=== PATIENT | female | born 1955 | race Caucasian/White ===

== ENCOUNTER 2017-12-20 08:57 | Day surgery (SDC) | payer MEDICAID, SELFPAY ==
[2017-12-20] VITALS (10 sets, daily range): BP systolic 99–154; BP diastolic 69–85; PULSE 65–106; RESP 16–18; TEMP 36.3–37; O2SAT 93–100; BMI 25.0
--- NOTE | 2017-12-20 09:53 | EKG12_ITS ---
Test Reason : PRE OP Blood Pressure : / mmHG Vent. Rate : 059 BPM Atrial Rate : 059 BPM P-R Int : 150 ms QRS Dur : 080 ms QT Int : 438 ms P-R-T Axes : 033 014 000 degrees QTc Int : 433 ms Sinus bradycardia Nonspecific T wave abnormality Abnormal ECG When compared with ECG of 18-AUG-2017 19:53, No significant change was found Confirmed by ELADIA GLOVER ([id number]), editor magazine NICHOLAS SPEARS ([id number]) on 12/22/2017 1:33:22 PM Referred By: Jimbo Moar Confirmed By:ELADIA GLOVER
[2017-12-20 10:12] LABS: Hematocrit 34.1 % (37-47); Mean Corp Hgb Conc 32.3 g/gl (32-36); Mean Corpuscular Hgb 29.8 pg (27.0-32.0); Mean Corpuscular Volume 92.4 fL (81-99); Platelet Count 408 K/mm3 (150-450); RBC Distribution Width CV 15.6 % (11.6-14.6); RBC Distribution Width SD 50.7 fl (35.1-43.9); Red Blood Count 3.69 M/mm3 (4.2-5.4); White Blood Count 11.2 K/mm3 (4.4-11.0)
[2017-12-20 10:13] LABS: Scan Indicated on CBC? Y/N NO
[2017-12-20 10:34] LABS: Anion Gap 8 (5-15); BUN 16 mg/dL (7-18); Calcium,Total 8.7 mg/dL (8.5-10.1); Chloride 107 mmol/L (98-107); Creatinine, Serum 0.73 mg/dL (0.55-1.02); EST Glomerular Filtration Rate 86 mL/min (>60); Est Glom Filt Rate - Afr Amer 104 mL/min (>60); Estimated Creatinine Clearance 67.74 ml/min; Glucose 81 mg/dL (70-110); Potassium 3.8 mmol/L (3.5-5.1); Sodium Level 140 mmol/L (136-145); Thyroid Stim Hormone (TSH) 0.72 uIU/mL (0.358-3.74)
[2017-12-20] MEDS: Cefazolin 2 GM in 0.9% Normal Saline 100 ML IV (13:54)
--- NOTE | 2017-12-20 14:29 | PCM.IMDPSTOP ---
Immediate Post-Op Note Date of Procedure: 12/20/17 Primary Surgeon/Physician: Jimbo Mora, biomedical equipment tech: none Pre-Operative Diagnosis: Right shoulder partial rotator cuff tear, right shoulder type II SLAP lesion and subacromial impingement Post-Operative Diagnosis: Same as above Surgery/Procedure Performed:: Right shoulder partial articular sided cuff debridement, type II SLAP debridement, arthroscopic subacromial decompression Description of Surgical Findings:: See dictation Estimated Blood Loss: 20 Specimen's removed: None Type of Anesthesia:: General ASA Class: ASA1 Normal Healthy Patient - Admit VTE Documentation VTE Present on Admission: No VTE Mechan Device Prophylaxis: SCD's, Knee High ROVERTO Hose VTE Pharm Prophylaxis ordered?: No Reason prophylaxis not ordered:: Treatment Not Indicated
[2017-12-20] MEDS: Bupivacaine 0.25% 30 ML Vial (14:30)
--- NOTE | 2017-12-20 14:30 | PCM.OPRPT ---
Report of Operation Date of Procedure: 12/20/17 Pre-Operative Diagnosis: Right shoulder partial rotator cuff tear, right shoulder type II SLAP lesion and subacromial impingement Post-Operative Diagnosis: Same as above Surgery/Procedure Performed:: Right shoulder partial articular sided cuff debridement, type II SLAP debridement, arthroscopic subacromial decompression Description of Surgical Findings:: 62-year-old female with recalcitrant right shoulder pain that failed nonoperative management to include NSAIDs and modifications physical therapy injections. Patient had an MRI that showed rotator cuff tendinopathy in my opinion a partial articular sided cuff tear and signal change concerning for type II SLAP changes. She had fluid in the subacromial space indicative of subacromial bursitis and impingement. Having failed conservative measures patient elected for operative intervention. Patient was met in the holding area where her right upper extremity was marked and identified by the with surgeon. Patient was taken to the operating room in satisfactory condition with somewhat to place to identify patient up procedure limb. Patient received 2 g Ancef. Patient underwent a successful intubation she was then placed in the beachchair position with all bony and soft tissue prominences protected. Her head was in a fine neutral position. She was then prepped and draped in usual fashion. Arm was placed into a positional arm butterfield. Posterior portal was established and we entered the intra-articular space. Upon identification of the anatomic triangle and anterior inferior working portal was established. Diagnostic scope to the patient have signal change consistent with type II SLAP however the undersurface did not appear to be pathologic but was debrided to a stable rim. The biceps root was otherwise stable. There was no injection upon outlet. There was no medialization with tensioning of the biceps itself. The patient showed partial articular sided rotator cuff tear from the supraspinatus really to the bare area. It measured roughly 4 mm in overall diameter. It was mechanically debrided to a shaver to a stable rim with some mild bleeding which will aid with healing. The posterior central counts were normal she had no loose bodies x-ray pouch posterior inferior posterior superior labrum are normal as was the anterior inferior labrum. Patient showed mild glenoid changes consistent with type II chondromalacia. The humeral head was otherwise normal. The patient did show a Abigail complex change from the 3 o'clock position to the 12 o'clock position which is a normal anatomic variant. Upon completion of the intra-articular work the scope was retracted and removed in the subacromial space. We established a mid lateral portal using standard technique. Patient had moderate subacromial bursitis which was mechanically debrided using a shaver and a bite vapor wand. Patient's CA ligament was was preserved as we performed an arthroscopic subacromial acromioplasty of roughly 4 mm. Evaluation of the rotator cuff point in internal and external rotations of the bursal tablets of completely normal. Her crescent tissue was within normal limits. At that point time the scope was retracted and the portal sites closed with 3-0 nylon. Patient was dressed in usual fashion with Xeroform 4 x 4's ABDs and Medipore tape. She will be placed into a simple sling and follow the arthroscopic subacromial decompression protocol. Patient will follow with me in 2 weeks. There is no drains or complications and no implants. Any major issues please contact. power and recovery superintendent: none Type of Anesthesia:: General Specimen's removed: None Estimated Blood Loss (mL): 20 Grafts/Implants Used: None - Complications None - Admit VTE Documentation VTE Present on Admission: No VTE Mechan Device Prophylaxis: SCD's, Knee High ROVERTO Hose VTE Pharm Prophylaxis ordered?: No Reason prophylaxis not ordered:: Treatment Not Indicated
--- NOTE | 2017-12-20 14:34 | PCM.DC.ORTHO ---
Discharge Activity: Return to Normal Activity, May not drive while taking narcotic pain medications., May Shower, - - Sling for comfort. Active range of motion the shoulder allowed ad nahomy. Recommend limited overhead activity if possible. The patient is brought recommended that she move the shoulder at waist height to prevent stiffness. Call your doctor if your incision/area has: Continuous Slow Oozing, Sudden Increased Bleeding, Increased Pain/ Swelling, Increased Redness, Foul Smelling Discharge, Swelling at the incision site Call your doctor if you observe: Fever of 101 or Higher, Coldness, Increased Pain, Numbness or Tingling, Change in Color, Inability to urinate, Inability to have a bowel movement, Using more than one pad per hour, Shortness of breath, Dizziness, Fainting spells, Swelling in the ankles, Chest pain, Prolonged hiccoughing, Increased palpitations (irregular heartbeat), Calf discomfort, Uncontrolled pain Suture Line Care: Avoid Pulling/Pushing, Avoid Pinching/Bending Change Dressing in (Days):: 2 Remove Dressing in (days):: 2 Additional Dressing/Incision Instructions:: Patient may shower on . Remove dressing. Do not submerge wound. Apply simple Band-Aids as long as there is some drainage. Allergies/Adverse Reactions: Allergies fentanyl Allergy (Verified 12/01/17 11:23) Anaphylaxis codeine Adverse Reaction (Verified 12/01/17 11:23) Unknown Sulfa (Sulfonamide Antibiotics) Adverse Reaction (Verified 12/01/17 11:23) Unknown Medications to take at Discharge Fluoxetine HCl [Prozac] 60 mg PO DAILY 07/10/17 Gabapentin [Neurontin] 900 mg PO TID 07/10/17 Levothyroxine [Synthroid] 50 mcg PO DAILY 07/10/17 Omeprazole 20 mg PO BID 07/10/17 Loratadine 10 mg PO DAILY PRN 07/23/17 ALPRAZolam [Xanax] 0.5 mg PO BID PRN PRN 08/18/17 Aspirin 81 mg PO DAILY 08/18/17 Multivitamin [Multiple Vitamins] 1 tab PO DAILY 08/18/17 Atorvastatin Calcium 80 mg PO DAILY 12/20/17 Docusate Sodium [Colace] 100 mg PO BID PRN PRN #10 cap 12/20/17 Inhaler? 1 puff INHALATION DAILY 12/20/17 Oxycodone HCl/Acetaminophen [Percocet 5/325] 1 - 2 tablet PO Q4H PRN PRN #60 tablet 12/20/17 ProMETHAzine [Phenergan] 25 mg PO Q4H PRN PRN #10 tab 12/20/17 The following prescriptions were given: Oxycodone HCl/Acetaminophen [Percocet 5/325] 1 - 2 tablet PO Q4H PRN PRN #60 tablet PRN Reason: Pain ProMETHAzine [Phenergan] 25 mg PO Q4H PRN PRN #10 tab PRN Reason: Nausea Docusate Sodium [Colace] 100 mg PO BID PRN PRN #10 cap PRN Reason: Constipation Primary Care Physician: Samuel Hernandez MD [Primary Care Provider] - Please Follow Up With: Jimbo Mora DO When: [facility] for an appointment for 2 weeks Proposed Discharge Date: 12/20/17
[2017-12-20] MEDS: oxyCODONE 5 MG Tablet 10 MG PO (16:31)
== END 2017-12-20 16:50 | disposition home or self-care (01) ==
LOC: SDC 08:58 → AC 09:01
PROVIDERS: Anesthesiology; Family Provider Family Medicine; PCP Family Medicine; Visit Provider Orthopaedic Surgery
PROC: (CPT 29826; principal; 2017-12-20 11:10)
DX: M75.101 Unspecified rotator cuff tear or rupture of right shoulder, not specified as traumatic (principal); S43.431A Superior glenoid labrum lesion of right shoulder, initial encounter; X58.XXXA Exposure to other specified factors, initial encounter; Y93.89 Activity, other specified; Y92.9 Unspecified place or not applicable; Y99.9 Unspecified external cause status; M75.41 Impingement syndrome of right shoulder; M75.51 Bursitis of right shoulder; J44.9 Chronic obstructive pulmonary disease, unspecified; Z87.891 Personal history of nicotine dependence; M79.7 Fibromyalgia; K21.9 Gastro-esophageal reflux disease without esophagitis; E78.00 Pure hypercholesterolemia, unspecified; Z85.51 Personal history of malignant neoplasm of bladder
CPT/HCPCS: 01630; 29807; 29822; 36415; 80048; 84443; 85027; 93005; 94640; J7120; J2405

== ENCOUNTER 2018-01-21 18:44 | Inpatient (IN) | payer MEDICAID, SELFPAY ==
[2018-01-21 18:49] VITALS: BP 153/96; PULSE 68; RESP 18; TEMP 36.5; O2SAT 97; BMI 25.0
[2018-01-21] MEDS: 0.9% Normal Saline 1,000 ML 150 ML IV (19:14)
[2018-01-21] MEDS: Ondansetron 4 MG/2 ML Vial IV (19:14)
[2018-01-21 19:29] LABS: Absolute Lymphocyte Count 1.37 X10^3/ul (0.83-4.51); Absolute Neutrophil Count 11.7 X10^3/uL (2.0-7.7); Basophil# 0.01 X10^3/uL; Basophil% 0.1 % (0-1); Eosinophil# 0.08 X10^3/uL; Eosinophils% 0.6 % (0-5); Hematocrit 37.3 % (37-47); Hemoglobin 11.6 g/dl (12.0-15.0); Lymphocyte # 1.37 X10^3/ul (4.0); Lymphocyte % 9.9 % (19-41); Mean Corp Hgb Conc 31.1 g/gl (32-36); Mean Corpuscular Hgb 28.8 pg (27.0-32.0); Mean Corpuscular Volume 92.6 fL (81-99); Mean Platelet Vol. 9.5 fl (6.2-12.0); Monocyte# 0.57 X10^3/uL; Monocyte% 4.1 % (0-10); Neutrophil # 11.71 X10^3/uL (2.7-7.7); Neutrophil % 85.1 % (47-70); POSITIVE COUNT NO; POSITIVE DIFFERENTIAL NO; POSITIVE MORPHOLOGY NO; Platelet Count 337 K/mm3 (150-450); RBC Distribution Width CV 15.1 % (11.6-14.6); RBC Distribution Width SD 51.3 fl (35.1-43.9); Red Blood Count 4.03 M/mm3 (4.2-5.4); White Blood Count 13.8 K/mm3 (4.4-11.0)
--- NOTE | 2018-01-21 19:30 | RAD_ITS ---
STUDY: X-RAY - ACUTE ABDOMINAL SERIES REASON FOR EXAM: Female, 63 years old. SEVERE LOWER ABDOMINAL PAIN, HX OF BLADDER REMOVAL WITH STOMA AND DRAIN TUBE, HAD TUBE GO MISSING LAST JUNE- NEVER FOUND TECHNIQUE: Single view of the chest. Supine, view(s) of the abdomen were obtained. COMPARISON: CT abdomen and pelvis August 28, 2017 FINDINGS: Cardiac monitoring leads are present. The lungs are clear and expanded. Normal size heart. Normal mediastinum and terri. Normal visualized pulmonary arteries. There is atherosclerotic tortuosity of the aortic arch and descending thoracic aorta. There are multiple air-fluid levels on upright imaging within bowel. This appears in both small and large bowel. No defined focal area of obstruction is identified. There is a moderate amount of stool in the distal colon. This could represent gastroenteritis or early bowel obstruction. The soft tissue structures of the abdomen and pelvis are unremarkable. No radiopaque foreign body identified. Degenerative spondylosis with dextroscoliosis noted. RAD/Acute Abdomen Inc Chest IMPRESSION: There are multiple air-fluid levels on upright imaging within bowel. This appears in both small and large bowel. No defined focal area of obstruction is identified. There is a moderate amount of stool in the distal colon. This could represent gastroenteritis or early bowel obstruction. No free air. No acute intrathoracic process. Electronically Signed: Dolores Pino MD at 20:46 EST Tel , Service support ,
[2018-01-21] MEDS: HYDROmorphone 1 MG/ML Syringe 0.5 MG IV (19:59)
[2018-01-21 20:01] VITALS: BP 142/76; PULSE 71; RESP 20; O2SAT 96
[2018-01-21 20:05] LABS: AST(SGOT) 24 U/L (15-37); Alanine Aminotransfer ALT/SGPT 35 U/L (13-56); Albumin, Serum 3.2 g/dL (3.2-5.0); Alkaline Phosphatase 111 U/L (45-117); Anion Gap 7 (5-15); BUN 19 mg/dL (7-18); BUN/Creat Ratio 25.4 RATIO (10-20); Bilirubin, Direct 0.09 mg/dL (0.00-0.30); Calcium,Total 8.6 mg/dL (8.5-10.1); Chloride 111 mmol/L (98-107); Creatinine, Serum 0.75 mg/dL (0.55-1.02); EST Glomerular Filtration Rate 83 mL/min (>60); Est Glom Filt Rate - Afr Amer 100 mL/min (>60); Estimated Creatinine Clearance 65.12 ml/min; Globulin 3.9 g/dL (2.2-4.2); Glucose 92 mg/dL (74-106); Lipase 25793 U/L (73-393); Potassium 3.7 mmol/L (3.5-5.1); Protein, Total 7.1 g/dL (6.4-8.2); Sodium Level 144 mmol/L (136-145)
--- NOTE | 2018-01-21 20:08 | ED.VISSUMM ---
- ER Visit Summary Date of Service: 01/21/18 Chief Complaint: Acute generalized abdominal pain with nausea and vomiting History of Present Illness: The patient is a 63 F presents with acute abdominal pain that started at 1530 associated with nausea and vomiting. She denies diarrhea or constipation. She denies hematemesis, melena hematochezia. Last bowel movement was yesterday. She states she is still passing gas. She is status post cystectomy secondary to bladder cancer. She denies fever, chills or night sweats. She denies weight gain or weight loss. She denies any ocular, visual or auditory symptoms. She denies chest pain or palpitations. She denies cough, shortness of breath, dyspnea on exertion or orthopnea. She denies dysuria, frequency, or hematuria. She has a urostomy. She denies any myalgias, arthralgias or back pain. She denies any rash or skin lesions. She does complain of generalized weakness. She denies headache or paresthesia. She denies bruising easily or problems with bleeding. She denies urticaria or swelling. At 2009 I informed patient and spouse that a CAT scan was ordered because the abdominal x-ray reveals air-fluid levels; however, there is no evidence of dilation or edema to the small bowel wall. I was informed by her that this is been intermittent for more than a couple of weeks and has gotten worse over the last couple days. I also was informed that she was recently seen at [facility]. Physical Examination: Does not appear well. She appears in obvious discomfort. She is in a position on her right side. Blood pressure elevated 153/96. HEENT exam is remarkable dry mucosa. Heart is regular without murmur, gallop or rub. S1 and S2 are normal. Lungs are clear to auscultation with good movement of air bilaterally. Abdomen is soft to firm with guarding and diminished bowel sounds. She is tympanitic to percussion. There is no evidence of umbilical hernia. Urostomy is noted with urine in the urostomy bag. There is no CVA tenderness noted. There is no asymmetry, swelling, discoloration, leg vein distention, palpable cords or tenderness along the distribution of the deep venous system. She is alert oriented with nonfocal neurologic exam Test Results: White count is elevated 13.8 thousand with 85 segs no bands. BMP is remarkable for chloride of 111. Hepatic panel is normal. Lipase is 25,746. Emergency Department Course and Treatment: Was established and patient was medicated with 4 mg of morphine and 4 mg of Zofran. She continued to have pain and was treated with Dilaudid 0.5 mg. On reexam she still had significant abdominal discomfort with elevated white count and the fact that her abdominal series reveals air-fluid levels concerned this may represent an early partial small bowel obstruction. Therefore, a CT of the abdomen with p.o. contrast was ordered. Once I was made aware of the elevated lipase the CT was canceled and hospitalist was paged for admission Treatment Plan: IV fluids, IV opiate analgesia and further inpatient evaluation. Since patient had a CT of the abdomen earlier this week will need to obtain those records from outside facility. Disposition: [facility] floor Impression: 1. Abdominal pain with nausea vomiting secondary to acute pancreatitis 2. Anemia of chronic illness 3. History of bladder cancer status post cystectomy 4. History of COPD 5. History of hypothyroidism This note was generated with [employer] dictation software. It may contain incorrect words, spelling, and punctuation that were not noted in review of the chart prior to signing ED Disposition - Plan for ED Patient: Chief Complaint: Abd Pain Referrals: Osman Alexander DO [Primary Care Provider] -
--- NOTE | 2018-01-21 20:10 | NURSING ---
[place] [id number] RICHARDS. VERBALIZED UNDERSTANDING
[2018-01-21 21:02] VITALS: BP 131/82; PULSE 77; RESP 14; O2SAT 95
[2018-01-21 22:01] VITALS: BP 126/80; PULSE 73; RESP 20; TEMP 36.8; O2SAT 100
--- NOTE | 2018-01-21 22:03 | HP.PCM_ITS ---
Problem List (1) Pancreatitis Status: Acute (2) Abdominal pain Status: Acute (3) History of bladder cancer Status: Acute Comment: 2017 (4) Rotator cuff syndrome of right shoulder Status: Acute (5) Shoulder pain Status: Acute (6) Anxiety Status: Chronic (7) Bladder cancer Status: Chronic (8) Chronic obstructive lung disease Status: Chronic (9) Dementia Status: Chronic (10) Primary fibromyalgia syndrome Status: Chronic History of Present Illness Date of Admission: 01/21/18 Chief Complaint: Pancreatitis The patient is a 63 year old female w/ h/o lipidemia, hypothyroidism, anxiety, COPD, bladder cancer s/p surgery, dementia, and fibromyalgia admitted for pancreatitis. She has been having intermittent abdominal pain for the past few weeks. The frequency and intensity of the pain have increased. Pain is associated wit nausea. Pain is severe and lasted for hours. In the last 1-2 days , she noted that her pain is more constant. It is in the mid abdominal area and radiated to the back. It is dull aching but occasionally sharp. Nothing made it better or worse. Past Medical History Past Medical History (Chronic Problems): Chronic Problems (Last Reviewed 01/04/18 @ 14:03 by Rene Desir) Vaginal discharge (Chronic) Hyperlipemia (Chronic) Hypothyroidism (Chronic) Anxiety (Chronic) Chronic obstructive lung disease (Chronic) Primary fibromyalgia syndrome (Chronic) Dementia (Chronic) Bladder cancer (Chronic) Allergies fentanyl Allergy (Verified 01/21/18 18:46) Anaphylaxis codeine Adverse Reaction (Verified 01/21/18 18:46) Unknown Sulfa (Sulfonamide Antibiotics) Adverse Reaction (Verified 01/21/18 18:46) Unknown Home Medications: Ambulatory Orders Medication Instructions Recorded Fluoxetine HCl [Prozac] 60 mg PO DAILY 07/10/17 Gabapentin [Neurontin] 900 mg PO TID 07/10/17 Levothyroxine [Synthroid] 50 mcg PO DAILY 07/10/17 Omeprazole 20 mg PO BID 07/10/17 Loratadine 10 mg PO DAILY PRN 07/23/17 ALPRAZolam [Xanax] 0.5 mg PO BID PRN PRN 08/18/17 Aspirin 81 mg PO DAILY 08/18/17 Multivitamin [Multiple Vitamins] 1 tab PO DAILY 08/18/17 Atorvastatin Calcium 80 mg PO DAILY 12/20/17 Docusate Sodium [Colace] 100 mg PO BID PRN PRN #10 cap 12/20/17 Oxycodone HCl/Acetaminophen 1 - 2 tab PO Q4H PRN PRN #60 tab 12/20/17 [Percocet 5/325] umeclidinium 62.5 mcg/actuation 1 inh INHALATION Q24H 12/28/17 blister powder for inhalation prednisone 20 mg tablet 30 mg PO QDAY #10 tab 01/13/18 Surgical History: - - urostomy and recent cystectemy and hysterectemy, appendix out, broke left femur, 2 c/s Smoking Status: Never smoker - *Family History Maternal History Items: No pertinent history Paternal History Items: No pertinent history Review of Systems Constitutional: Denies: Chills, Fever, Weight Change HEENT: Denies: Head Aches, Sinus Congestion, Sinus Drainage Cardiovascular: Denies: Chest Pain, Palpitations Respiratory: Denies: Cough, Shortness of breath at rest, Sputum production Gastrointestinal: Reports: Abdominal Pain, Nausea. Denies: Vomiting Genitourinary: Denies: Dysuria Musculoskeletal: Denies: Joint Pain, Joint Tenderness Skin: Denies: Rash, Wounds Neurological: Denies: Numbness, Tingling, Focal weakness Psychiatric: Denies: Anxiety, Depression, Homicidal Ideations, Suicidal Ideations Hematologic/ Lymphatic: Denies: Easy Bruising, Easy Bleeding VTE Information - Inpt Only VTE Present on Admission: No VTE Mechan Device Prophylaxis: SCD's VTE Pharm Prophylaxis ordered?: Yes Patient Problems: Active and Suspected Problems (Last Reviewed 01/04/18 @ 14:03 by Rene Desir) Pancreatitis (Acute) - Physical Exam General: Alert, Oriented x3, Cooperative HEENT: Atraumatic, PERRLA, EOMI, Normocephalic Neck: Supple, No JVD, Negative Carotid Bruits Lungs: Clear to auscultation, Normal air movement Cardiovascular: Regular rate, No murmurs Abdomen: Bowel Sounds Present, Soft, Non Tender Extremities: No edema, Capillary Refill Less than 3 Seconds Skin: No rashes, No breakdown Musculoskeletal: No Tenderness to Palpation of Joints or Extremities Neurological: Cranial nerves II-XII grossly intact Psych/Mental Status: Normal Affect, Appropriate Vital Signs Temp Pulse Resp BP Pulse Ox 97.7 F L 77 14 131/82 H 95 01/21/18 18:49 02/24/18 21:02 01/21/18 21:02 01/21/18 21:02 01/21/18 21:02 Oxygen Delivery Method Room Air Weight: 54.431 kg Body Mass Index (BMI) 25.0 Finger Stick Blood Glucose 132 Laboratory Tests Past 24 Hrs 01/21/18 01/21/18 19:18 19:18 WBC 13.8 H RBC 4.03 L Hgb 11.6 L Hct 37.3 MCV 92.6 MCH 28.8 MCHC 31.1 L RDW 15.1 H RDW Differential 51.3 H Plt Count 337 MPV 9.5 Immature Gran % (Auto) 0.200 Neut % (Auto) 85.1 H Lymph % (Auto) 9.9 L [place] % (Auto) 4.1 Eos % (Auto) 0.6 Baso % (Auto) 0.1 Absolute Neuts (auto) 11.7 H Absolute Lymphs (auto) 1.37 Total Counted Not Reportable Sodium 144 Potassium 3.7 Chloride 111 H Carbon Dioxide 26.0 Anion Gap 7 BUN 19 H Creatinine 0.75 Estim Creat Clear Calc 65.12 Est GFR (MDRD) Af Amer 100 Est GFR (MDRD) Non-Af 83 BUN/Creatinine Ratio 25.4 H Glucose 92 Calcium 8.6 Total Bilirubin 0.30 Direct Bilirubin 0.09 AST 24 ALT 35 Alkaline Phosphatase 111 Total Protein 7.1 Albumin 3.2 Globulin 3.9 Lipase 55612 H Assessment/Plan Active and Suspected Problems (Last Reviewed 01/04/18 @ 14:03 by Rene Desir) Pancreatitis (Acute) 63 year old female w/ h/o lipidemia, hypothyroidism, anxiety, COPD, bladder cancer s/p surgery, dementia, and fibromyalgia admitted for pancreatitis. 1) Pancreatitis: C/w IVF and morphine / dilaudid. Currently no e/o sepsis, ie no tachy, no hypotension. No e/o end-organ damage. Will try to obtain outside records. Will consider contrast-enhanced computed tomography scan to assess the presence of pancreatic or extrapancreatic necrosis and local complications if no improvement or e/o worsening pancreatitis, signs of sepsis, or clinical deterioration 72 hours after initial presentation. 2) Leukocytosis: Most likely secondary to stressors. Cultures pending. Currently no reason to suspect bloodstream infections, pneumonia, or urinary tract infections. Monitor. 3) H/o lipidemia, hypothyroidism, anxiety, COPD, bladder cancer s/p surgery, dementia, and fibromyalgia: Resume outpt meds. 4) Prophylaxis: Heparin / SCD.
[2018-01-21 22:04] VITALS: BMI 25.2
[2018-01-21] MEDS: HYDROmorphone 1 MG/ML Syringe IV (22:37)
[2018-01-21 22:42] VITALS: BMI 25.2
[2018-01-21 23:02] LABS: Cholesterol 200 mg/dL (200); High Density Lipoprotein 40 mg/dL; Triglycerides 278 mg/dL; Very Low Density Lipoprotein 56 mg/dL (5-40)
[2018-01-21 23:11] VITALS: PULSE 77
[2018-01-22] VITALS (8 sets, daily range): BP systolic 106–124; BP diastolic 61–89; PULSE 72–82; RESP 16–18; TEMP 36.8–37.5; O2SAT 92–97
[2018-01-22] MEDS: 0.9% Normal Saline 1,000 ML 150 ML IV ×2 (01:30→08:39)
[2018-01-22] MEDS: Heparin Injection 5,000 UNITS/ML Syringe 5000 UNITS SC ×3 (06:23→21:28)
[2018-01-22 06:53] LABS: Absolute Lymphocyte Count 0.91 X10^3/ul (0.83-4.51); Absolute Neutrophil Count 9.8 X10^3/uL (2.0-7.7); Basophil# 0.01 X10^3/uL; Basophil% 0.1 % (0-1); Eosinophils% 0.9 % (0-5); Hematocrit 34.6 % (37-47); Hemoglobin 10.5 g/dl (12.0-15.0); Lymphocyte # 0.91 X10^3/ul (4.0); Lymphocyte % 7.9 % (19-41); Mean Corp Hgb Conc 30.3 g/gl (32-36); Mean Corpuscular Hgb 28.8 pg (27.0-32.0); Mean Corpuscular Volume 95.1 fL (81-99); Monocyte# 0.64 X10^3/uL; Monocyte% 5.6 % (0-10); Neutrophil # 9.81 X10^3/uL (2.7-7.7); Neutrophil % 85.3 % (47-70); Platelet Count 325 K/mm3 (150-450); RBC Distribution Width CV 15.2 % (11.6-14.6); RBC Distribution Width SD 52.7 fl (35.1-43.9); Red Blood Count 3.64 M/mm3 (4.2-5.4); White Blood Count 11.5 K/mm3 (4.4-11.0)
[2018-01-22 06:54] LABS: POSITIVE COUNT NO; POSITIVE DIFFERENTIAL NO; POSITIVE MORPHOLOGY NO
[2018-01-22 07:08] LABS: Anion Gap 7 (5-15); BUN 16 mg/dL (7-18); BUN/Creat Ratio 28.6 RATIO (10-20); Calcium,Total 7.9 mg/dL (8.5-10.1); Chloride 110 mmol/L (98-107); Creatinine, Serum 0.56 mg/dL (0.55-1.02); EST Glomerular Filtration Rate 116 mL/min (>60); Est Glom Filt Rate - Afr Amer 140 mL/min (>60); Estimated Creatinine Clearance 87.64 ml/min; Glucose 73 mg/dL (74-106); Lipase 3228 U/L (73-393); Potassium 3.8 mmol/L (3.5-5.1); Sodium Level 143 mmol/L (136-145)
--- NOTE | 2018-01-22 08:13 | US_ITS ---
STUDY: ABDOMINAL ULTRASOUND - RIGHT UPPER QUADRANT REASON FOR VISIT: Female, 63 years old. History of pancreatitis. TECHNIQUE: Ultrasound evaluation of the right upper quadrant was performed with real-time and static haley-scale imaging. TECHNICAL QUALITY: Adequate. COMPARISON: None. FINDINGS: Liver: The liver measures 16.0 cm. There is normal echogenicity of the liver. The bile ducts are within normal limits. There is hepatic color flow. The direction of portal flow is hepatopetal. There is no demonstrated mass lesion. Gallbladder: Normal distended gallbladder. The gallbladder wall measures 4.0 mm. There is a negative sonographic Westbrook's sign. There is no pericholecystic fluid. There are no gallstones. Common Bile Duct (C.B.D.): The common bile duct measures 4.0 mm. Pancreas: Normal size of the head, body and tail of the pancreas. There is normal echogenicity of the pancreas. There is no demonstrated pancreatic mass or cyst. Right Kidney: Normal size of the right kidney. The right kidney measures 9.0 cm x 5.0 cm x 4.1 cm. Normal renal cortex. The right cortex measures 1.4 cm. There is no demonstrated renal mass or cyst. There is no right hydronephrosis. US/Abdomen Limited IMPRESSION: Minimally thickened gallbladder wall. Electronically Signed: Antonio Griffin MD at 9:10 EST Tel [phone], Service support ,
--- NOTE | 2018-01-22 08:14 | PCM.CONS.GEN ---
Problem List (1) Pancreatitis Status: Acute Qualifiers: Chronicity: acute Pancreatitis type: unspecified pancreatitis type Acute pancreatitis complication: unspecified Qualified Code(s): K85.90 - Acute pancreatitis without necrosis or infection, unspecified Reason for Consult Date of Consultation: 01/22/18 Reason for Consultation: Pancreatitis History of Present Illness: The patient is a 63 year old F who was admitted yesterday for pancreatitis. She says that she began to have epigastric and right upper quadrant pain yesterday morning. It became severe and radiated to the back. She was having nausea vomiting yesterday. She reported to the emergency room and a lipase was elevated. LFTs are normal. She reports this morning she is having no nausea or vomiting and her abdominal pain is greatly improved. Past Medical History Past Medical History (Chronic Problems): Chronic Problems (Last Reviewed 01/04/18 @ 14:03 by Rene Desir) Vaginal discharge (Chronic) Hyperlipemia (Chronic) Hypothyroidism (Chronic) Anxiety (Chronic) Chronic obstructive lung disease (Chronic) Primary fibromyalgia syndrome (Chronic) Dementia (Chronic) Bladder cancer (Chronic) Allergies fentanyl Allergy (Verified 01/21/18 18:46) Anaphylaxis codeine Adverse Reaction (Verified 01/21/18 18:46) Unknown Sulfa (Sulfonamide Antibiotics) Adverse Reaction (Verified 01/21/18 18:46) Unknown Home Medications: Ambulatory Orders Medication Instructions Recorded Fluoxetine HCl [Prozac] 60 mg PO DAILY 07/10/17 Gabapentin [Neurontin] 900 mg PO TID 07/10/17 Levothyroxine [Synthroid] 50 mcg PO DAILY 07/10/17 Omeprazole 20 mg PO BID 07/10/17 Loratadine 10 mg PO DAILY PRN PRN 07/23/17 ALPRAZolam [Xanax] 0.5 mg PO BID PRN PRN 08/18/17 Multivitamin [Multiple Vitamins] 1 tab PO DAILY 08/18/17 Atorvastatin Calcium 80 mg PO DAILY 12/20/17 Docusate Sodium [Colace] 100 mg PO BID PRN PRN #10 cap 12/20/17 Oxycodone HCl/Acetaminophen 1 - 2 tab PO Q4H PRN PRN #60 tab 12/20/17 [Percocet 5/325] umeclidinium 62.5 mcg/actuation 1 inh INHALATION DAILY PRN PRN 12/28/17 blister powder for inhalation Surgical History: - - urostomy and recent cystectemy and hysterectemy, appendix out, broke left femur, 2 c/s Smoking Status: Former smoker Alcohol: None - *Family History Maternal History Items: No pertinent history Paternal History Items: No pertinent history Review of Systems Constitutional: Denies: Anorexia, Chills, Fever HEENT: Denies: Difficulty Swallowing Cardiovascular: Denies: Chest Pain Respiratory: Denies: Cough, Shortness of Breath Gastrointestinal: Reports: Abdominal Pain - Patient had epigastric pain which is greatly improved. Denies: Diarrhea, Hematochezia, Nausea, Vomiting Genitourinary: Reports: - - Patient has a urostomy bag Patient Problems: Active and Suspected Problems (Last Reviewed 01/04/18 @ 14:03 by Rene Desir) Pancreatitis (Acute) - Physical Exam General: Alert, Oriented x3, Cooperative, No apparent distress HEENT: Atraumatic, PERRLA, EOMI Oral: Moist Mucosa Lungs: Normal air movement Cardiovascular: Regular rate, Regular Rhythm Abdomen: Soft, Non Tender, Non-Distended, - - Patient has urostomy bag with clear urine Extremities: No cyanosis Skin: No rashes Musculoskeletal: No Muscle Wasting Lymphatic: No Cervical, Supraclavicular, or Inguinal Adenopathy Neurological: Cranial nerves II-XII grossly intact Psych/Mental Status: Normal Affect, Appropriate Vital Signs Temp Pulse Resp BP Pulse Ox 98.2 F 79 18 106/61 94 01/22/18 04:00 01/22/18 04:00 01/22/18 04:00 01/22/18 04:00 01/22/18 04:00 Oxygen Delivery Method Room Air Weight: 120 lb 9.486 oz Body Mass Index (BMI) 25.2 Intake and Output for Last 24 Hours 01/20/18 01/21/18 01/22/18 23:59 23:59 23:59 Intake Total 1220 / 1220 Output Total 750 / 750 Balance 470 / 470 Laboratory Tests Past 24 Hrs 01/22/18 01/22/18 05:50 05:50 WBC 11.5 H RBC 3.64 L Hgb 10.5 L Hct 34.6 L MCV 95.1 MCH 28.8 MCHC 30.3 L RDW 15.2 H RDW Differential 52.7 H Plt Count 325 MPV 10.0 Immature Gran % (Auto) 0.200 Neut % (Auto) 85.3 H Lymph % (Auto) 7.9 L [place] % (Auto) 5.6 Eos % (Auto) 0.9 Baso % (Auto) 0.1 Absolute Neuts (auto) 9.8 H Absolute Lymphs (auto) 0.91 Total Counted Not Reportable Sodium 143 Potassium 3.8 Chloride 110 H Carbon Dioxide 26.0 Anion Gap 7 BUN 16 Creatinine 0.56 Estim Creat Clear Calc 87.64 Est GFR (MDRD) Af Amer 140 Est GFR (MDRD) Non-Af 116 BUN/Creatinine Ratio 28.6 H Glucose 73 L Calcium 7.9 L Lipase 3228 H Assessment/Plan Active and Suspected Problems (Last Reviewed 01/04/18 @ 14:03 by Rene Desir) Pancreatitis (Acute) 63-year-old female with pancreatitis 1. The patient's lipase is decreased and her pain is resolving with no nausea or vomiting. I will start her on a clear liquid diet. I will make her n.p.o. after midnight in case surgery is warranted tomorrow. 2. I will order an ultrasound to check for gallstones. If the patient does have gallstones it is likely that this is gallstone pancreatitis and the patient will require a laparoscopic cholecystectomy before discharge to prevent this from occurring again. I explained this to the patient and the patient is in agreement. I discussed laparoscopic cholecystectomy with the patient including the risks benefits and alternatives. I expand the risks including but not limited to bleeding, infection, injury to other organs, injury to bile duct, bowels, liver. I also explained the possibility of injuring bowels because of adhesions from her multiple prior surgeries. 3. Hold heparin tomorrow in case she needs surgery tomorrow afternoon. Okay for home meds. Raymond Moore MD Pager: [facility] [address], [facility] [address] [place] [address] Office:
[2018-01-22] MEDS: Acetaminophen 325 MG Tablet 650 MG PO ×2 (08:47→15:13)
[2018-01-22] MEDS: FLUoxetine 20 MG Capsule 60 MG PO (12:25)
[2018-01-22] MEDS: Gabapentin 600 MG Tablet PO ×3 (12:26→21:28)
[2018-01-22] MEDS: Levothyroxine 50 MCG Tablet PO (12:26)
[2018-01-22] MEDS: Ipratropium 0.5 MG/2.5 ML SOLUTION INHALATION ×2 (13:30→19:00)
[2018-01-22] MEDS: 0.9% Normal Saline 1,000 ML 175 ML IV ×2 (14:20→19:59)
[2018-01-22] MEDS: Ondansetron 4 MG/2 ML Vial IV (15:14)
--- NOTE | 2018-01-22 18:47 | PCM.PROGNOTE ---
Patient Problems: Active and Suspected Problems (Last Updated 01/22/18 @ 08:37 by Samuel Chery DO) Pancreatitis (Acute) Subjective: Seen and examined today, she still having abdominal pain with nausea. Patient was admitted last night for acute pancreatitis, patient states she has never had an episode of it before, she denies any alcohol intake. Patient's had no history of gallstones. Patient's past medical history includes fibromyalgia, history of bladder cancer, and COPD. I asked general surgery to see the patient today for evaluation of the pancreatitis, ultrasound will be performed in the morning and surgery will participate in her care. Patient's lipase was down to 3228 today, white blood cell count is now 11.5. - Physical Exam General: Alert, Oriented x3, Cooperative, Well developed, Well nourished, - - Moderate distress is noted due to abdominal pain HEENT: Atraumatic, PERRLA, EOMI, Normocephalic Oral: Moist Mucosa Neck: Supple, No JVD, No Nuchal Rigidity, Trachea Midline, Thyroid Normal Size and Texture Lungs: Clear to auscultation, Normal air movement, No rhonchi, No wheeze, No rales Cardiovascular: Regular rate, Regular Rhythm, Normal S1, Normal S2, No murmurs, No Ectopic Activity, PMI Normal, No rub noted, No Gallop Abdomen: Bowel Sounds Present, Soft, Tender - There is abdominal tenderness noted to palpation across the mid abdominal area-this is moderate to severe at this time Extremities: No clubbing, No cyanosis, No edema, Capillary Refill Less than 3 Seconds Skin: No rashes, No breakdown Musculoskeletal: No Tenderness to Palpation of Joints or Extremities Neurological: Cranial nerves II-XII grossly intact, Neuro grossly intact, Muscle tone normal, Sensory exam intact to light touch and pain, Coordination normal Psych/Mental Status: Normal Affect, Appropriate, Alert and oriented to time, place, person, mood and affect Vital Signs Temp Pulse Resp BP Pulse Ox 98.4 F 75 16 124/76 H 97 01/22/18 13:37 01/22/18 13:37 01/22/18 13:37 01/22/18 13:37 01/22/18 13:37 Oxygen Delivery Method Room Air Weight: 54.7 kg Body Mass Index (BMI) 25.2 Intake and Output for Last 24 Hours 01/20/18 01/21/1801/22/18 23:59 23:59 23:59 Intake Total 3258 / 3258 Output Total 2200 / 2200 Balance 1058 / 1058 Laboratory Tests Past 24 Hrs 01/22/18 01/22/18 05:50 05:50 WBC 11.5 H RBC 3.64 L Hgb 10.5 L Hct 34.6 L MCV 95.1 MCH 28.8 MCHC 30.3 L RDW 15.2 H RDW Differential 52.7 H Plt Count 325 MPV 10.0 Immature Gran % (Auto) 0.200 Neut % (Auto) 85.3 H Lymph % (Auto) 7.9 L [place] % (Auto) 5.6 Eos % (Auto) 0.9 Baso % (Auto) 0.1 Absolute Neuts (auto) 9.8 H Absolute Lymphs (auto) 0.91 Total Counted Not Reportable Sodium 143 Potassium 3.8 Chloride 110 H Carbon Dioxide 26.0 Anion Gap 7 BUN 16 Creatinine 0.56 Estim Creat Clear Calc 87.64 Est GFR (MDRD) Af Amer 140 Est GFR (MDRD) Non-Af 116 BUN/Creatinine Ratio 28.6 H Glucose 73 L Calcium 7.9 L Lipase 3228 H Assessment/Plan Active and Suspected Problems (Last Updated 01/22/18 @ 08:37 by Samuel Chery DO) Pancreatitis (Acute) 1 acute pancreatitis-etiology unclear at this point, gallbladder disease with stones has to be ruled out, I will continue IV fluids at 175 an hour, patient is getting IV morphine for pain, she will be n.p.o. due to nausea and increased abdominal pain today after she took and clear liquids. Labs will be rechecked tomorrow #2 fibromyalgia-patient takes Neurontin for her fibromyalgia, stated that recently when she underwent bladder surgery in [place] for bladder cancer, her short-term memory loss was blamed on excessive amounts of her taking Neurontin. Her Neurontin dosage was decreased to 2700 mg daily, I have decided to give the patient 600 mg of Neurontin 4 times a day and observe her #3 COPD-under no treatment at this time #4 patient had a past diagnosis of dementia which had been made since she has some short-term memory loss- states that this was not felt to be true because her mental status improved after her Neurontin dosage was recently reduced-this short-term memory loss was blamed on her excessive amount of gabapentin that she was on (3600 mg daily), patient is alert and oriented today and appropriate #5 hyperlipidemia Code Visit Inpatient E&M: 64622 Subs Hosp L2
[2018-01-22] MEDS: Atorvastatin Calcium 80 MG Tablet PO (21:28)
[2018-01-23] VITALS (11 sets, daily range): BP systolic 106–138; BP diastolic 52–85; PULSE 62–111; RESP 14–18; TEMP 36.4–37.3; O2SAT 92–99; BMI 25.2
[2018-01-23] MEDS: 0.9% Normal Saline 1,000 ML 175 ML IV (02:15)
[2018-01-23] MEDS: Acetaminophen 325 MG Tablet 650 MG PO ×2 (02:22→08:20)
[2018-01-23] MEDS: Levothyroxine 50 MCG Tablet PO (05:58)
[2018-01-23 06:20] LABS: Absolute Lymphocyte Count 0.93 X10^3/ul (0.83-4.51); Absolute Neutrophil Count 10.3 X10^3/uL (2.0-7.7); Basophil# 0.01 X10^3/uL; Basophil% 0.1 % (0-1); Eosinophil# 0.07 X10^3/uL; Eosinophils% 0.6 % (0-5); Hematocrit 31.1 % (37-47); Hemoglobin 9.4 g/dl (12.0-15.0); Lymphocyte # 0.93 X10^3/ul (4.0); Lymphocyte % 7.7 % (19-41); Mean Corp Hgb Conc 30.2 g/gl (32-36); Mean Corpuscular Hgb 28.6 pg (27.0-32.0); Mean Corpuscular Volume 94.5 fL (81-99); Mean Platelet Vol. 9.9 fl (6.2-12.0); Monocyte% 5.8 % (0-10); Neutrophil # 10.33 X10^3/uL (2.7-7.7); Neutrophil % 85.6 % (47-70); Platelet Count 283 K/mm3 (150-450); RBC Distribution Width CV 15.2 % (11.6-14.6); RBC Distribution Width SD 51.8 fl (35.1-43.9); Red Blood Count 3.29 M/mm3 (4.2-5.4); White Blood Count 12.1 K/mm3 (4.4-11.0)
[2018-01-23 06:29] LABS: ALB/GLOB Ratio 0.7 RATIO (0.9-2.4); AST(SGOT) 51 U/L (15-37); Alanine Aminotransfer ALT/SGPT 47 U/L (13-56); Albumin, Serum 2.2 g/dL (3.2-5.0); Alkaline Phosphatase 87 U/L (45-117); Anion Gap 8 (5-15); BUN 7 mg/dL (7-18); BUN/Creat Ratio 14.5 RATIO (10-20); Calcium,Total 7.9 mg/dL (8.5-10.1); Chloride 112 mmol/L (98-107); Creatinine, Serum 0.48 mg/dL (0.55-1.02); EST Glomerular Filtration Rate 137 mL/min (>60); Est Glom Filt Rate - Afr Amer 166 mL/min (>60); Estimated Creatinine Clearance 102.25 ml/min; Globulin 3.3 g/dL (2.2-4.2); Glucose 51 mg/dL (74-106); Lipase 232 U/L (73-393); POSITIVE COUNT NO; POSITIVE DIFFERENTIAL NO; POSITIVE MORPHOLOGY NO; Potassium 3.4 mmol/L (3.5-5.1); Protein, Total 5.5 g/dL (6.4-8.2); Sodium Level 141 mmol/L (136-145)
--- NOTE | 2018-01-23 07:22 | PN.SURG_ITS ---
Patient Problems: Active and Suspected Problems (Last Updated 01/22/18 @ 08:37 by Samuel Chery DO) Pancreatitis (Acute) Subjective: No nausea or vomiting. The patient still has a little bit of epigastric pain. - Physical Exam General: Alert, Cooperative HEENT: Atraumatic Neck: No JVD Lungs: Normal air movement Cardiovascular: Regular rate, Regular Rhythm Abdomen: Soft, Non-Distended, No Hepato-splenomegaly Vital Signs Temp Pulse Resp BP Pulse Ox 99 F 85 18 111/62 95 01/23/18 02:16 01/23/18 02:16 01/23/18 02:16 01/23/18 02:16 01/23/18 02:16 Oxygen Delivery Method Room Air Weight: 120 lb 9.486 oz Body Mass Index (BMI) 25.2 Intake and Output for Last 24 Hours 01/21/18 01/22/18 01/23/18 23:59 23:59 23:59 Intake Total 3258 / 3258 2124 / 2124 Output Total 2200 / 2200 1300 / 1300 Balance 1058 / 1058 824 / 824 Laboratory Tests Past 24 Hrs 01/23/18 01/23/18 05:32 05:32 WBC 12.1 H RBC 3.29 L Hgb 9.4 L Hct 31.1 L MCV 94.5 MCH 28.6 MCHC 30.2 L RDW 15.2 H RDW Differential 51.8 H Plt Count 283 MPV 9.9 Immature Gran % (Auto) 0.200 Neut % (Auto) 85.6 H Lymph % (Auto) 7.7 L [place] % (Auto) 5.8 Eos % (Auto) 0.6 Baso % (Auto) 0.1 Absolute Neuts (auto) 10.3 H Absolute Lymphs (auto) 0.93 Total Counted Not Reportable Sodium 141 Potassium 3.4 L Chloride 112 H Carbon Dioxide 21.0 Anion Gap 8 BUN 7 Creatinine 0.48 L Estim Creat Clear Calc 102.25 Est GFR (MDRD) Af Amer 166 Est GFR (MDRD) Non-Af 137 BUN/Creatinine Ratio 14.5 Glucose 51 L Calcium 7.9 L Total Bilirubin 0.40 AST 51 H ALT 47 Alkaline Phosphatase 87 Total Protein 5.5 L Albumin 2.2 L Globulin 3.3 Albumin/Globulin Ratio 0.7 L Lipase 232 Assessment/Plan Active and Suspected Problems (Last Updated 01/22/18 @ 08:37 by Samuel Chery DO) Pancreatitis (Acute) 63-year-old female with acute pancreatitis 1. Patient's pancreatitis seems to be resolving. Lipase has returned to normal. She tolerated clear liquids yesterday. I am awaiting ultrasound to see if she has gallstones. If she does have gallstones this is likely gallstone pancreatitis and I will take her for laparoscopic cholecystectomy this afternoon. 2. N.p.o. with IV fluids today. Hold heparin. Raymond Moore MD Pager: [facility] [address], [facility] [address] [place] [address] Office:
[2018-01-23] MEDS: 0.9% Normal Saline 1,000 ML 100 ML IV (08:20)
[2018-01-23] MEDS: Gabapentin 600 MG Tablet PO ×2 (08:20→22:15)
[2018-01-23] MEDS: ALPRAZolam 0.5 MG Tablet PO (08:21)
[2018-01-23] MEDS: Ondansetron 4 MG/2 ML Vial IV (08:27)
--- NOTE | 2018-01-23 08:44 | PCM.PN.HOSP ---
Patient Problems: Active and Suspected Problems (Last Updated 01/22/18 @ 08:37 by Samuel Chery DO) Pancreatitis (Acute) Subjective: Patient with complaint overnight of mildly increased abdominal distention, notes nausea currently. Recent morphine with pain improved. She notes being anxious about possible OR needs. Discussed pending GB US and if notable planned OR this afternoon. Today she noted moving herself around in bed with onset increased R shoulder pain, acute on chronic with recent R arthroscopic shoulder surgery per Dr. Mora, pending evaluation. She admits to intermittent hot flashes since hysterectomy w/ bladder removal also secondary to bladder CA history, using wash cloth to cool face in the room. Patient denies fevers, chills, emesis, chest pain or dyspnea. Objective: Physical Examination: General: awake, alert, oriented x 3 and cooperative, seated upright in bed, mildly anxious but improved during examination. Skin: normal color, turgor, no icterus, cyanosis. HEENT: AT/NC, EOMI, PERRLA, mildly dry MM. Lungs: CTA bilaterally, moderate effort, moderate decrease BL bases, no rales, ronchi or wheezing. Heart: Regular rate and rhythm; no gallop, rub audible. Abdomen: soft, RUQ TTP, + anne, mildly distended, mildly hyperactive BS. Extremities: no cyanosis, clubbing, or edema. Neurological: patient awake, alert, oriented x 3; cognitive function intact; pupils equally reactive to light and accomodation; cranial nerves II-XII grossly normal, moving all 4 extremities but limited RUE secondary to increased pain, s/p recent arthroscopic surgery, strength otherwise moderately globally decreased secondary to acute presentation. Psychiatric: affect appears mildly anxious, improved during evaluation, no acute evidence of depressive feelings. Vitals/I&O's: Vital Signs Temp Pulse Resp BP Pulse Ox 97.5 F L 80 16 106/63 92 01/23/18 07:35 01/23/18 07:35 01/23/18 07:35 01/23/18 07:35 01/23/18 07:35 Oxygen Delivery Method Room Air Weight: 120 lb 9.486 oz Body Mass Index (BMI) 25.2 Intake and Output for Last 24 Hours 01/21/18 01/22/18 01/23/18 23:59 23:59 23:59 Intake Total 3258 / 3258 2124 / 2124 Output Total 2200 / 2200 1300 / 1300 Balance 1058 / 1058 824 / 824 Laboratory Results 01/23/18 05:32: Sodium 141, Potassium 3.4 L, Chloride 112 H, Carbon Dioxide 21.0, Anion Gap 8, BUN 7, Creatinine 0.48 L, Estim Creat Clear Calc 102.25, Est GFR (MDRD) Af Amer 166, Est GFR (MDRD) Non-Af 137, BUN/Creatinine Ratio 14.5, Glucose 51 L, Calcium 7.9 L, Total Bilirubin 0.40, AST 51 H, ALT 47, Alkaline Phosphatase 87, Total Protein 5.5 L, Albumin 2.2 L, Globulin 3.3, Albumin/Globulin Ratio 0.7 L, Lipase 232 01/23/18 05:32: WBC 12.1 H, RBC 3.29 L, Hgb 9.4 L, Hct 31.1 L, MCV 94.5, MCH 28.6, MCHC 30.2 L, RDW 15.2 H, RDW Differential 51.8 H, Plt Count 283, MPV 9.9, Immature Gran % (Auto) 0.200, Neut % (Auto) 85.6 H, Lymph % (Auto) 7.7 L, [place] % (Auto) 5.8, Eos % (Auto) 0.6, Baso % (Auto) 0.1, Absolute Neuts (auto) 10.3 H, Absolute Lymphs (auto) 0.93, Total Counted Not Reportable Current Medications Acetaminophen (Tylenol) 650 mg PO Q4H PRN PRN PRN Reason: PAIN Last Admin: 01/23/18 08:20 Dose: 650 mg Alprazolam (Xanax) 0.5 mg PO BID PRN PRN PRN Reason: ANXIETY Last Admin: 01/23/18 08:21 Dose: 0.5 mg Atorvastatin Calcium (Lipitor) 80 mg PO QHS [facility] Last Admin: 01/22/18 21:28 Dose: 80 mg Docusate Sodium (Colace) 100 mg PO BID PRN PRN PRN Reason: Constipation Fluoxetine HCl (Prozac) 60 mg PO DAILY [facility] Last Admin: 01/23/18 08:40 Dose: Not Given Gabapentin (Neurontin) 600 mg PO 4X/DAYCM [facility] Last Admin: 01/23/18 08:20 Dose: 600 mg Heparin Sodium (Porcine) () 5,000 units SC Q8 [facility] Last Admin: 01/23/18 05:10 Dose: Not Given Sodium Chloride () 1,000 mls @ 100 mls/hr IV .Q10H [facility] Last Admin: 01/23/18 08:20 Dose: 100 mls/hr Ipratropium [place] (Atrovent) 0.5 mg INHALATION Q6HWA.RT [facility] Last Admin: 01/23/18 07:45 Dose: Not Given Levothyroxine Sodium (Synthroid) 50 mcg PO DAILY@0600 [facility] Last Admin: 01/23/18 05:58 Dose: 50 mcg Magnesium Hydroxide (Milk Of Magnesia) 30 ml PO DAILY PRN PRN PRN Reason: Constipation Morphine Sulfate (Morphine) 6 - 8 mg IV Q4H PRN PRN PRN Reason: SEVERE PAIN (6-10/10) Last Admin: 01/23/18 08:22 Dose: 6 mg Nutritional Formula (Lactose Free) (Ensure Clear) 120 ml PO 4X/DAY [facility] Last Admin: 01/23/18 08:40 Dose: Not Given Ondansetron HCl (Zofran) 4 mg IV Q6H PRN PRN PRN Reason: NAUSEA/VOMITING Last Admin: 01/23/18 08:27 Dose: 4 mg Assessment/Plan Active and Suspected Problems (Last Updated 01/22/18 @ 08:37 by Samuel Chery DO) Pancreatitis (Acute) The patient is a 63 y/o F w/ PMHx: Hypothyroidism, Anxiety and Depression, HLD, Hx Bladder CA, Dementia Unclear Type, Unclear Onset, Unclear Behavioral Disturbance History, Primary Fibromyalgia Syndrome, COPD who presents to the [facility] ED on 01/21/18 with ongoing on intermittent epigastric abdominal pain with associated nausea, dull but occasionally sharp. (1) Acute pancreatitis w/ abdominal pain, N without V: Admission CBC w/ WBC 13.8 w/ L shift, AF, CMP not marked, Lipase 68845. Admitted to [facility], maintain on IVFs, NPO status currently pending GB US for possible OR needs, Famotidine IV, IV/po pain control, trend lipase, CMP. Pending AM RUQ US results, FLP w/ TG 278, VLDL 56 otherwise not marked, denied EtOH consumption risk as etiology for pancreatitis. Surgery consulted, awaiting GB US to ascertain possible OR needs today and possible intraoperative cholangiogram. Lipase trending improved, admission 62724-->3228-->232. (2) Hypokalemia: Admission K+ 2.4, supplementation given, repeat level in AM. (3) R Shoulder Pain, Debility, Acute on Chronic: Recent OR w/ Dr. Mora per patient report, increased discomfort and debility following attempt to raise herself in bed, continue icing currently in place, PRN pain regimen, tylenol PRN, request Dr. Mora evaluation given patient anxiety level to reassure, PT consulted. (4) Hypothyroidism: Continue home synthroid regimen. (5) Hyperlipidemia: Continue home statin regimen. (6) Chronic COPD: Continue Atrovent duonebs, PRN albuterol, HOB, IS parameters. (7) Anxiety and Depression: Maintain on home SSRI, xanax given chronic usage. (8) Chronic Normocytic Anemia: Admission Hgb 11.6, baseline appears 9-10 range, 01/23/18 Hgb 9.4, continued hydration. Encourage continued evaluation outpatient. (9) DVT Prophylaxis: SCDs, heparin w/ hold per Surgery as deemed appropriate given possible OR. Code Visit Inpatient E&M: 09932 Subs Hosp L3
--- NOTE | 2018-01-23 08:52 | PN_ITS ---
Patient Problems: Active and Suspected Problems (Last Updated 01/22/18 @ 08:37 by Samuel Chery DO) Pancreatitis (Acute) Subjective: Patient with complaint overnight of mildly increased abdominal distention, notes nausea currently. Recent morphine with pain improved. She notes being anxious about possible OR needs. Discussed pending GB US and if notable planned OR this afternoon. Today she noted moving herself around in bed with onset increased R shoulder pain, acute on chronic with recent R arthroscopic shoulder surgery per Dr. Mora, pending evaluation. She admits to intermittent hot flashes since hysterectomy w/ bladder removal also secondary to bladder CA history, using wash cloth to cool face in the room. Patient denies fevers, chills, emesis, chest pain or dyspnea. Objective: Physical Examination: General: awake, alert, oriented x 3 and cooperative, seated upright in bed, mildly anxious but improved during examination. Skin: normal color, turgor, no icterus, cyanosis. HEENT: AT/NC, EOMI, PERRLA, mildly dry MM. Lungs: CTA bilaterally, moderate effort, moderate decrease BL bases, no rales, ronchi or wheezing. Heart: Regular rate and rhythm; no gallop, rub audible. Abdomen: soft, RUQ TTP, + anne, mildly distended, mildly hyperactive BS. Extremities: no cyanosis, clubbing, or edema. Neurological: patient awake, alert, oriented x 3; cognitive function intact; pupils equally reactive to light and accomodation; cranial nerves II-XII grossly normal, moving all 4 extremities but limited RUE secondary to increased pain, s/p recent arthroscopic surgery, strength otherwise moderately globally decreased secondary to acute presentation. Psychiatric: affect appears mildly anxious, improved during evaluation, no acute evidence of depressive feelings. Vitals/I&O's: Vital Signs Temp Pulse Resp BP Pulse Ox 97.5 F L 80 16 106/63 92 01/23/18 07:35 01/23/18 07:35 01/23/18 07:35 01/23/18 07:35 01/23/18 07:35 Oxygen Delivery Method Room Air Weight: 120 lb 9.486 oz Body Mass Index (BMI) 25.2 Intake and Output for Last 24 Hours 01/21/18 01/22/18 01/23/18 23:59 23:59 23:59 Intake Total 3258 / 3258 2124 / 2124 Output Total 2200 / 2200 1300 / 1300 Balance 1058 / 1058 824 / 824 Laboratory Results 01/23/18 05:32: Sodium 141, Potassium 3.4 L, Chloride 112 H, Carbon Dioxide 21.0 , Anion Gap 8, BUN 7, Creatinine 0.48 L, Estim Creat Clear Calc 102.25, Est GFR (MDRD) Af Amer 166, Est GFR (MDRD) Non-Af 137, BUN/Creatinine Ratio 14.5, Glucose 51 L, Calcium 7.9 L, Total Bilirubin 0.40, AST 51 H, ALT 47, Alkaline Phosphatase 87, Total Protein 5.5 L, Albumin 2.2 L, Globulin 3.3, Albumin/ Globulin Ratio 0.7 L, Lipase 232 01/23/18 05:32: WBC 12.1 H, RBC 3.29 L, Hgb 9.4 L, Hct 31.1 L, MCV 94.5, MCH 28.6, MCHC 30.2 L, RDW 15.2 H, RDW Differential 51.8 H, Plt Count 283, MPV 9.9, Immature Gran % (Auto) 0.200, Neut % (Auto) 85.6 H, Lymph % (Auto) 7.7 L, [place] % (Auto) 5.8, Eos % (Auto) 0.6, Baso % (Auto) 0.1, Absolute Neuts (auto) 10.3 H , Absolute Lymphs (auto) 0.93, Total Counted Not Reportable Current Medications Acetaminophen (Tylenol) 650 mg PO Q4H PRN PRN PRN Reason: PAIN Last Admin: 01/23/18 08:20 Dose: 650 mg Alprazolam (Xanax) 0.5 mg PO BID PRN PRN PRN Reason: ANXIETY Last Admin: 01/23/18 08:21 Dose: 0.5 mg Atorvastatin Calcium (Lipitor) 80 mg PO QHS [facility] Last Admin: 01/22/18 21:28 Dose: 80 mg Docusate Sodium (Colace) 100 mg PO BID PRN PRN PRN Reason: Constipation Fluoxetine HCl (Prozac) 60 mg PO DAILY [facility] Last Admin: 01/23/18 08:40 Dose: Not Given Gabapentin (Neurontin) 600 mg PO 4X/DAYCM [facility] Last Admin: 01/23/18 08:20 Dose: 600 mg Heparin Sodium (Porcine) () 5,000 units SC Q8 [facility] Last Admin: 01/23/18 05:10 Dose: Not Given Sodium Chloride () 1,000 mls @ 100 mls/hr IV .Q10H [facility] Last Admin: 01/23/18 08:20 Dose: 100 mls/hr Ipratropium [place] (Atrovent) 0.5 mg INHALATION Q6HWA.RT [facility] Last Admin: 01/23/18 07:45 Dose: Not Given Levothyroxine Sodium (Synthroid) 50 mcg PO DAILY@0600 [facility] Last Admin: 01/23/18 05:58 Dose: 50 mcg Magnesium Hydroxide (Milk Of Magnesia) 30 ml PO DAILY PRN PRN PRN Reason: Constipation Morphine Sulfate (Morphine) 6 - 8 mg IV Q4H PRN PRN PRN Reason: SEVERE PAIN (6-10/10) Last Admin: 01/23/18 08:22 Dose: 6 mg Nutritional Formula (Lactose Free) (Ensure Clear) 120 ml PO 4X/DAY [facility] Last Admin: 01/23/18 08:40 Dose: Not Given Ondansetron HCl (Zofran) 4 mg IV Q6H PRN PRN PRN Reason: NAUSEA/VOMITING Last Admin: 01/23/18 08:27 Dose: 4 mg Assessment/Plan Active and Suspected Problems (Last Updated 01/22/18 @ 08:37 by Samuel Chery DO) Pancreatitis (Acute) The patient is a 63 y/o F w/ PMHx: Hypothyroidism, Anxiety and Depression, HLD, Hx Bladder CA, Dementia Unclear Type, Unclear Onset, Unclear Behavioral Disturbance History, Primary Fibromyalgia Syndrome, COPD who presents to the [facility] ED on 01/21/18 with ongoing on intermittent epigastric abdominal pain with associated nausea, dull but occasionally sharp. (1) Acute pancreatitis w/ abdominal pain, N without V: Admission CBC w/ WBC 13.8 w/ L shift, AF, CMP not marked, Lipase 51102. Admitted to [facility], maintain on IVFs, NPO status currently pending GB US for possible OR needs, Famotidine IV, IV/po pain control, trend lipase, CMP. Pending AM RUQ US results, FLP w/ TG 278 , VLDL 56 otherwise not marked, denied EtOH consumption risk as etiology for pancreatitis. Surgery consulted, awaiting GB US to ascertain possible OR needs today and possible intraoperative cholangiogram. Lipase trending improved, admission 09357-->3228-->232. (2) Hypokalemia: Admission K+ 2.4, supplementation given, repeat level in AM. (3) R Shoulder Pain, Debility, Acute on Chronic: Recent OR w/ Dr. Mora per patient report, increased discomfort and debility following attempt to raise herself in bed, continue icing currently in place, PRN pain regimen, tylenol PRN , request Dr. Mora evaluation given patient anxiety level to reassure, PT consulted. (4) Hypothyroidism: Continue home synthroid regimen. (5) Hyperlipidemia: Continue home statin regimen. (6) Chronic COPD: Continue Atrovent duonebs, PRN albuterol, HOB, IS parameters. (7) Anxiety and Depression: Maintain on home SSRI, xanax given chronic usage. (8) Chronic Normocytic Anemia: Admission Hgb 11.6, baseline appears 9-10 range, 01/23/18 Hgb 9.4, continued hydration. Encourage continued evaluation outpatient. (9) DVT Prophylaxis: SCDs, heparin w/ hold per Surgery as deemed appropriate given possible OR. Code Visit Inpatient E&M: 07212 Subs Hosp L3
--- NOTE | 2018-01-23 09:40 | GALL_PTH ---
PATIENT: NICCI CARRENO LOC: MS3 U#:[id number] AGE/SX: 63/F ROOM: [facility] RE01/21/[address]: Dr. Hoda Schofield MD : [id number] BED: 1 DIS: 01/24/2018 SPEC #: [id number] RECD: 01/24/18 08:39 STATUS: PHILIP RETiti #: [id number] MATA: 01/23/18 09:[address]: Raymond Moore DEPT: SURGICAL PATHOLOGY RECD BY: Nishant Marques ENTERED: 01/24/18 12:11 SP TYPE: GALLBLADDE PEYTON DR: MD Dr. Isaías Dinero MD Dr. Robert Lindsay, Tissues: Gallbladder, NOS Procedures: Surgery Specimen Level III Comments: @ Ordering doctor for SUIII edited from to @ by ALIDA at 01/24/18 1354 @ Submitting doctor edited from to @ by RGOOD at 01/24/18 1354 HEADER OPERATION: Laparoscopic cholecystectomy with IOC PRE-OP DIAGNOSIS: Acute cholecystitis TISSUE SUBMITTED: Gallbladder and contents MICROSCOPIC DIAGNOSIS Gallbladder and contents: Chronic cholecystitis. No stones are identified in the container or in the gallbladder. IZA:raghu 01/25/18 MICROSCOPIC DESCRIPTION Slides are reviewed. GROSS DESCRIPTION Received is one container labeled with the patient's name and designated gallbladder and contents. The specimen consists of a gallbladder measuring 7.5 cm in length and up to 3 cm in diameter. The external surface is pink-maldonado, smooth and glistening for the most part. Focally it is granular, hemorrhagic and contains cautery artifact. The gallbladder contains green-yellow mucoid bile and sludge material. No stones are identified in the container or in the gallbladder. The mucosa is bile-stained and without any mass lesions. The gallbladder wall measures up to 0.3 cm in thickness. Focal increased subserosal fat is noted. Manufacturing Project Manager sections from the gallbladder and the cystic duct are submitted in one cassette. / IZA:raghu 01/24/18 TC:3 CPT: 15288
[2018-01-23] MEDS: Piperacil/Tazobactam 3.375 GM/50 ML ML IV ×2 (09:55→19:02)
--- NOTE | 2018-01-23 10:08 | RAD_ITS ---
STUDY: X-RAY CHEST REASON FOR EXAM: Female, 63 years old. Preoperative evaluation. TECHNIQUE: Single AP portable view of the chest. COMPARISON: Comparison is made with prior study dated August 18, 2017. FINDINGS: There is evidence of increased markings at the left lung base suggestive of left basilar atelectasis and/or early infiltrate. There is blunting of left costophrenic angle. Mild atelectatic changes are seen at the right lung base. Normal size heart. Normal mediastinum and terri. Normal visualized pulmonary arteries. There is atherosclerotic tortuosity of the aortic arch and descending thoracic aorta. Normal visualized thoracic spine. Normal visualized ribs, clavicles, and shoulders. There is no demonstrated abnormality of the visualized soft tissue structures of the upper abdomen. RAD/Chest 1 View (Portable) IMPRESSION: Mild increased markings at the left lung base suggests a left basilar atelectasis with blunting of left costophrenic angle. Mild right basilar atelectasis. Electronically Signed: Antonio Griffin MD at 11:10 EST Tel [phone], Service support ,
--- NOTE | 2018-01-23 10:09 | EKG12_ITS ---
Test Reason : PRE-OP Blood Pressure : / mmHG Vent. Rate : 063 BPM Atrial Rate : 063 BPM P-R Int : 162 ms QRS Dur : 090 ms QT Int : 422 ms P-R-T Axes : 041 013 005 degrees QTc Int : 431 ms Normal sinus rhythm T wave abnormality, consider anterior ischemia Abnormal ECG When compared with ECG of 20-DEC-2017 10:08, No significant change was found Confirmed by MAUREEN CARRASCO, DIMITRIOS ([id number]), video effects editor NICHOLAS SPEARS ([id number]) on 02/03/2018 3:26:08 PM Referred By: SHKAILA ANAYA Confirmed By:DIMITRIOS REDDY MD
--- NOTE | 2018-01-23 10:16 | PCM.PN.BLA ---
Progress Note The patient had an ultrasound done this morning of the right upper quadrant. This shows a thickened gallbladder with no stones. Given the fact that she has leukocytosis and right upper quadrant pain I believe she does have acute cholecystitis. I would still recommend proceeding with laparoscopic cholecystectomy this afternoon. I have asked the primary team to start antibiotics immediately. The patient continues to be n.p.o. with heparin held. I discussed surgery again with the patient including the risks of bleeding, infection, bowel injury, and injury to surrounding organs such as the liver, bile duct, bowels. The patient understands the risks and is willing to proceed with surgery. Raymond Moore MD Pager: [facility] [address], [address] [address] Office:
[2018-01-23 10:48] LABS: Thyroid Stim Hormone (TSH) 0.31 uIU/mL (0.358-3.74)
[2018-01-23 11:20] LABS: T4 Free Direct 0.95 ng/dL (0.76-1.46)
--- NOTE | 2018-01-23 11:34 | CASEMGMT ---
RN MARLENE Face to Face with patient for initial transition planning/care coordination assessment. RN CM introduced self and role at [facility]. Patient lying in bed, alert and oriented. Patient willing to participate in assessment and is able to answer all questions appropriately. Care providers, pharmacy, and demographics verified. See link attached. Patient wishes to discharge home, denies need for home health at this time. Patient states she has no further needs or concerns at this time. CM to follow for discharge planning needs that may arise. Disposition Plan: Patient to discharge home with family support and follow-up plans in place.
--- NOTE | 2018-01-23 15:05 | NURSING ---
pt left floor for surgery. report called.
--- NOTE | 2018-01-23 15:12 | CHAPLAIN ---
Type of Pastoral Visit _x__ Initial Visit ___ Follow-up Visit ___ On-call Visit ___ General Patient Visit ___ Spiritual Assessment ___ Family Conference ___ Bereavement ___ Rapid Response ___ Code Blue ___ Other (describe below) Pastoral Care Referral From _x__ Patient ___ Family ___ Nurse ___ Physician ___ Weekday Babysitter ___ Reimbursement Spec ___ Other (describe below) Sacrament/Intervention _x__ Active listening ___ Anointing ___ Buddhism ___ Bereavement ___ Communion _x__ Yahaira exploration ___ _x__ Life review _x__ Prayer ___ Reconciliation ___ Sacrament of Sick _x__ Supportive presence ___ Wedding ___ Other (describe below) Pastoral Comments pre surgery time; patient was very talkative and gave life stories and asked questions about yahaira; pt says that she is a spiritualist but was raised in a [employer] home; pt expressed appreciation for time and effort given to her and her questions;
--- NOTE | 2018-01-23 16:01 | RAD_ITS ---
STUDY: INTRAOPERATIVE CHOLANGIOGRAM. REASON FOR EXAM: Female, 63 years old. Laparoscopic cholecystectomy. FLUOROSCOPY TIME (if supplied): (13.1 seconds) minutes/seconds TECHNIQUE: An intraoperative cholangiogram was performed to the surgeon. Imaging was submitted. COMPARISON: None. FINDINGS: The intrahepatic biliary ducts are unremarkable. The common bile duct is unremarkable as well. No intraluminal filling defects are seen. RAD/Cholangiogram/ O R,Initial IMPRESSION: Normal intraoperative cholangiogram. Electronically Signed: Antonio Griffin MD at 13:17 EST Tel [phone], Service support ,
[2018-01-23] MEDS: Bupiv/Epi 0.5% Mpf 30 ML Vial (16:14)
--- NOTE | 2018-01-23 16:22 | PCM.OPRPT ---
Problem List (1) Pancreatitis Status: Acute Qualifiers: Chronicity: acute Pancreatitis type: unspecified pancreatitis type Acute pancreatitis complication: unspecified Qualified Code(s): K85.90 - Acute pancreatitis without necrosis or infection, unspecified (2) Acute cholecystitis Status: Acute Report of Operation Date of Procedure: 01/23/18 Pre-Operative Diagnosis: Gallstone pancreatitis and acute cholecystitis Post-Operative Diagnosis: Same Surgery/Procedure Performed:: Laparoscopic cholecystectomy with cholangiogram Description of Surgical Findings:: The patient did have inflammation of the gallbladder. Intraoperative cholangiograms did not appear to show any distal common bile duct obstruction or filling defects. Specimen's removed: Gallbladder and contents Estimated Blood Loss (mL): Minimal Description of Procedure: After obtaining informed consent patient was brought back to the operating room. General anesthesia was induced. The abdomen was prepped and draped in usual sterile fashion. The patient's urostomy was prepped out. An incision was made in the right upper quadrant and a 5 mm port over a 5 mm camera was placed in the Visiport technique. The abdomen was inflated to 15 mmHg. Next a camera was introduced into the abdomen and the abdomen was inspected. The urostomy was identified as well as some adhesions in the midline. A midline incision was made superior to the adhesions and a 10 mm port was placed through this. Next the camera was switched to a [address] through the midline incision. Under direct visualization a subxiphoid 5 mm port was placed as well as an additional right upper quadrant 5 mm port. The gallbladder appeared inflamed and very distended. It was grasped at the dome and a draining catheter was placed into it and it was drained of all this contents with suction. It was then grasped at the and elevated toward the right shoulder. The peritoneum was stripped from the gallbladder. The infundibulum was located and retracted laterally. Next the triangle of Calot was dissected and the cystic duct and cystic artery were identified. Cholangiograms were performed. The Glez catheter was used to clamp across the infundibulum and the needle was inserted into the gallbladder. Under fluoroscopy contrast was instilled into the gallbladder and the common duct, cystic duct as well as proximal hepatic ducts were identified. There was good filling of the duodenum. There were no filling defects noted in the common bile duct. The clamp was removed as well as the needle and the infundibulum was grasped once more. Three hemolock clips were placed across the cystic duct. The cystic duct was then divided leaving 2 clips on the stump. The cystic artery was clipped and divided in the same fashion. The hook cautery was then used to take the gallbladder off of the gallbladder bed. Hemostasis was obtained. Gallbladder fossa was irrigated and no active bleeding or bile leakage was noted. Next the camera switched to a 5 mm camera and introduced in the subxiphoid port. An Endopouch bag was placed through the lower midline port and the gallbladder was placed into it. The gallbladder was then removed through the lower midline incision. The camera was then reinserted through the lower midline port. The gallbladder fossa was inspected once more and noted to be hemostatic with no leaking bile. The abdomen was suctioned dry the 5 mm ports were removed under direct visualization. The lower midline port was then removed and the air was removed from the abdomen. Next using an 0 Vicryl suture the midline fascia was closed in a [id number] fashion. The umbilical port site was irrigated local anesthetic was administered to all the incisions. All the incisions were closed subcuticular 4-0 Monocryl sutures followed by Steri-Strips and dressings. The patient was awoken and taken to PACU in stable condition.
[2018-01-23] MEDS: Atorvastatin Calcium 80 MG Tablet PO (22:15)
[2018-01-24] MEDS: 0.9% Normal Saline 1,000 ML 100 ML IV (00:26)
[2018-01-24 05:30] VITALS: BP 128/88; PULSE 66; RESP 16; TEMP 36.8; O2SAT 94
[2018-01-24] MEDS: Levothyroxine 50 MCG Tablet PO (05:36)
[2018-01-24] MEDS: Ondansetron 4 MG/2 ML Vial IV (05:49)
[2018-01-24 06:22] LABS: Absolute Lymphocyte Count 0.79 X10^3/ul (0.83-4.51); Absolute Neutrophil Count 16.2 X10^3/uL (2.0-7.7); Basophil# 0.01 X10^3/uL; Basophil% 0.1 % (0-1); Hematocrit 32.5 % (37-47); Hemoglobin 10.1 g/dl (12.0-15.0); Lymphocyte # 0.79 X10^3/ul (4.0); Lymphocyte % 4.5 % (19-41); Mean Corp Hgb Conc 31.1 g/gl (32-36); Mean Corpuscular Hgb 28.6 pg (27.0-32.0); Mean Corpuscular Volume 92.1 fL (81-99); Monocyte# 0.54 X10^3/uL; Monocyte% 3.1 % (0-10); Neutrophil # 16.15 X10^3/uL (2.7-7.7); Neutrophil % 92.1 % (47-70); Platelet Count 316 K/mm3 (150-450); RBC Distribution Width SD 50.7 fl (35.1-43.9); Red Blood Count 3.53 M/mm3 (4.2-5.4); White Blood Count 17.5 K/mm3 (4.4-11.0)
[2018-01-24 06:23] LABS: POSITIVE COUNT NO; POSITIVE DIFFERENTIAL NO; POSITIVE MORPHOLOGY NO
[2018-01-24 06:45] LABS: ALB/GLOB Ratio 0.6 RATIO (0.9-2.4); AST(SGOT) 67 U/L (15-37); Alanine Aminotransfer ALT/SGPT 64 U/L (13-56); Albumin, Serum 2.4 g/dL (3.2-5.0); Alkaline Phosphatase 103 U/L (45-117); Anion Gap 7 (5-15); BUN 6 mg/dL (7-18); Calcium,Total 8.7 mg/dL (8.5-10.1); Chloride 110 mmol/L (98-107); EST Glomerular Filtration Rate 132 mL/min (>60); Est Glom Filt Rate - Afr Amer 159 mL/min (>60); Estimated Creatinine Clearance 98.16 ml/min; Globulin 4.1 g/dL (2.2-4.2); Glucose 83 mg/dL (74-106); Lipase 77 U/L (73-393); Potassium 3.9 mmol/L (3.5-5.1); Protein, Total 6.5 g/dL (6.4-8.2); Sodium Level 142 mmol/L (136-145)
[2018-01-24] MEDS: Ipratropium 0.5 MG/2.5 ML SOLUTION INHALATION (06:52)
[2018-01-24 07:00] VITALS: PULSE 82; RESP 20
--- NOTE | 2018-01-24 07:07 | PN.SURG_ITS ---
Patient Problems: Active and Suspected Problems (Last Updated 01/22/18 @ 08:37 by Samuel Chery DO) Pancreatitis (Acute) Acute cholecystitis (Acute) Subjective: Patient reports some abdominal discomfort in her lower abdomen. The pain that was there yesterday is gone. She has no nausea or vomiting this morning. - Physical Exam General: Alert, Oriented x3, Cooperative HEENT: Atraumatic, PERRLA, EOMI Oral: Moist Mucosa Lungs: Normal air movement Cardiovascular: Regular rate, Regular Rhythm Abdomen: Soft, Non-Distended, Tender - She does have some normal postoperative tenderness. Her incisions are clean dry and intact. Vital Signs Temp Pulse Resp BP Pulse Ox 98.3 F 66 16 128/88 H 94 01/24/18 05:30 01/24/18 05:30 01/24/18 05:30 01/24/18 05:30 01/24/18 05:30 Oxygen Flow Rate 2 Oxygen Delivery Method Room Air Weight: 120 lb 9.486 oz Body Mass Index (BMI) 25.2 Intake and Output for Last 24 Hours 01/22/18 01/23/18 01/24/18 23:59 23:59 23:59 Intake Total 3258 / 3258 3594 / 3594 1383 / 1383 Output Total 2200 / 2200 3850 / 3850 1350 / 1350 Balance 1058 / 1058 -256 / -256 Laboratory Tests Past 24 Hrs 01/23/18 01/23/18 01/24/18 05:32 05:32 05:25 WBC 17.5 H RBC 3.53 L Hgb 10.1 L Hct 32.5 L MCV 92.1 MCH 28.6 MCHC 31.1 L RDW 15.0 H RDW Differential 50.7 H Plt Count 316 MPV 10.0 Immature Gran % (Auto) 0.200 Neut % (Auto) 92.1 H Lymph % (Auto) 4.5 L [place] % (Auto) 3.1 Eos % (Auto) 0.0 Baso % (Auto) 0.1 Absolute Neuts (auto) 16.2 H Absolute Lymphs (auto) 0.79 L Total Counted Not Reportable Sodium Potassium Chloride Carbon Dioxide Anion Gap BUN Creatinine Estim Creat Clear Calc Est GFR (MDRD) Af Amer Est GFR (MDRD) Non-Af BUN/Creatinine Ratio Glucose Calcium Total Bilirubin AST ALT Alkaline Phosphatase Total Protein Albumin Globulin Albumin/Globulin Ratio Lipase TSH 0.31 L Free T4 0.95 01/24/18 05:25 WBC RBC Hgb Hct MCV MCH MCHC RDW RDW Differential Plt Count MPV Immature Gran % (Auto) Neut % (Auto) Lymph % (Auto) [place] % (Auto) Eos % (Auto) Baso % (Auto) Absolute Neuts (auto) Absolute Lymphs (auto) Total Counted Sodium 142 Potassium 3.9 Chloride 110 H Carbon Dioxide 25.0 Anion Gap 7 BUN 6 L Creatinine 0.50 L Estim Creat Clear Calc 98.16 Est GFR (MDRD) Af Amer 159 Est GFR (MDRD) Non-Af 132 BUN/Creatinine Ratio 12.0 Glucose 83 Calcium 8.7 Total Bilirubin 0.50 AST 67 H ALT 64 H Alkaline Phosphatase 103 Total Protein 6.5 Albumin 2.4 L Globulin 4.1 Albumin/Globulin Ratio 0.6 L Lipase 77 TSH Free T4 Assessment/Plan Active and Suspected Problems (Last Updated 01/22/18 @ 08:37 by Samuel Chery DO) Pancreatitis (Acute) Acute cholecystitis (Acute) 63-year-old female with acute cholecystitis and acute pancreatitis 1. The patient has not required any oral pain medication since surgery. She did have inflamed gallbladder and acute cholecystitis. She can advance diet as tolerated. She does have a white count that has gone up to 17 today but I believe this is postoperative. If she tolerates a diet and is still feeling well later today I am okay with her going home. Possibly rechecking a white count this afternoon to make sure that it is going downward. Raymond Moore MD Pager: [facility] [address], [address] [place] [address] Office:
--- NOTE | 2018-01-24 07:07 | PCM.DC.GB ---
Discharge Diet: Light diet - advance as tolerated Discharge Activity: Return to Normal Activity, May Not Drive - for 2-3 days or while taking narcotic pain medicataions., - - Do not drive, work heavy equipment or sign legal documents for 24 hours. May shower in (days): 1 - with the bandage in place. Additional Activity Instructions:: Pain medication may cause nausea. You should typically eat light foods as you take your pain medications. Pain medication may also cause constipation. If this is a problem for you, please discuss with your doctor. Call your doctor if your incision/area has: Continuous Slow Oozing, Sudden Increased Bleeding, Increased Pain/ Swelling, Increased Redness, Foul Smelling Discharge, Fever of 101 or Higher Call your doctor if you observe: Fever of 101 or Higher Suture Line Care: Avoid Pulling/Pushing, Avoid Pinching/Bending Additional Dressing/Incision Instructions:: Leave operative bandaids on for 2 days. When you remove dressing, leave Steri-Strips on until your follow-up appointment, or until the Steri-Strips fall off on their own. Allergies/Adverse Reactions: Allergies fentanyl Allergy (Verified 01/21/18 18:46) Anaphylaxis codeine Adverse Reaction (Verified 01/21/18 18:46) Unknown Sulfa (Sulfonamide Antibiotics) Adverse Reaction (Verified 01/21/18 18:46) Unknown Medications to take at Discharge Fluoxetine HCl [Prozac] 60 mg PO DAILY 07/10/17 Gabapentin [Neurontin] 900 mg PO TID 07/10/17 Levothyroxine [Synthroid] 50 mcg PO DAILY 07/10/17 Omeprazole 20 mg PO BID 07/10/17 Loratadine 10 mg PO DAILY PRN PRN 07/23/17 ALPRAZolam [Xanax] 0.5 mg PO BID PRN PRN 08/18/17 Multivitamin [Multiple Vitamins] 1 tab PO DAILY 08/18/17 Atorvastatin Calcium 80 mg PO DAILY 12/20/17 Docusate Sodium [Colace] 100 mg PO BID PRN PRN #10 cap 12/20/17 Oxycodone HCl/Acetaminophen [Percocet 5/325] 1 - 2 tab PO Q4H PRN PRN #60 tab 12/20/17 umeclidinium 62.5 mcg/actuation blister powder for inhalation 1 inh INHALATION DAILY PRN PRN 12/28/17 Primary Care Physician: Osman Alexander DO [Primary Care Provider] - Please Follow Up With: Raymond Moore MD When: call tomorrow to make 2 week follow up appt [phone]
[2018-01-24 07:29] VITALS: O2SAT 96
--- NOTE | 2018-01-24 07:45 | PCM.PN.HOSP ---
Patient Problems: Active and Suspected Problems (Last Updated 01/22/18 @ 08:37 by Samuel Chery DO) Pancreatitis (Acute) Acute cholecystitis (Acute) Subjective: Patient notes improvement in discomfort to the right upper quadrant status post cholecystectomy now with no nausea or emesis overnight. She has transitioned years which was tolerated this morning and diet has not been advanced to regular per surgery clearance for discharge once tolerating per surgery discretion. Patient moving right upper extremity without further issue, which from day prior. Patient does feel bloated and still has general discomfort but improved RUQ pain as noted. Patient denies fevers, chills, nausea, emesis, chest pain or dyspnea. Objective: General: awake, alert, oriented x 3 and cooperative, seated upright in bed, NAD. Skin: normal color, turgor, no icterus, cyanosis, s/p lap eileen, incisions C/D/I. HEENT: AT/NC, EOMI, PERRLA, improved MMM. Lungs: CTA bilaterally, moderate effort, moderate decrease BL bases, no rales, ronchi or wheezing. Heart: Regular rate and rhythm; no gallop, rub audible. Abdomen: soft, improved abdominal exam, resolved prior severe RUQ pain, mild generalized diffuse TTP given recent OR, mildly distended, hyperactive BS, urostomy bag in place. Extremities: no cyanosis, clubbing, or edema. Neurological: patient awake, alert, oriented x 3; cognitive function intact; pupils equally reactive to light and accomodation; cranial nerves II-XII grossly normal, moving all 4 extremities, improved RUE movement, strength improving, mildly to moderately globally decreased secondary to acute presentation. Psychiatric: affect appears normal, no acute evidence of depressive feelings. Vitals/I&O's: Vital Signs Temp Pulse Resp BP Pulse Ox 98.3 F 82 20 H 128/88 H 96 01/24/18 05:30 01/24/18 07:00 01/24/18 07:00 01/24/18 05:30 01/24/18 07:29 Oxygen Flow Rate 2 Oxygen Delivery Method Room Air Weight: 120 lb 9.486 oz Body Mass Index (BMI) 25.2 Intake and Output for Last 24 Hours 01/22/18 01/23/18 01/24/18 23:59 23:59 23:59 Intake Total 3258 / 3258 3594 / 3594 1383 / 1383 Output Total 2200 / 2200 3850 / 3850 1350 / 1350 Balance 1058 / 1058 -256 / -256 / Laboratory Results 01/23/18 05:32: TSH 0.31 L 01/23/18 05:32: Free T4 0.95 01/24/18 05:25: WBC 17.5 H, RBC 3.53 L, Hgb 10.1 L, Hct 32.5 L, MCV 92.1, MCH 28.6, MCHC 31.1 L, RDW 15.0 H, RDW Differential 50.7 H, Plt Count 316, MPV 10.0, Immature Gran % (Auto) 0.200, Neut % (Auto) 92.1 H, Lymph % (Auto) 4.5 L, [place] % (Auto) 3.1, Eos % (Auto) 0.0, Baso % (Auto) 0.1, Absolute Neuts (auto) 16.2 H, Absolute Lymphs (auto) 0.79 L, Total Counted Not Reportable 01/24/18 05:25: Sodium 142, Potassium 3.9, Chloride 110 H, Carbon Dioxide 25.0, Anion Gap 7, BUN 6 L, Creatinine 0.50 L, Estim Creat Clear Calc 98.16, Est GFR (MDRD) Af Amer 159, Est GFR (MDRD) Non-Af 132, BUN/Creatinine Ratio 12.0, Glucose 83, Calcium 8.7, Total Bilirubin 0.50, AST 67 H, ALT 64 H, Alkaline Phosphatase 103, Total Protein 6.5, Albumin 2.4 L, Globulin 4.1, Albumin/Globulin Ratio 0.6 L, Lipase 77 Current Medications Acetaminophen (Tylenol) 650 mg PO Q4H PRN PRN PRN Reason: PAIN Last Admin: 01/23/18 08:20 Dose: 650 mg Albuterol Sulfate (Ventolin Aerosols) 2.5 mg INHALATION Q2H PRN PRN PRN Reason: dyspnea, wheezing Alprazolam (Xanax) 0.5 mg PO BID PRN PRN PRN Reason: ANXIETY Last Admin: 01/23/18 08:21 Dose: 0.5 mg Atorvastatin Calcium (Lipitor) 80 mg PO QHS [facility] Last Admin: 01/23/18 22:15 Dose: 80 mg Docusate Sodium (Colace) 100 mg PO BID PRN PRN PRN Reason: Constipation Fluoxetine HCl (Prozac) 60 mg PO DAILY [facility] Last Admin: 01/23/18 08:40 Dose: Not Given Gabapentin (Neurontin) 600 mg PO 4X/DAYCM [facility] Last Admin: 01/23/18 22:15 Dose: 600 mg Hydralazine HCl (Apresoline) 10 mg IV Q4H PRN PRN PRN Reason: SBP > 160 Sodium Chloride () 1,000 mls @ 100 mls/hr IV .Q10H [facility] Last Admin: 01/24/18 00:26 Dose: 100 mls/hr Famotidine 20 mg/ Sodium (Chloride) 10 mls @ 300 mls/hr IV Q12 [facility] Last Admin: 01/23/18 22:17 Dose: 300 mls/hr Ipratropium [place] (Atrovent) 0.5 mg INHALATION Q6HWA.RT [facility] Last Admin: 01/24/18 06:52 Dose: 0.5 mg Levothyroxine Sodium (Synthroid) 50 mcg PO DAILY@0600 [facility] Last Admin: 01/24/18 05:36 Dose: 50 mcg Magnesium Hydroxide (Milk Of Magnesia) 30 ml PO DAILY PRN PRN PRN Reason: Constipation Morphine Sulfate (Morphine) 6 - 8 mg IV Q4H PRN PRN PRN Reason: SEVERE PAIN (6-10/10) Last Admin: 01/23/18 08:22 Dose: 6 mg Nutritional Formula (Lactose Free) (Ensure Clear) 120 ml PO 4X/DAY [facility] Last Admin: 01/23/18 22:14 Dose: Not Given Ondansetron HCl (Zofran) 4 mg IV Q6H PRN PRN PRN Reason: NAUSEA/VOMITING Last Admin: 01/24/18 05:49 Dose: 4 mg Oxycodone HCl (Oxyir) 5 - 10 mg PO Q4H PRN PRN PRN Reason: MOD-SEVERE PAIN (4-10/10) Temazepam (Restoril) 15 mg PO QHS PRN PRN PRN Reason: insomnia Assessment/Plan Active and Suspected Problems (Last Updated 01/22/18 @ 08:37 by Samuel Chery DO) Pancreatitis (Acute) Acute cholecystitis (Acute) The patient is a 63 y/o F w/ PMHx: Hypothyroidism, Anxiety and Depression, HLD, Hx Bladder CA, Dementia Unclear Type, Unclear Onset, Unclear Behavioral Disturbance History, Primary Fibromyalgia Syndrome, COPD who presents to the [facility] ED on 01/21/18 with ongoing on intermittent epigastric abdominal pain with associated nausea, dull but occasionally sharp. (1) Acute pancreatitis and Concurrent Acute Cholecystitis: Admission CBC w/ WBC 13.8 w/ L shift, AF, CMP not marked, Lipase 33242. Admitted to [facility], maintained on IVFs, NPO status currently pending GB US for possible OR needs, Famotidine IV, IV/po pain control, trend lipase, CMP. Pending AM RUQ US results, FLP w/ TG 278, VLDL 56 otherwise not marked, denied EtOH consumption risk as etiology for pancreatitis. Surgery consulted, GB US thickened. 01/23/18 discussed with Surgery, given + omid and unclear etiology for mild leukocytosis, decision 01/23/18 for lap cholecystectomy w/ noted inflammation of the GB upon evaluation intraoperatively, zosyn administration prior to lap eileen, now d/c. Lipase trending improved, admission 47697-->3228-->232-->01/24/18 Lipase 77. Diet advanced per surgery, discharge to home to day if diet tolerated. (2) Hypokalemia: Admission K+ 2.4, supplementation given, repeat level normalized. (3) R Shoulder Pain, Debility, Acute on Chronic: Recent OR w/ Dr. Mora per patient report, increased discomfort and debility following attempt to raise herself in bed, continue icing currently in place, PRN pain regimen, tylenol PRN, requested Dr. Mora evaluation given patient anxiety level to reassure, PT consulted with no post-discharge needs noted. Will follow-up with Dr. Mora outpatient. (4) Hypothyroidism: Continue home synthroid regimen. Pre-op TSH obtained, 0.31, FT4 normal, subclinical, repeat outpatient 6-8 weeks. (5) Hyperlipidemia: Continue home statin regimen. (6) Chronic COPD: Continue Atrovent duonebs, PRN albuterol, HOB, IS parameters. (7) Anxiety and Depression: Maintain on home SSRI, xanax given chronic usage. (8) Chronic Normocytic Anemia: Admission Hgb 11.6, baseline appears 9-10 range, 01/24/18 Hgb 10.1. Encourage continued evaluation outpatient. (9) DVT Prophylaxis: SCDs, heparin w/ hold per Surgery as deemed appropriate given possible OR. Code Visit Inpatient E&M: 58206 Subs Hosp L2
[2018-01-24 07:53] VITALS: RESP 16
--- NOTE | 2018-01-24 07:59 | PN_ITS ---
Patient Problems: Active and Suspected Problems (Last Updated 01/22/18 @ 08:37 by Samuel Chery DO) Pancreatitis (Acute) Acute cholecystitis (Acute) Subjective: Patient notes improvement in discomfort to the right upper quadrant status post cholecystectomy now with no nausea or emesis overnight. She has transitioned years which was tolerated this morning and diet has not been advanced to regular per surgery clearance for discharge once tolerating per surgery discretion. Patient moving right upper extremity without further issue, which from day prior. Patient does feel bloated and still has general discomfort but improved RUQ pain as noted. Patient denies fevers, chills, nausea, emesis, chest pain or dyspnea. Objective: General: awake, alert, oriented x 3 and cooperative, seated upright in bed, NAD. Skin: normal color, turgor, no icterus, cyanosis, s/p lap eileen, incisions C/D/ I. HEENT: AT/NC, EOMI, PERRLA, improved MMM. Lungs: CTA bilaterally, moderate effort, moderate decrease BL bases, no rales, ronchi or wheezing. Heart: Regular rate and rhythm; no gallop, rub audible. Abdomen: soft, improved abdominal exam, resolved prior severe RUQ pain, mild generalized diffuse TTP given recent OR, mildly distended, hyperactive BS, urostomy bag in place. Extremities: no cyanosis, clubbing, or edema. Neurological: patient awake, alert, oriented x 3; cognitive function intact; pupils equally reactive to light and accomodation; cranial nerves II-XII grossly normal, moving all 4 extremities, improved RUE movement, strength improving, mildly to moderately globally decreased secondary to acute presentation. Psychiatric: affect appears normal, no acute evidence of depressive feelings. Vitals/I&O's: Vital Signs Temp Pulse Resp BP Pulse Ox 98.3 F 82 20 H 128/88 H 96 01/24/18 05:30 01/24/18 07:00 01/24/18 07:00 01/24/18 05:30 01/24/18 07:29 Oxygen Flow Rate 2 Oxygen Delivery Method Room Air Weight: 120 lb 9.486 oz Body Mass Index (BMI) 25.2 Intake and Output for Last 24 Hours 01/22/18 01/23/18 01/24/18 23:59 23:59 23:59 Intake Total 3258 / 3258 3594 / 3594 1383 / 1383 Output Total 2200 / 2200 3850 / 3850 1350 / 1350 Balance 1058 / 1058 -256 / -256 / Laboratory Results 01/23/18 05:32: TSH 0.31 L 01/23/18 05:32: Free T4 0.95 01/24/18 05:25: WBC 17.5 H, RBC 3.53 L, Hgb 10.1 L, Hct 32.5 L, MCV 92.1, MCH 28.6, MCHC 31.1 L, RDW 15.0 H, RDW Differential 50.7 H, Plt Count 316, MPV 10.0 , Immature Gran % (Auto) 0.200, Neut % (Auto) 92.1 H, Lymph % (Auto) 4.5 L, [place] % (Auto) 3.1, Eos % (Auto) 0.0, Baso % (Auto) 0.1, Absolute Neuts (auto) 16.2 H, Absolute Lymphs (auto) 0.79 L, Total Counted Not Reportable 01/24/18 05:25: Sodium 142, Potassium 3.9, Chloride 110 H, Carbon Dioxide 25.0, Anion Gap 7, BUN 6 L, Creatinine 0.50 L, Estim Creat Clear Calc 98.16, Est GFR ( MDRD) Af Amer 159, Est GFR (MDRD) Non-Af 132, BUN/Creatinine Ratio 12.0, Glucose 83, Calcium 8.7, Total Bilirubin 0.50, AST 67 H, ALT 64 H, Alkaline Phosphatase 103, Total Protein 6.5, Albumin 2.4 L, Globulin 4.1, Albumin/ Globulin Ratio 0.6 L, Lipase 77 Current Medications Acetaminophen (Tylenol) 650 mg PO Q4H PRN PRN PRN Reason: PAIN Last Admin: 01/23/18 08:20 Dose: 650 mg Albuterol Sulfate (Ventolin Aerosols) 2.5 mg INHALATION Q2H PRN PRN PRN Reason: dyspnea, wheezing Alprazolam (Xanax) 0.5 mg PO BID PRN PRN PRN Reason: ANXIETY Last Admin: 01/23/18 08:21 Dose: 0.5 mg Atorvastatin Calcium (Lipitor) 80 mg PO QHS VIC Last Admin: 01/23/18 22:15 Dose: 80 mg Docusate Sodium (Colace) 100 mg PO BID PRN PRN PRN Reason: Constipation Fluoxetine HCl (Prozac) 60 mg PO DAILY [facility] Last Admin: 01/23/18 08:40 Dose: Not Given Gabapentin (Neurontin) 600 mg PO 4X/DAYCM [facility] Last Admin: 01/23/18 22:15 Dose: 600 mg Hydralazine HCl (Apresoline) 10 mg IV Q4H PRN PRN PRN Reason: SBP > 160 Sodium Chloride () 1,000 mls @ 100 mls/hr IV .Q10H [facility] Last Admin: 01/24/18 00:26 Dose: 100 mls/hr Famotidine 20 mg/ Sodium (Chloride) 10 mls @ 300 mls/hr IV Q12 [facility] Last Admin: 01/23/18 22:17 Dose: 300 mls/hr Ipratropium [place] (Atrovent) 0.5 mg INHALATION Q6HWA.RT [facility] Last Admin: 01/24/18 06:52 Dose: 0.5 mg Levothyroxine Sodium (Synthroid) 50 mcg PO DAILY@0600 [facility] Last Admin: 01/24/18 05:36 Dose: 50 mcg Magnesium Hydroxide (Milk Of Magnesia) 30 ml PO DAILY PRN PRN PRN Reason: Constipation Morphine Sulfate (Morphine) 6 - 8 mg IV Q4H PRN PRN PRN Reason: SEVERE PAIN (6-10/10) Last Admin: 01/23/18 08:22 Dose: 6 mg Nutritional Formula (Lactose Free) (Ensure Clear) 120 ml PO 4X/DAY [facility] Last Admin: 01/23/18 22:14 Dose: Not Given Ondansetron HCl (Zofran) 4 mg IV Q6H PRN PRN PRN Reason: NAUSEA/VOMITING Last Admin: 01/24/18 05:49 Dose: 4 mg Oxycodone HCl (Oxyir) 5 - 10 mg PO Q4H PRN PRN PRN Reason: MOD-SEVERE PAIN (4-10/10) Temazepam (Restoril) 15 mg PO QHS PRN PRN PRN Reason: insomnia Assessment/Plan Active and Suspected Problems (Last Updated 01/22/18 @ 08:37 by Samuel Chery DO) Pancreatitis (Acute) Acute cholecystitis (Acute) The patient is a 63 y/o F w/ PMHx: Hypothyroidism, Anxiety and Depression, HLD, Hx Bladder CA, Dementia Unclear Type, Unclear Onset, Unclear Behavioral Disturbance History, Primary Fibromyalgia Syndrome, COPD who presents to the [facility] ED on 01/21/18 with ongoing on intermittent epigastric abdominal pain with associated nausea, dull but occasionally sharp. (1) Acute pancreatitis and Concurrent Acute Cholecystitis: Admission CBC w/ WBC 13.8 w/ L shift, AF, CMP not marked, Lipase 13465. Admitted to MS, maintained on IVFs, NPO status currently pending GB US for possible OR needs, Famotidine IV , IV/po pain control, trend lipase, CMP. Pending AM RUQ US results, FLP w/ TG 278, VLDL 56 otherwise not marked, denied EtOH consumption risk as etiology for pancreatitis. Surgery consulted, GB US thickened. 01/23/18 discussed with Surgery , given + omid and unclear etiology for mild leukocytosis, decision 01/23/18 for lap cholecystectomy w/ noted inflammation of the GB upon evaluation intraoperatively, zosyn administration prior to lap eileen, now d/c. Lipase trending improved, admission 50220-->3228-->232-->01/24/18 Lipase 77. Diet advanced per surgery, discharge to home to day if diet tolerated. (2) Hypokalemia: Admission K+ 2.4, supplementation given, repeat level normalized. (3) R Shoulder Pain, Debility, Acute on Chronic: Recent OR w/ Dr. Mora per patient report, increased discomfort and debility following attempt to raise herself in bed, continue icing currently in place, PRN pain regimen, tylenol PRN , requested Dr. Mora evaluation given patient anxiety level to reassure, PT consulted with no post-discharge needs noted. Will follow-up with Dr. Mora outpatient. (4) Hypothyroidism: Continue home synthroid regimen. Pre-op TSH obtained, 0.31, FT4 normal, subclinical, repeat outpatient 6-8 weeks. (5) Hyperlipidemia: Continue home statin regimen. (6) Chronic COPD: Continue Atrovent duonebs, PRN albuterol, HOB, IS parameters. (7) Anxiety and Depression: Maintain on home SSRI, xanax given chronic usage. (8) Chronic Normocytic Anemia: Admission Hgb 11.6, baseline appears 9-10 range, 01/24/18 Hgb 10.1. Encourage continued evaluation outpatient. (9) DVT Prophylaxis: SCDs, heparin w/ hold per Surgery as deemed appropriate given possible OR. Code Visit Inpatient E&M: 76320 Subs Hosp L2
[2018-01-24] MEDS: oxyCODONE 5 MG Tablet PO ×2 (08:31→12:36)
[2018-01-24] MEDS: FLUoxetine 20 MG Capsule 60 MG PO (08:31)
[2018-01-24] MEDS: Gabapentin 600 MG Tablet PO ×2 (08:31→12:36)
--- NOTE | 2018-01-24 10:29 | PCM.DC ---
- Discharge Diagnoses Current Active Problems: Current Active and Chronic Problems (Last Updated 01/22/18 @ 08:37 by Samuel Chery DO) Pancreatitis (Acute) Acute cholecystitis (Acute) (1) Acute pancreatitis and Concurrent Acute Cholecystitis (2) Hypokalemia (3) R Shoulder Pain, Debility, Acute on Chronic, Improved (4) Hypothyroidism (5) Hyperlipidemia (6) Chronic COPD (7) Anxiety and Depression (8) Chronic Normocytic Anemia You will use the following diet at home:: Cardiac Your food should be the consistency of: Regular Your liquids should be the consistency of: Regular/Thin Discharge Activity: Return to Normal Activity, May Not Drive - for 2-3 days or while taking narcotic pain medicataions., - - Do not drive, work heavy equipment or sign legal documents for 24 hours. May shower in (days): 1 - with the bandage in place. May resume sexual activity in: - - Restrictions per Surgery parameters. Weight Bearing Status: Weight bearing as tolerated Additional Activity Instructions:: Pain medication may cause nausea. You should typically eat light foods as you take your pain medications. Pain medication may also cause constipation. If this is a problem for you, please discuss with your doctor. Call your doctor if your incision/area has: Continuous Slow Oozing, Sudden Increased Bleeding, Increased Pain/ Swelling, Increased Redness, Foul Smelling Discharge, Fever of 101 or Higher Call your doctor if you observe: Fever of 101 or Higher, Inability to have a bowel movement, Shortness of breath, Dizziness, Fainting spells, Chest pain, Uncontrolled pain Suture Line Care: Avoid Pulling/Pushing, Avoid Pinching/Bending Additional Dressing/Incision Instructions:: Leave operative bandaids on for 2 days. When you remove dressing, leave Steri-Strips on until your follow-up appointment, or until the Steri-Strips fall off on their own. Instructions: After Gallbladder Surgery, Cholecystectomy, Having Laparoscopic Cholecystectomy, Discharge Instructions for Laparoscopic Cholecystectomy, Understanding Pancreatitis, Discharge Instructions for Acute Pancreatitis Allergies/Adverse Reactions: Allergies fentanyl Allergy (Verified 01/21/18 18:46) Anaphylaxis codeine Adverse Reaction (Verified 01/21/18 18:46) Unknown Sulfa (Sulfonamide Antibiotics) Adverse Reaction (Verified 01/21/18 18:46) Unknown Medications to take at Discharge Fluoxetine HCl [Prozac] 60 mg PO DAILY 07/10/17 Gabapentin [Neurontin] 900 mg PO TID 07/10/17 Levothyroxine [Synthroid] 50 mcg PO DAILY 07/10/17 Omeprazole 20 mg PO BID 07/10/17 Loratadine 10 mg PO DAILY PRN PRN 07/23/17 ALPRAZolam [Xanax] 0.5 mg PO BID PRN PRN 08/18/17 Multivitamin [Multiple Vitamins] 1 tab PO DAILY 08/18/17 Atorvastatin Calcium 80 mg PO DAILY 12/20/17 Docusate Sodium [Colace] 100 mg PO BID PRN PRN #10 cap 12/20/17 umeclidinium 62.5 mcg/actuation blister powder for inhalation 1 inh INHALATION DAILY PRN PRN 12/28/17 Ondansetron HCl [Zofran] 8 mg PO Q6H PRN PRN #20 tab 01/24/18 Oxycodone HCl/Acetaminophen [Percocet 5-325] 1 - 2 tab PO Q4H PRN PRN #20 tab 01/24/18 The following prescriptions were given: Oxycodone HCl/Acetaminophen [Percocet 5-325] 1 - 2 tab PO Q4H PRN PRN #20 tab PRN Reason: Pain Ondansetron HCl [Zofran] 8 mg PO Q6H PRN PRN #20 tab PRN Reason: nausea, emesis Primary Care Physician: Osman Alexander DO [Primary Care Provider] - Please follow up with your Primary Care Physician in: Follow-up with your PCP within 3-5 days to review admission. Please Follow Up With: Raymond Moore MD When: Call office to arrange follow-up in 2 weeks [phone] Please Follow Up With: Jimbo Mora DO When: Please follow-up with Orthopedic surgery as previously arranged. Proposed Discharge Date: 01/24/18
[2018-01-24 11:30] VITALS: BP 125/70; PULSE 79; RESP 16; TEMP 37.9; O2SAT 98
[2018-01-24 14:30] VITALS: TEMP 37.3
--- NOTE | 2018-01-24 14:30 | PCM.DC.SUM ---
Discharge Date and Diagnosis - Problem List Patient Problems: Active and Suspected Problems (Last Updated 01/22/18 @ 08:37 by Samuel Chery DO) Pancreatitis (Acute) Acute cholecystitis (Acute) Date of Admission: 01/21/18 Date of Discharge: 01/24/18 - Primary Discharge Diagnosis Active and Suspected Problems (Last Updated 01/22/18 @ 08:37 by Samuel Chery DO) (1) Acute pancreatitis and Concurrent Acute Cholecystitis (2) Hypokalemia (3) R Shoulder Pain, Debility, Acute on Chronic, Improved (4) Hypothyroidism (5) Hyperlipidemia (6) Chronic COPD (7) Anxiety and Depression (8) Chronic Normocytic Anemia - Secondary Discharge Diagnosis Chronic Problems (Last Updated 01/22/18 @ 08:37 by Samuel Chery DO) Bladder cancer (Chronic) Vaginal discharge (Chronic) Hyperlipemia (Chronic) Hypothyroidism (Chronic) Anxiety (Chronic) Chronic obstructive lung disease (Chronic) Primary fibromyalgia syndrome (Chronic) Hospital Course and Treatment Dr. Moore Surgery Operations: cholecystecomy Procedures: EKG Summary of Care Provided: The patient is a 63 y/o F w/ PMHx: Hypothyroidism, Anxiety and Depression, HLD, Hx Bladder CA, Dementia Unclear Type, Unclear Onset, Unclear Behavioral Disturbance History, Primary Fibromyalgia Syndrome, COPD who presented to the [facility] ED on 01/21/18 with ongoing on intermittent epigastric abdominal pain with associated nausea, dull but occasionally sharp. Admission CBC w/ WBC 13.8 w/ L shift, AF, CMP not marked, Lipase 11836. Admitted to [place], maintained on IVFs, NPO status currently pending GB US for possible OR needs, Famotidine IV, IV/po pain control with trending on labs initially, FLP w/ TG 278, VLDL 56 otherwise not marked, denied EtOH consumption risk as etiology for pancreatitis. Surgery consulted, GB US thickened. 01/23/18 discussed with Surgery, given + anne and unclear etiology for mild leukocytosis, decision 01/23/18 for lap cholecystectomy w/ noted inflammation of the GB upon evaluation intraoperatively, zosyn administration prior to lap eileen. Lipase trending improved, admission 57414-->3228-->232-->01/24/18 Lipase 77. Diet advanced per surgery, given diet tolerated, walking the halls, pain improved, patient discharged to home in improved condition with follow-up with her PCP, Surgery and Orthopedic surgery given recent R Shoulder arthroscopic surgery with acute on chronic pain while inpatient, improved to prior baseline. Discharge Diet: Light diet - advance as tolerated Discharge Activity: Return to Normal Activity, May Not Drive - for 2-3 days or while taking narcotic pain medicataions., - - Do not drive, work heavy equipment or sign legal documents for 24 hours. May shower in (days): 1 - with the bandage in place. May resume sexual activity in: - - Restrictions per Surgery parameters. Weight Bearing Status: Weight bearing as tolerated Additional Activity Instructions:: Pain medication may cause nausea. You should typically eat light foods as you take your pain medications. Pain medication may also cause constipation. If this is a problem for you, please discuss with your doctor. Call your doctor if your incision/area has: Continuous Slow Oozing, Sudden Increased Bleeding, Increased Pain/ Swelling, Increased Redness, Foul Smelling Discharge, Fever of 101 or Higher Call your doctor if you observe: Fever of 101 or Higher, Inability to have a bowel movement, Shortness of breath, Dizziness, Fainting spells, Chest pain, Uncontrolled pain Suture Line Care: Avoid Pulling/Pushing, Avoid Pinching/Bending Additional Dressing/Incision Instructions:: Leave operative bandaids on for 2 days. When you remove dressing, leave Steri-Strips on until your follow-up appointment, or until the Steri-Strips fall off on their own. Home Medications: Medications to take at Discharge Fluoxetine HCl [Prozac] 60 mg PO DAILY 07/10/17 Gabapentin [Neurontin] 900 mg PO TID 07/10/17 Levothyroxine [Synthroid] 50 mcg PO DAILY 07/10/17 Omeprazole 20 mg PO BID 07/10/17 Loratadine 10 mg PO DAILY PRN PRN 07/23/17 ALPRAZolam [Xanax] 0.5 mg PO BID PRN PRN 08/18/17 Multivitamin [Multiple Vitamins] 1 tab PO DAILY 08/18/17 Atorvastatin Calcium 80 mg PO DAILY 12/20/17 Docusate Sodium [Colace] 100 mg PO BID PRN PRN #10 cap 12/20/17 umeclidinium 62.5 mcg/actuation blister powder for inhalation 1 inh INHALATION DAILY PRN PRN 12/28/17 Ondansetron HCl [Zofran] 8 mg PO Q6H PRN PRN #20 tab 01/24/18 Oxycodone HCl/Acetaminophen [Percocet 5-325] 1 - 2 tab PO Q4H PRN PRN #20 tab 01/24/18 Following Prescrptions Were Given to Patient: Oxycodone HCl/Acetaminophen [Percocet 5-325] 1 - 2 tab PO Q4H PRN PRN #20 tab PRN Reason: Pain Ondansetron HCl [Zofran] 8 mg PO Q6H PRN PRN #20 tab PRN Reason: nausea, emesis Primary Care Physician: Osman Alexander DO [Primary Care Provider] - Please follow up with your Primary Care Physician in: Follow-up with your PCP within 3-5 days to review admission. Please Follow Up With: Raymond Moore MD When: Call office to arrange follow-up in 2 weeks [phone] Please Follow Up With: Jimbo Mora DO When: Please follow-up with Orthopedic surgery as previously arranged. Please Follow Up With: Osman Alexander DO Patient Instructions: After Gallbladder Surgery, Cholecystectomy, Having Laparoscopic Cholecystectomy, Understanding Pancreatitis, Discharge Instructions for Acute Pancreatitis, Discharge Instructions for Laparoscopic Cholecystectomy Disposition: Home Minutes spent on discharge:: 35 Patient Condition:: Fair Meaningful Use Info Meaningful Use Diagnoses (Choose all that apply): None applicable Code Visit Inpatient E&M: 89748 Disch Hosp
--- NOTE | 2018-01-24 14:36 | DS.PCM_ITS ---
Discharge Date and Diagnosis - Problem List Patient Problems: Active and Suspected Problems (Last Updated 01/22/18 @ 08:37 by Samuel Chery DO) Pancreatitis (Acute) Acute cholecystitis (Acute) Date of Admission: 01/21/18 Date of Discharge: 01/24/18 - Primary Discharge Diagnosis Active and Suspected Problems (Last Updated 01/22/18 @ 08:37 by Samuel Chery DO) (1) Acute pancreatitis and Concurrent Acute Cholecystitis (2) Hypokalemia (3) R Shoulder Pain, Debility, Acute on Chronic, Improved (4) Hypothyroidism (5) Hyperlipidemia (6) Chronic COPD (7) Anxiety and Depression (8) Chronic Normocytic Anemia - Secondary Discharge Diagnosis Chronic Problems (Last Updated 01/22/18 @ 08:37 by Samuel Chery DO) Bladder cancer (Chronic) Vaginal discharge (Chronic) Hyperlipemia (Chronic) Hypothyroidism (Chronic) Anxiety (Chronic) Chronic obstructive lung disease (Chronic) Primary fibromyalgia syndrome (Chronic) Hospital Course and Treatment Dr. Moore Surgery Operations: cholecystecomy Procedures: EKG Summary of Care Provided: The patient is a 63 y/o F w/ PMHx: Hypothyroidism, Anxiety and Depression, HLD, Hx Bladder CA, Dementia Unclear Type, Unclear Onset, Unclear Behavioral Disturbance History, Primary Fibromyalgia Syndrome, COPD who presented to the [facility] ED on 01/21/18 with ongoing on intermittent epigastric abdominal pain with associated nausea, dull but occasionally sharp. Admission CBC w/ WBC 13.8 w/ L shift, AF, CMP not marked, Lipase 96908. Admitted to [place], maintained on IVFs, NPO status currently pending GB US for possible OR needs, Famotidine IV, IV/po pain control with trending on labs initially, FLP w/ TG 278, VLDL 56 otherwise not marked, denied EtOH consumption risk as etiology for pancreatitis. Surgery consulted, GB US thickened. 01/23/18 discussed with Surgery, given + anne and unclear etiology for mild leukocytosis, decision 01/23/18 for lap cholecystectomy w/ noted inflammation of the GB upon evaluation intraoperatively , zosyn administration prior to lap eileen. Lipase trending improved, admission [id number]-->3228-->232-->01/24/18 Lipase 77. Diet advanced per surgery, given diet tolerated, walking the halls, pain improved, patient discharged to home in improved condition with follow-up with her PCP, Surgery and Orthopedic surgery given recent R Shoulder arthroscopic surgery with acute on chronic pain while inpatient, improved to prior baseline. Discharge Diet: Light diet - advance as tolerated Discharge Activity: Return to Normal Activity, May Not Drive - for 2-3 days or while taking narcotic pain medicataions., - - Do not drive, work heavy equipment or sign legal documents for 24 hours. May shower in (days): 1 - with the bandage in place. May resume sexual activity in: - - Restrictions per Surgery parameters. Weight Bearing Status: Weight bearing as tolerated Additional Activity Instructions:: Pain medication may cause nausea. You should typically eat light foods as you take your pain medications. Pain medication may also cause constipation. If this is a problem for you, please discuss with your doctor. Call your doctor if your incision/area has: Continuous Slow Oozing, Sudden Increased Bleeding, Increased Pain/ Swelling, Increased Redness, Foul Smelling Discharge, Fever of 101 or Higher Call your doctor if you observe: Fever of 101 or Higher, Inability to have a bowel movement, Shortness of breath, Dizziness, Fainting spells, Chest pain, Uncontrolled pain Suture Line Care: Avoid Pulling/Pushing, Avoid Pinching/Bending Additional Dressing/Incision Instructions:: Leave operative bandaids on for 2 days. When you remove dressing, leave Steri-Strips on until your follow-up appointment, or until the Steri-Strips fall off on their own. Home Medications: Medications to take at Discharge Fluoxetine HCl [Prozac] 60 mg PO DAILY 07/10/17 Gabapentin [Neurontin] 900 mg PO TID 07/10/17 Levothyroxine [Synthroid] 50 mcg PO DAILY 07/10/17 Omeprazole 20 mg PO BID 07/10/17 Loratadine 10 mg PO DAILY PRN PRN 07/23/17 ALPRAZolam [Xanax] 0.5 mg PO BID PRN PRN 08/18/17 Multivitamin [Multiple Vitamins] 1 tab PO DAILY 08/18/17 Atorvastatin Calcium 80 mg PO DAILY 12/20/17 Docusate Sodium [Colace] 100 mg PO BID PRN PRN #10 cap 12/20/17 umeclidinium 62.5 mcg/actuation blister powder for inhalation 1 inh INHALATION DAILY PRN PRN 12/28/17 Ondansetron HCl [Zofran] 8 mg PO Q6H PRN PRN #20 tab 01/24/18 Oxycodone HCl/Acetaminophen [Percocet 5-325] 1 - 2 tab PO Q4H PRN PRN #20 tab Following Prescrptions Were Given to Patient: Oxycodone HCl/Acetaminophen [Percocet 5-325] 1 - 2 tab PO Q4H PRN PRN #20 tab PRN Reason: Pain Ondansetron HCl [Zofran] 8 mg PO Q6H PRN PRN #20 tab PRN Reason: nausea, emesis Primary Care Physician: Osman Alexander DO [Primary Care Provider] - Please follow up with your Primary Care Physician in: Follow-up with your PCP within 3-5 days to review admission. Please Follow Up With: Raymond Moore MD When: Call office to arrange follow-up in 2 weeks [phone] Please Follow Up With: Jimbo Mora DO When: Please follow-up with Orthopedic surgery as previously arranged. Please Follow Up With: Osman Alexander DO Patient Instructions: After Gallbladder Surgery, Cholecystectomy, Having Laparoscopic Cholecystectomy, Understanding Pancreatitis, Discharge Instructions for Acute Pancreatitis, Discharge Instructions for Laparoscopic Cholecystectomy Disposition: Home Minutes spent on discharge:: 35 Patient Condition:: Fair Meaningful Use Info Meaningful Use Diagnoses (Choose all that apply): None applicable Code Visit Inpatient E&M: 10564 Disch Hosp
== END 2018-01-24 15:05 | disposition home or self-care (01) | DRG 493 ==
LOC: ED 19:12 → MS3 21:31
PROVIDERS: Anesthesiology; Internal Medicine; Surgery; Admitting Provider Internal Medicine; Emergency Provider Emergency Medicine; Family Provider Preventive Medicine Occupational Medicine; PCP Preventive Medicine Occupational Medicine; Visit Provider Family Medicine
PROC: 0FT44ZZ Resection of Gallbladder, Percutaneous Endoscopic Approach (ICD-10-PCS; CPT 47610; principal; 2018-01-23 09:20)
DX: K85.90 Acute pancreatitis without necrosis or infection, unspecified (principal); K81.0 Acute cholecystitis; J44.9 Chronic obstructive pulmonary disease, unspecified; Z93.6 Other artificial openings of urinary tract status; Z90.6 Acquired absence of other parts of urinary tract; E03.9 Hypothyroidism, unspecified; E87.6 Hypokalemia; D64.9 Anemia, unspecified; F41.9 Anxiety disorder, unspecified; F32.9 Major depressive disorder, single episode, unspecified; E78.5 Hyperlipidemia, unspecified; M79.7 Fibromyalgia; Z85.51 Personal history of malignant neoplasm of bladder; Z79.899 Other long term (current) drug therapy; M25.511 Pain in right shoulder; Z87.891 Personal history of nicotine dependence
CPT/HCPCS: 36415; 71045; 74022; 74300; 76000; 76705; 80048; 80053; 80061; 80076; 83690; 84439; 84443; 85025; 87040; 88304; 93005; 94640; 97110; 97161; 97165; 97802; 99285; J7030; J7040; A4216; J2405; J3490

== ENCOUNTER → 2018-02-24 13:56 | Outpatient (CLI) | payer MEDICAID, SELFPAY ==
--- NOTE | 2018-02-24 14:00 | RAD_ITS ---
STUDY: X-RAY CHEST REASON FOR EXAM: Female, 63 years old. Cough and congestion. History of pneumonia. TECHNIQUE: PA and lateral views of the chest. COMPARISON: Prior chest radiograph of January 23, 2018 FINDINGS: The lungs are clear and expanded. There is no demonstrated pleural abnormality. Normal size heart. Normal mediastinum and terri. Normal visualized pulmonary arteries. There is atherosclerotic calcification of the aortic arch with tortuosity. There are diffuse degenerative changes of the visualized thoracic spine with demineralized osseous structures. Normal visualized ribs, clavicles, and shoulders. There is no demonstrated abnormality of the visualized soft tissue structures of the upper abdomen. RAD/Chest PA and Lateral IMPRESSION: No acute cardiopulmonary findings. Negative for consolidation, focal atelectasis, pleural effusion or cardiomegaly. Electronically Signed: Herlinda Escamilla MD at 23:57 EDT , Service support ,
== END ==
PROVIDERS: Family Provider Family Medicine; PCP Internal Medicine; Visit Provider Nurse Practitioner Family
DX: R05 Cough (principal)
CPT/HCPCS: 71046; 97110

== ENCOUNTER 2018-03-21 14:30 | Outpatient (RCR) | payer MEDICAID, SELFPAY ==
[2017-12-28 14:47] VITALS: BP 118/85; BMI 24.2
--- NOTE | 2018-01-10 14:12 | HP.PTEVAL ---
Patient's Visit Information NICCI CARRENO is a 62 year old F referred to Physical Therapy by Jimbo Mora DO DR.MTJULIANE with a diagnosis of RIGHT SAD ,DEBRIDEMNENT. Date of Evaluation: 01/10/18 Physical Therapist: Vaughn Barajas PT, - Visit Plan Frequency: 2x /Week Duration: 8WEEKS Plan: *SEE PROTOCAL* S/P RIGHT SAD ,DEBRIDEMENT 12/20/17. S/P 3WEEKS. ,STRENGTHENING RTC/SCPULAR,ROM ,POSTURAL EX'S PER PROTOCAL - Subjective Subjective: Thus 62 y/o female presents to physical therapy with right SAD,debridement on 12/20/[address] Mora outpatient ,thus d/c same day. Patient had sling for [address] Mora 01/14/18 recommended. Patient had pain several years which impaired function ADLS'. Currently ,has some deficits with ADL'S and self hygine with activities above 90 degrees. Sleping okay night. C/O of some parathesia shoulder,Patient has fibromalalgia. SOCAIL: . VOCATION: disables - Pain Right Shoulder Pain Intensity (Out of 10): 2 Pain Intensity Range: 10 - Objective POSTURE: mild foward posture. NEURO: inact ,reflexes inact 2/3 C-6-7. SKIN: skin inact. PALPATION: UT /LEVATOR. AROM:right shoulder flexion 160 degrres,abd in scapular plane 155 degrres,ER 90 ,IR REACH. behind back L1. MMT: RTC 4-/5, anterior deltoid 3+/5 lateral deltiod 3/5 - Special Tests R Shoulder External Rotation Lag Test - RC Tear: Negative R Shoulder Supine Impingement Test - RC Tear: Negative R Shoulder Neer - Impingement: Negative R Shoulder Cardoza Charan - Impingement: Negative - Goals Goal 1:: Patient to be Independant with HEP Goal Time Frame: 6-8 Weeks Goal 2:: Patient to be Independant with posture for ADL'S Goal Time Frame: 6-8 Weeks Goal 3:: Patient to increase strength RTC 4/5,deltoid 4-/5 TO IMPROVE FUNCTION WITH adl's Goal Time Frame: 6-8 Weeks Goal 4:: Patient be able to perform ADL'S and self hygine with min limiatiions to include light housework tasks. Goal Time Frame: 6-8 Weeks Goal 5:: Patient be 80% improve for function Goal Time Frame: 6-8 Weeks - Rehabilitation Potential Physical Therapy Diagnosis: This patient underwent s/p SAD and debridement 0n 12/20/17 with deficits with strength thus causes defiits with ADLS' and activities above 90 degrees thus benifit from skiled PT Rehabilitation Potential: Good - Anticipated Interventions Patient/Client Instruction: Educate patient on: Condition, Plan of Care For the Purpose of:: To decrease pain, To increase ROM, To improve muscle performance and motor function, To improve ability to perform ADL's, To increase tolerance to activity/condition/position, To improve performance and independence with ADL's, To improve ability of physical actions for home/community/work/leisure, To improve health of tissue, To decrease soft tissue restriction, To increase flexibility/ROM, To assume or resume ADL's, To improve ability to perform tasks related to life management, To improve tolerance to ADL's Therapeutic Exercise to Include: Strength training, Active ROM, Scapular Strength/Stabilization Comment: SHOULDER RTC/SCAP. SEE PROTOCAL FOR PROGRESSION For the Purpose of:: To decrease pain, To increase ROM, To improve nutrient delivery to tissue, To increase oxygenation perfusion, To improve muscle performance and motor function, To improve ability to perform ADL's, To increase tolerance to activity/condition/position, To improve performance and independence with ADL's, To improve ability of physical actions for home/community/work/leisure, To improve health of tissue, To decrease soft tissue restriction, To increase flexibility/ROM, To reduce risk of recurrence, To improve tolerance to ADL's IF ES: Yes Other electric stimulation: Yes Cryotherapy (ice pack, ice massage): Yes Thermo therapy (hot pack): Yes For the Purpose of:: To decrease pain, To increase ROM, To improve health of tissue, To decrease soft tissue restriction Thank you for the opportunity to evaluate your patient. For Medicare and Medicare HMO plans, please review the plan of care and approve it. It will need to be FAXED BACK to us at [phone] for Medicare purposes. Please let me know if there are questions or concerns regarding this plan of care. Physician Signature: Date:
--- NOTE | 2018-02-15 08:44 | HP.PTDCNRP_ITS ---
HP - Discharge Summary (1) - Patient Information NICCI CARRENO was seen in my office for initial evaluation on 01/10/18. The following Plan of Care was established for this patient: Initial Frequency: 2x /Week Initial Duration: 8WEEKS - Anticipated Interventions Patient/Client Instruction: Educate patient on: Condition, Plan of Care For the Purpose of:: To decrease pain, To increase ROM, To improve muscle performance and motor function, To improve ability to perform ADL's, To increase tolerance to activity/condition/position, To improve performance and independence with ADL's, To improve ability of physical actions for home/ community/work/leisure, To improve health of tissue, To decrease soft tissue restriction, To increase flexibility/ROM, To assume or resume ADL's, To improve ability to perform tasks related to life management, To improve tolerance to ADL 's Therapeutic Exercise to Include: Strength training, Active ROM, Scapular Strength/Stabilization For the Purpose of:: To decrease pain, To increase ROM, To improve nutrient delivery to tissue, To increase oxygenation perfusion, To improve muscle performance and motor function, To improve ability to perform ADL's, To increase tolerance to activity/condition/position, To improve performance and independence with ADL's, To improve ability of physical actions for home/ community/work/leisure, To improve health of tissue, To decrease soft tissue restriction, To increase flexibility/ROM, To reduce risk of recurrence, To improve tolerance to ADL's IF ES: Yes Other electric stimulation: Yes Cryotherapy (ice pack, ice massage): Yes Thermo therapy (hot pack): Yes For the Purpose of:: To decrease pain, To increase ROM, To improve health of tissue, To decrease soft tissue restriction This patient was last seen in our office . Pertinent comments regarding their Physical therapy will appear below: Patient seen for PT Evaluation for HEP . Patient stated doing good. At this point I will be discontinuing this patient from physical therapy. I would be happy to see this patient again in the future if found appropriate by the physician. Thank you! Vaughn Barajas, PT,
== END 2018-03-21 19:00 | disposition home or self-care (01) ==
LOC: PT 14:30
PROVIDERS: Family Provider Family Medicine; PCP Internal Medicine; Visit Provider Orthopaedic Surgery
DX: Z98.890 Other specified postprocedural states (principal)
CPT/HCPCS: 97014; 97110; 97140; 97162; 97530; G0283

== ENCOUNTER → 2018-03-21 16:49 | Outpatient (CLI) | payer MEDICAID, SELFPAY | PROVIDERS: Family Provider Family Medicine; PCP Family Medicine; Visit Provider Obstetrics & Gynecology | DX: N89.8 Other specified noninflammatory disorders of vagina (principal) | CPT/HCPCS: 87070; 87205 ==

== ENCOUNTER → 2018-06-01 13:07 | Outpatient (CLI) | payer MEDICAID, SELFPAY ==
--- NOTE | 2018-06-01 13:40 | MRI_ITS ---
STUDY: MRI RIGHT SHOULDER REASON FOR EXAM: Pain and limited range of motion, no improvement since surgery in December. TECHNIQUE: Standardized fat and water weighted pulse sequences were obtained in all 3 orthogonal planes. COMPARISON: MRI images 08/31/2017. FINDINGS: There is mild supraspinatus tendinosis (T2 coronal image 12) without discrete tendon tear. Normal infraspinatus tendon. Normal subscapularis tendon. Normal teres minor tendon. There is interval development of atrophy of the supraspinatus muscle with partial fat replacement (T2 axial image 6) and mild intramuscular edema (T2 coronal image 8). Normal infraspinatus muscle. Normal subscapularis muscle. Normal teres minor muscle. There is a small glenohumeral joint effusion. There is a small cyst in the greater tuberosity. Normal biceps labral complex. Normal intracapsular long biceps tendon. Normal labrum. Normal capsulo- ligamentous complex. There is mild acromioclavicular arthrosis without undersurface osteophytes (T2 sagittal image 12). Status post subacromial decompression. There is a small volume of subacromial-subdeltoid bursal fluid.. Normal deltoid muscle. Normal trapezius muscle. MRI/Upper Ext Joint Only(Routine) IMPRESSION: Mild supraspinatus tendinosis without demonstrated rotator cuff tear. Interval development of atrophy of the supraspinatus muscle. Mild acromioclavicular arthrosis. Mild subacromial-subdeltoid bursitis. Small glenohumeral joint effusion. Electronically Signed: Elias Valadez MD at 15:09 EDT Tel , Service support ,
== END ==
PROVIDERS: Family Provider Preventive Medicine Occupational Medicine; PCP Preventive Medicine Occupational Medicine; Visit Provider Nurse Practitioner Family
DX: M19.019 Primary osteoarthritis, unspecified shoulder (principal); M07.611 Enteropathic arthropathies, right shoulder
CPT/HCPCS: 73221

== ENCOUNTER 2018-06-08 11:45 | Emergency (ER) | payer MEDICAID, SELFPAY ==
[2018-06-08 11:46] VITALS: BP 141/82; PULSE 70; RESP 16; TEMP 36.5; O2SAT 97; BMI 24.4
--- NOTE | 2018-06-08 12:25 | ED.VISSUMM ---
- ER Visit Summary Date of Service: 06/08/18 Chief Complaint: Possible pill stuck in my throat History of Present Illness: The patient is a 63 F states she took a handful medications earlier today and thinks at one time she had a pill stuck in her throat. That is since resolved. She is now able to swallow. But is concerned it may be in her posterior pharynx. No prior history. The initial episode was this morning. She had some choking which is since resolved. She denies being short of breath. She has no pain in her throat. Physical Examination: Well-appearing older female. Vital signs are stable afebrile. She is in no distress. Pulse ox 97% room air no signs of hypoxia. H EENT exam unremarkable. No drooling. No stridor. No trouble breathing or swallowing. I gave her a glass of soda and she was able to swallow without any difficulty. There is no nasal drainage. Or foreign body sensation in the nose or posterior pharynx. Neck nontender. Lungs clear to auscultation bilaterally. Heart regular rhythm no murmur. Abdomen is soft and nontender. She is moving all 4 extremities. Neurologically she is awake and alert. Back nontender. Test Results: None Emergency Department Course and Treatment: clinically at this time the patient has no signs of an entrapped foreign body in either throat or nasal passageway. If this continues she can follow-up with ENT for possible upper nasal scope but does not need that emergently at this time. Treatment Plan: Discharge home. Follow-up with ENT if continues to have foreign body sensation in her nares. Disposition: Discharge Impression: Reported possible foreign body in the posterior pharynx however none identified at this time This note was generated with [employer] dictation software. It may contain incorrect words, spelling, and punctuation that were not noted in review of the chart prior to signing ED Disposition - Plan for ED Patient: Chief Complaint: Foreign Body Referrals: Osman Alexander DO [Primary Care Provider] -
--- NOTE | 2018-06-08 12:28 | ED.DEP ---
ED Disposition - Plan for ED Patient: Disposition: Home or Assisted Living Chief Complaint: Foreign Body Instructions: ED Foreign Body Esophageal Rslv Referrals: Osman Alexander DO [Primary Care Provider] - As Needed Additional Instructions: This should resolve in the next several days. If it does not you can follow-up with ear nose and throat Dr. Ameya Strong and they can look down your nose or posterior pharynx with the scope to see if there is any entrapped foreign body but there are no signs of that at this time.
[2018-06-08 12:46] VITALS: BP 138/93; PULSE 67; RESP 18; O2SAT 98
== END 2018-06-08 13:12 | disposition home or self-care (01) ==
PROVIDERS: Emergency Provider Emergency Medicine; Family Provider Preventive Medicine Occupational Medicine; PCP Preventive Medicine Occupational Medicine
DX: R09.89 Other specified symptoms and signs involving the circulatory and respiratory systems (principal)
CPT/HCPCS: 99282

== ENCOUNTER → 2018-06-14 16:33 | Outpatient (CLI) | payer MEDICAID, SELFPAY | PROVIDERS: Family Provider Preventive Medicine Occupational Medicine; PCP Preventive Medicine Occupational Medicine; Visit Provider Otolaryngology Otolaryngology/Facial Plastic Surgery | DX: J32.9 Chronic sinusitis, unspecified (principal) | CPT/HCPCS: 87070; 87077; 87186; 87205 ==

== ENCOUNTER 2018-08-02 17:53 | Emergency (ER) | payer MEDICAID, SELFPAY ==
[2018-08-02 17:53] VITALS: BP 152/91; PULSE 85; RESP 16; TEMP 36.9; O2SAT 95; BMI 24.4
[2018-08-02 19:06] LABS: Hematocrit 34.8 % (37-47); Hemoglobin 11.1 g/dl (12.0-15.0); Mean Corp Hgb Conc 31.9 g/gl (32-36); Mean Corpuscular Hgb 29.2 pg (27.0-32.0); Mean Corpuscular Volume 91.6 fL (81-99); Platelet Count 406 K/mm3 (150-450); RBC Distribution Width CV 15.7 % (11.6-14.6); RBC Distribution Width SD 51.2 fl (35.1-43.9); White Blood Count 9.7 K/mm3 (4.4-11.0)
[2018-08-02 19:07] LABS: Absolute Lymphocyte Count 1.53 X10^3/ul (0.83-4.51); Absolute Neutrophil Count 7.2 X10^3/uL (2.0-7.7); Basophil# 0.02 X10^3/uL; Basophil% 0.2 % (0-1); Eosinophil# 0.13 X10^3/uL; Eosinophils% 1.3 % (0-5); Lymphocyte # 1.53 X10^3/ul (4.0); Lymphocyte % 15.8 % (19-41); Mean Platelet Vol. 10.1 fl (6.2-12.0); Monocyte# 0.79 X10^3/uL; Monocyte% 8.1 % (0-10); Neutrophil # 7.19 X10^3/uL (2.7-7.7); Neutrophil % 74.2 % (47-70); POSITIVE COUNT NO; POSITIVE DIFFERENTIAL NO; POSITIVE MORPHOLOGY NO
[2018-08-02 19:08] LABS: AST(SGOT) 32 U/L (15-37); Alanine Aminotransfer ALT/SGPT 38 U/L (13-56); Albumin, Serum 3.3 g/dL (3.2-5.0); Alkaline Phosphatase 110 U/L (45-117); Anion Gap 10 (5-15); BUN 12 mg/dL (7-18); BUN/Creat Ratio 13.5 RATIO (10-20); Bilirubin, Direct 0.12 mg/dL (0.00-0.30); Calcium,Total 9.4 mg/dL (8.5-10.1); Chloride 109 mmol/L (98-107); Creatinine, Serum 0.89 mg/dL (0.55-1.02); EST Glomerular Filtration Rate 68 mL/min (>60); Est Glom Filt Rate - Afr Amer 82 mL/min (>60); Globulin 4.3 g/dL (2.2-4.2); Glucose 83 mg/dL (74-106); Lipase 66 U/L (73-393); Potassium 3.9 mmol/L (3.5-5.1); Protein, Total 7.6 g/dL (6.4-8.2); Sodium Level 143 mmol/L (136-145)
[2018-08-02] MEDS: Morphine 4 MG/ML Syringe IV ×2 (19:27→21:06)
[2018-08-02] MEDS: proMETHazine 25 MG/ML Syringe 12.5 MG IV (19:27)
[2018-08-02] MEDS: 0.9% Normal Saline 1,000 ML 150 ML IV (19:27)
[2018-08-02] MEDS: Ondansetron 4 MG/2 ML Vial IV (21:05)
[2018-08-02 21:53] VITALS: BP 142/79; PULSE 81; RESP 18; O2SAT 97
--- NOTE | 2018-08-02 22:57 | ED.VISSUMM ---
- ER Visit Summary Date of Service: 08/02/18 Chief Complaint: Abdominal pain, nausea History of Present Illness: The patient is a 63 F with periodic episodes of severe abdominal pain that become more frequent over the past 4 months. She is currently waiting for referral to a GI doctor. Patient states this current episode started this morning after eating a papaya. She has not been able to eat the rest the day. She is having dry heaves. Past history significant for COPD, high cholesterol, bladder cancer, hypothyroidism, kidney stones, pancreatitis. Past surgical history significant for appendectomy, cholecystectomy, hysterectomy, cystectomy. Physical Examination: Blood pressure is 152/91, temperature 98.4, heart rate 85, respiratory rate 16, pulse ox 95% on room air. Head and neck examination unremarkable. Heart is regular rate and rhythm. Lung sounds are clear. Abdomen is soft with diffuse tenderness. There is no guarding or rebound. Hypoactive bowel sounds are noted. She has a bladder stoma with light yellow urine noted in the bed. Patient is anxious and tearful. Test Results: CBC was normal white count with hemoglobin 11.1 and hematocrit 34.8. Chemistry studies normal. LFTs and lipase normal. CT with contrast reveals right pelvic masses with possible enlarged lymph nodes. Mild bilateral hydronephrosis with prior cystectomy and ileal conduit. Enlarged retroperitoneal lymph nodes are noted. Right pelvic masses are measured at 2.5 x 1.8 cm. Emergency Department Course and Treatment: Patient was initially given morphine, Phenergan, and IV fluids. This was followed by dose of morphine and Zofran for continued symptoms. Test results were discussed with the patient and her at bedside. I spoke with Dr. Urbano as well as Dr. Lama here as the patient had previously been seen by [facility] but has also been seen by Dr. Moore. Dr. Lama recommended close follow-up with Dr. Moore who can arrange for a CT-guided biopsy. Patient is written for Percocet and Zofran at home. Treatment Plan: [] Disposition: Discharge Impression: 1. Pelvic mass 2. Abdominal pain This note was generated with [employer] software. It may contain incorrect words, spelling, and punctuation that were not noted in review of the chart prior to signing ED Disposition - Plan for ED Patient: Disposition: Home or Assisted Living Chief Complaint: Abd Pain Prescriptions: Oxycodone HCl/Acetaminophen [Percocet 5/325] 1 tablet PO Q6H PRN PRN 5 Days #20 tablet PRN Reason: Pain Ondansetron [Zofran Odt] 4 mg PO Q8H PRN PRN #10 tablet PRN Reason: Nausea Referrals: Raymond Moore MD [STAFF PHYSICIAN] - As soon as possible
[2018-08-02] MEDS: Ondansetron ODT 4 MG Tablet PO (23:38)
[2018-08-02] MEDS: oxyCODONE 5 MG Tablet PO (23:38)
[2018-08-02 23:42] VITALS: BP 131/76; PULSE 78; RESP 14; O2SAT 96
== END 2018-08-02 23:48 | disposition home or self-care (01) ==
PROVIDERS: Emergency Provider Emergency Medicine; Family Provider Preventive Medicine Occupational Medicine; PCP Preventive Medicine Occupational Medicine
DX: R19.00 Intra-abdominal and pelvic swelling, mass and lump, unspecified site (principal); R10.9 Unspecified abdominal pain; J44.9 Chronic obstructive pulmonary disease, unspecified; E78.00 Pure hypercholesterolemia, unspecified; E03.9 Hypothyroidism, unspecified; Z85.51 Personal history of malignant neoplasm of bladder; Z87.442 Personal history of urinary calculi; Z90.49 Acquired absence of other specified parts of digestive tract; Z90.710 Acquired absence of both cervix and uterus; Z90.6 Acquired absence of other parts of urinary tract; Z87.891 Personal history of nicotine dependence; Z79.899 Other long term (current) drug therapy
CPT/HCPCS: 74177; 80048; 80076; 83690; 85025; 96361; 96374; 96375; 96376; 99283; Q9967; A4216; J2405

== ENCOUNTER → 2018-08-10 12:10 | Outpatient (CLI) | payer MEDICAID, SELFPAY ==
--- NOTE | 2018-08-10 12:14 | CT_ITS ---
STUDY: CT CHEST WITH CONTRAST REASON FOR EXAM: Female, 63 years old. Abdominal mass RADIATION DOSAGE (If Supplied By Facility): CTDIvol = ( 19.33 ) mGy, DLP = ( 514.24 ) mGycm TECHNIQUE: Transaxial imaging was performed following intravenous administration of 100 ml of Isovue 300 contrast material. Individualized dose optimization techniques were used for this CT. COMPARISON: None. FINDINGS: There is dependent atelectasis at the lung bases. Focal nodular groundglass infiltrate in the posterior apical segment of the left upper lobe. 6 mm pleural-based nodule the posterior right lung base. No pleural effusion or pneumothorax. Underlying emphysematous change of the lungs. Normal heart and pericardium. Normal mediastinum. Normal hilar regions. Normal enhanced pulmonary arteries. Normal aorta arch and descending thoracic aorta. Normal osseous structures. There is no demonstrated abnormality of the visualized upper abdomen. CT/Chest WITH Contrast IMPRESSION: 1. Nodular groundglass infiltration within the posterior apical segment of the left upper lobe. 2. Mild emphysematous change of the lungs. 3. 6 mm pleural-based nodule at the posterior right lung base Electronically Signed: Alessio Flores MD at 3:57 EDT Tel , Service support ,
--- NOTE | 2018-08-10 12:15 | CT_ITS ---
STUDY: CT SOFT TISSUE NECK WITH CONTRAST REASON FOR EXAM: Female, 63 years old. History of bladder cancer RADIATION DOSAGE (If Supplied By Facility): CTDIvol = ( 17.82 ) mGy, DLP = ( 400.25 ) mGycm TECHNIQUE: The patient was scanned in a multi-detector CT scanner. High resolution transaxial imaging was performed following intravenous administration of 100 ml of Isovue 300 contrast material. Sagittal and coronal images were reconstructed. Individualized dose optimization techniques were used for this CT. COMPARISON: None. FINDINGS: Visualized portions of the brain demonstrate a 1.1 cm enhancing lesion in the left cerebellar hemisphere. There is a 0.6 cm enhancing lesion in the left anterior temporal lobe and a 0.5 cm enhancing lesion in the right mid temporal lobe. [employer] spaces are symmetrically preserved. Normal bilateral parapharyngeal spaces. Normal bilateral carotid spaces. Normal bilateral sublingual and submandibular glands and spaces. Shotty submandibular lymph nodes. Normal visualized nasopharynx. Normal retropharyngeal space. Normal perivertebral space. Normal visualized bilateral faucial tonsils. The visualized tongue, tongue base and oropharynx are normal. The visualized cervical lymph nodes (levels I-) are within normal size limits, and maintain normal morphology. There is no demonstrated solid or cystic mass lesion. There is no abnormal contrast enhancement. Normal epiglottis, bilateral vallecula and hypopharynx. The pre-epiglottic and paraglottic adipose spaces are normal. Normal visualized bilateral piriform sinuses, aryepiglottic folds, vocal cords, and arytenoid-cricoid articulations. Normal subglottic trachea. Normal bilateral lobes of the thyroid gland. Normal visualized pulmonary apices. There are multiple shotty left supraclavicular lymph nodes which are not pathologically enlarged (measuring less than 1 cm) but which are pathologically increased in number. Normal visualized paranasal sinuses. There is mild degenerative change of the visualized cervical spine. CT/Soft Tissue Neck WITH Contrast IMPRESSION: 1. Enhancing lesions within the visualized segments of the base of the brain including the left cerebellar hemisphere and bilateral temporal lobes, concerning for metastatic disease. Dedicated MR imaging of the brain is recommended for further characterization. 2. Shotty left supraclavicular lymph nodes which are not pathologically enlarged but which are increased in number, also concerning for metastatic disease. Electronically Signed: Alessio Flores MD at 4:51 EDT Tel , Service support ,
[2018-08-10 13:49] LABS: Absolute Lymphocyte Count 1.37 X10^3/ul (0.83-4.51); Absolute Neutrophil Count 3.7 X10^3/uL (2.0-7.7); Basophil# 0.01 X10^3/uL; Basophil% 0.2 % (0-1); Eosinophil# 0.09 X10^3/uL; Eosinophils% 1.6 % (0-5); Hematocrit 32.9 % (37-47); Hemoglobin 9.9 g/dl (12.0-15.0); Lymphocyte # 1.37 X10^3/ul (4.0); Lymphocyte % 24.2 % (19-41); Mean Corp Hgb Conc 30.1 g/gl (32-36); Mean Corpuscular Hgb 28.3 pg (27.0-32.0); Mean Platelet Vol. 9.2 fl (6.2-12.0); Monocyte# 0.45 X10^3/uL; Monocyte% 7.9 % (0-10); Neutrophil # 3.74 X10^3/uL (2.7-7.7); Neutrophil % 65.9 % (47-70); Platelet Count 350 K/mm3 (150-450); RBC Distribution Width CV 15.8 % (11.6-14.6); RBC Distribution Width SD 53.9 fl (35.1-43.9); White Blood Count 5.7 K/mm3 (4.4-11.0)
[2018-08-10 13:53] LABS: POSITIVE COUNT NO; POSITIVE DIFFERENTIAL NO; POSITIVE MORPHOLOGY NO
[2018-08-10 14:02] LABS: Prothrombin Time (Protime)PT. 13.2 SECONDS (11.7-14.9)
[2018-08-10 14:03] LABS: Partial Thromboplast Time 32.2 Seconds (24.1-36.2)
== END ==
PROVIDERS: Family Provider Preventive Medicine Occupational Medicine; PCP Preventive Medicine Occupational Medicine; Visit Provider Internal Medicine Medical Oncology
DX: Z85.51 Personal history of malignant neoplasm of bladder (principal); R19.00 Intra-abdominal and pelvic swelling, mass and lump, unspecified site; C77.0 Secondary and unspecified malignant neoplasm of lymph nodes of head, face and neck
CPT/HCPCS: 36415; 70491; 71260; 85025; 85610; 85730; Q9967

== ENCOUNTER → 2018-08-14 08:17 | Outpatient (CLI) | payer MEDICAID, SELFPAY ==
[2018-08-14] VITALS (10 sets, daily range): BP systolic 95–136; BP diastolic 58–74; PULSE 55–69; RESP 13–18; TEMP 36.5; O2SAT 91–100; BMI 24.4
--- NOTE | 2018-08-14 | IMM_PTH ---
PATIENT: NICCI CARRENO LOC: CT U#:[id number] AGE/SX: 70/F ROOM: RE08/14/[address]: Dr. Waylon Toledo MD : 1955 BED: DIS: SPEC #: [id number] RECD: 08/15/18 12:47 STATUS: SOULidya REQ #: [id number] MATA: 08/14/18 00:[address]: Waylon Toledo DEPT: IMMUNOHISTOCHEMISTRY RECD BY: Luciana Caro ENTERED: 08/15/18 12:50 SP TYPE: IMMUNO OTHR DR: Dr. Osman Alexander DO Tissues: Pelvis, NOS Procedures: NAPSIN A (add) CA-125 (add) Jose Daniel Ret (add) CK20 (add) CK5-6 (add) CK7 (add) CK8 (add) OK (add) TTF1 (add) P40 (add) CD44 (add) ER (initial) PHYSICIAN & INSTITUTION [place] [id number] SPECIMEN INFORMATION: Tissue Source: Right pelvic mass Clinical Info: Right pelvic mass Specimen Number: [id number] CPT code: 93777, 04166 x11 METHODOLOGY: Deparaffinized sections of prefer/formalin-fixed tissue or PAP/DQ stained slides are incubated with monoclonal/polyclonal antibodies/oligonucleotide probes. Localization is made via biotin free immunoperoxidase method. Appropriate controls are performed and reacted as expected. Results on target cell population are indicated in the following table: RESULTS: ANTIBODY / CLONE RESULT ER (6F11) Negative OK (1E2) Negative CK7 (OV-TL12/30) positive CK8 (98ucntY17) positive CK20 (KS20.8) negative TTF-1 (8G7G3/1) negative Napsin A (Rabbit Polyclonal) Negative CA125 (OC125) Negative CK5-6 (D5 & 1684) positive CALRET (polyclonal) negative P40 (BC28) positive anti-CD44 (SP37) positive These tests were developed and their performance characteristics determined by [facility]. They may not have been cleared or approved by the U.S. Food and Drug Administration. The FDA has determined that such clearance or approval is not necessary. INTERPRETATION: Right pelvic mass, biopsy: Poorly differentiated carcinoma. See comment. Comment: IHC profile favors urothelial primary. Case has been reviewed in consultation with Dr. Olvera who concurs with the above diagnosis. IDC:PENG COUCH:raghu 08/16/18
--- NOTE | 2018-08-14 | ASPIGT_PTH ---
PATIENT: NICCI CARRENO LOC: CT U#:[id number] AGE/SX: 70/F ROOM: RE08/14/[address]: Dr. Waylon Toledo MD : 1955 BED: DIS: SPEC #: [id number] RECD: 08/14/18 11:16 STATUS: PHILIP ARREAGATiti #: [id number] MATA: 08/14/18 00:[address]: Waylon Toledo DEPT: SURGICAL PATHOLOGY RECD BY: Alessio Lanier ENTERED: 08/14/18 11:16 SP TYPE: ASP RAD OTHR DR: Dr. Osman Alexander, DO Tissues: Pelvis, NOS Procedures: FNA Specimen Adequacy Special Stain Group II Surgery Specimen Level IV Diff Quik Stain (control) Imprint (control) HEADER OPERATION: Right pelvic biopsy PRE-OP DIAGNOSIS: Right pelvic mass TISSUE SUBMITTED: Right pelvic mass 20g MICROSCOPIC DIAGNOSIS Right pelvic mass, CT-guided core biopsy: Poorly differentiated carcinoma. See comment. SJ:raghu 08/15/18 COMMENT The specimen is evaluated at the time of CT-guided core biopsy by Dr. Wan. Immediate Evaluation = Atypical cells noted. Immunohistochemistry ([id number]) supports the above diagnosis and favors urothelial primary. Clinical correlation and appropriate follow up are necessary. Case has been reviewed in consultation with Dr. Olvera who concurs with the above diagnosis. IDC:AM MICROSCOPIC DESCRIPTION Slides are reviewed. GROSS DESCRIPTION Received in fixative is one container labeled with the patient's name and designated pelvic mass. The specimen consists of multiple irregular fragments of maldonado-white soft tissue that in aggregate measure 1 x 0.1 x <0.1 cm. The specimen is totally submitted in one cassette. / IZA:raghu 08/14/18 TC:0 CPT: 00900,91101
--- NOTE | 2018-08-14 08:18 | CT_ITS ---
PROCEDURE: CT GUIDED biopsy of the left pelvic mass. DATE: August 14, 2018. INDICATION: Female, 63 years old. History of bladder cancer. Left pelvic mass. PHYSICIAN: Antonio Griffin M.D. RADIATION DOSAGE (If Supplied By Facility): CTDIvol = ( 18 ) mGy, DLP = ( 318.27 ) mGycm. Individualized dose optimization techniques were utilized. PROCEDURE: The risks, benefits, and alternatives to the procedure were explained to the patient. The specific risk of hemorrhage requiring further treatment or intervention was detailed and accepted. Follow-up instructions were discussed with the patient as well. Written informed consent was obtained. The patient was brought into the CT suite and placed in the prone position. . An appropriate entry site was identified. The overlying skin was prepped and draped in the usual sterile fashion. 1% lidocaine was administered subcutaneously for local anesthesia. Conscious sedation was performed. The patient received 3 mg of Versed intravenously. Conscious sedation was started at 9:25 AM and terminated at 9:47 AM. The patient was independently monitored by the department nurse. Under CT guidance, a total of 5 passes were performed utilizing a 20-gauge core biopsy needle. The specimens were then placed in the appropriate fluid and transported to the laboratory for analysis. Hemostasis was obtained. The patient tolerated the procedure well without immediate complications. CT/Biopsy/Inj or Needle Placement IMPRESSION: Successful CT guided biopsy of the right pelvic mass, as described above. Electronically Signed: Antonio Griffin MD at 10:23 EDT Tel [phone], Service support ,
--- NOTE | 2018-08-14 08:57 | NURSING ---
confirmed with Migdalia mora that pt has taken versed in the past with out problems, stated she had it twice this year for surgery and did well.
== END ==
PROVIDERS: Family Provider Preventive Medicine Occupational Medicine; PCP Preventive Medicine Occupational Medicine; Visit Provider Internal Medicine Medical Oncology
DX: R19.00 Intra-abdominal and pelvic swelling, mass and lump, unspecified site (principal); Z85.51 Personal history of malignant neoplasm of bladder
CPT/HCPCS: 49180; 77012; 88172; 88305; 88313; 88341; 88342; 99156; 99157; A4216

== ENCOUNTER → 2018-08-16 16:53 | Outpatient (CLI) | payer MEDICAID, SELFPAY ==
--- NOTE | 2018-08-16 16:59 | MRI_ITS ---
STUDY: MRI BRAIN WITH AND WITHOUT CONTRAST REASON FOR EXAM: Female, 63 years old. Headaches and history of bladder cancer TECHNIQUE: Standardized multiplanar fat and water weighted pulse sequences were obtained. 5cc ml of Gadavist contrast material was administered intravenously for the contrast portion of the examination. COMPARISON: 08/19/2017 FINDINGS: Normal size of the ventricles and extra-axial spaces for the patient's age. Multiple round avidly enhancing nodules are present throughout the brain in a pattern concerning for metastatic disease. Most of the lesions are subcentimeter in size. The largest lesion is in the posterior left cerebellar hemisphere measuring 10 x 10 mm. Normal bilateral basal ganglia. Normal thalami. There is no extra-axial fluid accumulation. Normal flow voids within the major intracranial circulation suggesting patency by spin echo criteria. Normal venous enhancement. Normal sella turcica, pituitary gland, infundibular stalk, optic chiasm and hypothalamus. Normal tectal plate and pineal gland. Normal basal cisterns. Normal bilateral temporal bones. Normal bilateral internal auditory canals. No demonstrated orbital abnormality, within the constraints of a routine brain study. Normal visualized paranasal sinuses. Hyperostosis frontalis interna. Normal visualized soft tissue structures. Normal visualized upper cervical spine. MRI/Brain W/WO Contrast IMPRESSION: Multiple small round enhancing nodules are present throughout the brain in a pattern concerning for metastatic disease. No significant mass effect at this time. Electronically Signed: Carlos Tamayo MD at 3:14 EDT Tel , Service support ,
== END ==
PROVIDERS: Family Provider Preventive Medicine Occupational Medicine; PCP Preventive Medicine Occupational Medicine; Visit Provider Internal Medicine Medical Oncology
DX: C67.9 Malignant neoplasm of bladder, unspecified (principal); C79.31 Secondary malignant neoplasm of brain; R51 Headache
CPT/HCPCS: 70553; A9585

== ENCOUNTER 2018-09-07 07:25 | Day surgery (SDC) | payer MEDICAID, SELFPAY ==
[2018-08-23 12:11] VITALS: BMI 25.4
[2018-09-07] VITALS (7 sets, daily range): BP systolic 87–124; BP diastolic 54–78; PULSE 51–65; RESP 12–16; TEMP 36.3–36.6; O2SAT 92–100; BMI 25.1
[2018-09-07] MEDS: Cefazolin 2 GM in 0.9% Normal Saline 100 ML IV (09:14)
[2018-09-07] MEDS: Bupivacaine Mpf 0.5% 30 ML VIAL (09:45)
--- NOTE | 2018-09-07 10:01 | RAD_ITS ---
STUDY: X-RAY CHEST REASON FOR EXAM: Female, 63 years old. Post port placement TECHNIQUE: Single frontal view of the chest. COMPARISON: 02/24/2018 FINDINGS: Right chest wall port tip in SVC without pneumothorax. Left basilar and midlung atelectasis. There is no demonstrated pleural abnormality. Normal size heart. Normal mediastinum and terri. Normal visualized pulmonary arteries. Normal visualized aortic arch and descending thoracic aorta. Normal visualized thoracic spine. Normal visualized ribs, clavicles, and shoulders. There is no demonstrated abnormality of the visualized soft tissue structures of the upper abdomen. RAD/CXR for Line Placement IMPRESSION: Right chest wall port tip in SVC without pneumothorax. Left basilar and midlung atelectasis. Electronically Signed: Carlos Tamayo MD at 10:51 EDT Tel , Service support ,
--- NOTE | 2018-09-07 10:02 | DCINST_ITS ---
Discharge Diet: No Restrictions - Pain medication may cause nausea. You should typically eat light foods as you take your pain medication. Discharge Activity: Return to Normal Activity, May Shower - with your bandage in place in 1-2 days after surgery. DO NOT SHOWER WHEN YOUR PORT IS ACCESSED. Call your doctor if your incision/area has: Continuous Slow Oozing, Sudden Increased Bleeding, Increased Pain/ Swelling, Increased Redness Call your doctor if you observe: Fever of 101 or Higher Remove Dressing in (days):: 3 - When you remove the bandage, leave the steri- strips intact until they fall off. Allergies/Adverse Reactions: Allergies fentanyl Allergy (Verified 09/06/18 08:47) Anaphylaxis codeine Adverse Reaction (Verified 09/06/18 08:47) Unknown Sulfa (Sulfonamide Antibiotics) Adverse Reaction (Verified 09/06/18 08:47) Unknown Medications to take at Discharge Fluoxetine HCl [Prozac] 60 mg PO DAILY 07/10/17 Gabapentin [Neurontin] 800 mg PO TID 07/10/17 Levothyroxine [Synthroid] 50 mcg PO DAILY 07/10/17 Omeprazole 20 mg PO BID 07/10/17 Loratadine 10 mg PO DAILY PRN PRN 07/23/17 ALPRAZolam [Xanax] 0.5 mg PO BID PRN PRN 08/18/17 Multivitamin [Multiple Vitamins] 1 tab PO DAILY 08/18/17 Atorvastatin Calcium 80 mg PO DAILY 12/20/17 albuterol sulfate 0.63 mg/3 mL solution for nebulization 0.63 mg INHALATION Q6H PRN #75 ml 02/24/18 umeclidinium 62.5 mcg/actuation blister powder for inhalation 1 inh INHALATION QDAY ea 02/24/18 Ondansetron [Zofran Odt] 4 mg PO Q8H PRN PRN #10 tab 08/02/18 Oxycodone HCl/Acetaminophen [Percocet 5-325] 1 tab PO Q6H PRN PRN 5 Days #60 tab 08/09/18 Dexamethasone [Decadron] 4 mg PO BIDCM #60 tablet 08/30/18 Fluconazole 100 mg PO DAILY #15 tablet 08/30/18 Memantine HCl 5 mg PO DAILY 09/06/18 Primary Care Physician: Osman Alexander DO [Primary Care Provider] - Test Results: Test results from this visit will be discussed in further detail at your follow- up appointment, if applicable. Please Follow Up With: Raymond Moore MD When: Please call to schedule 7-10 day follow up appointment. [phone]
--- NOTE | 2018-09-07 10:02 | PCM.OPRPT ---
Problem List (1) Encounter for insertion of venous access port Status: Acute Report of Operation Date of Procedure: 09/07/18 Pre-Operative Diagnosis: Recurrent urothelial carcinoma. Need for vascular access port for chemotherapy Post-Operative Diagnosis: Same Surgery/Procedure Performed:: Ultrasound and fluoroscopy-guided right chest port placement utilizing right IJ Description of Procedure: After obtaining informed consent patient was brought back to the operating room MAC anesthesia was induced and the right chest and neck were prepped in normal sterile fashion. Ultrasound was used to evaluate both IJ is in the right IJ was selected. Next, using a needle, the right IJ was accessed and a guidewire was passed on into the superior vena cava under fluoroscopy guidance. A small incision was made over the puncture site and the dilator introducer was placed over the guidewire. Next this was capped and the pocket was made for the port. 1% lidocaine with epinephrine was injected in the proposed port site. An incision was made with scalpel. Electrocautery was used to make a pocket under the skin and subcutaneous tissue. Hemostasis was obtained. Next, the catheter was tunneled up to the neck incision site and placed through the introducer. The peel-away introducer was removed and the position of the catheter was confirmed on fluoroscopy. Next, the catheter was trimmed and attached to the port with the locking device. Interrupted 2-0 Vicryl sutures were used to anchor the port to the chest wall and then the port was placed inside the pocket. The pocket was then flushed with saline and the port irrigated with saline. There was good blood return and the port flushed easily. Next, heparin was injected into the port. The skin was closed with subcutaneous interrupted 3-0 Vicryl sutures and interrupted skin 3-0 nylon sutures. A single 3-0 Vicryl sutures placed under the skin at the neck incision site. Steri-Strips were placed as well as op sites. Patient tolerated procedure well, was taken to PACU in stable condition. Chest x-ray will be obtained. Grafts/Implants Used: 8 [employer] - Admit VTE Documentation VTE Mechan Device Prophylaxis: SCD's
== END 2018-09-07 11:13 | disposition home or self-care (01) ==
LOC: SDC 07:25 → AC 07:27
PROVIDERS: Family Provider Preventive Medicine Occupational Medicine; PCP Preventive Medicine Occupational Medicine; Referring Provider Surgery
PROC: (CPT 36561; principal; 2018-09-07 08:45)
DX: Z45.2 Encounter for adjustment and management of vascular access device (principal); C67.7 Malignant neoplasm of urachus; K21.9 Gastro-esophageal reflux disease without esophagitis; E78.00 Pure hypercholesterolemia, unspecified; J45.909 Unspecified asthma, uncomplicated; J44.9 Chronic obstructive pulmonary disease, unspecified; F03.90 Unspecified dementia, unspecified severity, without behavioral disturbance, psychotic disturbance, mood disturbance, and anxiety; F41.9 Anxiety disorder, unspecified; E03.9 Hypothyroidism, unspecified; Z85.51 Personal history of malignant neoplasm of bladder; Z87.891 Personal history of nicotine dependence
CPT/HCPCS: 36561; 71045; 77001; J7120; A4216; C1788; J2405

== ENCOUNTER 2018-09-30 17:48 | Inpatient (IN) | payer MEDICAID, SELFPAY ==
[2018-08-23 12:11] VITALS: BMI 25.4
[2018-09-30] VITALS (7 sets, daily range): BP systolic 96–136; BP diastolic 54–81; PULSE 75–97; RESP 14–19; TEMP 36.6–38.8; O2SAT 88–98; BMI 20.9
--- NOTE | 2018-09-30 18:35 | CT_ITS ---
STUDY: CT BRAIN WITHOUT CONTRAST REASON FOR EXAM: Female, 63 years old. Headache, history of bladder cancer, possible brain metastases RADIATION DOSAGE (If Supplied By Facility): CTDIvol = ( 44.99 ) mGy, DLP = ( 762.36 ) mGycm TECHNIQUE: Transaxial CT imaging of the brain was performed without administration of intravenous contrast material. Individualized dose optimization techniques were used for this CT. COMPARISON: August 18, 2017 FINDINGS: Normal soft tissue structures. Normal calvarium. Normal size ventricles and extra-axial spaces for the patient's age. Mild periventricular white matter ischemic changes Normal basal ganglia and thalami. Normal brainstem. Normal cerebellum. There is no intracranial hemorrhage. There are no findings of an acute ischemic infarction. Mild mucosal thickening of the maxillary ethmoid and sphenoid sinuses. No significant change since prior exam CT/Brain/Head without Contrast IMPRESSION: Mild periventricular white matter ischemic changes. No mass or acute bleed. If concern for metastatic disease MRI recommended for further evaluation Electronically Signed: Moy Henao MD at 20:33 EDT , Service support ,
--- NOTE | 2018-09-30 18:36 | RAD_ITS ---
STUDY: X-RAY CHEST REASON FOR EXAM: Female, 63 years old. Decreased oxygen saturation. TECHNIQUE: Single frontal view of the chest. COMPARISON: February 24, 2018 FINDINGS: There is a new right internal jugular catheter with its tip projected into the mid SVC. There is stable hyperexpansion. There is no demonstrated pleural abnormality. There is cardiomegaly unchanged. Normal mediastinum and terri. Normal visualized pulmonary arteries. There is atherosclerotic calcification of the aortic arch with tortuosity. Normal visualized thoracic spine. Normal visualized ribs, clavicles, and shoulders. There is no demonstrated abnormality of the visualized soft tissue structures of the upper abdomen. RAD/Chest 1 View (Portable) IMPRESSION: Stable appearance of the chest with no acute pathology. New right internal jugular catheter as described. Electronically Signed: Jesus Hutchison MD at 19:36 EDT , Service support ,
--- NOTE | 2018-09-30 18:36 | EKG12_ITS ---
Test Reason : SOB Blood Pressure : / mmHG Vent. Rate : 094 BPM Atrial Rate : 094 BPM P-R Int : 134 ms QRS Dur : 082 ms QT Int : 362 ms P-R-T Axes : 039 012 -50 degrees QTc Int : 452 ms Normal sinus rhythm ST & T wave abnormality, consider inferior ischemia ST & T wave abnormality, consider anterolateral ischemia Abnormal ECG Confirmed by MAUREEN CARRASCO, DIMITRIOS ([id number]), tape editor NICHOLAS SPEARS ([id number]) on 10/02/2018 3:47:02 PM Referred By: Raymond Moore Confirmed By:DIMITRIOS REDDY MD
[2018-09-30] MEDS: 0.9% Normal Saline 1,000 ML IV.SOLN. 2000 ML IV (18:43)
[2018-09-30 18:54] LABS: Prothrombin Time (Protime)PT. 13.5 SECONDS (11.7-14.9)
[2018-09-30 18:55] LABS: Partial Thromboplast Time 32.1 Seconds (24.1-36.2)
--- NOTE | 2018-09-30 18:55 | CT_ITS ---
STUDY: CTA CHEST REASON FOR EXAM: Female, 63 years old. Hypoxia RADIATION DOSAGE (If Supplied By Facility): CTDIvol = ( 11.85 ) mGy, DLP = ( 539.57 ) mGycm TECHNIQUE: The examination was performed with the intravenous administration of 75ML ml of Isovue 370 contrast material. Post-processing of the angiographic images was performed, with multiplanar reformation and 3D reconstruction. Individualized dose optimization techniques were used for this CT. COMPARISON: None. FINDINGS: Normal enhancement of the main pulmonary artery and right and left pulmonary arteries. There are small filling defects within the subsegmental vessels in the right lower lobe consistent with pulmonary emboli Normal thoracic aorta and visualized great vessels. There is no demonstrated aortic dissection. The heart is enlarged. Normal mediastinum. Normal hilar regions. Normal visualized trachea and bronchi. The lungs are well expanded. Nonspecific diffuse interstitial thickening and groundglass opacities.. Is mild atelectasis within the dependent portion of the lungs bilaterally. Normal pleura. Normal chest wall structures. Dorsal spine demonstrates spondylosis.. Normal visualized upper abdomen. CT/CTA Chest W/WO Contrast IMPRESSION: Pulmonary emboli to the subsegmental vessels of the right lower lobe Chronic interstitial changes and minor atelectasis within the dependent portion of the lungs. Electronically Signed: Moy Henao MD at 20:56 EDT , Service support ,
[2018-09-30 19:03] LABS: ALB/GLOB Ratio 0.7 RATIO (0.9-2.4); AST(SGOT) 84 U/L (15-37); Alanine Aminotransfer ALT/SGPT 231 U/L (13-56); Albumin, Serum 2.6 g/dL (3.2-5.0); Alkaline Phosphatase 130 U/L (45-117); Anion Gap 8 (5-15); BUN 18 mg/dL (7-18); BUN/Creat Ratio 26.7 RATIO (10-20); Calcium,Total 8.3 mg/dL (8.5-10.1); Chloride 98 mmol/L (98-107); Creatinine, Serum 0.68 mg/dL (0.55-1.02); EST Glomerular Filtration Rate 93 mL/min (>60); Est Glom Filt Rate - Afr Amer 113 mL/min (>60); Estimated Creatinine Clearance 59.85 ml/min; Globulin 3.8 g/dL (2.2-4.2); Glucose 75 mg/dL (74-106); Potassium 3.6 mmol/L (3.5-5.1); Protein, Total 6.4 g/dL (6.4-8.2); Sodium Level 135 mmol/L (136-145)
[2018-09-30] MEDS: Acetaminophen 325 MG Tablet 650 MG PO (19:15)
[2018-09-30 19:17] LABS: Hematocrit 30.2 % (37-47); Hemoglobin 9.7 g/dl (12.0-15.0); Lymphocyte % 83.3 % (19-41); Mean Corp Hgb Conc 32.1 g/gl (32-36); Mean Corpuscular Hgb 29.2 pg (27.0-32.0); Mean Platelet Vol. 8.9 fl (6.2-12.0); Monocyte# 0.01 X10^3/uL; Monocyte% 8.3 % (0-10); Neutrophil # 0.01 X10^3/uL (2.7-7.7); Neutrophil % 8.4 % (47-70); RBC Distribution Width SD 53.8 fl (35.1-43.9); Red Blood Count 3.32 M/mm3 (4.2-5.4)
[2018-09-30 19:19] LABS: Differential Indicated SCAN CRITERIA MET; POSITIVE COUNT YES; POSITIVE DIFFERENTIAL YES; POSITIVE MORPHOLOGY YES
[2018-09-30 19:20] LABS: Platelet Count 20 K/mm3 (150-450); White Blood Count 0.1 K/mm3 (4.4-11.0)
--- NOTE | 2018-09-30 19:20 | ED.RN ---
lab called with critical lab results. WBC 0.[address] count [address] Mccullough made aware. No new orders at this time
[2018-09-30] MEDS: Piperacil/Tazobactam 3.375 GM/50 ML ML IV (19:25)
[2018-09-30 19:31] LABS: Lactic Acid 0.7 mmol/L (0.4-2.0)
[2018-09-30 19:37] LABS: Differential Comment SCANNED
[2018-09-30 19:42] LABS: Mucous, Urine 0 SEEN /hpf (<or=2+); Squamous Epithelial Cells - UA 0 SEEN /hpf (5-10)
[2018-09-30 19:46] LABS: Color, Urine Red (Yellow); Glucose, Dipstick Normal (Normal); Ketone-Dipstick Negative (Negative); Leukocyte Esterase-Dipstick 100 /ul (Negative); Nitrite-Dipstick Positive (Negative); Occult Blood-Urine 250 /ul (Negative); Protein-Dipstick 100 mg/dl (Negative); Urine Bilirubin Dipstick Negative (Negative); Urine Clarity Cloudy (Clear); Urine Urobilinogen 1 mg/dl (Normal)
[2018-09-30 20:07] LABS: Other Crystals-Urine 0-5 /hpf (None Seen)
[2018-09-30 20:08] LABS: Bacteria 3+ /hpf (None Seen); Red Blood Cells-Urine > 100 SEEN /hpf (0-5); White Blood Cells 10-25 SEEN /hpf (0-5)
--- NOTE | 2018-09-30 20:50 | CT_ITS ---
STUDY: CT ABDOMEN AND PELVIS WITHOUT CONTRAST REASON FOR EXAM: Female, 63 years old. Upper abdominal pain RADIATION DOSAGE (If Supplied By Facility): CTDIvol = ( 11.13 ) mGy, DLP = ( 520.13 ) mGycm TECHNIQUE: Transaxial images were obtained from the dome of the diaphragm to the symphysis pubis without oral contrast, and without intravenous contrast. Sagittal and coronal images were reconstructed. Individualized dose optimization techniques were used for this CT. COMPARISON: August 02, 2018 FINDINGS: There is minor atelectasis at both lung bases and tiny effusions... The heart is enlarged and there is a small pericardial effusion Normal liver. Gallbladder not visualized which may be consistent with cholecystectomy. Normal spleen. Atrophic pancreas Normal bilateral adrenal glands. Moderate right hydroureteronephrosis to the level of the right ileal conduit. There is normal caliber left renal collecting system but very mild hydroureter. There is a small left renal cyst Postop changes status post cystectomy and ileal conduit in the right lower quadrant there is thickening of the dasilva of the ileal conduit with narrowing of the contrast stream Normal visualized stomach. Nonspecific ileus. There is diffuse fecal retention seen throughout the colon.. No evidence for acute appendicitis.. Minor atherosclerotic changes of the aorta without evidence for aneurysm Normal inferior vena cava. Normal retroperitoneum Uterus not visualized status post hysterectomy Small soft tissue density in the pelvis on the right possibly representing internal and external iliac adenopathy. There is a trace of fluid in the pelvis on the right Normal abdominal wall. Lumbar spine demonstrates moderate spondylosis CT/Abdomen/Pelvis without Cont IMPRESSION: Postsurgical changes status post cystectomy and right ileal conduit. Moderate right hydroureteronephrosis and mild left hydroureter in association with thick-walled ileal conduit and focal narrowing of the lumen. Nonspecific ileus with diffuse fecal retention in the colon Status post cholecystectomy, cystectomy and hysterectomy Other findings as above Electronically Signed: Moy Henao MD at 22:35 EDT , Service support ,
[2018-09-30] MEDS: Morphine 4 MG/ML Syringe IV (21:08)
--- NOTE | 2018-09-30 22:52 | PCM.HP.STD ---
Problem List (1) Cystitis Status: Acute (2) Gross hematuria Status: Acute History of Present Illness Date of Admission: 09/30/18 Chief Complaint: Gross hematuria The patient is a 63 year old F with a significant history of bladder cancer status post radical cystectomy with ileal conduit and suprapubic catheter. She has gross hematuria that started on the same day of admission. Patient complains of pain in the abdomen. The emergency department she was found to be hypoxic with oxygen saturation of 88%. Her EKG showed worsening depth of T wave inversion in leads V1 to V5 and new T wave inversion in leads V6. Her troponin was unremarkable. CT of the chest showed small filling defects within subsegmental vessels in the right lower lobe consistent with pulmonary emboli. His urinalysis was found to have RBCs more than 100; bacteria; positive nitrite and leukocyte Estrace. She was found to be neutropenic with WBC of 0.1 and percentage neutrophils of 8.4; bringing her absolute neutrophil count to be 8.4. Her platelet count on admission was 20 which decreased further to 18. Patient was given Xarelto in the emergency department because of the PE. Patient was noted to have a T-max of 101.9 Fahrenheit at emergency department. The patient received 2000 mL's of normal saline in the emergency department. Her blood pressure at emergency department was appropriate. Her lactic acid in the emergency department was elevated. Her abdominal CT showed moderate right hydroureteronephrosis and mild left hydroureter in association with thick walled ileal conduits and focal narrowing of the lumen. Nonspecific ileus with diffuse fecal retention in the colon. Past Medical History Past Medical History (Chronic Problems): Chronic Problems (Last Reviewed 10/01/18 @ 04:05 by Waylon Vela MD) Bladder cancer (Chronic) Abdominal pain (Chronic) Vaginal discharge (Chronic) Abdominal mass (Chronic) History of bladder cancer (Chronic) 2017 Hyperlipemia (Chronic) Hypothyroidism (Chronic) Anxiety (Chronic) Chronic obstructive lung disease (Chronic) Primary fibromyalgia syndrome (Chronic) Medical History: Medical History (Last Reviewed 10/01/18 @ 04:05 by Waylon Vela MD) History of bladder cancer (Chronic) Z85.51 2017 Hyperlipemia (Chronic) E78.5 Hypothyroidism (Chronic) E03.9 Anxiety (Chronic) F41.9 Chronic obstructive lung disease (Chronic) J44.9 Primary fibromyalgia syndrome (Chronic) M79.7 Shoulder pain (Acute) M25.519 COPD (chronic obstructive pulmonary disease) J44.[address] Moore 09/07/18 Dementia F03.90 Fracture of left femur S72.92XA History of hysterectomy Z98.890, Z90.710 Allergies fentanyl Allergy (Verified 09/25/18 09:37) Anaphylaxis codeine Adverse Reaction (Verified 09/25/18 09:37) Unknown Sulfa (Sulfonamide Antibiotics) Adverse Reaction (Verified 09/25/18 09:37) Unknown Home Medications: Ambulatory Orders Medication Instructions Recorded Fluoxetine HCl [Prozac] 60 mg PO DAILY 07/10/17 Gabapentin [Neurontin] 800 mg PO TID 07/10/17 Levothyroxine [Synthroid] 50 mcg PO DAILY 07/10/17 Loratadine 10 mg PO DAILY PRN PRN 07/23/17 ALPRAZolam [Xanax] 0.5 mg PO BID PRN PRN 08/18/17 Atorvastatin Calcium 80 mg PO DAILY 12/20/17 albuterol sulfate 0.63 mg/3 mL 0.63 mg INHALATION Q6H PRN #75 ml 02/24/18 solution for nebulization Dexamethasone [Decadron] 4 mg PO BIDCM #60 tablet 08/30/18 Memantine HCl 5 mg PO DAILY 09/06/18 Oxycodone HCl/Acetaminophen 1 tab PO Q6H PRN PRN 5 Days #90 tab 09/12/18 [Percocet 5-325] Senna [Senokot] 2 tablet PO DAILY #60 tablet 09/12/18 Lidocaine/Prilocaine 30 gm TP DAILY PRN PRN 30 Days #1 09/14/18 [Lidocaine-Prilocaine Cream] cream..g. Bupropion HCl [Bupropion Xl] 150 mg PO DAILY 09/30/18 Trazodone HCl 50 mg PO DAILY 09/30/18 Surgical History: Surgical History (Last Reviewed 10/01/18 @ 04:05 by Waylon Vela MD) History of 2 sections Z87.59 History of appendectomy Z98.890, Z90.49 History of cholecystectomy Z90.49 History of hysterectomy for cancer Z90.710 History of tubal ligation Z98.51 history of bladder removal due to bladder cancer, and 4 lymph nodes removed. may 2017 [facility] ([facility] ) History of arthroscopy of right shoulder Z98.890 H/O total cystectomy Z98.890 H/O tubal ligation Z98.51 H/O: Z98.891 S/P appendectomy Z90.49 Surgical History: - Lives: With Family Smoking Status: Former smoker - *Family History Maternal Family History: Family History (Last Reviewed 10/01/18 @ 04:34 by Waylon Vela MD) Brother Lung disease Heart disease Grandmother Cancer Mother Cancer History Items: No pertinent history Paternal Family History: Family History (Last Reviewed 10/01/18 @ 04:34 by Waylon eVla MD) Brother Lung disease Heart disease Grandmother Cancer Mother Cancer History Items: No pertinent history Review of Systems Unable to obtain accurate/complete ROS d/t: Patient is not forth coming with answers. See comment. Comment: Unable to obtain adequately as patient is not answering all questions. However she reports back pain and right upper quadrant pain. She also reports that her bowels has not moved for several days. ED doctor reported that patient has been weak and somnolent. VTE Information - Inpt Only VTE Present on Admission: Yes VTE Mechan Device Prophylaxis: SCD's VTE Pharm Prophylaxis ordered?: No Reason prophylaxis not ordered:: Treatment Not Indicated - She initially received Xarelto at the ED because of right subsegmental PE. However because of gross hematuria with severe thrombocytopenia chemical prophylaxis will not be continued at this time. Patient Problems: Active and Suspected Problems (Last Reviewed 10/01/18 @ 04:05 by Waylon Vela MD) Cystitis (Acute) Gross hematuria (Acute) - Physical Exam General: Alert, Oriented x3, - - Patient moaning secondary to abdominal pain HEENT: Atraumatic, PERRLA, EOMI, Normocephalic Neck: Supple, No JVD, Negative Carotid Bruits Lungs: - - Because breath sounds and coughing profusely on examination. Cardiovascular: Regular rate, No murmurs Abdomen: Soft, Bowel Sounds Not Present, Tender - Right upper quadrants., - - Suprapubic catheter in place. Extremities: No edema, Capillary Refill Less than 3 Seconds Skin: No rashes, No breakdown Musculoskeletal: No Tenderness to Palpation of Joints or Extremities Neurological: - - Patient appears sick and more motivated to follow commands to appropriately assess her neurological function. Psych/Mental Status: Agitated, Depressed Vital Signs Temp Pulse Resp BP Pulse Ox 99 F 79 14 96/65 96 09/30/18 20:34 09/30/18 22:00 09/30/18 22:00 09/30/18 22:00 09/30/18 22:00 Oxygen Flow Rate (L/min) 2 Oxygen Delivery Method Nasal Cannula Weight: 45.359 kg Body Mass Index (BMI) 20.9 Finger Stick Blood Glucose 132 Laboratory Tests Past 24 Hrs 09/30/18 09/30/18 09/30/18 18:30 18:30 18:30 WBC 0.1 L* RBC 3.32 L Hgb 9.7 L Hct 30.2 L MCV 91.0 MCH 29.2 MCHC 32.1 RDW 16.0 H RDW Differential 53.8 H Plt Count 20 L* MPV 8.9 Immature Gran % (Auto) 0.000 Neut % (Auto) 8.4 L Lymph % (Auto) 83.3 H [place] % (Auto) 8.3 Eos % (Auto) 0.0 Baso % (Auto) 0.0 Absolute Neuts (auto) 0.0 L Absolute Lymphs (auto) 0.10 L Total Counted Not Reportable Differential Comment SCANNED Diff Path Review March PT 13.5 INR 1.0 APTT 32.1 Sodium 135 L Potassium 3.6 Chloride 98 Carbon Dioxide 29.0 Anion Gap 8 BUN 18 Creatinine 0.68 Estim Creat Clear Calc 59.85 Est GFR (MDRD) Af Amer 113 Est GFR (MDRD) Non-Af 93 BUN/Creatinine Ratio 26.7 H Glucose 75 Lactic Acid Calcium 8.3 L Total Bilirubin 0.60 AST 84 H ALT 231 H Alkaline Phosphatase 130 H Troponin I < 0.015 Total Protein 6.4 Albumin 2.6 L Globulin 3.8 Albumin/Globulin Ratio 0.7 L Urine Color Urine Clarity Urine pH Ur Specific [place] Urine Protein Urine Glucose (UA) Urine Ketones Urine Occult Blood Urine Nitrite Urine Bilirubin Urine Urobilinogen Ur Leukocyte Esterase Urine RBC Urine WBC Ur Squamous Epith Cells Other Crystals Urine Bacteria Urine Mucus 09/30/18 09/30/18 18:30 19:35 WBC RBC Hgb Hct MCV MCH MCHC RDW RDW Differential Plt Count MPV Immature Gran % (Auto) Neut % (Auto) Lymph % (Auto) [place] % (Auto) Eos % (Auto) Baso % (Auto) Absolute Neuts (auto) Absolute Lymphs (auto) Total Counted Differential Comment Diff Path Review PT INR APTT Sodium Potassium Chloride Carbon Dioxide Anion Gap BUN Creatinine Estim Creat Clear Calc Est GFR (MDRD) Af Amer Est GFR (MDRD) Non-Af BUN/Creatinine Ratio Glucose Lactic Acid 0.7 Calcium Total Bilirubin AST ALT Alkaline Phosphatase Troponin I Total Protein Albumin Globulin Albumin/Globulin Ratio Urine Color Red Urine Clarity Cloudy Urine pH 8.0 Ur Specific [place] 1.010 Urine Protein 100 H Urine Glucose (UA) Normal Urine Ketones Negative Urine Occult Blood 250 H Urine Nitrite Positive H Urine Bilirubin Negative Urine Urobilinogen 1 H Ur Leukocyte Esterase 100 H Urine RBC > 100 SEEN Urine WBC 10-25 SEEN Ur Squamous Epith Cells 0 SEEN Other Crystals 0-5 Urine Bacteria 3+ Urine Mucus 0 SEEN Assessment/Plan All Active Problems (Last Reviewed 10/01/18 @ 04:05 by Waylon Vela MD) Ataxia (Acute) Left flank pain (Acute) Rotator cuff syndrome of right shoulder (Acute) Superior glenoid labrum lesion of right shoulder, initial encounter (Acute) Pancreatitis (Acute) Acute cholecystitis (Acute) Brain metastases (Acute) Encounter for insertion of venous access port (Acute) Constipation (Acute) Educational circumstance (Acute) Chemotherapy management, encounter for (Acute) Cystitis (Acute) Gross hematuria (Acute) Shoulder pain (Acute) The patient is a 63 year old F with a significant history of bladder cancer status post radical cystectomy with ileal conduit and suprapubic catheter who presented with gross hematuria; pain and tenderness in the right upper quadrant of abdomen and found to be hypoxic; with ischemic EKG changes; bacteria in her urine; neutropenic fever; thrombocytopenia subsegmental PE and with hypotension consistent with sepsis due to cystitis. Septic Shock Likely from Cystitis. Cannot rule out pyelonephritis in the setting of gram-negative bacteremia Patient received vancomycin and Zosyn at the emergency department. Patient received 2 L of IV fluids in the emergency department. Her blood pressure at emergency department was about normal. On the floor her systolic blood pressure blood pressure decreased to the 70s requiring 2 L normal saline bolus to be ordered. It was reported that her systolic blood pressure decreased to 40s. Lactic acid in the emergency department was unremarkable. Repeat lactic acid. Vancomycin continued Zosyn replaced with Merrem. Blood cultures with preliminary results showing gram-negative rods in aerobic bottle. Urine cultures are pending Trend CBC and BMP Patient received an amp of D50 because of hypoglycemia while on the PCU. After completion of additional 2 L of normal saline patient will be switched to D5W with lactated Ringer's with 40 of potassium for 10 hours. Patient was at the PCU but she was transferred to the ICU because her blood pressure did not respond to normal saline IV fluid bolus. Electrolyte replacement per ICU protocol. Levophed was initiated. Hydrocortisone 50 mg every 8 hours scheduled If patient is requiring more than 15 mcg grams of Levophed per hour start vasopressin. Protonix to prevent stress ulcer. Classified Advertising Supervisor, Dr. Feliciano has been consulted to optimize management. Infectious disease doctor, Dr. Vaughan was consulted to optimize management. Neutropenic fever White count of 0.1 low; 8.4 percentage neutrophils; no bands bringing and A1c to 8.4. Patient with because lung sounds. Vancomycin and Zosyn as above. Trend CBC Infectious disease consult Oncology consult. Ileus Patient with radiographic evidence of stool burden in her colon. No transition point noted on CT of her abdomen. Initially stool softness when ordered. Because of persistent tenderness with patient moaning throughout the night, stool softness has been discontinued. Will consult general surgery and keep patient n.p.o. for now. Thrombocytopenia Her platelets was 20 on admission repeat platelet was 10. Her thrombocytopenia could be due to her chemotherapy. Per conversation with ED doctor and oncologist platelets transfusion was no started at this time. Oncology to see patient in a.m. Bladder cancer status post radical cystectomy with ileal conduit and suprapubic catheter Patient is a known patient of Dr. Toledo. Dr. Toledo has been consulted. Subsegmental PE in the right lower lung Though patient had EKG changes; and hypoxia it is unlikely that his submental PE is causing her symptoms. With abnormal urinalysis and bacteremia it is likely that acute decompensation is secondary to septic shock from a urinary tract. And in the setting of thrombocytopenia with gross hematuria I discussed with Dr. Toledo, oncologist and anticoagulation has been put on hold at this time. Echocardiogram ordered. Abnormal EKG Patient noted to have increased depth of a her T waves in anterior and lateral leads. Her troponin is normal so far. This could be due to sepsis causing demand ischemia. Patient denies any chest pain at this point. Echocardiogram ordered. DVT prophylaxis In the setting of thrombocytopenia although patient is at risk for thromboembolism and indeed has a subsegmental PE a chemical anticoagulation has been put on hold. SCD ordered. Miscellaneous: Attempt was made to inform family of patient's transfer from PCU to the ICU and also for informed consent for a line. We could not get hold of family. A line was attempted in the right arm but it was unsuccessful. Code Visit Inpatient E&M: 14779 Init Hosp L3
--- NOTE | 2018-09-30 22:56 | ED.DCSUM_ITS ---
- ER Visit Summary Date of Service: 09/30/18 Chief Complaint: Blood in urine History of Present Illness: The patient is a 63 F with metastatic bladder cancer and a history of a cystectomy with ileal conduit. She presents today with blood in her urine bag. This is a new finding for her. She also has been weak and somnolent today. She is currently on chemotherapy. She did complain of some shortness of breath and triage noted an oxygen saturation of 88%. She is denying cough or chest pain. She is having diffuse abdominal pain and nausea. She is having fevers. Physical Examination: Temperature 101.9 otherwise vitals are unremarkable. She is alert and oriented. Heart regular rate and rhythm lungs diminished throughout. Abdomen diffusely tender. No guarding or rebound. Extremities nontender with no edema. Skin appears normal. Cranial nerves grossly intact. Normal strength sensation. Test Results: EKG showed sinus rhythm at a rate of [address] and T wave changes concerning for ischemia versus heart strain. These are more pron ounced than her prior changes from December of this year. White count 0.1, hemoglobin 9.7, platelets 20. Sodium 135. Alkaline phosphatase 130, ALT 231, AST 84 coags normal. Urinalysis shows signs of blood and possible infection. Troponin normal. Lactate 0.7. Cultures pending. Chest x-ray showed chronic changes in the right internal jugular catheter. Brain CT showed chronic changes but nothing acute. Chest x-ray showed a right lower lobe subsegmental embolus and chronic changes. Abdominal CT showed postop and chronic changes as well as an ileus. Emergency Department Course and Treatment: Patient seen on arrival. She had a septic workup performed. We started fluids, Zosyn, and vancomycin. She also received Tylenol. She was found to be neutropenic and had appropriate precautions. I discussed her case with Dr. Toledo. He did not advise platelet transfusion at this point given that she is not having significant bleeding. We did discuss treatment options for her pulmonary embolus and will treat with Xarelto. Patient received pain medicine and nausea medicine for her abdominal pain. She has an ileus on her CT. Patient has remained hemo-dynamically stable. I will discussed with the hospitalist for admission. Treatment Plan: As above Disposition: Admission Impression: 1. Neutropenic fever 2. Metastatic bladder cancer 3. Thrombocytopenia 4. Hematuria 5. EKG changes 6. Pulmonary embolism 7. Ileus 8. Sepsis This note was generated with [employer] dictation software. It may contain incorrect words, spelling, and punctuation that were not noted in review of the chart prior to signing ED Disposition - Plan for ED Patient: Chief Complaint: Shortness of Breath Referrals: Osman Alexander DO [Primary Care Provider] -
[2018-09-30] MEDS: Ondansetron 4 MG/2 ML Vial IV (23:07)
[2018-09-30] MEDS: Rivaroxaban 15 MG Tablet PO (23:07)
[2018-10-01] VITALS (51 sets, daily range): BP systolic 73–118; BP diastolic 45–87; PULSE 75–149; RESP 16–30; TEMP 33.4–38.9; O2SAT 91–100; BMI 25.9
[2018-10-01] MEDS: 0.9% NaCl VAD Flush 10 ML IV ×9 (00:30→21:27)
--- NOTE | 2018-10-01 00:49 | PCM.RX.CS ---
Consult Pharmacy has been consulted to manage selected antiobiotic: Vancomycin Type of Consult: New start Suspected Infection: Sepsis Prior Doses of Antibiotics Received/Current Regimen: Medications Vancomycin HCl () 500 mg in 100 mls @ 100 mls/hr IV Q12H VIC Discontinued Medications Vancomycin HCl 750 mg/ (Dextrose) 265 mls @ 250 mls/hr IV X1 ONE Stop: 09/30/18 20:00 Last Admin: 09/30/18 19:25 Dose: 250 mls/hr Labs: Sodium 135 mmol/L (136-145) L 09/30/18 18:30 Potassium 3.6 mmol/L (3.5-5.1) 09/30/18 18:30 Chloride 98 mmol/L (98-107) 09/30/18 18:30 Carbon Dioxide 29.0 mmol/L (21.0-32.0) 09/30/18 18:30 Anion Gap 8 (5-15) 09/30/18 18:30 BUN 18 mg/dL (7-18) 09/30/18 18:30 Creatinine 0.68 mg/dL (0.55-1.02) 09/30/18 18:30 Est GFR (MDRD) Af Amer 113 mL/min (>60) 09/30/18 18:30 Est GFR (MDRD) Non-Af 93 mL/min (>60) 09/30/18 18:30 BUN/Creatinine Ratio 26.7 RATIO (10-20) H 09/30/18 18:30 Glucose 75 mg/dL (74-106) 09/30/18 18:30 Weight used for dosin.4 kg Estimated Creatinine Clearance: 59.9 Goal Trough: 15-20 mcg/mL Pharmacy Plan for Drug Dosing: Pharmacy Service will continue to monitor and adjust dosing as required. Follow-Up Labs: Trough Vancomycin Labs to be done on [date and time ordered]: 10/02/18 @0700
[2018-10-01 01:17] LABS: Hematocrit 28.1 % (37-47); Hemoglobin 9.2 g/dl (12.0-15.0); Mean Corp Hgb Conc 32.7 g/gl (32-36); Mean Corpuscular Hgb 30.3 pg (27.0-32.0); Mean Corpuscular Volume 92.4 fL (81-99); Mean Platelet Vol. 9.5 fl (6.2-12.0); RBC Distribution Width CV 16.1 % (11.6-14.6); RBC Distribution Width SD 52.4 fl (35.1-43.9); Red Blood Count 3.04 M/mm3 (4.2-5.4); Scan Indicated on CBC? Y/N YES- FLAGS NOTED
[2018-10-01 01:18] LABS: Platelet Count 18 K/mm3 (150-450); White Blood Count 0.1 K/mm3 (4.4-11.0)
[2018-10-01 01:40] LABS: Differential Comment SCAN
[2018-10-01] MEDS: 0.9% Normal Saline 1,000 ML 999 ML IV ×2 (04:14→04:29)
--- NOTE | 2018-10-01 04:31 | ECHOD_ITS ---
Reason For Study: EMBOLI Procedure This was a 2D Doppler, Color Flow transthoracic echocardiogram. Myocardial strain analysis was performed in this exam to aid in the assessment of cardiac function. Strain analysis was performed on suboptimal imaging. The study was technically difficult. Exam performed portable in ICU/CCU. Left Ventricle Normal LV size. Left ventricular systolic function is normal. The estimated ejection fraction is 60 %. The global longitudinal strain is mildly abnormal. The global longitudinal strain = -17.6% (abnormal). No regional wall motion abnormalities noted. Right Ventricle Normal RV size. Normal systolic function. Atria Normal left atrium. Normal right atrium. Mitral Valve Normal mitral valve. Tricuspid Valve Normal tricuspid valve. Mild (1+) tricuspid valve insufficiency. Aortic Valve Normal aortic valve. Trisinus/trileaflet aortic valve. Pulmonic Valve Normal pulmonic valve. Mild (1+) pulmonic valve insufficiency. Great Vessels Normal aortic root. The pulmonary artery is normal size. Normal inferior vena cava. Pericardium/Pleural No pericardial effusion. MMode/2D Measurements & Calculations LVIDd: 4.0 cm IVSd: 0.88 cm Ao root diam: 3.2 cm LVIDs: 2.9 cm LVPWd: 0.77 cm RVDd: 3.0 cm FS: 29.2 % LAV(MOD-bp): 61.2 ml LA A4 area: 17.7 cm2 LA dimension(2D): 3.6 cm LAV(MOD-bp) Indexed: 40.6 ml/m2 LAV(MOD-sp2): 74.7 ml LAV(MOD-sp4): 46.0 ml RA A4 area: 13.8 cm2 Time Measurements MV dec time: 0.14 sec Doppler Measurements & Calculations MV E max ndaer: 120.9 cm/sec Lat Peak E' Nader: 8.3 cm/sec Med Peak E' Nader: 5.3 cm/sec MV A max nader: 106.9 cm/sec E/E' lat: 14.6 E/E' med: 22.8 MV E/A: 1.1 Ao V2 max: 114.4 cm/sec LV V1 max: 104.0 cm/sec TR max nader: 284.0 cm/sec Ao max P.2 mmHg LV V1 max P.3 mmHg TR max P.3 mmHg Interpretation Summary Normal LV size. Left ventricular systolic function is normal. The estimated ejection fraction is 60 %. The global longitudinal strain is mildly abnormal. The global longitudinal strain = -17.6% (abnormal). Mild (1+) tricuspid valve insufficiency. Ordering Physician: Waylon Vela Referring Physician: ANAHI MA Performed By: Alina Kim, TAYLOR, RVT
[2018-10-01 04:45] LABS: Anion Gap 7 (5-15); BUN 17 mg/dL (7-18); BUN/Creat Ratio 19.9 RATIO (10-20); Calcium,Total 7.3 mg/dL (8.5-10.1); Chloride 105 mmol/L (98-107); Creatinine, Serum 0.85 mg/dL (0.55-1.02); EST Glomerular Filtration Rate 71 mL/min (>60); Est Glom Filt Rate - Afr Amer 86 mL/min (>60); Estimated Creatinine Clearance 59.43 ml/min; Glucose 62 mg/dL (74-106); Sodium Level 139 mmol/L (136-145)
[2018-10-01 05:01] LABS: Lactic Acid 0.9 mmol/L (0.4-2.0)
[2018-10-01] MEDS: Dextrose 50%-Water 25 GM/50 ML DISP.SYRIN IV (05:30)
[2018-10-01] MEDS: Potassium Chloride 40 MEQ in Dextrose 5%-Lactated Ringers 1,000 ML 150 ML IV ×2 (05:35→12:14)
--- NOTE | 2018-10-01 05:57 | NURSING ---
0557 Dr. Vela at bedside preparing for right radial arterial line insertion. Time out performed between this Mariah RODRIGUEZ RN and Dr. Vela. 0603 Dr. Vela administering Lidocaine for line insertion. 0610 Dr. Vela unable to successfully insert arterial line.
--- NOTE | 2018-10-01 06:00 | NURSING ---
Notified patients family, Tobin Richmond, informed him of patients status change and transfer to ICU. Questions and concerns answered.
--- NOTE | 2018-10-01 06:22 | NURSING ---
Dr. Vela notified of positive blood cultures in Aerobic bottle, gram negative rods
[2018-10-01] MEDS: Hydrocortisone Sod Succinate 100 MG/2 ML Vial 50 MG IV ×3 (06:48→21:12)
[2018-10-01] MEDS: Levothyroxine 50 MCG Tablet PO (06:50)
[2018-10-01 06:55] LABS: Magnesium 1.8 mg/dL (1.6-2.6); Phosphorus 2.7 mg/dL (2.5-4.9)
[2018-10-01] MEDS: HYDROmorphone 0.5 MG/0.5 ML SYRINGE IV ×2 (08:16→15:32)
--- NOTE | 2018-10-01 08:35 | PCM.PN.HOSP ---
Patient Problems: Active and Suspected Problems (Last Reviewed 10/01/18 @ 04:05 by Waylon Vela MD) Cystitis (Acute) Gross hematuria (Acute) Septic shock (Acute) Pancytopenia (Acute) Hydroureter (Acute) Hydronephrosis (Acute) Ileus (Acute) Bacteremia (Acute) UTI (urinary tract infection) (Acute) Subjective: Had a large BM this AM. Still has the sensation of needing to have a BM. Vitals/I&O's: Vital Signs Temp Pulse Resp BP Pulse Ox 33.4 C L 106 H 21 H 111/81 H 100 10/01/18 05:30 10/01/18 07:00 10/01/18 07:00 10/01/18 07:00 10/01/18 07:00 Oxygen Flow Rate (L/min) 3 Oxygen Delivery Method Venturi Mask Weight: 58.5 kg Body Mass Index (BMI) 25.9 Finger Stick Blood Glucose 132 Intake and Output for Last 24 Hours 09/29/18 09/30/18 10/01/18 23:59 23:59 22:59 Intake Total 130 / 130 Output Total 225 / 225 Balance -95 / -95 General: Alert, Cooperative, - - uncomfortable. afebrile. HEENT: Atraumatic, Normocephalic Oral: Moist Mucosa, No Gingival or Mucosal Lesions/ Ulcerations Neck: No Nodes, Thyroid Normal Size and Texture Lungs: Clear to auscultation, Normal air movement, No rhonchi, No wheeze Cardiovascular: Normal S1, Normal S2, Tachycardic Abdomen: Bowel Sounds Present, Soft, Non Tender, Non-Distended Extremities: No edema, No Calf Tenderness Skin: No rashes, No breakdown Musculoskeletal: No Tenderness to Palpation of Joints or Extremities, No Muscle Wasting Neurological: Muscle tone normal, Coordination normal Psych/Mental Status: Appropriate, Anxious Microbiology Past 72 Hours 09/30/18 18:30 Blood Culture (Wb) - Venous Blood Culture - Preliminary Laboratory Results 09/30/18 18:30: Sodium 135 L, Potassium 3.6, Chloride 98, Carbon Dioxide 29.0, Anion Gap 8, BUN 18, Creatinine 0.68, Estim Creat Clear Calc 59.85, Est GFR (MDRD) Af Amer 113, Est GFR (MDRD) Non-Af 93, BUN/Creatinine Ratio 26.7 H, Glucose 75, Calcium 8.3 L, Total Bilirubin 0.60, AST 84 H, ALT 231 H, Alkaline Phosphatase 130 H, Troponin I < 0.015, Total Protein 6.4, Albumin 2.6 L, Globulin 3.8, Albumin/Globulin Ratio 0.7 L 09/30/18 18:30: WBC 0.1 L*, RBC 3.32 L, Hgb 9.7 L, Hct 30.2 L, MCV 91.0, MCH 29.2, MCHC 32.1, RDW 16.0 H, RDW Differential 53.8 H, Plt Count 20 L*, MPV 8.9, Immature Gran % (Auto) 0.000, Neut % (Auto) 8.4 L, Lymph % (Auto) 83.3 H, [place] % (Auto) 8.3, Eos % (Auto) 0.0, Baso % (Auto) 0.0, Absolute Neuts (auto) 0.0 L, Absolute Lymphs (auto) 0.10 L, Total Counted Not Reportable, Differential Comment SCANNED, Diff Path Review [facility] 09/30/18 18:30: PT 13.5, INR 1.0, APTT 32.1 09/30/18 18:30: Lactic Acid 0.7 09/30/18 19:35: Urine Color Red, Urine Clarity Cloudy, Urine pH 8.0, Ur Specific [place] 1.010, Urine Protein 100 H, Urine Glucose (UA) Normal, Urine Ketones Negative, Urine Occult Blood 250 H, Urine Nitrite Positive H, Urine Bilirubin Negative, Urine Urobilinogen 1 H, Ur Leukocyte Esterase 100 H, Urine RBC > 100 SEEN, Urine WBC 10-25 SEEN, Ur Squamous Epith Cells 0 SEEN, Other Crystals 0-5, Urine Bacteria 3+, Urine Mucus 0 SEEN 10/01/18 00:40: WBC 0.1 L*, RBC 3.04 L, Hgb 9.2 L, Hct 28.1 L, MCV 92.4, MCH 30.3, MCHC 32.7, RDW 16.1 H, RDW Differential 52.4 H, Plt Count 18 L*, MPV 9.5, Differential Comment SCAN, Diff Path Review [facility] 10/01/18 00:40: Troponin I < 0.015 10/01/18 03:30: Sodium 139, Potassium 3.0 L, Chloride 105, Carbon Dioxide 27.0, Anion Gap 7, BUN 17, Creatinine 0.85, Estim Creat Clear Calc 59.43, Est GFR (MDRD) Af Amer 86, Est GFR (MDRD) Non-Af 71, BUN/Creatinine Ratio 19.9, Glucose 62 L, Calcium 7.3 L 10/01/18 03:30: Troponin I < 0.015 10/01/18 03:30: Phosphorus 2.7, Magnesium 1.8 10/01/18 04:30: Lactic Acid 0.9 Clinical Impression(s) from Imaging Studies Brain CT 09/30/18 18:35 IMPRESSION: Mild periventricular white matter ischemic changes. No mass or acute bleed. If concern for metastatic disease MRI recommended for further evaluation Electronically Signed: Moy Henao MD at 20:33 EDT , Service support , Chest X-Ray 09/30/18 18:36 IMPRESSION: Stable appearance of the chest with no acute pathology. New right internal jugular catheter as described. Electronically Signed: Jesus Hutchison MD at 19:36 EDT , Service support , Chest CTA 09/30/18 18:55 IMPRESSION: Pulmonary emboli to the subsegmental vessels of the right lower lobe Chronic interstitial changes and minor atelectasis within the dependent portion of the lungs. Electronically Signed: Moy Henao MD at 20:56 EDT , Service support , Abdomen/Pelvis CT 09/30/18 20:50 IMPRESSION: Postsurgical changes status post cystectomy and right ileal conduit. Moderate right hydroureteronephrosis and mild left hydroureter in association with thick-walled ileal conduit and focal narrowing of the lumen. Nonspecific ileus with diffuse fecal retention in the colon Status post cholecystectomy, cystectomy and hysterectomy Other findings as above Electronically Signed: Moy Henao MD at 22:35 EDT , Service support , Current Medications Albuterol Sulfate (Ventolin Aerosols) 2.5 mg INHALATION Q2H PRN PRN PRN Reason: sob/wheezing Alprazolam (Xanax) 0.5 mg PO BID PRN PRN PRN Reason: ANXIETY Atorvastatin Calcium (Lipitor) 80 mg PO DAILY@2200 [facility] Bupropion HCl (Wellbutrin Xl) 150 mg PO DAILY [facility] Fluconazole (Diflucan) 100 mg PO DAILY [facility] Heparin Sodium (Beef Lung) () 50 units IV UD PRN PRN Reason: HEPARIN FLUSH Hydrocortisone Sodium Succinate (Solu-Cortef) 50 mg IV Q8 [facility] Last Admin: 10/01/18 06:48 Dose: 50 mg Vancomycin IV Pharmacy to Dose (750 ea/ Sodium Chloride) 500 mls @ 250 mls/hr IV PRN PRN; Protocol Vancomycin HCl () 500 mg in 100 mls @ 100 mls/hr IV Q12H [facility] Potassium Chloride 40 meq/ (Dextrose/Lactated Ringer's) 1,020 mls @ 150 mls/hr IV .[id number] [facility] Stop: 10/01/18 15:25 Last Admin: 10/01/18 05:35 Dose: 150 mls/hr Sodium Chloride () 1,000 mls @ 150 mls/hr IV .Q6H40M [facility] Last Admin: 10/01/18 06:49 Dose: Not Given Meropenem 1 gm/ Sodium (Chloride) 120 mls @ 33 mls/hr IV Q8 [facility] Last Admin: 10/01/18 06:49 Dose: 33 mls/hr Pantoprazole Sodium 40 mg/ (Sodium Chloride) 110 mls @ 330 mls/hr IV Q24 [facility] Norepinephrine Bitartrate 8 mg (/ Dextrose) 258 mls @ 9.68 mls/hr IV .[id number] [facility] Levothyroxine Sodium (Synthroid) 50 mcg PO DAILY@0600 [facility] Last Admin: 10/01/18 06:50 Dose: 50 mcg Magnesium Hydroxide (Milk Of Magnesia) 30 ml PO DAILY PRN PRN Reason: Constipation Memantine (Namenda) 5 mg PO DAILY [facility] Ondansetron HCl (Zofran) 4 mg IV Q6H PRN PRN PRN Reason: NAUSEA Oxycodone HCl (Oxyir) 5 mg PO Q6H PRN PRN PRN Reason: PAIN Sodium Chloride () 10 ml IV UD PRN PRN Reason: VAD FLUSH Last Admin: 10/01/18 08:20 Dose: 10 ml Trazodone HCl (Desyrel) 50 mg PO DAILY@2200 [facility] Medical Necessity - Tobacco Use Smoking Status: Former smoker Assessment/Plan All Active Problems (Last Reviewed 10/01/18 @ 04:05 by Waylon Vela MD) Acute cholecystitis (Ruled-out) Constipation (Resolved) Cystitis (Acute) Gross hematuria (Acute) Septic shock (Acute) Pancytopenia (Acute) Hydroureter (Acute) Hydronephrosis (Acute) Ileus (Acute) Bacteremia (Acute) UTI (urinary tract infection) (Acute) 1. Septic shock Developed after admission receiving IVF BP currently better on levophed 2/2 bacteremia and UTI CCM on consult 2. Gram negative bacteremia bacteria yet to be ID'd presumably source on Meropenem and Vanc ID on consult recheck BCx 3. UTI likely primary source of above CT showed ileal conduit thick wall abx as above 4. Hydroureter/hydronephrosis on consult 5. Pancytopenia 2/2 chemo oncology on consult complicates care 6. PE: small doubt etiology of hypotension check echo per oncology, no treatment at this time check duplex 7. Hematuria likely 2/2 thrombocytopenia and ileal conduit inflammation urine light red now, so may be improving on consult 8. Bladder CA stage IV (brain mets) on Carboplatin/gemcitabine, palliative 9. DVT proph: chemical prophylaxis contraindicated given thrombocytopenia hold mechanical until DVTs are ruled out. Code Visit Inpatient E&M: [id number] [facility] Hosp L3
--- NOTE | 2018-10-01 08:40 | PN_ITS ---
Patient Problems: Active and Suspected Problems (Last Reviewed 10/01/18 @ 04:05 by Waylon Vela MD) Cystitis (Acute) Gross hematuria (Acute) Septic shock (Acute) Pancytopenia (Acute) Hydroureter (Acute) Hydronephrosis (Acute) Ileus (Acute) Bacteremia (Acute) UTI (urinary tract infection) (Acute) Subjective: Had a large BM this AM. Still has the sensation of needing to have a BM. Vitals/I&O's: Vital Signs Temp Pulse Resp BP Pulse Ox 33.4 C L 106 H 21 H 111/81 H 100 10/01/18 05:30 10/01/18 07:00 10/01/18 07:00 10/01/18 07:00 10/01/18 07:00 Oxygen Flow Rate (L/min) 3 Oxygen Delivery Method Venturi Mask Weight: 58.5 kg Body Mass Index (BMI) 25.9 Finger Stick Blood Glucose 132 Intake and Output for Last 24 Hours 09/29/18 09/30/18 10/01/18 23:59 23:59 22:59 Intake Total 130 / 130 Output Total 225 / 225 Balance -95 / -95 General: Alert, Cooperative, - - uncomfortable. afebrile. HEENT: Atraumatic, Normocephalic Oral: Moist Mucosa, No Gingival or Mucosal Lesions/ Ulcerations Neck: No Nodes, Thyroid Normal Size and Texture Lungs: Clear to auscultation, Normal air movement, No rhonchi, No wheeze Cardiovascular: Normal S1, Normal S2, Tachycardic Abdomen: Bowel Sounds Present, Soft, Non Tender, Non-Distended Extremities: No edema, No Calf Tenderness Skin: No rashes, No breakdown Musculoskeletal: No Tenderness to Palpation of Joints or Extremities, No Muscle Wasting Neurological: Muscle tone normal, Coordination normal Psych/Mental Status: Appropriate, Anxious Microbiology Past 72 Hours 09/30/18 18:30 Blood Culture (Wb) - Venous Blood Culture - Preliminary Laboratory Results 09/30/18 18:30: Sodium 135 L, Potassium 3.6, Chloride 98, Carbon Dioxide 29.0, Anion Gap 8, BUN 18, Creatinine 0.68, Estim Creat Clear Calc 59.85, Est GFR (MDRD) Af Amer 113, Est GFR (MDRD) Non-Af 93, BUN/Creatinine Ratio 26.7 H, G lucose 75, Calcium 8.3 L, Total Bilirubin 0.60, AST 84 H, ALT 231 H, Alkaline Phosphatase 130 H, Troponin I < 0.015, Total Protein 6.4, Albumin 2.6 L, Globulin 3.8, Albumin/Globulin Ratio 0.7 L 09/30/18 18:30: WBC 0.1 L*, RBC 3.32 L, Hgb 9.7 L, Hct 30.2 L, MCV 91.0, MCH 29.2, MCHC 32.1, RDW 16.0 H, RDW Differential 53.8 H, Plt Count 20 L*, MPV 8.9, Immature Gran % (Auto) 0.000, Neut % (Auto) 8.4 L, Lymph % (Auto) 83.3 H, [place] % (Auto) 8.3, Eos % (Auto) 0.0, Baso % (Auto) 0.0, Absolute Neuts (auto) 0.0 L, Absolute Lymphs (auto) 0.10 L, Total Counted Not Reportable, Differential Comment SCANNED, Diff Path Review [facility] 09/30/18 18:30: PT 13.5, INR 1.0, APTT 32.1 09/30/18 18:30: Lactic Acid 0.7 09/30/18 19:35: Urine Color Red, Urine Clarity Cloudy, Urine pH 8.0, Ur Specific [place] 1.010, Urine Protein 100 H, Urine Glucose (UA) Normal, Urine Ketones Negative, Urine Occult Blood 250 H, Urine Nitrite Positive H, Urine Bilirubin Negative, Urine Urobilinogen 1 H, Ur Leukocyte Esterase 100 H, Urine RBC > 100 SEEN, Urine WBC 10-25 SEEN, Ur Squamous Epith Cells 0 SEEN, Other Crystals 0-5, Urine Bacteria 3+, Urine Mucus 0 SEEN 10/01/18 00:40: WBC 0.1 L*, RBC 3.04 L, Hgb 9.2 L, Hct 28.1 L, MCV 92.4, MCH 30.3, MCHC 32.7, RDW 16.1 H, RDW Differential 52.4 H, Plt Count 18 L*, MPV 9.5, Differential Comment SCAN, Diff Path Review [facility] 10/01/18 00:40: Troponin I < 0.015 10/01/18 03:30: Sodium 139, Potassium 3.0 L, Chloride 105, Carbon Dioxide 27.0, Anion Gap 7, BUN 17, Creatinine 0.85, Estim Creat Clear Calc 59.43, Est GFR (MDRD) Af Amer 86, Est GFR (MDRD) Non-Af 71, BUN/Creatinine Ratio 19.9, Glucose 62 L, Calcium 7.3 L 10/01/18 03:30: Troponin I < 0.015 10/01/18 03:30: Phosphorus 2.7, Magnesium 1.8 10/01/18 04:30: Lactic Acid 0.9 Clinical Impression(s) from Imaging Studies Brain CT 09/30/18 18:35 IMPRESSION: Mild periventricular white matter ischemic changes. No mass or acute bleed. If concern for metastatic disease MRI recommended for further evaluation Electronically Signed: Moy Henao MD at 20:33 EDT , Service support , Chest X-Ray 09/30/18 18:36 IMPRESSION: Stable appearance of the chest with no acute pathology. New right internal jugular catheter as described. Electronically Signed: Jesus Hutchison MD at 19:36 EDT , Service support , Chest CTA 09/30/18 18:55 IMPRESSION: Pulmonary emboli to the subsegmental vessels of the right lower lobe Chronic interstitial changes and minor atelectasis within the dependent portion of the lungs. Electronically Signed: Moy Henao MD at 20:56 EDT , Service support , Abdomen/Pelvis CT 09/30/18 20:50 IMPRESSION: Postsurgical changes status post cystectomy and right ileal conduit. Moderate right hydroureteronephrosis and mild left hydroureter in association with thick-walled ileal conduit and focal narrowing of the lumen. Nonspecific ileus with diffuse fecal retention in the colon Status post cholecystectomy, cystectomy and hysterectomy Other findings as above Electronically Signed: Moy Henao MD at 22:35 EDT , Service support , Current Medications Albuterol Sulfate (Ventolin Aerosols) 2.5 mg INHALATION Q2H PRN PRN PRN Reason: sob/wheezing Alprazolam (Xanax) 0.5 mg PO BID PRN PRN PRN Reason: ANXIETY Atorvastatin Calcium (Lipitor) 80 mg PO DAILY@2200 [facility] Bupropion HCl (Wellbutrin Xl) 150 mg PO DAILY [facility] Fluconazole (Diflucan) 100 mg PO DAILY [facility] Heparin Sodium (Beef Lung) () 50 units IV UD PRN PRN Reason: HEPARIN FLUSH Hydrocortisone Sodium Succinate (Solu-Cortef) 50 mg IV Q8 [facility] Last Admin: 10/01/18 06:48 Dose: 50 mg Vancomycin IV Pharmacy to Dose (750 ea/ Sodium Chloride) 500 mls @ 250 mls/hr IV PRN PRN; Protocol Vancomycin HCl () 500 mg in 100 mls @ 100 mls/hr IV Q12H [facility] Potassium Chloride 40 meq/ (Dextrose/Lactated Ringer's) 1,020 mls @ 150 mls/hr IV .Q6H48M [facility] Stop: 10/01/18 15:25 Last Admin: 10/01/18 05:35 Dose: 150 mls/hr Sodium Chloride () 1,000 mls @ 150 mls/hr IV .Q6H40M [facility] Last Admin: 10/01/18 06:49 Dose: Not Given Meropenem 1 gm/ Sodium (Chloride) 120 mls @ 33 mls/hr IV Q8 [facility] Last Admin: 10/01/18 06:49 Dose: 33 mls/hr Pantoprazole Sodium 40 mg/ (Sodium Chloride) 110 mls @ 330 mls/hr IV Q24 [facility] Norepinephrine Bitartrate 8 mg (/ Dextrose) 258 mls @ 9.68 mls/hr IV .[id number] [facility] Levothyroxine Sodium (Synthroid) 50 mcg PO DAILY@0600 [facility] Last Admin: 10/01/18 06:50 Dose: 50 mcg Magnesium Hydroxide (Milk Of Magnesia) 30 ml PO DAILY PRN PRN Reason: Constipation Memantine (Namenda) 5 mg PO DAILY [facility] Ondansetron HCl (Zofran) 4 mg IV Q6H PRN PRN PRN Reason: NAUSEA Oxycodone HCl (Oxyir) 5 mg PO Q6H PRN PRN PRN Reason: PAIN Sodium Chloride () 10 ml IV UD PRN PRN Reason: VAD FLUSH Last Admin: 10/01/18 08:20 Dose: 10 ml Trazodone HCl (Desyrel) 50 mg PO DAILY@2200 [facility] Medical Necessity - Tobacco Use Smoking Status: Former smoker Assessment/Plan All Active Problems (Last Reviewed 10/01/18 @ 04:05 by Waylon Vela MD) Acute cholecystitis (Ruled-out) Constipation (Resolved) Cystitis (Acute) Gross hematuria (Acute) Septic shock (Acute) Pancytopenia (Acute) Hydroureter (Acute) Hydronephrosis (Acute) Ileus (Acute) Bacteremia (Acute) UTI (urinary tract infection) (Acute) 1. Septic shock * Developed after admission * receiving IVF * BP currently better on levophed * 2/2 bacteremia and UTI * CCM on consult 2. Gram negative bacteremia * bacteria yet to be ID'd * presumably source * on Meropenem and Vanc * ID on consult * recheck BCx 3. UTI * likely primary source of above * CT showed ileal conduit thick wall * abx as above 4. Hydroureter/hydronephrosis * on consult 5. Pancytopenia * 2/2 chemo * oncology on consult * complicates care 6. PE: * small * doubt etiology of hypotension * check echo * per oncology, no treatment at this time * check duplex 7. Hematuria * likely 2/2 thrombocytopenia and ileal conduit inflammation * urine light red now, so may be improving * on consult 8. Bladder CA * stage IV (brain mets) * on Carboplatin/gemcitabine, palliative 9. DVT proph: * chemical prophylaxis contraindicated given thrombocytopenia * hold mechanical until DVTs are ruled out. Code Visit Inpatient E&M: [id number] [facility] Hosp L3
--- NOTE | 2018-10-01 08:57 | VDLE_ITS ---
Reason For Study: PE RIGHT LEFT GSV is normal. GSV is normal. CFV is compressible, spontaneous, phasic, CFV is compressible, spontaneous, phasic, competent and demonstrates normal competent, and demonstrates normal augmentation. augmentation. FV is compressible, spontaneous, phasic, FV is compressible, spontaneous, phasic, competent and demonstrates normal competent and demonstrates normal augmentation. augmentation. POP V is compressible, spontaneous, phasic, POP V is compressible, spontaneous, phasic, competent and demonstrates normal competent and demonstrates normal augmentation. augmentation. T/P Trunk is compressible. T/P Trunk is compressible. Rt PTV and Rt PeroV are dilated and non PTV is compressible. compressible consistent with acute DVT Lt PeroV is dilated and non compressible consistent with acute DVT. Hypoechoic, non vascular structure noted Rt Pop Fossa measuring 0.65cm x 1.75cm. Procedure Exam performed portable in ICU/CCU. Pt unable to tolerate compressions, relied on color doppler and PW. A preliminary report was called and/or faxed to Dr. Connor. <> Interpretation Summary Right posterior tibial and peroneal deep venous thrombosis 0.65 x 1.75cm non vascular right popliteal structure--possible small cyst. Acute deep venous thrombosis left peroneal vein Patent and compressible bilateral great saphenous veins. Ordering Physician: James Latham Referring Physician: Osman Alexander Performed By: Leanne Bustillo, TAYLOR, RVT
--- NOTE | 2018-10-01 09:19 | PCM.CON.CC ---
Problem List (1) UTI (urinary tract infection) Status: Acute (2) Ileus Status: Acute (3) Hydronephrosis Status: Acute (4) Hydroureter Status: Acute (5) Pancytopenia Status: Acute (6) Septic shock Status: Acute (7) Ataxia Status: Chronic (8) Bladder cancer Status: Chronic Qualifiers: Bladder location: unspecified site Qualified Code(s): C67.9 - Malignant neoplasm of bladder, unspecified (9) Left flank pain Status: Inactive (10) Rotator cuff syndrome of right shoulder Status: Inactive (11) Brain metastases Status: Chronic (12) Gross hematuria Status: Acute (13) Hyperlipemia Status: Chronic (14) Hypothyroidism Status: Chronic (15) Chronic obstructive lung disease Status: Chronic Reason for Consult Date of Consultation: 10/01/18 Reason for Consultation: Septic shock History of Present Illness: The patient is a 63 year old F, with past medical history listed below, who presented to [facility] on 09/[facility]/2018 secondary to hematuria, weakness and shortness of breath. On presentation to the ER, patient was noted to be saturating 88% on room air and complaining of diffuse abdominal pain and nausea. Patient was also noted to have a temperature of 101.9 ?F. Abdomen was diffusely tender and patient was noted to have lower extremity edema. Laboratory workup showed a lactate of 0.7 with a white count of 0.1 and platelets of 20. Patient's last chemotherapy was last week. CT scan of the abdomen showed a small subsegmental pulmonary embolism, so patient was given Xarelto therapy. Patient was noted to have an ileus on the CT of her abdomen. Patient was initiated on healthcare antibiotics and admitted to the PCU. Overnight, patient's blood pressure continued to fall despite attempts at fluid resuscitation. Patient was then transferred to the intensive care unit and initiated on pressor therapy through report. On my arrival, patient was complaining of significant 8 out of 10 pain. Patient states this was similar to her baseline pain, but increased in intensity. Patient also reported nausea. Patient reportedly has had hematuria for approximately 1 week. Patient's lower extremity edema has been getting worse over the week. Patient denied any palpitations, but did report some subjective fevers. Patient does have a history of bladder cancer that is currently being treated by Dr. Toledo. Patient was given a dose of Xarelto therapy in the ER, but is not on anticoagulation at baseline. Patient's last chemotherapy was last week. Patient is clear that she remains a full code at this time. Patient significant other reports that he did decrease her laxative therapy over the last 3-4 days secondary to diarrhea. Patient does take OxyContin at home, but states my heart stops when I have fentanyl. Patient has had Dilaudid before without issues. Review of systems difficult to obtain, but negative x10 systems unless stated above Past Medical History Past Medical History (Chronic Problems): Chronic Problems (Last Updated 10/01/18 @ 08:40 by James Latham DO) Ataxia (Chronic) Bladder cancer (Chronic) Abdominal pain (Chronic) Vaginal discharge (Chronic) Abdominal mass (Chronic) Brain metastases (Chronic) Chemotherapy management, encounter for (Chronic) History of bladder cancer (Chronic) 2017 Hyperlipemia (Chronic) Hypothyroidism (Chronic) Anxiety (Chronic) Chronic obstructive lung disease (Chronic) Primary fibromyalgia syndrome (Chronic) Shoulder pain (Chronic) Medical History: Medical History (Last Updated 10/01/18 @ 08:40 by James Latham DO) History of bladder cancer (Chronic) Z85.51 2017 Hyperlipemia (Chronic) E78.5 Hypothyroidism (Chronic) E03.9 Anxiety (Chronic) F41.9 Chronic obstructive lung disease (Chronic) J44.9 Primary fibromyalgia syndrome (Chronic) M79.7 Shoulder pain (Chronic) M25.519 COPD (chronic obstructive pulmonary disease) J44.[address] Moore 09/07/18 Dementia F03.90 Fracture of left femur S72.92XA History of hysterectomy Z98.890, Z90.710 Allergies fentanyl Allergy (Verified 09/25/18 09:37) Anaphylaxis codeine Adverse Reaction (Verified 09/25/18 09:37) Unknown Sulfa (Sulfonamide Antibiotics) Adverse Reaction (Verified 09/25/18 09:37) Unknown Home Medications: Ambulatory Orders Medication Instructions Recorded Fluoxetine HCl [Prozac] 60 mg PO DAILY 07/10/17 Gabapentin [Neurontin] 800 mg PO TID 07/10/17 Levothyroxine [Synthroid] 50 mcg PO DAILY 07/10/17 Loratadine 10 mg PO DAILY PRN PRN 07/23/17 ALPRAZolam [Xanax] 0.5 mg PO BID PRN PRN 08/18/17 Atorvastatin Calcium 80 mg PO DAILY 12/20/17 albuterol sulfate 0.63 mg/3 mL 0.63 mg INHALATION Q6H PRN #75 ml 02/24/18 solution for nebulization Dexamethasone [Decadron] 4 mg PO BIDCM #60 tablet 08/30/18 Memantine HCl 5 mg PO DAILY 09/06/18 Oxycodone HCl/Acetaminophen 1 tab PO Q6H PRN PRN 5 Days #90 tab 09/12/18 [Percocet 5-325] Senna [Senokot] 2 tablet PO DAILY #60 tablet 09/12/18 Lidocaine/Prilocaine 30 gm TP DAILY PRN PRN 30 Days #1 09/14/18 [Lidocaine-Prilocaine Cream] cream..g. Bupropion HCl [Bupropion Xl] 150 mg PO DAILY 09/30/18 Trazodone HCl 50 mg PO DAILY 09/30/18 Surgical History: Surgical History (Last Reviewed 10/01/18 @ 04:05 by Waylon Vela MD) History of 2 sections Z87.59 History of appendectomy Z98.890, Z90.49 History of cholecystectomy Z90.49 History of hysterectomy for cancer Z90.710 History of tubal ligation Z98.51 history of bladder removal due to bladder cancer, and 4 lymph nodes removed. may 2017 [facility] (main ) History of arthroscopy of right shoulder Z98.890 H/O total cystectomy Z98.890 H/O tubal ligation Z98.51 H/O: Z98.891 S/P appendectomy Z90.49 Surgical History: - Lives: With Family Smoking Status: Former smoker - *Family History Maternal Family History: Family History (Last Reviewed 10/01/18 @ 04:34 by Waylon Vela MD) Brother Lung disease Heart disease Grandmother Cancer Mother Cancer History Items: No pertinent history Paternal Family History: Family History (Last Reviewed 10/01/18 @ 04:34 by Waylon Vela MD) Brother Lung disease Heart disease Grandmother Cancer Mother Cancer History Items: No pertinent history Review of Systems Comment: See HPI Patient Problems: Active and Suspected Problems (Last Updated 10/01/18 @ 08:40 by James Jopperi, DO) UTI (urinary tract infection) (Acute) Bacteremia (Acute) Ileus (Acute) Hydronephrosis (Acute) Hydroureter (Acute) Pancytopenia (Acute) Septic shock (Acute) Cystitis (Acute) Gross hematuria (Acute) Objective: CT of the chest was personally reviewed. Pulmonary embolism noted in the right lower lobe with chronic interstitial changes. Patient has had pulmonary function tests on 12/16/2016 that were grossly within normal limits (FVC 95%, FEV1 96%, TLC 85%, DLCO 66%) No echocardiogram is available for review. - Physical Exam General: Alert, - - RASS +1. Alopecia. Appears older than stated age. Speaking in full sentences. Ventimask in place. HEENT: Atraumatic, PERRLA, EOMI, Normocephalic, - - Slight scleral injection without icterus Oral: Moist Mucosa, No Gingival or Mucosal Lesions/ Ulcerations Neck: Supple, No JVD, No Nodes, Trachea Midline Lungs: No rhonchi, No wheeze, No rales, Diminished, - - Fair effort. No dullness to percussion. Symmetric expansion. Cardiovascular: Normal S1, Normal S2, No murmurs, No rub noted, No Gallop, Tachycardic Abdomen: Bowel Sounds Present, Soft, Distended, Tender, - - No rebound noted. Some guarding noted. Extremities: No clubbing, No cyanosis, Edema - 1+ lower extremity Skin: No rashes, No breakdown, - - Some areas of ecchymosis from previous IV attempts Musculoskeletal: No Tenderness to Palpation of Joints or Extremities Lymphatic: No Cervical, Supraclavicular, or Inguinal Adenopathy Neurological: Cranial nerves II-XII grossly intact, Neuro grossly intact, Motor Exam 5/5 strength throughout Psych/Mental Status: Anxious, Restless Vital Signs Temp Pulse Resp BP Pulse Ox 38.0 C H 105 H 20 H 97/68 98 10/01/18 08:00 10/01/18 08:00 10/01/18 08:00 10/01/18 08:00 10/01/18 08:40 Oxygen Flow Rate (L/min) 3 Oxygen Delivery Method Venturi Mask Weight: 58.5 kg Body Mass Index (BMI) 25.9 Finger Stick Blood Glucose 132 Intake and Output for Last 24 Hours 09/29/18 09/30/18 10/01/18 23:59 23:59 22:59 Intake Total 130 / 130 Output Total 225 / 225 Balance -95 / -95 Microbiology Past 72 Hours 09/30/18 18:30 Blood Culture - Preliminary Blood Culture (Wb) - Venous Laboratory Tests Past 24 Hrs 09/30/18 09/30/18 09/30/18 18:30 18:30 18:30 WBC 0.1 L* RBC 3.32 L Hgb 9.7 L Hct 30.2 L MCV 91.0 MCH 29.2 MCHC 32.1 RDW 16.0 H RDW Differential 53.8 H Plt Count 20 L* MPV 8.9 Immature Gran % (Auto) 0.000 Neut % (Auto) 8.4 L Lymph % (Auto) 83.3 H [place] % (Auto) 8.3 Eos % (Auto) 0.0 Baso % (Auto) 0.0 Absolute Neuts (auto) 0.0 L Absolute Lymphs (auto) 0.10 L Total Counted Not Reportable Differential Comment SCANNED Diff Path Review March PT 13.5 INR 1.0 APTT 32.1 Sodium 135 L Potassium 3.6 Chloride 98 Carbon Dioxide 29.0 Anion Gap 8 BUN 18 Creatinine 0.68 Estim Creat Clear Calc 59.85 Est GFR (MDRD) Af Amer 113 Est GFR (MDRD) Non-Af 93 BUN/Creatinine Ratio 26.7 H Glucose 75 Lactic Acid Calcium 8.3 L Phosphorus Magnesium Total Bilirubin 0.60 AST 84 H ALT 231 H Alkaline Phosphatase 130 H Troponin I < 0.015 Total Protein 6.4 Albumin 2.6 L Globulin 3.8 Albumin/Globulin Ratio 0.7 L Urine Color Urine Clarity Urine pH Ur Specific [place] Urine Protein Urine Glucose (UA) Urine Ketones Urine Occult Blood Urine Nitrite Urine Bilirubin Urine Urobilinogen Ur Leukocyte Esterase Urine RBC Urine WBC Ur Squamous Epith Cells Other Crystals Urine Bacteria Urine Mucus 09/30/18 09/30/18 10/01/18 18:30 19:35 00:40 WBC 0.1 L* RBC 3.04 L Hgb 9.2 L Hct 28.1 L MCV 92.4 MCH 30.3 MCHC 32.7 RDW 16.1 H RDW Differential 52.4 H Plt Count 18 L* MPV 9.5 Immature Gran % (Auto) Neut % (Auto) Lymph % (Auto) [place] % (Auto) Eos % (Auto) Baso % (Auto) Absolute Neuts (auto) Absolute Lymphs (auto) Total Counted Differential Comment SCAN Diff Path Review May foll PT INR APTT Sodium Potassium Chloride Carbon Dioxide Anion Gap BUN Creatinine Estim Creat Clear Calc Est GFR (MDRD) Af Amer Est GFR (MDRD) Non-Af BUN/Creatinine Ratio Glucose Lactic Acid 0.7 Calcium Phosphorus Magnesium Total Bilirubin AST ALT Alkaline Phosphatase Troponin I Total Protein Albumin Globulin Albumin/Globulin Ratio Urine Color Red Urine Clarity Cloudy Urine pH 8.0 Ur Specific [place] 1.010 Urine Protein 100 H Urine Glucose (UA) Normal Urine Ketones Negative Urine Occult Blood 250 H Urine Nitrite Positive H Urine Bilirubin Negative Urine Urobilinogen 1 H Ur Leukocyte Esterase 100 H Urine RBC > 100 SEEN Urine WBC 10-25 SEEN Ur Squamous Epith Cells 0 SEEN Other Crystals 0-5 Urine Bacteria 3+ Urine Mucus 0 SEEN 10/01/18 10/01/18 10/01/18 00:40 03:30 03:30 WBC RBC Hgb Hct MCV MCH MCHC RDW RDW Differential Plt Count MPV Immature Gran % (Auto) Neut % (Auto) Lymph % (Auto) [place] % (Auto) Eos % (Auto) Baso % (Auto) Absolute Neuts (auto) Absolute Lymphs (auto) Total Counted Differential Comment Diff Path Review PT INR APTT Sodium 139 Potassium 3.0 L Chloride 105 Carbon Dioxide 27.0 Anion Gap 7 BUN 17 Creatinine 0.85 Estim Creat Clear Calc 59.43 Est GFR (MDRD) Af Amer 86 Est GFR (MDRD) Non-Af 71 BUN/Creatinine Ratio 19.9 Glucose 62 L Lactic Acid Calcium 7.3 L Phosphorus Magnesium Total Bilirubin AST ALT Alkaline Phosphatase Troponin I < 0.015 < 0.015 Total Protein Albumin Globulin Albumin/Globulin Ratio Urine Color Urine Clarity Urine pH Ur Specific [place] Urine Protein Urine Glucose (UA) Urine Ketones Urine Occult Blood Urine Nitrite Urine Bilirubin Urine Urobilinogen Ur Leukocyte Esterase Urine RBC Urine WBC Ur Squamous Epith Cells Other Crystals Urine Bacteria Urine Mucus 10/01/18 10/01/18 03:30 04:30 WBC RBC Hgb Hct MCV MCH MCHC RDW RDW Differential Plt Count MPV Immature Gran % (Auto) Neut % (Auto) Lymph % (Auto) [place] % (Auto) Eos % (Auto) Baso % (Auto) Absolute Neuts (auto) Absolute Lymphs (auto) Total Counted Differential Comment Diff Path Review PT INR APTT Sodium Potassium Chloride Carbon Dioxide Anion Gap BUN Creatinine Estim Creat Clear Calc Est GFR (MDRD) Af Amer Est GFR (MDRD) Non-Af BUN/Creatinine Ratio Glucose Lactic Acid 0.9 Calcium Phosphorus 2.7 Magnesium 1.8 Total Bilirubin AST ALT Alkaline Phosphatase Troponin I Total Protein Albumin Globulin Albumin/Globulin Ratio Urine Color Urine Clarity Urine pH Ur Specific [place] Urine Protein Urine Glucose (UA) Urine Ketones Urine Occult Blood Urine Nitrite Urine Bilirubin Urine Urobilinogen Ur Leukocyte Esterase Urine RBC Urine WBC Ur Squamous Epith Cells Other Crystals Urine Bacteria Urine Mucus Clinical Impression(s) from Imaging Studies Brain CT 09/30/18 18:35 IMPRESSION: Mild periventricular white matter ischemic changes. No mass or acute bleed. If concern for metastatic disease MRI recommended for further evaluation Electronically Signed: Moy Henao MD at 20:33 EDT , Service support , Chest X-Ray 09/30/18 18:36 IMPRESSION: Stable appearance of the chest with no acute pathology. New right internal jugular catheter as described. Electronically Signed: Jesus Hutchison MD at 19:36 EDT , Service support , Chest CTA 09/30/18 18:55 IMPRESSION: Pulmonary emboli to the subsegmental vessels of the right lower lobe Chronic interstitial changes and minor atelectasis within the dependent portion of the lungs. Electronically Signed: Moy Henao MD at 20:56 EDT , Service support , Abdomen/Pelvis CT 09/30/18 20:50 IMPRESSION: Postsurgical changes status post cystectomy and right ileal conduit. Moderate right hydroureteronephrosis and mild left hydroureter in association with thick-walled ileal conduit and focal narrowing of the lumen. Nonspecific ileus with diffuse fecal retention in the colon Status post cholecystectomy, cystectomy and hysterectomy Other findings as above Electronically Signed: Moy Henao MD at 22:35 EDT , Service support , Assessment/Plan Active and Suspected Problems (Last Updated 10/01/18 @ 08:40 by James Latham DO) UTI (urinary tract infection) (Acute) Bacteremia (Acute) Ileus (Acute) Hydronephrosis (Acute) Hydroureter (Acute) Pancytopenia (Acute) Septic shock (Acute) Cystitis (Acute) Gross hematuria (Acute) RECOMMENDATIONS: 1. Continue pressors to keep map at 65 2. Agree with broad-spectrum antibiotics 3. Nasal MRSA, likely discontinue vancomycin if negative 4. Ostomy care 5. Hold on anticoagulation for now, possible heparin drip in the future 6. Keep oxygen saturations 90-94% IMPRESSIONS: 1. Gram-negative septic shock secondary to probable UTI Patient does have a history of ileal conduit and CT did show thickening of the wall. Patient's UA was consistent with probable infection. Patient currently on meropenem and vancomycin and is likely suffering from aggressive lysis of gram-negative's. Continue with pressor therapy as necessary to keep maps in appropriate range. Patient is receiving IV fluids. 2. Neutropenia/pancytopenia secondary to chemotherapy Patient with recent chemotherapy leading to pancytopenia. Patient with neutropenic fever at this time. This is likely secondary to gram-negative sepsis. Oncology is on consult. 3. Pulmonary embolism with acute hypoxic respiratory failure Patient with a small right lower lobe embolism. Doubt this is the cause of her hypoxic respiratory failure. Patient has received significant amounts of fluid and likely has an element of pulmonary edema. Echocardiogram and duplex have been ordered. We will hold off on anticoagulation at this time given patient's concurrent hematuria. If patient continues to require high FiO2, anticoagulation with heparin drip can be evaluated. Hope that with antibiotics, hematuria will improve and anticoagulation can be restarted safer. 4. Hydroureter/hydronephrosis/hematuria Patient did receive Xarelto therapy on presentation. Patient's urine appears improved at this time. Unclear if this is related to irritation related to gram-negative sepsis. Urology is on consult. 5. Stage IV bladder cancer Patient currently on chemotherapy that is reported to palliative in nature. However, patient is reporting full CODE STATUS at this time. Oncology is currently consulted. Defer to oncology for discussion on goals of therapy. If patient is truly receiving palliative chemotherapy, full CODE STATUS is likely not appropriate. Will need to discuss with oncology about goals of therapy. 6. Debility/chronic pain syndrome/anxiety/depression/hypothyroidism/hyperlipidemia/fibromyalgia/possible ileus Complicates care, management, recovery and prognosis. Likely okay to continue with baseline medications. Will hold on p.o. narcotics given patient's possible ileus. Patient did have a bowel movement this morning, so clinical suspicion for obstruction secondary to narcotic use with decreased laxatives. Patient currently n.p.o. Zofran as needed for nausea. Await surgical recommendations TIME: 50 minutes of critical care time spent addressing patient's gram-negative shock, hypoxic respiratory failure, bladder cancer, review of all data and collaboration with care team (7 AM to 9:30 AM) Code Visit [id number]: [id number] Critical care first hour
--- NOTE | 2018-10-01 09:25 | CON.PCM_ITS ---
Problem List (1) UTI (urinary tract infection) Status: Acute (2) Ileus Status: Acute (3) Hydronephrosis Status: Acute (4) Hydroureter Status: Acute (5) Pancytopenia Status: Acute (6) Septic shock Status: Acute (7) Ataxia Status: Chronic (8) Bladder cancer Status: Chronic Qualifiers: Bladder location: unspecified site Qualified Code(s): C67.9 - Malignant neoplasm of bladder, unspecified (9) Left flank pain Status: Inactive (10) Rotator cuff syndrome of right shoulder Status: Inactive (11) Brain metastases Status: Chronic (12) Gross hematuria Status: Acute (13) Hyperlipemia Status: Chronic (14) Hypothyroidism Status: Chronic (15) Chronic obstructive lung disease Status: Chronic Reason for Consult Date of Consultation: 10/01/18 Reason for Consultation: Septic shock History of Present Illness: The patient is a 63 year old F, with past medical history listed below, who presented to [facility] on 09/30/2018 secondary to hematuria, weakness and shortness of breath. On presentation to the ER, patient was noted to be saturating 88% on room air and complaining of diffuse abdominal pain and nausea. Patient was also noted to have a temperature of 101.9 ?F. Abdomen was diffusely tender and patient was noted to have lower extremity edema. Laboratory workup showed a lactate of 0.7 with a white count of 0.1 and platelets of 20. Patient's last chemotherapy was last week. CT scan of the abdomen showed a small subsegmental pulmonary embolism, so patient was given Xarelto therapy. Patient was noted to have an ileus on the CT of her abdomen. Patient was initiated on healthcare antibiotics and admitted to the PCU. Overnight, patient's blood pressure continued to fall despite attempts at fluid resuscitation. Patient was then transferred to the intensive care unit and initiated on pressor therapy through report. On my arrival, patient was complaining of significant 8 out of 10 pain. Patient states this was similar to her baseline pain, but increased in intensity. Patient also reported nausea. Patient reportedly has had hematuria for approximately 1 week. Patient's lower extremity edema has been getting worse over the week. Patient denied any palpitations, but did report some subjective fevers. Patient does have a history of bladder cancer that is currently being treated by Dr. Toledo. Patient was given a dose of Xarelto therapy in the ER, but is not on anticoagulation at baseline. Patient's last chemotherapy was last week. Patient is clear that she remains a full code at this time. Patient significant other reports that he did decrease her laxative therapy over the last 3-4 days secondary to diarrhea. Patient does take OxyContin at home, but states my heart stops when I have fentanyl. Patient has had Dilaudid before without issues. Review of systems difficult to obtain, but negative x10 systems unless stated above Past Medical History Past Medical History (Chronic Problems): Chronic Problems (Last Updated 10/01/18 @ 08:40 by James Latham DO) Ataxia (Chronic) Bladder cancer (Chronic) Abdominal pain (Chronic) Vaginal discharge (Chronic) Abdominal mass (Chronic) Brain metastases (Chronic) Chemotherapy management, encounter for (Chronic) History of bladder cancer (Chronic) 2017 Hyperlipemia (Chronic) Hypothyroidism (Chronic) Anxiety (Chronic) Chronic obstructive lung disease (Chronic) Primary fibromyalgia syndrome (Chronic) Shoulder pain (Chronic) Medical History: Medical History (Last Updated 10/01/18 @ 08:40 by James Latham DO) History of bladder cancer (Chronic) Z85.51 2017 Hyperlipemia (Chronic) E78.5 Hypothyroidism (Chronic) E03.9 Anxiety (Chronic) F41.9 Chronic obstructive lung disease (Chronic) J44.9 Primary fibromyalgia syndrome (Chronic) M79.7 Shoulder pain (Chronic) M25.519 COPD (chronic obstructive pulmonary disease) J44.[address] Moore 09/07/18 Dementia F03.90 Fracture of left femur S72.92XA History of hysterectomy Z98.890, Z90.710 Allergies fentanyl Allergy (Verified 09/25/18 09:37) Anaphylaxis codeine Adverse Reaction (Verified 09/25/18 09:37) Unknown Sulfa (Sulfonamide Antibiotics) Adverse Reaction (Verified 09/25/18 09:37) Unknown Home Medications: Ambulatory Orders Medication Instructions Recorded Fluoxetine HCl [Prozac] 60 mg PO DAILY 07/10/17 Gabapentin [Neurontin] 800 mg PO TID 07/10/17 Levothyroxine [Synthroid] 50 mcg PO DAILY 07/10/17 Loratadine 10 mg PO DAILY PRN PRN 07/23/17 ALPRAZolam [Xanax] 0.5 mg PO BID PRN PRN 08/18/17 Atorvastatin Calcium 80 mg PO DAILY 12/20/17 albuterol sulfate 0.63 mg/3 mL 0.63 mg INHALATION Q6H PRN #75 ml 02/24/18 solution for nebulization Dexamethasone [Decadron] 4 mg PO BIDCM #60 tablet 08/30/18 Memantine HCl 5 mg PO DAILY 09/06/18 Oxycodone HCl/Acetaminophen 1 tab PO Q6H PRN PRN 5 Days #90 tab 09/12/18 [Percocet 5-325] Senna [Senokot] 2 tablet PO DAILY #60 tablet 09/12/18 Lidocaine/Prilocaine 30 gm TP DAILY PRN PRN 30 Days #1 09/14/18 [Lidocaine-Prilocaine Cream] cream..g. Bupropion HCl [Bupropion Xl] 150 mg PO DAILY 09/30/18 Trazodone HCl 50 mg PO DAILY 09/30/18 Surgical History: Surgical History (Last Reviewed 10/01/18 @ 04:05 by Waylon Vela MD) History of 2 sections Z87.59 History of appendectomy Z98.890, Z90.49 History of cholecystectomy Z90.49 History of hysterectomy for cancer Z90.710 History of tubal ligation Z98.51 history of bladder removal due to bladder cancer, and 4 lymph nodes removed. may 2017 [facility] (main ) History of arthroscopy of right shoulder Z98.890 H/O total cystectomy Z98.890 H/O tubal ligation Z98.51 H/O: Z98.891 S/P appendectomy Z90.49 Surgical History: - Lives: With Family Smoking Status: Former smoker - *Family History Maternal Family History: Family History (Last Reviewed 10/01/18 @ 04:34 by Waylon Vela MD) Brother Lung disease Heart disease Grandmother Cancer Mother Cancer History Items: No pertinent history Paternal Family History: Family History (Last Reviewed 10/01/18 @ 04:34 by Waylon Vela MD) Brother Lung disease Heart disease Grandmother Cancer Mother Cancer History Items: No pertinent history Review of Systems Comment: See HPI Patient Problems: Active and Suspected Problems (Last Updated 10/01/18 @ 08:40 by James Jopperi, DO) UTI (urinary tract infection) (Acute) Bacteremia (Acute) Ileus (Acute) Hydronephrosis (Acute) Hydroureter (Acute) Pancytopenia (Acute) Septic shock (Acute) Cystitis (Acute) Gross hematuria (Acute) Objective: CT of the chest was personally reviewed. Pulmonary embolism noted in the right lower lobe with chronic interstitial changes. Patient has had pulmonary function tests on 12/16/2016 that were grossly within normal limits (FVC 95%, FEV1 96%, TLC 85%, DLCO 66%) No echocardiogram is available for review. - Physical Exam General: Alert, - - RASS +1. Alopecia. Appears older than stated age. Speaking in full sentences. Ventimask in place. HEENT: Atraumatic, PERRLA, EOMI, Normocephalic, - - Slight scleral injection without icterus Oral: Moist Mucosa, No Gingival or Mucosal Lesions/ Ulcerations Neck: Supple, No JVD, No Nodes, Trachea Midline Lungs: No rhonchi, No wheeze, No rales, Diminished, - - Fair effort. No dullness to percussion. Symmetric expansion. Cardiovascular: Normal S1, Normal S2, No murmurs, No rub noted, No Gallop, Tachycardic Abdomen: Bowel Sounds Present, Soft, Distended, Tender, - - No rebound noted. Some guarding noted. Extremities: No clubbing, No cyanosis, Edema - 1+ lower extremity Skin: No rashes, No breakdown, - - Some areas of ecchymosis from previous IV attempts Musculoskeletal: No Tenderness to Palpation of Joints or Extremities Lymphatic: No Cervical, Supraclavicular, or Inguinal Adenopathy Neurological: Cranial nerves II-XII grossly intact, Neuro grossly intact, Motor Exam 5/5 strength throughout Psych/Mental Status: Anxious, Restless Vital Signs Temp Pulse Resp BP Pulse Ox 38.0 C H 105 H 20 H 97/68 98 10/01/18 08:00 10/01/18 08:00 10/01/18 08:00 10/01/18 08:00 10/01/18 08:40 Oxygen Flow Rate (L/min) 3 Oxygen Delivery Method Venturi Mask Weight: 58.5 kg Body Mass Index (BMI) 25.9 Finger Stick Blood Glucose 132 Intake and Output for Last 24 Hours 09/29/18 09/30/18 10/01/18 23:59 23:59 22:59 Intake Total 130 / 130 Output Total 225 / 225 Balance -95 / -95 Microbiology Past 72 Hours 09/30/18 18:30 Blood Culture - Preliminary Blood Culture (Wb) - Venous Laboratory Tests Past 24 Hrs 09/30/18 09/30/18 09/30/18 18:30 18:30 18:30 WBC 0.1 L* RBC 3.32 L Hgb 9.7 L Hct 30.2 L MCV 91.0 MCH 29.2 MCHC 32.1 RDW 16.0 H RDW Differential 53.8 H Plt Count 20 L* MPV 8.9 Immature Gran % (Auto) 0.000 Neut % (Auto) 8.4 L Lymph % (Auto) 83.3 H Swift % (Auto) 8.3 Eos % (Auto) 0.0 Baso % (Auto) 0.0 Absolute Neuts (auto) 0.0 L Absolute Lymphs (auto) 0.10 L Total Counted Not Reportable Differential Comment SCANNED Diff Path Review March PT 13.5 INR 1.0 APTT 32.1 Sodium 135 L Potassium 3.6 Chloride 98 Carbon Dioxide 29.0 Anion Gap 8 BUN 18 Creatinine 0.68 Estim Creat Clear Calc 59.85 Est GFR (MDRD) Af Amer 113 Est GFR (MDRD) Non-Af 93 BUN/Creatinine Ratio 26.7 H Glucose 75 Lactic Acid Calcium 8.3 L Phosphorus Magnesium Total Bilirubin 0.60 AST 84 H ALT 231 H Alkaline Phosphatase 130 H Troponin I < 0.015 Total Protein 6.4 Albumin 2.6 L Globulin 3.8 Albumin/Globulin Ratio 0.7 L Urine Color Urine Clarity Urine pH Ur Specific Hecker Urine Protein Urine Glucose (UA) Urine Ketones Urine Occult Blood Urine Nitrite Urine Bilirubin Urine Urobilinogen Ur Leukocyte Esterase Urine RBC Urine WBC Ur Squamous Epith Cells Other Crystals Urine Bacteria Urine Mucus 09/30/18 09/30/18 10/01/18 18:30 19:35 00:40 WBC 0.1 L* RBC 3.04 L Hgb 9.2 L Hct 28.1 L MCV 92.4 MCH 30.3 MCHC 32.7 RDW 16.1 H RDW Differential 52.4 H Plt Count 18 L* MPV 9.5 Immature Gran % (Auto) Neut % (Auto) Lymph % (Auto) Swift % (Auto) Eos % (Auto) Baso % (Auto) Absolute Neuts (auto) Absolute Lymphs (auto) Total Counted Differential Comment SCAN Diff Path Review May foll PT INR APTT Sodium Potassium Chloride Carbon Dioxide Anion Gap BUN Creatinine Estim Creat Clear Calc Est GFR (MDRD) Af Amer Est GFR (MDRD) Non-Af BUN/Creatinine Ratio Glucose Lactic Acid 0.7 Calcium Phosphorus Magnesium Total Bilirubin AST ALT Alkaline Phosphatase Troponin I Total Protein Albumin Globulin Albumin/Globulin Ratio Urine Color Red Urine Clarity Cloudy Urine pH 8.0 Ur Specific Hecker 1.010 Urine Protein 100 H Urine Glucose (UA) Normal Urine Ketones Negative Urine Occult Blood 250 H Urine Nitrite Positive H Urine Bilirubin Negative Urine Urobilinogen 1 H Ur Leukocyte Esterase 100 H Urine RBC > 100 SEEN Urine WBC 10-25 SEEN Ur Squamous Epith Cells 0 SEEN Other Crystals 0-5 Urine Bacteria 3+ Urine Mucus 0 SEEN 10/01/18 10/01/18 10/01/18 00:40 03:30 03:30 WBC RBC Hgb Hct MCV MCH MCHC RDW RDW Differential Plt Count MPV Immature Gran % (Auto) Neut % (Auto) Lymph % (Auto) Swift % (Auto) Eos % (Auto) Baso % (Auto) Absolute Neuts (auto) Absolute Lymphs (auto) Total Counted Differential Comment Diff Path Review PT INR APTT Sodium 139 Potassium 3.0 L Chloride 105 Carbon Dioxide 27.0 Anion Gap 7 BUN 17 Creatinine 0.85 Estim Creat Clear Calc 59.43 Est GFR (MDRD) Af Amer 86 Est GFR (MDRD) Non-Af 71 BUN/Creatinine Ratio 19.9 Glucose 62 L Lactic Acid Calcium 7.3 L Phosphorus Magnesium Total Bilirubin AST ALT Alkaline Phosphatase Troponin I < 0.015 < 0.015 Total Protein Albumin Globulin Albumin/Globulin Ratio Urine Color Urine Clarity Urine pH Ur Specific Hecker Urine Protein Urine Glucose (UA) Urine Ketones Urine Occult Blood Urine Nitrite Urine Bilirubin Urine Urobilinogen Ur Leukocyte Esterase Urine RBC Urine WBC Ur Squamous Epith Cells Other Crystals Urine Bacteria Urine Mucus 10/01/18 10/01/18 03:30 04:30 WBC RBC Hgb Hct MCV MCH MCHC RDW RDW Differential Plt Count MPV Immature Gran % (Auto) Neut % (Auto) Lymph % (Auto) Swift % (Auto) Eos % (Auto) Baso % (Auto) Absolute Neuts (auto) Absolute Lymphs (auto) Total Counted Differential Comment Diff Path Review PT INR APTT Sodium Potassium Chloride Carbon Dioxide Anion Gap BUN Creatinine Estim Creat Clear Calc Est GFR (MDRD) Af Amer Est GFR (MDRD) Non-Af BUN/Creatinine Ratio Glucose Lactic Acid 0.9 Calcium Phosphorus 2.7 Magnesium 1.8 Total Bilirubin AST ALT Alkaline Phosphatase Troponin I Total Protein Albumin Globulin Albumin/Globulin Ratio Urine Color Urine Clarity Urine pH Ur Specific Hecker Urine Protein Urine Glucose (UA) Urine Ketones Urine Occult Blood Urine Nitrite Urine Bilirubin Urine Urobilinogen Ur Leukocyte Esterase Urine RBC Urine WBC Ur Squamous Epith Cells Other Crystals Urine Bacteria Urine Mucus Clinical Impression(s) from Imaging Studies Brain CT 09/30/18 18:35 IMPRESSION: Mild periventricular white matter ischemic changes. No mass or acute bleed. If concern for metastatic disease MRI recommended for further evaluation Electronically Signed: Moy Henao MD at 20:33 EDT , Service support , Chest X-Ray 09/30/18 18:36 IMPRESSION: Stable appearance of the chest with no acute pathology. New right internal jugular catheter as described. Electronically Signed: Jesus Hutchison MD at 19:36 EDT , Service support , Chest CTA 09/30/18 18:55 IMPRESSION: Pulmonary emboli to the subsegmental vessels of the right lower lobe Chronic interstitial changes and minor atelectasis within the dependent portion of the lungs. Electronically Signed: Moy Henao MD at 20:56 EDT , Service support , Abdomen/Pelvis CT 09/30/18 20:50 IMPRESSION: Postsurgical changes status post cystectomy and right ileal conduit. Moderate right hydroureteronephrosis and mild left hydroureter in association with thick-walled ileal conduit and focal narrowing of the lumen. Nonspecific ileus with diffuse fecal retention in the colon Status post cholecystectomy, cystectomy and hysterectomy Other findings as above Electronically Signed: Moy Henao MD at 22:35 EDT , Service support , Assessment/Plan Active and Suspected Problems (Last Updated 10/01/18 @ 08:40 by James Latham DO) UTI (urinary tract infection) (Acute) Bacteremia (Acute) Ileus (Acute) Hydronephrosis (Acute) Hydroureter (Acute) Pancytopenia (Acute) Septic shock (Acute) Cystitis (Acute) Gross hematuria (Acute) RECOMMENDATIONS: 1. Continue pressors to keep map at 65 2. Agree with broad-spectrum antibiotics 3. Nasal MRSA, likely discontinue vancomycin if negative 4. Ostomy care 5. Hold on anticoagulation for now, possible heparin drip in the future 6. Keep oxygen saturations 90-94% IMPRESSIONS: 1. Gram-negative septic shock secondary to probable UTI Patient does have a history of ileal conduit and CT did show thickening of the wall. Patient's UA was consistent with probable infection. Patient currently on meropenem and vancomycin and is likely suffering from aggressive ly sis of gram-negative's. Continue with pressor therapy as necessary to keep maps in appropriate range. Patient is receiving IV fluids. 2. Neutropenia/pancytopenia secondary to chemotherapy Patient with recent chemotherapy leading to pancytopenia. Patient with neutropenic fever at this time. This is likely secondary to gram-negative sepsis. Oncology is on consult. 3. Pulmonary embolism with acute hypoxic respiratory failure Patient with a small right lower lobe embolism. Doubt this is the cause of her hypoxic respiratory failure. Patient has received significant amounts of fluid and likely has an element of pulmonary edema. Echocardiogram and duplex have been ordered. We will hold off on anticoagulation at this time given patient's concurrent hematuria. If patient continues to require high FiO2, anticoagulation with heparin drip can be evaluated. Hope that with antibiotics, hematuria will improve and anticoagulation can be restarted safer. 4. Hydroureter/hydronephrosis/hematuria Patient did receive Xarelto therapy on presentation. Patient's urine appears improved at this time. Unclear if this is related to irritation related to gram-negative sepsis. Urology is on consult. 5. Stage IV bladder cancer Patient currently on chemotherapy that is reported to palliative in nature. However, patient is reporting full CODE STATUS at this time. Oncology is currently consulted. Defer to oncology for discussion on goals of therapy. If patient is truly receiving palliative chemotherapy, full CODE STATUS is likely not appropriate. Will need to discuss with oncology about goals of therapy. 6. Debility/chronic pain syndrome/anxiety/ depression/hypothyroidism/hyperlipidemia/fibromyalgia/possible ileus Complicates care, management, recovery and prognosis. Likely okay to continue with baseline medications. Will hold on p.o. narcotics given patient's possible ileus. Patient did have a bowel movement this morning, so clinical suspicion for obstruction secondary to narcotic use with decreased laxatives. Patient currently n.p.o. Zofran as needed for nausea. Await surgical recommendations TIME: 50 minutes of critical care time spent addressing patient's gram-negative sh ock, hypoxic respiratory failure, bladder cancer, review of all data and collaboration with care team (7 AM to 9:30 AM) Code Visit [id number]: [id number] Critical care first hour
[2018-10-01] MEDS: Vancomycin IV 500 MG/100 ML BAG 100 MG IV (10:11)
--- NOTE | 2018-10-01 13:01 | CON.PCM_ITS ---
Reason for Consult Date of Consultation: 10/01/18 Reason for Consultation: Ileus per CT History of Present Illness: The patient is a 63 year old F with bladder cancer undergoing chemotherapy admitted due to septic shock due to urinary tract infection with bacteremia gram-negative rods. Patient is CT abdomen pelvis report question possible ileus as there is large amount of stool in the colon. Patient was actually having bowel movements in the ICU without any laxatives once she was not receiving as many narcotics. Per family she may have been receiving more medication than she should have as it was not able to be tracked well given her current living situation with her and her partner not always remembering when things were given. Patient complains of diffuse abdominal pain she is also quite lethargic will answer yes or no appropriately but does mostly continuously moan. Patient is on IV antibiotics per ICU and oncology has been consulted. Past Medical History Past Medical History (Chronic Problems): Chronic Problems (Last Updated 10/01/18 @ 08:40 by James Latham DO) Ataxia (Chronic) Bladder cancer (Chronic) Abdominal pain (Chronic) Vaginal discharge (Chronic) Abdominal mass (Chronic) Brain metastases (Chronic) Chemotherapy management, encounter for (Chronic) History of bladder cancer (Chronic) 2017 Hyperlipemia (Chronic) Hypothyroidism (Chronic) Anxiety (Chronic) Chronic obstructive lung disease (Chronic) Primary fibromyalgia syndrome (Chronic) Shoulder pain (Chronic) Medical History: Medical History (Last Updated 10/01/18 @ 08:40 by James Latham DO) History of bladder cancer (Chronic) Z85.51 2017 Hyperlipemia (Chronic) E78.5 Hypothyroidism (Chronic) E03.9 Anxiety (Chronic) F41.9 Chronic obstructive lung disease (Chronic) J44.9 Primary fibromyalgia syndrome (Chronic) M79.7 Shoulder pain (Chronic) M25.519 COPD (chronic obstructive pulmonary disease) J44.[address] Moore 09/07/18 Dementia F03.90 Fracture of left femur S72.92XA History of hysterectomy Z98.890, Z90.710 Allergies fentanyl Allergy (Verified 09/25/18 09:37) Anaphylaxis codeine Adverse Reaction (Verified 09/25/18 09:37) Unknown Sulfa (Sulfonamide Antibiotics) Adverse Reaction (Verified 09/25/18 09:37) Unknown Home Medications: Ambulatory Orders Medication Instructions Recorded Fluoxetine HCl [Prozac] 60 mg PO DAILY 07/10/17 Gabapentin [Neurontin] 800 mg PO TID 07/10/17 Levothyroxine [Synthroid] 50 mcg PO DAILY 07/10/17 Loratadine 10 mg PO DAILY PRN PRN 07/23/17 ALPRAZolam [Xanax] 0.5 mg PO BID PRN PRN 08/18/17 Atorvastatin Calcium 80 mg PO DAILY 12/20/17 albuterol sulfate 0.63 mg/3 mL 0.63 mg INHALATION Q6H PRN #75 ml 02/24/18 solution for nebulization Dexamethasone [Decadron] 4 mg PO BIDCM #60 tablet 08/30/18 Oxycodone HCl/Acetaminophen 1 tab PO Q6H PRN PRN 5 Days #90 tab 09/12/18 [Percocet 5-325] Senna [Senokot] 2 tablet PO DAILY #60 tablet 09/12/18 Lidocaine/Prilocaine 30 gm TP DAILY PRN PRN 30 Days #1 09/14/18 [Lidocaine-Prilocaine Cream] cream..g. Bupropion HCl [Bupropion Xl] 150 mg PO DAILY 09/30/18 Trazodone HCl 50 mg PO DAILY 09/30/18 Surgical History: Surgical History (Last Reviewed 10/01/18 @ 04:05 by Waylon Vela MD) History of 2 sections Z87.59 History of appendectomy Z98.890, Z90.49 History of cholecystectomy Z90.49 History of hysterectomy for cancer Z90.710 History of tubal ligation Z98.51 history of bladder removal due to bladder cancer, and 4 lymph nodes removed. may 2017 [facility] (main ) History of arthroscopy of right shoulder Z98.890 H/O total cystectomy Z98.890 H/O tubal ligation Z98.51 H/O: Z98.891 S/P appendectomy Z90.49 Surgical History: - Lives: With Family Smoking Status: Former smoker - *Family History Maternal Family History: Family History (Last Reviewed 10/01/18 @ 04:34 by Waylon Vela MD) Brother Lung disease Heart disease Grandmother Cancer Mother Cancer History Items: No pertinent history Paternal Family History: Family History (Last Reviewed 10/01/18 @ 04:34 by Waylon Vela MD) Brother Lung disease Heart disease Grandmother Cancer Mother Cancer History Items: No pertinent history Review of Systems Constitutional: Reports: Fever Gastrointestinal: Reports: Abdominal Pain, Nausea. Denies: Vomiting Genitourinary: Reports: - - Ileal conduit in place Unable to obtain accurate/complete ROS d/t: Patient is a little lethargic Patient Problems: Active and Suspected Problems (Last Updated 10/01/18 @ 08:40 by James Latham DO) UTI (urinary tract infection) (Acute) Bacteremia (Acute) Ileus (Acute) Hydronephrosis (Acute) Hydroureter (Acute) Pancytopenia (Acute) Septic shock (Acute) Cystitis (Acute) Gross hematuria (Acute) - Physical Exam General: Lethargic - Will answer yes or no appropriately but keeps her eyes shut Abdomen: Soft, Non-Distended, Tender - Quadrant, no peritoneal signs, - - Urostomy in place Psych/Mental Status: - - Somewhat lethargic Vital Signs Temp Pulse Resp BP Pulse Ox 102.1 F H 101 H 25 H 105/79 92 10/01/18 12:00 10/01/18 12:00 10/01/18 12:00 10/01/18 12:00 10/01/18 12:00 Oxygen Flow Rate (L/min) 6 Oxygen Delivery Method Venturi Mask Weight: 128 lb 15.527 oz Body Mass Index (BMI) 25.9 Finger Stick Blood Glucose 132 Intake and Output for Last 24 Hours 09/29/18 09/30/18 10/01/18 23:59 23:59 22:59 Intake Total 1650 / 1650 Output Total 825 / 825 Balance 825 / 825 Microbiology Past 72 Hours 09/30/18 19:35 Urine Culture - Preliminary Urine, Clean Catch Gram negative beto GNR lactose adult neuropsychologist 09/30/18 19:05 Blood Culture - Preliminary Blood Culture (Wb) - Venous 09/30/18 18:30 Blood Culture - Preliminary Blood Culture (Wb) - Venous Laboratory Tests Past 24 Hrs 09/30/18 09/30/18 09/30/18 18:30 18:30 18:30 WBC 0.1 L* RBC 3.32 L Hgb 9.7 L Hct 30.2 L MCV 91.0 MCH 29.2 MCHC 32.1 RDW 16.0 H RDW Differential 53.8 H Plt Count 20 L* MPV 8.9 Immature Gran % (Auto) 0.000 Neut % (Auto) 8.4 L Lymph % (Auto) 83.3 H [place] % (Auto) 8.3 Eos % (Auto) 0.0 Baso % (Auto) 0.0 Absolute Neuts (auto) 0.0 L Absolute Lymphs (auto) 0.10 L Total Counted Not Reportable Differential Comment SCANNED Diff Path Review March foll PT 13.5 INR 1.0 APTT 32.1 Sodium 135 L Potassium 3.6 Chloride 98 Carbon Dioxide 29.0 Anion Gap 8 BUN 18 Creatinine 0.68 Estim Creat Clear Calc 59.85 Est GFR (MDRD) Af Amer 113 Est GFR (MDRD) Non-Af 93 BUN/Creatinine Ratio 26.7 H Glucose 75 Lactic Acid Calcium 8.3 L Phosphorus Magnesium Total Bilirubin 0.60 AST 84 H ALT 231 H Alkaline Phosphatase 130 H Troponin I < 0.015 Total Protein 6.4 Albumin 2.6 L Globulin 3.8 Albumin/Globulin Ratio 0.7 L Urine Color Urine Clarity Urine pH Ur Specific [place] Urine Protein Urine Glucose (UA) Urine Ketones Urine Occult Blood Urine Nitrite Urine Bilirubin Urine Urobilinogen Ur Leukocyte Esterase Urine RBC Urine WBC Ur Squamous Epith Cells Other Crystals Urine Bacteria Urine Mucus MRSA (PCR) 09/30/18 09/30/18 10/01/18 18:30 19:35 00:40 WBC 0.1 L* RBC 3.04 L Hgb 9.2 L Hct 28.1 L MCV 92.4 MCH 30.3 MCHC 32.7 RDW 16.1 H RDW Differential 52.4 H Plt Count 18 L* MPV 9.5 Immature Gran % (Auto) Neut % (Auto) Lymph % (Auto) [place] % (Auto) Eos % (Auto) Baso % (Auto) Absolute Neuts (auto) Absolute Lymphs (auto) Total Counted Differential Comment SCAN Diff Path Review March foll PT INR APTT Sodium Potassium Chloride Carbon Dioxide Anion Gap BUN Creatinine Estim Creat Clear Calc Est GFR (MDRD) Af Amer Est GFR (MDRD) Non-Af BUN/Creatinine Ratio Glucose Lactic Acid 0.7 Calcium Phosphorus Magnesium Total Bilirubin AST ALT Alkaline Phosphatase Troponin I Total Protein Albumin Globulin Albumin/Globulin Ratio Urine Color Red Urine Clarity Cloudy Urine pH 8.0 Ur Specific [place] 1.010 Urine Protein 100 H Urine Glucose (UA) Normal Urine Ketones Negative Urine Occult Blood 250 H Urine Nitrite Positive H Urine Bilirubin Negative Urine Urobilinogen 1 H Ur Leukocyte Esterase 100 H Urine RBC > 100 SEEN Urine WBC 10-25 SEEN Ur Squamous Epith Cells 0 SEEN Other Crystals 0-5 Urine Bacteria 3+ Urine Mucus 0 SEEN MRSA (PCR) 10/01/18 10/01/18 10/01/18 00:40 03:30 03:30 WBC RBC Hgb Hct MCV MCH MCHC RDW RDW Differential Plt Count MPV Immature Gran % (Auto) Neut % (Auto) Lymph % (Auto) [place] % (Auto) Eos % (Auto) Baso % (Auto) Absolute Neuts (auto) Absolute Lymphs (auto) Total Counted Differential Comment Diff Path Review PT INR APTT Sodium 139 Potassium 3.0 L Chloride 105 Carbon Dioxide 27.0 Anion Gap 7 BUN 17 Creatinine 0.85 Estim Creat Clear Calc 59.43 Est GFR (MDRD) Af Amer 86 Est GFR (MDRD) Non-Af 71 BUN/Creatinine Ratio 19.9 Glucose 62 L Lactic Acid Calcium 7.3 L Phosphorus Magnesium Total Bilirubin AST ALT Alkaline Phosphatase Troponin I < 0.015 < 0.015 Total Protein Albumin Globulin Albumin/Globulin Ratio Urine Color Urine Clarity Urine pH Ur Specific [place] Urine Protein Urine Glucose (UA) Urine Ketones Urine Occult Blood Urine Nitrite Urine Bilirubin Urine Urobilinogen Ur Leukocyte Esterase Urine RBC Urine WBC Ur Squamous Epith Cells Other Crystals Urine Bacteria Urine Mucus MRSA (PCR) 10/01/18 10/01/18 10/01/18 03:30 04:30 11:50 WBC RBC Hgb Hct MCV MCH MCHC RDW RDW Differential Plt Count MPV Immature Gran % (Auto) Neut % (Auto) Lymph % (Auto) [place] % (Auto) Eos % (Auto) Baso % (Auto) Absolute Neuts (auto) Absolute Lymphs (auto) Total Counted Differential Comment Diff Path Review PT INR APTT Sodium Potassium Chloride Carbon Dioxide Anion Gap BUN Creatinine Estim Creat Clear Calc Est GFR (MDRD) Af Amer Est GFR (MDRD) Non-Af BUN/Creatinine Ratio Glucose Lactic Acid 0.9 Calcium Phosphorus 2.7 Magnesium 1.8 Total Bilirubin AST ALT Alkaline Phosphatase Troponin I Total Protein Albumin Globulin Albumin/Globulin Ratio Urine Color Urine Clarity Urine pH Ur Specific [place] Urine Protein Urine Glucose (UA) Urine Ketones Urine Occult Blood Urine Nitrite Urine Bilirubin Urine Urobilinogen Ur Leukocyte Esterase Urine RBC Urine WBC Ur Squamous Epith Cells Other Crystals Urine Bacteria Urine Mucus MRSA (PCR) Pending Assessment/Plan All Active Problems (Last Updated 10/01/18 @ 08:40 by James Latham DO) UTI (urinary tract infection) (Acute) Bacteremia (Acute) Ileus (Acute) Hydronephrosis (Acute) Hydroureter (Acute) Pancytopenia (Acute) Septic shock (Acute) Acute cholecystitis (Ruled-out) Constipation (Resolved) Cystitis (Acute) Gross hematuria (Acute) 63-year-old female with septic shock, urine negative rods bacteremia, urinary tract infection, bladder cancer, possible ileus per CT 1. Patient has had multiple large bowel movements since being in the ICU. Do not believe that she has an ileus think she is just constipated. We will give her some MiraLAX currently and again tonight as long as she is tolerating p.o. Okay with clears as long as she is not nauseated. If patient does complain of nausea would recommend doing to collect suppository instead. 2. Antibiotics per ICU Desiree Alston M.D. Pager: [phone] [facility] [address] [place] [address], [facility], [address] [place] [address] Office: [phone] Code Visit Inpatient E&M: 59587 Init Hosp L1
[2018-10-01] MEDS: buPROPion (XL) 150 MG TABLET.XL PO (13:44)
[2018-10-01] MEDS: Fluconazole 100 MG Tablet PO (13:44)
[2018-10-01] MEDS: Acetaminophen 325 MG Tablet 650 MG PO (13:44)
[2018-10-01] MEDS: Polyethylene Glycol 3350 17 GM PACKET PO ×2 (13:45→21:14)
[2018-10-01 14:05] LABS: Bedside Glucose 198 mg/dL (70-110)
[2018-10-01 14:19] LABS: M R Staph aureus DNA By PCR Negative (Negative); Probe Check PASS; Specimen Processing Control PASS
--- NOTE | 2018-10-01 14:24 | ONC.CONS.INP ---
Consult Referring Physician: Dr. Tevin Vela. Consult Results: Neutropenic fever. Subjective Date of Service:: 10/01/18 Chief Complaint: Blood in urine, weakness, malaise History of Present Illness: 63y.o.woman was diagnosed with Bladder cancer Stage IIIA (pT3b N1 M0), she had radical cystectomy with ileal conduit and urine bag in May 2017 at [facility]. She presented to the emergency room with abdominal pain CT scan on 08/02/2018 showed multiple abdominal masses. She has developed swelling in the left side of the neck which is painful. CT neck,chest on 08/10/2018 showed brain metastases, increased Left supraclavicular nodes. MRI brain was requested and referred to Radiation Oncology. CT guided biopsy of pelvic mass on 08/14/2018 showed poorly differentiated carcinoma. She received WBRT from 08/24/2018-09/06/2018. She started chemotherapy with Carboplatin and Gemzar on 09/18/2018 and received C1D8 Gemzar on 09/25/2018. She became lethargic with blood tinged urine so was brought to ER, found to be neutropenic, thrombocytopenic and febrile. She is now admitted to ICU with sepsis. Past Medical History: Chronic Problems (Last Updated 10/01/18 @ 08:40 by James Latham DO) Ataxia (Chronic) Bladder cancer (Chronic) Abdominal pain (Chronic) Vaginal discharge (Chronic) Abdominal mass (Chronic) Brain metastases (Chronic) Chemotherapy management, encounter for (Chronic) History of bladder cancer (Chronic) 2017 Hyperlipemia (Chronic) Hypothyroidism (Chronic) Anxiety (Chronic) Chronic obstructive lung disease (Chronic) Primary fibromyalgia syndrome (Chronic) Shoulder pain (Chronic) Past Medical/Surgical History: Past Medical History - Most Recent Inpatient Visit Past Medical History Start: 10/01/18 00:07 Text: Status: Complete Freq: ONCE Protocol: Document 10/01/18 00:53 [facility] (Rec: 10/01/18 00:54 [facility] [id number]) BMI Required to complete PMH What is Patient's BMI 25.9 Past Medical History Unable History Recalled Yes Query Text:Pt Unable/Family Not Present Neurologic Medical History Hx Stroke/TIA No Hx Dementia/Alzheimer's No Hx Parkinson's Disease No Hx Seizures No Hx Multiple Sclerosis No Hx Migraines No Cardiac Medical History VTE Present on Admission Yes Hx of Deep Vein Thrombosis/VTE/PE No Hx Hypertension No Hx Chest Pain/Angina No Hx Heart Attack No Hx Cardiac Surgery/Stents/Etc. No Hx Heart Failure No Hx Pacemaker/AICD No Hx Irregular Heartbeat and/or Afib No Hx Anticoagulant Therapy No Query Text:(Coumadin, Aspirin, Plavix, Xarelto, etc.) Hx Pain in Legs when Walking/Leg Cramps No Respiratory Medical History Hx COPD Yes: AEROSOL Hx Emphysema No Hx Smoking Yes: QUIT YRS AGO Smoking Status Former smoker Hx Smoking Cessation Counseling Yes Hx Tobacco Use in last 12 months No Hx of Pipe Smoking No Hx Sleep Apnea No CPAP No BIPAP No Do you snore loudly (louder than talking No or can be heard through closed doors)? Do you often feel tired/ fatigued/ No sleepy during daytime? Has anyone observed you stop breathing No during sleep? STOP Results Negative GI Medical History Hx Ulcer No Hx Hepatitis No Hx Cirrhosis No Hx GI Bleed No Hx Unplanned Weight Loss No Genitourinary Medical History Indwelling Catheter in Place on Arrival/ No Admission Hx Renal Disease Yes: BLADDER STOMA/ BLADDER CA Hx Dialysis No Musculoskeletal History Hx Arthritis Yes Hx Rheumatoid Arthritis No Endocrine Medical History Hx Diabetes No Hx Thyroid Disease Yes: ON MED Hematologic Medical History Patient unable to answer at this time ( Yes ie. confused, unresponsive etc...) Psycho/Social Medical History Hx Depression Yes Hx Anxiety Yes Hx Behavior Disorder No Hx Alcohol Use No Hx Substance Use No Other Medical History Hx Blood Disorders No Hx Anemia Yes Hx Cancer Yes: BLADDER CA Hx Drug Resistant Organism No Wound/Pressure Injury Present on Arrival No /Admission Query Text:If yes, chart assessment in Shift/Clinical Findings Central Line/PICC/VAD Present on Arrival Yes /Admission Antibiotics within last 7 days? No Methicillin Resistant Staphylococcus aureus Screening Active MRSA No Risk for Readmission Number of Risk Factors 8 At Risk for Readmission Patient is At Risk For Readmission Patient is eligible for Call Back Y Past Medical History (Last Updated 10/01/18 @ 08:40 by James Latham DO) History of bladder cancer (Chronic) Hyperlipemia (Chronic) Hypothyroidism (Chronic) Anxiety (Chronic) Chronic obstructive lung disease (Chronic) Primary fibromyalgia syndrome (Chronic) Shoulder pain (Chronic) COPD (chronic obstructive pulmonary disease) (Acute) med port placed (Acute) Dementia (Chronic) Fracture of left femur (Inactive) History of hysterectomy (Inactive) Past Surgical History (Last Reviewed 10/01/18 @ 04:05 by Waylon Vela MD) History of 2 sections (Acute) History of appendectomy (Acute) History of cholecystectomy (Acute) History of hysterectomy for cancer (Acute) History of tubal ligation (Acute) history of bladder removal (Acute) History of arthroscopy of right shoulder (Resolved) H/O total cystectomy (Inactive) H/O tubal ligation (Inactive) H/O: (Inactive) S/P appendectomy (Inactive) Maternal Family History: Family History (Last Reviewed 10/01/18 @ 04:34 by Waylon Vela MD) Brother Lung disease Heart disease Grandmother Cancer Mother Cancer Family History: No pertinent history Paternal Family History: Family History (Last Reviewed 10/01/18 @ 04:34 by Waylon Vela MD) Brother Lung disease Heart disease Grandmother Cancer Mother Cancer Family History: No pertinent history - Social History Lives: With Family Smoking Status: Former smoker Allergies/Adverse Reactions: Allergy/AdvReac Type Severity Reaction Status Date / Time fentanyl Allergy Anaphylaxis Verified 09/25/18 09:37 codeine AdvReac Unknown Verified 09/25/18 09:37 Sulfa (Sulfonamide AdvReac Unknown Verified 09/25/18 09:37 Antibiotics) Review of Systems Constitutional:: Reports: Weakness, Fatigue, Sweats. Denies: Fever Cardiovascular:: Denies: Chest pain, Palpitations, Dyspnea on exertion, Orthopnea, PND, Shortness of breath Respiratory: Denies: Cough, Hemoptysis, Shortness of Breath, Wheezing Gastrointestinal:: Denies: Abdominal pain, Nausea, Vomiting, Diarrhea, Constipation, Hematochezia Genitourinary: Reports: Hematuria Skin: Denies: Rash, Skin Changes, Wounds Psychiatric: Denies: Anxiety, Depression, Homicidal Ideations, Suicidal Ideations Vital Signs Height 4 ft 10 in Weight: 58.5 kg Weight in Pounds 129.0 lbs BMI 25.4 Pulse Ox 94 Temperature 102.1 F Pulse Rate 97 Respiratory Rate 27 Blood Pressure [BP] 117/79 Blood Pressure 105/79 Blood Pressure Position [BP] Semi-Fowlers Blood Pressure Position Semi-Fowlers - Physical Exam General: Lethargic HEENT: Atraumatic Oropharynx:: Dry mucosa Neck:: Supple, Trachea midline. Negative for: JVD, bilateral Cardiac:: Regular rate, Regular rhythm, Normal S1, Normal S2. Negative for: Murmur Lungs: Clear to auscultation, Excusion symmetrical. Negative for: Rhonchi, Wheezes Abdomen:: Tender. 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 09/30/18 19:05 Blood Culture - Preliminary Blood Culture (Wb) - Venous 09/30/18 18:30 Blood Culture - Preliminary Blood Culture (Wb) - Venous Laboratory Tests 10/01/18 10/01/18 10/01/18 Range/Units 11:50 05:54 04:30 WBC (4.4-11.0) K/mm3 RBC (4.2-5.4) M/mm3 Hgb (12.0-15.0) g/dl Hct (37-47) % MCV (81-99) fL MCH (27.0-32.0) pg MCHC (32-36) g/gl RDW (11.6-14.6) % RDW Differential (35.1-43.9) fl Plt Count (150-450) K/mm3 MPV (6.2-12.0) fl Immature Gran % (Auto) (0.0-0.9) % Neut % (Auto) (47-70) % Lymph % (Auto) (19-41) % [place] % (Auto) (0-10) % Eos % (Auto) (0-5) % Baso % (Auto) (0-1) % Absolute Neuts (auto) (2.0-7.7) X10^3/uL Absolute Lymphs (auto) (0.83-4.51) X10^3/ul Total Counted Differential Comment Diff Path Review PT (11.7-14.9) SECONDS INR APTT (24.1-36.2) Seconds Sodium (136-145) mmol/L Potassium (3.5-5.1) mmol/L Chloride (98-107) mmol/L Carbon Dioxide (21.0-32.0) mmol/L Anion Gap (5-15) BUN (7-18) mg/dL Creatinine (0.55-1.02) mg/dL Estim Creat Clear Calc ml/min Est GFR (MDRD) Af Amer (>60) mL/min Est GFR (MDRD) Non-Af (>60) mL/min BUN/Creatinine Ratio (10-20) RATIO Glucose (74-106) mg/dL Lactic Acid 0.9 (0.4-2.0) mmol/L Calcium (8.5-10.1) mg/dL Phosphorus (2.5-4.9) mg/dL Magnesium (1.6-2.6) mg/dL Total Bilirubin (0.20-1.00) mg/dL AST (15-37) U/L ALT (13-56) U/L Alkaline Phosphatase (45-117) U/L Troponin I (<0.045) ng/mL Total Protein (6.4-8.2) g/dL Albumin (3.2-5.0) g/dL Globulin (2.2-4.2) g/dL Albumin/Globulin Ratio (0.9-2.4) RATIO Urine Color (Yellow) Urine Clarity (Clear) Urine pH (5.0 - 8.0) Ur Specific [place] (1.002-1.030) Urine Protein (Negative) mg/dl Urine Glucose (UA) (Normal) mg/dl Urine Ketones (Negative) mg/dl Urine Occult Blood (Negative) /ul Urine Nitrite (Negative) Urine Bilirubin (Negative) mg/dL Urine Urobilinogen (Normal) mg/dl Ur Leukocyte Esterase (Negative) /ul Urine RBC (0-5) /hpf Urine WBC (0-5) /hpf Ur Squamous Epith Cells (5-10) /hpf Other Crystals (None Seen) /hpf Urine Bacteria (None Seen) /hpf Urine Mucus (<or=2+) /hpf MRSA (PCR) Negative (Negative) POC Glucose 198 H (70-110) mg/dL 10/01/18 10/01/18 10/01/18 Range/Units 03:30 03:30 03:30 WBC (4.4-11.0) K/mm3 RBC (4.2-5.4) M/mm3 Hgb (12.0-15.0) g/dl Hct (37-47) % MCV (81-99) fL MCH (27.0-32.0) pg MCHC (32-36) g/gl RDW (11.6-14.6) % RDW Differential (35.1-43.9) fl Plt Count (150-450) K/mm3 MPV (6.2-12.0) fl Immature Gran % (Auto) (0.0-0.9) % Neut % (Auto) (47-70) % Lymph % (Auto) (19-41) % [place] % (Auto) (0-10) % Eos % (Auto) (0-5) % Baso % (Auto) (0-1) % Absolute Neuts (auto) (2.0-7.7) X10^3/uL Absolute Lymphs (auto) (0.83-4.51) X10^3/ul Total Counted Differential Comment Diff Path Review PT (11.7-14.9) SECONDS INR APTT (24.1-36.2) Seconds Sodium 139 (136-145) mmol/L Potassium 3.0 L (3.5-5.1) mmol/L Chloride 105 (98-107) mmol/L Carbon Dioxide 27.0 (21.0-32.0) mmol/L Anion Gap 7 (5-15) BUN 17 (7-18) mg/dL Creatinine 0.85 (0.55-1.02) mg/dL Estim Creat Clear Calc 59.43 ml/min Est GFR (MDRD) Af Amer 86 (>60) mL/min Est GFR (MDRD) Non-Af 71 (>60) mL/min BUN/Creatinine Ratio 19.9 (10-20) RATIO Glucose 62 L (74-106) mg/dL Lactic Acid (0.4-2.0) mmol/L Calcium 7.3 L (8.5-10.1) mg/dL Phosphorus 2.7 (2.5-4.9) mg/dL Magnesium 1.8 (1.6-2.6) mg/dL Total Bilirubin (0.20-1.00) mg/dL AST (15-37) U/L ALT (13-56) U/L Alkaline Phosphatase (45-117) U/L Troponin I < 0.015 (<0.045) ng/mL Total Protein (6.4-8.2) g/dL Albumin (3.2-5.0) g/dL Globulin (2.2-4.2) g/dL Albumin/Globulin Ratio (0.9-2.4) RATIO Urine Color (Yellow) Urine Clarity (Clear) Urine pH (5.0 - 8.0) Ur Specific [place] (1.002-1.030) Urine Protein (Negative) mg/dl Urine Glucose (UA) (Normal) mg/dl Urine Ketones (Negative) mg/dl Urine Occult Blood (Negative) /ul Urine Nitrite (Negative) Urine Bilirubin (Negative) mg/dL Urine Urobilinogen (Normal) mg/dl Ur Leukocyte Esterase (Negative) /ul Urine RBC (0-5) /hpf Urine WBC (0-5) /hpf Ur Squamous Epith Cells (5-10) /hpf Other Crystals (None Seen) /hpf Urine Bacteria (None Seen) /hpf Urine Mucus (<or=2+) /hpf MRSA (PCR) (Negative) POC Glucose (70-110) mg/dL 10/01/18 10/01/18 09/30/18 Range/Units 00:40 00:40 19:35 WBC 0.1 L* (4.4-11.0) K/mm3 RBC 3.04 L (4.2-5.4) M/mm3 Hgb 9.2 L (12.0-15.0) g/dl Hct 28.1 L (37-47) % MCV 92.4 (81-99) fL MCH 30.3 (27.0-32.0) pg MCHC 32.7 (32-36) g/gl RDW 16.1 H (11.6-14.6) % RDW Differential 52.4 H (35.1-43.9) fl Plt Count 18 L* (150-450) K/mm3 MPV 9.5 (6.2-12.0) fl Immature Gran % (Auto) (0.0-0.9) % Neut % (Auto) (47-70) % Lymph % (Auto) (19-41) % [place] % (Auto) (0-10) % Eos % (Auto) (0-5) % Baso % (Auto) (0-1) % Absolute Neuts (auto) (2.0-7.7) X10^3/uL Absolute Lymphs (auto) (0.83-4.51) X10^3/ul Total Counted Differential Comment SCAN Diff Path Review May foll PT (11.7-14.9) SECONDS INR APTT (24.1-36.2) Seconds Sodium (136-145) mmol/L Potassium (3.5-5.1) mmol/L Chloride (98-107) mmol/L Carbon Dioxide (21.0-32.0) mmol/L Anion Gap (5-15) BUN (7-18) mg/dL Creatinine (0.55-1.02) mg/dL Estim Creat Clear Calc ml/min Est GFR (MDRD) Af Amer (>60) mL/min Est GFR (MDRD) Non-Af (>60) mL/min BUN/Creatinine Ratio (10-20) RATIO Glucose (74-106) mg/dL Lactic Acid (0.4-2.0) mmol/L Calcium (8.5-10.1) mg/dL Phosphorus (2.5-4.9) mg/dL Magnesium (1.6-2.6) mg/dL Total Bilirubin (0.20-1.00) mg/dL AST (15-37) U/L ALT (13-56) U/L Alkaline Phosphatase (45-117) U/L Troponin I < 0.015 (<0.045) ng/mL Total Protein (6.4-8.2) g/dL Albumin (3.2-5.0) g/dL Globulin (2.2-4.2) g/dL Albumin/Globulin Ratio (0.9-2.4) RATIO Urine Color Red (Yellow) Urine Clarity Cloudy (Clear) Urine pH 8.0 (5.0 - 8.0) Ur Specific [place] 1.010 (1.002-1.030) Urine Protein 100 H (Negative) mg/dl Urine Glucose (UA) Normal (Normal) mg/dl Urine Ketones Negative (Negative) mg/dl Urine Occult Blood 250 H (Negative) /ul Urine Nitrite Positive H (Negative) Urine Bilirubin Negative (Negative) mg/dL Urine Urobilinogen 1 H (Normal) mg/dl Ur Leukocyte Esterase 100 H (Negative) /ul Urine RBC > 100 SEEN (0-5) /hpf Urine WBC 10-25 SEEN (0-5) /hpf Ur Squamous Epith Cells 0 SEEN (5-10) /hpf Other Crystals 0-5 (None Seen) /hpf Urine Bacteria 3+ (None Seen) /hpf Urine Mucus 0 SEEN (<or=2+) /hpf MRSA (PCR) (Negative) POC Glucose (70-110) mg/dL 09/30/18 09/30/18 09/30/18 Range/Units 18:30 18:30 18:30 WBC 0.1 L* (4.4-11.0) K/mm3 RBC 3.32 L (4.2-5.4) M/mm3 Hgb 9.7 L (12.0-15.0) g/dl Hct 30.2 L (37-47) % MCV 91.0 (81-99) fL MCH 29.2 (27.0-32.0) pg MCHC 32.1 (32-36) g/gl RDW 16.0 H (11.6-14.6) % RDW Differential 53.8 H (35.1-43.9) fl Plt Count 20 L* (150-450) K/mm3 MPV 8.9 (6.2-12.0) fl Immature Gran % (Auto) 0.000 (0.0-0.9) % Neut % (Auto) 8.4 L (47-70) % Lymph % (Auto) 83.3 H (19-41) % [place] % (Auto) 8.3 (0-10) % Eos % (Auto) 0.0 (0-5) % Baso % (Auto) 0.0 (0-1) % Absolute Neuts (auto) 0.0 L (2.0-7.7) X10^3/uL Absolute Lymphs (auto) 0.10 L (0.83-4.51) X10^3/ul Total Counted Not Reportable Differential Comment SCANNED Diff Path Review March PT 13.5 (11.7-14.9) SECONDS INR 1.0 APTT 32.1 (24.1-36.2) Seconds Sodium (136-145) mmol/L Potassium (3.5-5.1) mmol/L Chloride (98-107) mmol/L Carbon Dioxide (21.0-32.0) mmol/L Anion Gap (5-15) BUN (7-18) mg/dL Creatinine (0.55-1.02) mg/dL Estim Creat Clear Calc ml/min Est GFR (MDRD) Af Amer (>60) mL/min Est GFR (MDRD) Non-Af (>60) mL/min BUN/Creatinine Ratio (10-20) RATIO Glucose (74-106) mg/dL Lactic Acid 0.7 (0.4-2.0) mmol/L Calcium (8.5-10.1) mg/dL Phosphorus (2.5-4.9) mg/dL Magnesium (1.6-2.6) mg/dL Total Bilirubin (0.20-1.00) mg/dL AST (15-37) U/L ALT (13-56) U/L Alkaline Phosphatase (45-117) U/L Troponin I (<0.045) ng/mL Total Protein (6.4-8.2) g/dL Albumin (3.2-5.0) g/dL Globulin (2.2-4.2) g/dL Albumin/Globulin Ratio (0.9-2.4) RATIO Urine Color (Yellow) Urine Clarity (Clear) Urine pH (5.0 - 8.0) Ur Specific [place] (1.002-1.030) Urine Protein (Negative) mg/dl Urine Glucose (UA) (Normal) mg/dl Urine Ketones (Negative) mg/dl Urine Occult Blood (Negative) /ul Urine Nitrite (Negative) Urine Bilirubin (Negative) mg/dL Urine Urobilinogen (Normal) mg/dl Ur Leukocyte Esterase (Negative) /ul Urine RBC (0-5) /hpf Urine WBC (0-5) /hpf Ur Squamous Epith Cells (5-10) /hpf Other Crystals (None Seen) /hpf Urine Bacteria (None Seen) /hpf Urine Mucus (<or=2+) /hpf MRSA (PCR) (Negative) POC Glucose (70-110) mg/dL 09/30/18 Range/Units 18:30 WBC (4.4-11.0) K/mm3 RBC (4.2-5.4) M/mm3 Hgb (12.0-15.0) g/dl Hct (37-47) % MCV (81-99) fL MCH (27.0-32.0) pg MCHC (32-36) g/gl RDW (11.6-14.6) % RDW Differential (35.1-43.9) fl Plt Count (150-450) K/mm3 MPV (6.2-12.0) fl Immature Gran % (Auto) (0.0-0.9) % Neut % (Auto) (47-70) % Lymph % (Auto) (19-41) % [place] % (Auto) (0-10) % Eos % (Auto) (0-5) % Baso % (Auto) (0-1) % Absolute Neuts (auto) (2.0-7.7) X10^3/uL Absolute Lymphs (auto) (0.83-4.51) X10^3/ul Total Counted Differential Comment Diff Path Review PT (11.7-14.9) SECONDS INR APTT (24.1-36.2) Seconds Sodium 135 L (136-145) mmol/L Potassium 3.6 (3.5-5.1) mmol/L Chloride 98 (98-107) mmol/L Carbon Dioxide 29.0 (21.0-32.0) mmol/L Anion Gap 8 (5-15) BUN 18 (7-18) mg/dL Creatinine 0.68 (0.55-1.02) mg/dL Estim Creat Clear Calc 59.85 ml/min Est GFR (MDRD) Af Amer 113 (>60) mL/min Est GFR (MDRD) Non-Af 93 (>60) mL/min BUN/Creatinine Ratio 26.7 H (10-20) RATIO Glucose 75 (74-106) mg/dL Lactic Acid (0.4-2.0) mmol/L Calcium 8.3 L (8.5-10.1) mg/dL Phosphorus (2.5-4.9) mg/dL Magnesium (1.6-2.6) mg/dL Total Bilirubin 0.60 (0.20-1.00) mg/dL AST 84 H (15-37) U/L ALT 231 H (13-56) U/L Alkaline Phosphatase 130 H (45-117) U/L Troponin I < 0.015 (<0.045) ng/mL Total Protein 6.4 (6.4-8.2) g/dL Albumin 2.6 L (3.2-5.0) g/dL Globulin 3.8 (2.2-4.2) g/dL Albumin/Globulin Ratio 0.7 L (0.9-2.4) RATIO Urine Color (Yellow) Urine Clarity (Clear) Urine pH (5.0 - 8.0) Ur Specific [place] (1.002-1.030) Urine Protein (Negative) mg/dl Urine Glucose (UA) (Normal) mg/dl Urine Ketones (Negative) mg/dl Urine Occult Blood (Negative) /ul Urine Nitrite (Negative) Urine Bilirubin (Negative) mg/dL Urine Urobilinogen (Normal) mg/dl Ur Leukocyte Esterase (Negative) /ul Urine RBC (0-5) /hpf Urine WBC (0-5) /hpf Ur Squamous Epith Cells (5-10) /hpf Other Crystals (None Seen) /hpf Urine Bacteria (None Seen) /hpf Urine Mucus (<or=2+) /hpf MRSA (PCR) (Negative) POC Glucose (70-110) mg/dL Diagnostic Data: Diagnostic Data Brain CT 09/30/18 18:35 IMPRESSION: Mild periventricular white matter ischemic changes. No mass or acute bleed. If concern for metastatic disease MRI recommended for further evaluation Electronically Signed: Moy Henao MD at 20:33 EDT , Service support , Chest X-Ray 09/30/18 18:36 IMPRESSION: Stable appearance of the chest with no acute pathology. New right internal jugular catheter as described. Electronically Signed: Jesus Hutchison MD at 19:36 EDT , Service support , Chest CTA 09/30/18 18:55 IMPRESSION: Pulmonary emboli to the subsegmental vessels of the right lower lobe Chronic interstitial changes and minor atelectasis within the dependent portion of the lungs. Electronically Signed: Moy Henao MD at 20:56 EDT , Service support , Abdomen/Pelvis CT 09/30/18 20:50 IMPRESSION: Postsurgical changes status post cystectomy and right ileal conduit. Moderate right hydroureteronephrosis and mild left hydroureter in association with thick-walled ileal conduit and focal narrowing of the lumen. Nonspecific ileus with diffuse fecal retention in the colon Status post cholecystectomy, cystectomy and hysterectomy Other findings as above Electronically Signed: Moy Henao MD at 22:35 EDT , Service support , Assessment and Plan Neutropenic sepsis following Chemotherapy with Carboplatin and Gemzar. Thrombocytopenia due to chemotherapy. Hematuria. Suggestion is to continue Meropenem and Vancomycin. Platelet transfusion to be done if PLT are less than 10,000. Start GCSF 300mcg sq daily till ANC is greater 1000. Will follow with you. Thanks. Medications: Prescriptions This Visit Medication Instructions Recorded Bupropion HCl [Bupropion Xl] 150 mg PO DAILY 09/30/18 Trazodone HCl 50 mg PO DAILY 09/30/18 Medications Added to Medication List This Visit Category Date Time Status Acetaminophen [Tylenol] Med 10/01/18 12:30 Active 650 mg PO Q4H PRN PRN Atorvastatin Calcium [Lipitor] Med 10/01/18 22:00 Active 80 mg PO DAILY@2200 Clarify Order Med 10/01/18 10:00 Active 0 ea NOTE CLARIFY Dextrose 5%-Lactated Ringers 1,000 ml Med 10/01/18 05:25 Active Potassium Chloride 40 meq IV 150 mls/hr Fluconazole [Diflucan] Med 10/01/18 10:00 Active 100 mg PO DAILY HYDROmorphone Inj [Dilaudid Inj] Med 10/01/18 13:54 Active 0.5 mg IV Q2H PRN PRN Hydrocortisone Sod Succinate [Solu-Cortef] Med 10/01/18 05:40 Active 50 mg IV Q8 Levothyroxine [Synthroid] Med 10/01/18 06:00 Active 50 mcg PO DAILY@0600 Memantine Hydrochloride [Namenda] Med 10/01/18 10:00 Pending 5 mg PO DAILY Meropenem [Merrem] 1 gm Med 10/01/18 06:00 Active 0.9% Normal Saline 100 ml IV Q8 Ondansetron [Zofran] Med 10/01/18 08:28 Active 4 mg IV Q6H PRN PRN Pantoprazole Sodium [Protonix] 40 mg Med 10/01/18 05:55 Active 0.9% Normal Saline 100 ml IV Q24 Polyethylene Glycol 3350 [Miralax] Med 10/01/18 12:31 Active 17 gm PO BID Vancomycin IV Med 10/01/18 07:30 Active 500 mg in 100 ml IV Q12H Vancomycin IV Pharmacy to Dose 750 ea Med 10/01/18 09:00 Active 0.9% Normal Saline 500 ml IV PRN buPROPion XL [Wellbutrin XL] Med 10/01/18 10:00 Active 150 mg PO DAILY traZODone [Desyrel] Med 10/01/18 22:00 Active 50 mg PO DAILY@2200 Primary Care Provider: Osman Alexander Referring Provider: - Problem List (1) Septic shock Status: Acute Code Visit Office Visits / Consults: [id number] IP Consult [id number]
[2018-10-01] MEDS: Atorvastatin Calcium 80 MG Tablet PO (21:12)
[2018-10-01] MEDS: traZODone 50 MG Tablet PO (21:12)
[2018-10-01] MEDS: oxyCODONE 5 MG Tablet PO (21:12)
[2018-10-01] MEDS: Ondansetron 4 MG/2 ML Vial IV (21:27)
[2018-10-02] VITALS (31 sets, daily range): BP systolic 85–151; BP diastolic 61–100; PULSE 56–92; RESP 12–29; TEMP 36.2–37.3; O2SAT 92–99
[2018-10-02] MEDS: Acetaminophen 325 MG Tablet 650 MG PO ×2 (00:25→19:57)
[2018-10-02] MEDS: CHLORHEXIDINE GLUC 2% CLOTH 1 EACH TOWELETTE TOPICAL (05:03)
[2018-10-02] MEDS: Hydrocortisone Sod Succinate 100 MG/2 ML Vial 50 MG IV ×3 (05:04→21:26)
[2018-10-02] MEDS: 0.9% NaCl VAD Flush 10 ML IV ×3 (05:04→21:31)
[2018-10-02] MEDS: Levothyroxine 50 MCG Tablet PO (05:08)
[2018-10-02 05:23] LABS: Absolute Lymphocyte Count 0.12 X10^3/ul (0.83-4.51); Absolute Neutrophil Count 0.1 X10^3/uL (2.0-7.7); Hematocrit 23.2 % (37-47); Hemoglobin 7.4 g/dl (12.0-15.0); Lymphocyte # 0.12 X10^3/ul (4.0); Lymphocyte % 57.1 % (19-41); Mean Corp Hgb Conc 31.9 g/gl (32-36); Mean Corpuscular Hgb 29.5 pg (27.0-32.0); Mean Corpuscular Volume 92.4 fL (81-99); Mean Platelet Vol. 9.6 fl (6.2-12.0); Monocyte# 0.03 X10^3/uL; Monocyte% 14.3 % (0-10); Neutrophil # 0.05 X10^3/uL (2.7-7.7); Neutrophil % 23.8 % (47-70); Platelet Count 7 K/mm3 (150-450); RBC Distribution Width CV 16.2 % (11.6-14.6); RBC Distribution Width SD 52.6 fl (35.1-43.9); Red Blood Count 2.51 M/mm3 (4.2-5.4)
[2018-10-02 05:25] LABS: Phosphorus 2.8 mg/dL (2.5-4.9)
[2018-10-02 05:33] LABS: Anion Gap 7 (5-15); BUN 16 mg/dL (7-18); BUN/Creat Ratio 26.7 RATIO (10-20); Calcium,Total 7.9 mg/dL (8.5-10.1); Chloride 113 mmol/L (98-107); EST Glomerular Filtration Rate 107 mL/min (>60); Est Glom Filt Rate - Afr Amer 129 mL/min (>60); Estimated Creatinine Clearance 87.33 ml/min; Glucose 74 mg/dL (74-106); Magnesium 2.1 mg/dL (1.6-2.6); Sodium Level 145 mmol/L (136-145)
[2018-10-02 05:52] LABS: POSITIVE COUNT YES; POSITIVE DIFFERENTIAL YES; POSITIVE MORPHOLOGY YES; White Blood Count 0.2 K/mm3 (4.4-11.0)
[2018-10-02 05:53] LABS: Differential Indicated SCAN CRITERIA MET
[2018-10-02 06:44] LABS: Differential Comment SCANNED
--- NOTE | 2018-10-02 07:25 | PCM.PN.INT ---
Subjective: The patient was seen and examined at the bedside this morning. Events from the last 24 hours have been reviewed. The patient is currently afebrile, and maintaining appropriate oxygen saturations on 1 L/min via nasal cannula. The patient's hemoglobin fell from 9.2 yesterday to 7.4 this morning. Platelet count is also decreased to 7000. Hematuria continues per nursing report. The patient does report shortness of breath this morning. Objective: The patient's most recent lab work, culture data and imaging studies have all been personally reviewed. Preliminary blood cultures dated September 30 were positive for gram-negative rods. Urine culture was also positive for gram-negative beto. CTA chest dated September 30 revealed subsegmental right lower lobe pulmonary emboli. Head CT revealed mild periventricular white matter ischemic changes without mass or acute bleed. CT abdomen/pelvis revealed moderate right hydro-nephrosis and mild left hydroureter. Nonspecific ileus was noted with diffuse fecal retention in the colon. General: Alert, Cooperative, No apparent distress HEENT: Atraumatic, PERRLA, Normocephalic Oral: No Gingival or Mucosal Lesions/ Ulcerations Neck: Supple, No Nodes, Trachea Midline Lungs: No rhonchi, No wheeze, No rales, Diminished Cardiovascular: Regular rate, Regular Rhythm, Normal S1, Normal S2, No murmurs, - - Stable chest wall port. Abdomen: Bowel Sounds Present, Soft, Tender Extremities: No clubbing, No cyanosis, Edema Skin: No breakdown Musculoskeletal: No Tenderness to Palpation of Joints or Extremities Lymphatic: No Cervical, Supraclavicular, or Inguinal Adenopathy Neurological: Cranial nerves II-XII grossly intact, Neuro grossly intact Psych/Mental Status: Flat Affect Vital Signs Temp Pulse Resp BP Pulse Ox 98.2 F 78 14 87/63 L 95 10/02/18 04:00 10/02/18 06:00 10/02/18 06:00 10/02/18 06:00 10/02/18 06:00 Oxygen Flow Rate (L/min) 1 Oxygen Delivery Method Nasal Cannula Weight: 128 lb 11.999 oz Body Mass Index (BMI) 25.9 Finger Stick Blood Glucose 132 Intake and Output for Last 24 Hours 10/01/18 10/01/18 10/02/18 00:59 23:59 23:59 Intake Total 856 / 856 Output Total 800 / 800 Balance 56 / 56 Labs (Last 48 Hours) 09/30/18 09/30/18 09/30/18 18:30 18:30 18:30 WBC 0.1 L* RBC 3.32 L Hgb 9.7 L Hct 30.2 L MCV 91.0 MCH 29.2 MCHC 32.1 RDW 16.0 H RDW Differential 53.8 H Plt Count 20 L* MPV 8.9 Immature Gran % (Auto) 0.000 Neut % (Auto) 8.4 L Lymph % (Auto) 83.3 H [place] % (Auto) 8.3 Eos % (Auto) 0.0 Baso % (Auto) 0.0 Absolute Neuts (auto) 0.0 L Absolute Lymphs (auto) 0.10 L Total Counted Not Reportable Differential Comment SCANNED Diff Path Review March foll PT 13.5 INR 1.0 APTT 32.1 Sodium 135 L Potassium 3.6 Chloride 98 Carbon Dioxide 29.0 Anion Gap 8 BUN 18 Creatinine 0.68 Estim Creat Clear Calc 59.85 Est GFR (MDRD) Af Amer 113 Est GFR (MDRD) Non-Af 93 BUN/Creatinine Ratio 26.7 H Glucose 75 Lactic Acid Calcium 8.3 L Phosphorus Magnesium Total Bilirubin 0.60 AST 84 H ALT 231 H Alkaline Phosphatase 130 H Troponin I < 0.015 Total Protein 6.4 Albumin 2.6 L Globulin 3.8 Albumin/Globulin Ratio 0.7 L Urine Color Urine Clarity Urine pH Ur Specific [place] Urine Protein Urine Glucose (UA) Urine Ketones Urine Occult Blood Urine Nitrite Urine Bilirubin Urine Urobilinogen Ur Leukocyte Esterase Urine RBC Urine WBC Ur Squamous Epith Cells Other Crystals Urine Bacteria Urine Mucus MRSA (PCR) POC Glucose Blood Type Antibody Screen 09/30/18 09/30/18 10/01/18 18:30 19:35 00:40 WBC 0.1 L* RBC 3.04 L Hgb 9.2 L Hct 28.1 L MCV 92.4 MCH 30.3 MCHC 32.7 RDW 16.1 H RDW Differential 52.4 H Plt Count 18 L* MPV 9.5 Immature Gran % (Auto) Neut % (Auto) Lymph % (Auto) [place] % (Auto) Eos % (Auto) Baso % (Auto) Absolute Neuts (auto) Absolute Lymphs (auto) Total Counted Differential Comment SCAN Diff Path Review May foll PT INR APTT Sodium Potassium Chloride Carbon Dioxide Anion Gap BUN Creatinine Estim Creat Clear Calc Est GFR (MDRD) Af Amer Est GFR (MDRD) Non-Af BUN/Creatinine Ratio Glucose Lactic Acid 0.7 Calcium Phosphorus Magnesium Total Bilirubin AST ALT Alkaline Phosphatase Troponin I Total Protein Albumin Globulin Albumin/Globulin Ratio Urine Color Red Urine Clarity Cloudy Urine pH 8.0 Ur Specific [place] 1.010 Urine Protein 100 H Urine Glucose (UA) Normal Urine Ketones Negative Urine Occult Blood 250 H Urine Nitrite Positive H Urine Bilirubin Negative Urine Urobilinogen 1 H Ur Leukocyte Esterase 100 H Urine RBC > 100 SEEN Urine WBC 10-25 SEEN Ur Squamous Epith Cells 0 SEEN Other Crystals 0-5 Urine Bacteria 3+ Urine Mucus 0 SEEN MRSA (PCR) POC Glucose Blood Type Antibody Screen 10/01/18 10/01/18 10/01/18 00:40 03:30 03:30 WBC RBC Hgb Hct MCV MCH MCHC RDW RDW Differential Plt Count MPV Immature Gran % (Auto) Neut % (Auto) Lymph % (Auto) [place] % (Auto) Eos % (Auto) Baso % (Auto) Absolute Neuts (auto) Absolute Lymphs (auto) Total Counted Differential Comment Diff Path Review PT INR APTT Sodium 139 Potassium 3.0 L Chloride 105 Carbon Dioxide 27.0 Anion Gap 7 BUN 17 Creatinine 0.85 Estim Creat Clear Calc 59.43 Est GFR (MDRD) Af Amer 86 Est GFR (MDRD) Non-Af 71 BUN/Creatinine Ratio 19.9 Glucose 62 L Lactic Acid Calcium 7.3 L Phosphorus Magnesium Total Bilirubin AST ALT Alkaline Phosphatase Troponin I < 0.015 < 0.015 Total Protein Albumin Globulin Albumin/Globulin Ratio Urine Color Urine Clarity Urine pH Ur Specific [place] Urine Protein Urine Glucose (UA) Urine Ketones Urine Occult Blood Urine Nitrite Urine Bilirubin Urine Urobilinogen Ur Leukocyte Esterase Urine RBC Urine WBC Ur Squamous Epith Cells Other Crystals Urine Bacteria Urine Mucus MRSA (PCR) POC Glucose Blood Type Antibody Screen 10/01/18 10/01/18 10/01/18 03:30 04:30 05:54 WBC RBC Hgb Hct MCV MCH MCHC RDW RDW Differential Plt Count MPV Immature Gran % (Auto) Neut % (Auto) Lymph % (Auto) [place] % (Auto) Eos % (Auto) Baso % (Auto) Absolute Neuts (auto) Absolute Lymphs (auto) Total Counted Differential Comment Diff Path Review PT INR APTT Sodium Potassium Chloride Carbon Dioxide Anion Gap BUN Creatinine Estim Creat Clear Calc Est GFR (MDRD) Af Amer Est GFR (MDRD) Non-Af BUN/Creatinine Ratio Glucose Lactic Acid 0.9 Calcium Phosphorus 2.7 Magnesium 1.8 Total Bilirubin AST ALT Alkaline Phosphatase Troponin I Total Protein Albumin Globulin Albumin/Globulin Ratio Urine Color Urine Clarity Urine pH Ur Specific [place] Urine Protein Urine Glucose (UA) Urine Ketones Urine Occult Blood Urine Nitrite Urine Bilirubin Urine Urobilinogen Ur Leukocyte Esterase Urine RBC Urine WBC Ur Squamous Epith Cells Other Crystals Urine Bacteria Urine Mucus MRSA (PCR) POC Glucose 198 H Blood Type Antibody Screen 10/01/18 10/02/18 10/02/18 11:50 05:00 05:00 WBC RBC Hgb Hct MCV MCH MCHC RDW RDW Differential Plt Count MPV Immature Gran % (Auto) Neut % (Auto) Lymph % (Auto) [place] % (Auto) Eos % (Auto) Baso % (Auto) Absolute Neuts (auto) Absolute Lymphs (auto) Total Counted Differential Comment Diff Path Review PT INR APTT Sodium 145 Potassium 4.0 Chloride 113 H Carbon Dioxide 25.0 Anion Gap 7 BUN 16 Creatinine 0.60 Estim Creat Clear Calc 87.33 Est GFR (MDRD) Af Amer 129 Est GFR (MDRD) Non-Af 107 BUN/Creatinine Ratio 26.7 H Glucose 74 Lactic Acid Calcium 7.9 L Phosphorus 2.8 Magnesium 2.1 Total Bilirubin AST ALT Alkaline Phosphatase Troponin I Total Protein Albumin Globulin Albumin/Globulin Ratio Urine Color Urine Clarity Urine pH Ur Specific [place] Urine Protein Urine Glucose (UA) Urine Ketones Urine Occult Blood Urine Nitrite Urine Bilirubin Urine Urobilinogen Ur Leukocyte Esterase Urine RBC Urine WBC Ur Squamous Epith Cells Other Crystals Urine Bacteria Urine Mucus MRSA (PCR) Negative POC Glucose Blood Type Antibody Screen 10/02/18 10/02/18 05:00 06:40 WBC 0.2 L* RBC 2.51 L Hgb 7.4 L Hct 23.2 L MCV 92.4 MCH 29.5 MCHC 31.9 L RDW 16.2 H RDW Differential 52.6 H Plt Count 7 L* MPV 9.6 Immature Gran % (Auto) 4.800 H Neut % (Auto) 23.8 L Lymph % (Auto) 57.1 H [place] % (Auto) 14.3 H Eos % (Auto) 0.0 Baso % (Auto) 0.0 Absolute Neuts (auto) 0.1 L Absolute Lymphs (auto) 0.12 L Total Counted Not Reportable Differential Comment SCANNED Diff Path Review May foll PT INR APTT Sodium Potassium Chloride Carbon Dioxide Anion Gap BUN Creatinine Estim Creat Clear Calc Est GFR (MDRD) Af Amer Est GFR (MDRD) Non-Af BUN/Creatinine Ratio Glucose Lactic Acid Calcium Phosphorus Magnesium Total Bilirubin AST ALT Alkaline Phosphatase Troponin I Total Protein Albumin Globulin Albumin/Globulin Ratio Urine Color Urine Clarity Urine pH Ur Specific [place] Urine Protein Urine Glucose (UA) Urine Ketones Urine Occult Blood Urine Nitrite Urine Bilirubin Urine Urobilinogen Ur Leukocyte Esterase Urine RBC Urine WBC Ur Squamous Epith Cells Other Crystals Urine Bacteria Urine Mucus MRSA (PCR) POC Glucose Blood Type Pending Antibody Screen Pending Microbiology 09/30/18 19:35 Urine, Clean Catch Urine Culture - Preliminary Gram negative beto GNR lactose voltage tester 09/30/18 19:05 Blood Culture (Wb) - Venous Blood Culture - Preliminary 09/30/18 18:30 Blood Culture (Wb) - Venous Blood Culture - Preliminary Clinical Impression(s) from Imaging Studies Brain CT 09/30/18 18:35 IMPRESSION: Mild periventricular white matter ischemic changes. No mass or acute bleed. If concern for metastatic disease MRI recommended for further evaluation Electronically Signed: Moy Henao MD at 20:33 EDT , Service support , Chest X-Ray 09/30/18 18:36 IMPRESSION: Stable appearance of the chest with no acute pathology. New right internal jugular catheter as described. Electronically Signed: Jesus Hutchison MD at 19:36 EDT , Service support , Chest CTA 09/30/18 18:55 IMPRESSION: Pulmonary emboli to the subsegmental vessels of the right lower lobe Chronic interstitial changes and minor atelectasis within the dependent portion of the lungs. Electronically Signed: Moy Henao MD at 20:56 EDT , Service support , Abdomen/Pelvis CT 09/30/18 20:50 IMPRESSION: Postsurgical changes status post cystectomy and right ileal conduit. Moderate right hydroureteronephrosis and mild left hydroureter in association with thick-walled ileal conduit and focal narrowing of the lumen. Nonspecific ileus with diffuse fecal retention in the colon Status post cholecystectomy, cystectomy and hysterectomy Other findings as above Electronically Signed: Moy Henao MD at 22:35 EDT , Service support , Medical Necessity - Tobacco Use Smoking Status: Former smoker Assessment/Plan All Active Problems (Last Reviewed 10/02/18 @ 14:08 by Maye Desai PA-C) Pulmonary embolism (Acute) Acute deep vein thrombosis (DVT) of both lower extremities (Acute) UTI (urinary tract infection) (Acute) Bacteremia (Acute) Ileus (Acute) Hydronephrosis (Acute) Hydroureter (Acute) Pancytopenia (Acute) Septic shock (Acute) Acute cholecystitis (Ruled-out) Constipation (Resolved) Cystitis (Acute) Gross hematuria (Acute) RECOMMENDATIONS: 1. Lower extremity Dopplers are pending. If positive, given relative contraindication to anticoagulation, consider IVC filter placement. 2. Continue antibiotics as ordered. 3. We will begin to wean stress dose steroids tomorrow. 4. Begin Granix, as per oncology recommendations. 5. Transfuse platelets. Continue to monitor hemoglobin with plans to transfuse if hemoglobin drops below 7 g/dL. IMPRESSIONS: 1. Septic shock secondary to gram-negative bacteremia/cystitis The patient has stabilized over the last 24 hours. She has not required any vasopressor support since yesterday. Repeat blood cultures have not turned positive. She remains hemodynamically stable at this time. Continue antibiotics as ordered. 2. Pancytopenia Likely secondary to the effects of chemotherapy coupled with #1. Given that the patient currently has a platelet count of 7000, we will plan to transfuse platelets. Continue to monitor hemoglobin with plans to transfuse if less than 7 g/dL. Granix has been ordered per oncology recommendations. 3. Acute hypoxic respiratory failure/subsegmental pulmonary emboli The patient was noted on presentation to have a subsegmental PE. However, in the setting of her pancytopenia and hematuria noted on admission, she was not considered to be a candidate for anticoagulation. Preliminary report from the patient's lower extremity Dopplers this morning appeared to demonstrate bilateral lower extremity DVTs. Therefore, will confer with vascular surgery, with regards to the need for IVC filter placement. 4. Stage IV bladder cancer The patient has been receiving palliative chemotherapy by oncology. She remains a full CODE STATUS at the present time. Oncology is following. 5. Debility/chronic pain syndrome/anxiety/depression/hypothyroidism/hyperlipidemia/ileus Complicates care, management, recovery and prognosis. Continue antiemetics as needed. This note was generated with [email or web address] dictation software. It may contain incorrect words, spelling, and punctuation that were not noted in checking the note before signing. Code Visit Inpatient E&M: 15069 Subs Hosp L3
--- NOTE | 2018-10-02 07:28 | PN_ITS ---
Subjective: The patient was seen and examined at the bedside this morning. Events from the last 24 hours have been reviewed. The patient is currently afebrile, and maintaining appropriate oxygen saturations on 1 L/min via nasal cannula. The patient's hemoglobin fell from 9.2 yesterday to 7.4 this morning. Platelet count is also decreased to 7000. Hematuria continues per nursing report. The patient does report shortness of breath this morning. Objective: The patient's most recent lab work, culture data and imaging studies have all been personally reviewed. Preliminary blood cultures dated September 30 were positive for gram-negative rods. Urine culture was also positive for gram- negative beto. CTA chest dated September 30 revealed subsegmental right lower lobe pulmonary emboli. Head CT revealed mild periventricular white matter ischemic changes without mass or acute bleed. CT abdomen/pelvis revealed moderate right hydro-nephrosis and mild left hydroureter. Nonspecific ileus was noted with diffuse fecal retention in the colon. General: Alert, Cooperative, No apparent distress HEENT: Atraumatic, PERRLA, Normocephalic Oral: No Gingival or Mucosal Lesions/ Ulcerations Neck: Supple, No Nodes, Trachea Midline Lungs: No rhonchi, No wheeze, No rales, Diminished Cardiovascular: Regular rate, Regular Rhythm, Normal S1, Normal S2, No murmurs, - - Stable chest wall port. Abdomen: Bowel Sounds Present, Soft, Tender Extremities: No clubbing, No cyanosis, Edema Skin: No breakdown Musculoskeletal: No Tenderness to Palpation of Joints or Extremities Lymphatic: No Cervical, Supraclavicular, or Inguinal Adenopathy Neurological: Cranial nerves II-XII grossly intact, Neuro grossly intact Psych/Mental Status: Flat Affect Vital Signs Temp Pulse Resp BP Pulse Ox 98.2 F 78 14 87/63 L 95 10/02/18 04:00 10/02/18 06:00 10/02/18 06:00 10/02/18 06:00 10/02/18 06:00 Oxygen Flow Rate (L/min) 1 Oxygen Delivery Method Nasal Cannula Weight: 128 lb 11.999 oz Body Mass Index (BMI) 25.9 Finger Stick Blood Glucose 132 Intake and Output for Last 24 Hours 10/01/18 10/01/18 10/02/18 00:59 23:59 23:59 Intake Total 856 / 856 Output Total 800 / 800 Balance 56 / 56 Labs (Last 48 Hours) 09/30/18 09/30/18 09/30/18 18:30 18:30 18:30 WBC 0.1 L* RBC 3.32 L Hgb 9.7 L Hct 30.2 L MCV 91.0 MCH 29.2 MCHC 32.1 RDW 16.0 H RDW Differential 53.8 H Plt Count 20 L* MPV 8.9 Immature Gran % (Auto) 0.000 Neut % (Auto) 8.4 L Lymph % (Auto) 83.3 H [place] % (Auto) 8.3 Eos % (Auto) 0.0 Baso % (Auto) 0.0 Absolute Neuts (auto) 0.0 L Absolute Lymphs (auto) 0.10 L Total Counted Not Reportable Differential Comment SCANNED Diff Path Review March foll PT 13.5 INR 1.0 APTT 32.1 Sodium 135 L Potassium 3.6 Chloride 98 Carbon Dioxide 29.0 Anion Gap 8 BUN 18 Creatinine 0.68 Estim Creat Clear Calc 59.85 Est GFR (MDRD) Af Amer 113 Est GFR (MDRD) Non-Af 93 BUN/Creatinine Ratio 26.7 H Glucose 75 Lactic Acid Calcium 8.3 L Phosphorus Magnesium Total Bilirubin 0.60 AST 84 H ALT 231 H Alkaline Phosphatase 130 H Troponin I < 0.015 Total Protein 6.4 Albumin 2.6 L Globulin 3.8 Albumin/Globulin Ratio 0.7 L Urine Color Urine Clarity Urine pH Ur Specific [place] Urine Protein Urine Glucose (UA) Urine Ketones Urine Occult Blood Urine Nitrite Urine Bilirubin Urine Urobilinogen Ur Leukocyte Esterase Urine RBC Urine WBC Ur Squamous Epith Cells Other Crystals Urine Bacteria Urine Mucus MRSA (PCR) POC Glucose Blood Type Antibody Screen 09/30/18 09/30/18 10/01/18 18:30 19:35 00:40 WBC 0.1 L* RBC 3.04 L Hgb 9.2 L Hct 28.1 L MCV 92.4 MCH 30.3 MCHC 32.7 RDW 16.1 H RDW Differential 52.4 H Plt Count 18 L* MPV 9.5 Immature Gran % (Auto) Neut % (Auto) Lymph % (Auto) [place] % (Auto) Eos % (Auto) Baso % (Auto) Absolute Neuts (auto) Absolute Lymphs (auto) Total Counted Differential Comment SCAN Diff Path Review May foll PT INR APTT Sodium Potassium Chloride Carbon Dioxide Anion Gap BUN Creatinine Estim Creat Clear Calc Est GFR (MDRD) Af Amer Est GFR (MDRD) Non-Af BUN/Creatinine Ratio Glucose Lactic Acid 0.7 Calcium Phosphorus Magnesium Total Bilirubin AST ALT Alkaline Phosphatase Troponin I Total Protein Albumin Globulin Albumin/Globulin Ratio Urine Color Red Urine Clarity Cloudy Urine pH 8.0 Ur Specific [place] 1.010 Urine Protein 100 H Urine Glucose (UA) Normal Urine Ketones Negative Urine Occult Blood 250 H Urine Nitrite Positive H Urine Bilirubin Negative Urine Urobilinogen 1 H Ur Leukocyte Esterase 100 H Urine RBC > 100 SEEN Urine WBC 10-25 SEEN Ur Squamous Epith Cells 0 SEEN Other Crystals 0-5 Urine Bacteria 3+ Urine Mucus 0 SEEN MRSA (PCR) POC Glucose Blood Type Antibody Screen 10/01/18 10/01/18 10/01/18 00:40 03:30 03:30 WBC RBC Hgb Hct MCV MCH MCHC RDW RDW Differential Plt Count MPV Immature Gran % (Auto) Neut % (Auto) Lymph % (Auto) [place] % (Auto) Eos % (Auto) Baso % (Auto) Absolute Neuts (auto) Absolute Lymphs (auto) Total Counted Differential Comment Diff Path Review PT INR APTT Sodium 139 Potassium 3.0 L Chloride 105 Carbon Dioxide 27.0 Anion Gap 7 BUN 17 Creatinine 0.85 Estim Creat Clear Calc 59.43 Est GFR (MDRD) Af Amer 86 Est GFR (MDRD) Non-Af 71 BUN/Creatinine Ratio 19.9 Glucose 62 L Lactic Acid Calcium 7.3 L Phosphorus Magnesium Total Bilirubin AST ALT Alkaline Phosphatase Troponin I < 0.015 < 0.015 Total Protein Albumin Globulin Albumin/Globulin Ratio Urine Color Urine Clarity Urine pH Ur Specific [place] Urine Protein Urine Glucose (UA) Urine Ketones Urine Occult Blood Urine Nitrite Urine Bilirubin Urine Urobilinogen Ur Leukocyte Esterase Urine RBC Urine WBC Ur Squamous Epith Cells Other Crystals Urine Bacteria Urine Mucus MRSA (PCR) POC Glucose Blood Type Antibody Screen 10/01/18 10/01/18 10/01/18 03:30 04:30 05:54 WBC RBC Hgb Hct MCV MCH MCHC RDW RDW Differential Plt Count MPV Immature Gran % (Auto) Neut % (Auto) Lymph % (Auto) [place] % (Auto) Eos % (Auto) Baso % (Auto) Absolute Neuts (auto) Absolute Lymphs (auto) Total Counted Differential Comment Diff Path Review PT INR APTT Sodium Potassium Chloride Carbon Dioxide Anion Gap BUN Creatinine Estim Creat Clear Calc Est GFR (MDRD) Af Amer Est GFR (MDRD) Non-Af BUN/Creatinine Ratio Glucose Lactic Acid 0.9 Calcium Phosphorus 2.7 Magnesium 1.8 Total Bilirubin AST ALT Alkaline Phosphatase Troponin I Total Protein Albumin Globulin Albumin/Globulin Ratio Urine Color Urine Clarity Urine pH Ur Specific [place] Urine Protein Urine Glucose (UA) Urine Ketones Urine Occult Blood Urine Nitrite Urine Bilirubin Urine Urobilinogen Ur Leukocyte Esterase Urine RBC Urine WBC Ur Squamous Epith Cells Other Crystals Urine Bacteria Urine Mucus MRSA (PCR) POC Glucose 198 H Blood Type Antibody Screen 10/01/18 10/02/18 10/02/18 11:50 05:00 05:00 WBC RBC Hgb Hct MCV MCH MCHC RDW RDW Differential Plt Count MPV Immature Gran % (Auto) Neut % (Auto) Lymph % (Auto) [place] % (Auto) Eos % (Auto) Baso % (Auto) Absolute Neuts (auto) Absolute Lymphs (auto) Total Counted Differential Comment Diff Path Review PT INR APTT Sodium 145 Potassium 4.0 Chloride 113 H Carbon Dioxide 25.0 Anion Gap 7 BUN 16 Creatinine 0.60 Estim Creat Clear Calc 87.33 Est GFR (MDRD) Af Amer 129 Est GFR (MDRD) Non-Af 107 BUN/Creatinine Ratio 26.7 H Glucose 74 Lactic Acid Calcium 7.9 L Phosphorus 2.8 Magnesium 2.1 Total Bilirubin AST ALT Alkaline Phosphatase Troponin I Total Protein Albumin Globulin Albumin/Globulin Ratio Urine Color Urine Clarity Urine pH Ur Specific [place] Urine Protein Urine Glucose (UA) Urine Ketones Urine Occult Blood Urine Nitrite Urine Bilirubin Urine Urobilinogen Ur Leukocyte Esterase Urine RBC Urine WBC Ur Squamous Epith Cells Other Crystals Urine Bacteria Urine Mucus MRSA (PCR) Negative POC Glucose Blood Type Antibody Screen 10/02/18 10/02/18 05:00 06:40 WBC 0.2 L* RBC 2.51 L Hgb 7.4 L Hct 23.2 L MCV 92.4 MCH 29.5 MCHC 31.9 L RDW 16.2 H RDW Differential 52.6 H Plt Count 7 L* MPV 9.6 Immature Gran % (Auto) 4.800 H Neut % (Auto) 23.8 L Lymph % (Auto) 57.1 H [place] % (Auto) 14.3 H Eos % (Auto) 0.0 Baso % (Auto) 0.0 Absolute Neuts (auto) 0.1 L Absolute Lymphs (auto) 0.12 L Total Counted Not Reportable Differential Comment SCANNED Diff Path Review May foll PT INR APTT Sodium Potassium Chloride Carbon Dioxide Anion Gap BUN Creatinine Estim Creat Clear Calc Est GFR (MDRD) Af Amer Est GFR (MDRD) Non-Af BUN/Creatinine Ratio Glucose Lactic Acid Calcium Phosphorus Magnesium Total Bilirubin AST ALT Alkaline Phosphatase Troponin I Total Protein Albumin Globulin Albumin/Globulin Ratio Urine Color Urine Clarity Urine pH Ur Specific [place] Urine Protein Urine Glucose (UA) Urine Ketones Urine Occult Blood Urine Nitrite Urine Bilirubin Urine Urobilinogen Ur Leukocyte Esterase Urine RBC Urine WBC Ur Squamous Epith Cells Other Crystals Urine Bacteria Urine Mucus MRSA (PCR) POC Glucose Blood Type Pending Antibody Screen Pending Microbiology 09/30/18 19:35 Urine, Clean Catch Urine Culture - Preliminary Gram negative beto GNR lactose ski base trimmer 09/30/18 19:05 Blood Culture (Wb) - Venous Blood Culture - Preliminary 09/30/18 18:30 Blood Culture (Wb) - Venous Blood Culture - Preliminary Clinical Impression(s) from Imaging Studies Brain CT 09/30/18 18:35 IMPRESSION: Mild periventricular white matter ischemic changes. No mass or acute bleed. If concern for metastatic disease MRI recommended for further evaluation Electronically Signed: Moy Henao MD at 20:33 EDT , Service support , Chest X-Ray 09/30/18 18:36 IMPRESSION: Stable appearance of the chest with no acute pathology. New right internal jugular catheter as described. Electronically Signed: Jesus Hutchison MD at 19:36 EDT , Service support , Chest CTA 09/30/18 18:55 IMPRESSION: Pulmonary emboli to the subsegmental vessels of the right lower lobe Chronic interstitial changes and minor atelectasis within the dependent portion of the lungs. Electronically Signed: Moy Henao MD at 20:56 EDT , Service support , Abdomen/Pelvis CT 09/30/18 20:50 IMPRESSION: Postsurgical changes status post cystectomy and right ileal conduit. Moderate right hydroureteronephrosis and mild left hydroureter in association with thick-walled ileal conduit and focal narrowing of the lumen. Nonspecific ileus with diffuse fecal retention in the colon Status post cholecystectomy, cystectomy and hysterectomy Other findings as above Electronically Signed: Moy Henao MD at 22:35 EDT , Service support , Medical Necessity - Tobacco Use Smoking Status: Former smoker Assessment/Plan All Active Problems (Last Reviewed 10/02/18 @ 14:08 by Maye Desai PA-C) Pulmonary embolism (Acute) Acute deep vein thrombosis (DVT) of both lower extremities (Acute) UTI (urinary tract infection) (Acute) Bacteremia (Acute) Ileus (Acute) Hydronephrosis (Acute) Hydroureter (Acute) Pancytopenia (Acute) Septic shock (Acute) Acute cholecystitis (Ruled-out) Constipation (Resolved) Cystitis (Acute) Gross hematuria (Acute) RECOMMENDATIONS: 1. Lower extremity Dopplers are pending. If positive, given relative contraindication to anticoagulation, consider IVC filter placement. 2. Continue antibiotics as ordered. 3. We will begin to wean stress dose steroids tomorrow. 4. Begin Granix, as per oncology recommendations. 5. Transfuse platelets. Continue to monitor hemoglobin with plans to transfuse if hemoglobin drops below 7 g/dL. IMPRESSIONS: 1. Septic shock secondary to gram-negative bacteremia/cystitis The patient has stabilized over the last 24 hours. She has not required any vasopressor support since yesterday. Repeat blood cultures have not turned positive. She remains hemodynamically stable at this time. Continue antibiotic s as ordered. 2. Pancytopenia Likely secondary to the effects of chemotherapy coupled with #1. Given that the patient currently has a platelet count of 7000, we will plan to transfuse platelets. Continue to monitor hemoglobin with plans to transfuse if less than 7 g/dL. Granix has been ordered per oncology recommendations. 3. Acute hypoxic respiratory failure/subsegmental pulmonary emboli The patient was noted on presentation to have a subsegmental PE. However, in the setting of her pancytopenia and hematuria noted on admission, she was not considered to be a candidate for anticoagulation. Preliminary report from the patient's lower extremity Dopplers this morning appeared to demonstrate bilateral lower extremity DVTs. Therefore, will confer with vascular surgery, with regards to the need for IVC filter placement. 4. Stage IV bladder cancer The patient has been receiving palliative chemotherapy by oncology. She remains a full CODE STATUS at the present time. Oncology is following. 5. Debility/chronic pain syndrome/anxiety/depression/hypothyroidism/hyperlipidemia/ileus Complicates care, management, recovery and prognosis. Continue antiemetics as needed. This note was generated with [email or web address] dictation software. It may contain incorrect words, spelling, and punctuation that were not noted in checking the note before signing. Code Visit Inpatient E&M: 48387 Subs Hosp L3
[2018-10-02] MEDS: Fluconazole 100 MG Tablet PO (09:00)
--- NOTE | 2018-10-02 09:49 | PCM.PN.SRG ---
Patient Problems: Active and Suspected Problems (Last Updated 10/01/18 @ 08:40 by James Latham DO) UTI (urinary tract infection) (Acute) Bacteremia (Acute) Ileus (Acute) Hydronephrosis (Acute) Hydroureter (Acute) Pancytopenia (Acute) Septic shock (Acute) Cystitis (Acute) Gross hematuria (Acute) Subjective: Patient continues to have bowel function and only got MiraLAX twice yesterday. And she is not getting as many other narcotics that she was getting at home. - Physical Exam General: Alert, Cooperative, No apparent distress Abdomen: Soft, Tender - Right lower quadrant, no peritoneal signs, - - Urostomy in place Skin: - - Patient's right chest port site still looks good, no erythema Psych/Mental Status: Normal Affect Vital Signs Temp Pulse Resp BP Pulse Ox 97.5 F L 81 19 H 118/80 94 10/02/18 07:52 10/02/18 07:52 10/02/18 07:52 10/02/18 07:52 10/02/18 07:52 Oxygen Flow Rate (L/min) 1 Oxygen Delivery Method Room Air Weight: 128 lb 11.999 oz Body Mass Index (BMI) 25.9 Finger Stick Blood Glucose 132 Intake and Output for Last 24 Hours 10/01/18 10/01/18 10/02/18 00:59 23:59 23:59 Intake Total 856 / 856 Output Total 800 / 800 Balance 56 / 56 Microbiology Past 72 Hours 09/30/18 19:05 Blood Culture - Preliminary Blood Culture (Wb) - Venous GNR Poss Pseudomonas sp 09/30/18 18:30 Blood Culture - Preliminary Blood Culture (Wb) - Venous GNR lactose relay assembler GNR Poss Pseudomonas sp 09/30/18 19:35 Urine Culture - Preliminary Urine, Clean Catch Gram negative beto GNR lactose relay assembler Laboratory Tests Past 24 Hrs 10/01/18 10/02/18 10/02/18 11:50 05:00 05:00 WBC RBC Hgb Hct MCV MCH MCHC RDW RDW Differential Plt Count MPV Immature Gran % (Auto) Neut % (Auto) Lymph % (Auto) [place] % (Auto) Eos % (Auto) Baso % (Auto) Absolute Neuts (auto) Absolute Lymphs (auto) Total Counted Differential Comment Diff Path Review Sodium 145 Potassium 4.0 Chloride 113 H Carbon Dioxide 25.0 Anion Gap 7 BUN 16 Creatinine 0.60 Estim Creat Clear Calc 87.33 Est GFR (MDRD) Af Amer 129 Est GFR (MDRD) Non-Af 107 BUN/Creatinine Ratio 26.7 H Glucose 74 Calcium 7.9 L Phosphorus 2.8 Magnesium 2.1 MRSA (PCR) Negative Blood Type Antibody Screen 10/02/18 10/02/18 05:00 06:40 WBC 0.2 L* RBC 2.51 L Hgb 7.4 L Hct 23.2 L MCV 92.4 MCH 29.5 MCHC 31.9 L RDW 16.2 H RDW Differential 52.6 H Plt Count 7 L* MPV 9.6 Immature Gran % (Auto) 4.800 H Neut % (Auto) 23.8 L Lymph % (Auto) 57.1 H [place] % (Auto) 14.3 H Eos % (Auto) 0.0 Baso % (Auto) 0.0 Absolute Neuts (auto) 0.1 L Absolute Lymphs (auto) 0.12 L Total Counted Not Reportable Differential Comment SCANNED Diff Path Review May foll Sodium Potassium Chloride Carbon Dioxide Anion Gap BUN Creatinine Estim Creat Clear Calc Est GFR (MDRD) Af Amer Est GFR (MDRD) Non-Af BUN/Creatinine Ratio Glucose Calcium Phosphorus Magnesium MRSA (PCR) Blood Type A POSITIVE Antibody Screen NEGATIVE POC Glucose 10/01/18 05:54 POC Glucose 198 H Medical Necessity - Tobacco Use Smoking Status: Former smoker Assessment/Plan All Active Problems (Last Updated 10/01/18 @ 08:40 by James Latham DO) UTI (urinary tract infection) (Acute) Bacteremia (Acute) Ileus (Acute) Hydronephrosis (Acute) Hydroureter (Acute) Pancytopenia (Acute) Septic shock (Acute) Acute cholecystitis (Ruled-out) Constipation (Resolved) Cystitis (Acute) Gross hematuria (Acute) 63-year-old female with septic shock, urine negative rods bacteremia, urinary tract infection, bladder cancer, possible ileus per CT-+BF 1. Patient continues to have bowel function likely her constipation was due to too many narcotics. There is an issue at home on her receiving her medication and whether she is been taking them too often as they have not been able to track well per family. 2. Antibiotics per ICU Desiree Alston M.D. Pager: [phone] [facility] [address] [place] [address], Outpatient [place], [address] [place] [address] Office: [phone] Code Visit Inpatient E&M: 73636 Subs Hosp L1
--- NOTE | 2018-10-02 09:52 | PN.SURG_ITS ---
Patient Problems: Active and Suspected Problems (Last Updated 10/01/18 @ 08:40 by James Latham DO) UTI (urinary tract infection) (Acute) Bacteremia (Acute) Ileus (Acute) Hydronephrosis (Acute) Hydroureter (Acute) Pancytopenia (Acute) Septic shock (Acute) Cystitis (Acute) Gross hematuria (Acute) Subjective: Patient continues to have bowel function and only got MiraLAX twice yesterday. And she is not getting as many other narcotics that she was getting at home. - Physical Exam General: Alert, Cooperative, No apparent distress Abdomen: Soft, Tender - Right lower quadrant, no peritoneal signs, - - Urostomy in place Skin: - - Patient's right chest port site still looks good, no erythema Psych/Mental Status: Normal Affect Vital Signs Temp Pulse Resp BP Pulse Ox 97.5 F L 81 19 H 118/80 94 10/02/18 07:52 10/02/18 07:52 10/02/18 07:52 10/02/18 07:52 10/02/18 07:52 Oxygen Flow Rate (L/min) 1 Oxygen Delivery Method Room Air Weight: 128 lb 11.999 oz Body Mass Index (BMI) 25.9 Finger Stick Blood Glucose 132 Intake and Output for Last 24 Hours 10/01/18 10/01/18 10/02/18 00:59 23:59 23:59 Intake Total 856 / 856 Output Total 800 / 800 Balance 56 / 56 Microbiology Past 72 Hours 09/30/18 19:05 Blood Culture - Preliminary Blood Culture (Wb) - Venous GNR Poss Pseudomonas sp 09/30/18 18:30 Blood Culture - Preliminary Blood Culture (Wb) - Venous GNR lactose radio rigger GNR Poss Pseudomonas sp 09/30/18 19:35 Urine Culture - Preliminary Urine, Clean Catch Gram negative beto GNR lactose radio rigger Laboratory Tests Past 24 Hrs 10/01/18 10/02/18 10/02/18 11:50 05:00 05:00 WBC RBC Hgb Hct MCV MCH MCHC RDW RDW Differential Plt Count MPV Immature Gran % (Auto) Neut % (Auto) Lymph % (Auto) [place] % (Auto) Eos % (Auto) Baso % (Auto) Absolute Neuts (auto) Absolute Lymphs (auto) Total Counted Differential Comment Diff Path Review Sodium 145 Potassium 4.0 Chloride 113 H Carbon Dioxide 25.0 Anion Gap 7 BUN 16 Creatinine 0.60 Estim Creat Clear Calc 87.33 Est GFR (MDRD) Af Amer 129 Est GFR (MDRD) Non-Af 107 BUN/Creatinine Ratio 26.7 H Glucose 74 Calcium 7.9 L Phosphorus 2.8 Magnesium 2.1 MRSA (PCR) Negative Blood Type Antibody Screen 10/02/18 10/02/18 05:00 06:40 WBC 0.2 L* RBC 2.51 L Hgb 7.4 L Hct 23.2 L MCV 92.4 MCH 29.5 MCHC 31.9 L RDW 16.2 H RDW Differential 52.6 H Plt Count 7 L* MPV 9.6 Immature Gran % (Auto) 4.800 H Neut % (Auto) 23.8 L Lymph % (Auto) 57.1 H [place] % (Auto) 14.3 H Eos % (Auto) 0.0 Baso % (Auto) 0.0 Absolute Neuts (auto) 0.1 L Absolute Lymphs (auto) 0.12 L Total Counted Not Reportable Differential Comment SCANNED Diff Path Review May foll Sodium Potassium Chloride Carbon Dioxide Anion Gap BUN Creatinine Estim Creat Clear Calc Est GFR (MDRD) Af Amer Est GFR (MDRD) Non-Af BUN/Creatinine Ratio Glucose Calcium Phosphorus Magnesium MRSA (PCR) Blood Type A POSITIVE Antibody Screen NEGATIVE POC Glucose 10/01/18 05:54 POC Glucose 198 H Medical Necessity - Tobacco Use Smoking Status: Former smoker Assessment/Plan All Active Problems (Last Updated 10/01/18 @ 08:40 by James Latham DO) UTI (urinary tract infection) (Acute) Bacteremia (Acute) Ileus (Acute) Hydronephrosis (Acute) Hydroureter (Acute) Pancytopenia (Acute) Septic shock (Acute) Acute cholecystitis (Ruled-out) Constipation (Resolved) Cystitis (Acute) Gross hematuria (Acute) 63-year-old female with septic shock, urine negative rods bacteremia, urinary tract infection, bladder cancer, possible ileus per CT-+BF 1. Patient continues to have bowel function likely her constipation was due to too many narcotics. There is an issue at home on her receiving her medication and whether she is been taking them too often as they have not been able to track well per family. 2. Antibiotics per ICU Desiree Alston M.D. Pager: [phone] [facility] [address] [place] [address], Outpatient [place], [address] [place] [address] Office: [phone] Code Visit Inpatient E&M: 17129 Subs Hosp L1
--- NOTE | 2018-10-02 12:01 | CASEMGMT ---
LUDWIN received call from RN indicating patient's daughters want to talk with SW. SW went to ICU interdisciplinary rounds. After rounds SW spoke with patient's daughter, Lucia. She expressed concern with patient's current living situation. Lucia lives in [place] and patient's other daughter, Ayla lives in [place]. They did not know patient had stage IV cancer until they came to [place] this visit. Patient's roommate, Tobin does the best he can for patient. There is concern that patient is abusing her narcotics. They feel she asks Tobin for medication and he probably feels terrible as she is Stage IV cancer so he gives it to her. They do not feel he means any harm nor is he being abusive. Lucia said Ayla or patient's sister, Alena in [place], [place] said they could take her home with them and care for her. They just want to make sure she gets the best care she can. Lucia said a little while back patient completed some legal documents as she felt she was getting more forgetful. Lucia was not sure if healthcare POA was one of the documents. She contacted patient's erisa attorney to find out. LUDWIN told her SW will talk with patient for regular assessment, but as far as d/c plan it is a little early. LUDWIN needs to see what Dr Toledo thinks patient needs or if he is going to recommend Hospice. She is flying back to [place] today at 7p. Ayla is leaving tomorrow am. LUDWIN told them SW will follow along and assist with d/c planning. LUDWIN then met with patient alone. Introduced self and role at [facility]. Patient lives with a roommate, Tobin. The home is 1 level with a couple of entry steps. Patient said she has been using a walker. She also has a cane. Patient said she bathes herself and cooks her meals. She said Tobin helps her with her meds. She feels safe at home. She said she does not know if she has a healthcare POA. SW to follow for d/c planning. Daughter Lucia-from [place]: [phone] Daughter Ayla-from [place]: [phone] Sister Alena from [place], [place]: [phone] Sandy MCCLELLAND MSW
[2018-10-02] MEDS: TBO-FILGRASTIM 300 MCG/0.5 ML ML SC (12:17)
--- NOTE | 2018-10-02 12:51 | CON.PCM_ITS ---
Problem List (1) Pulmonary embolism Status: Acute (2) Acute deep vein thrombosis (DVT) of both lower extremities Status: Acute Reason for Consult Date of Consultation: 10/02/18 Reason for Consultation: Pulmonary embolism and acute bilateral lower extremity DVT History of Present Illness: The patient is a 63 year old F who presented with sepsis of urologic etiology. Patient has stage IV metastatic bladder cancer. Dr. Toledo is her oncologist. Patient has had a robotic cystectomy and ileal conduit on 06/09/17. Nephrostomy tube placement was also performed. Patient is currently undergoing chemotherapy. She denies previous history of blood clots, myocardial infarction, stroke. Patient is allergic to Fentanyl. She notes her heart stops. She denies previous vena cava filter placement. CTA demonstrates right lower lobe pulmonary embolism Lower extremity DVT study demonstrates right tibial and peroneal and left peroneal lower extremity acute DVT's. Patient's platelets are 7. His Hgb is 7.4. Past Medical History Past Medical History (Chronic Problems): Chronic Problems (Last Reviewed 10/02/18 @ 14:08 by Maye Desai PA-C) Ataxia (Chronic) Bladder cancer (Chronic) Abdominal pain (Chronic) Vaginal discharge (Chronic) Abdominal mass (Chronic) Brain metastases (Chronic) Chemotherapy management, encounter for (Chronic) History of bladder cancer (Chronic) 2017 Hyperlipemia (Chronic) Hypothyroidism (Chronic) Anxiety (Chronic) Chronic obstructive lung disease (Chronic) Primary fibromyalgia syndrome (Chronic) Shoulder pain (Chronic) Medical History: Medical History (Last Reviewed 10/02/18 @ 14:08 by Maye Desai PA-C) History of bladder cancer (Chronic) Z85.51 2017 Hyperlipemia (Chronic) E78.5 Hypothyroidism (Chronic) E03.9 Anxiety (Chronic) F41.9 Chronic obstructive lung disease (Chronic) J44.9 Primary fibromyalgia syndrome (Chronic) M79.7 Shoulder pain (Chronic) M25.519 COPD (chronic obstructive pulmonary disease) J44.[address] Moore 09/07/18 Dementia F03.90 Fracture of left femur S72.92XA History of hysterectomy Z98.890, Z90.710 Allergies fentanyl Allergy (Verified 09/25/18 09:37) Anaphylaxis codeine Adverse Reaction (Verified 09/25/18 09:37) Unknown Sulfa (Sulfonamide Antibiotics) Adverse Reaction (Verified 09/25/18 09:37) Unknown Home Medications: Ambulatory Orders Medication Instructions Recorded Fluoxetine HCl [Prozac] 60 mg PO DAILY 07/10/17 Gabapentin [Neurontin] 800 mg PO TID 07/10/17 Levothyroxine [Synthroid] 50 mcg PO DAILY 07/10/17 Loratadine 10 mg PO DAILY PRN PRN 07/23/17 ALPRAZolam [Xanax] 0.5 mg PO BID PRN PRN 08/18/17 Atorvastatin Calcium 80 mg PO DAILY 12/20/17 albuterol sulfate 0.63 mg/3 mL 0.63 mg INHALATION Q6H PRN #75 ml 02/24/18 solution for nebulization Dexamethasone [Decadron] 4 mg PO BIDCM #60 tablet 08/30/18 Oxycodone HCl/Acetaminophen 1 tab PO Q6H PRN PRN 5 Days #90 tab 09/12/18 [Percocet 5-325] Senna [Senokot] 2 tablet PO DAILY #60 tablet 09/12/18 Lidocaine/Prilocaine 30 gm TP DAILY PRN PRN 30 Days #1 09/14/18 [Lidocaine-Prilocaine Cream] cream..g. Bupropion HCl [Bupropion Xl] 150 mg PO DAILY 09/30/18 Trazodone HCl 50 mg PO DAILY 09/30/18 Surgical History: Surgical History (Last Reviewed 10/02/18 @ 14:07 by Maye Desai PA-C) History of 2 sections Z87.59 History of appendectomy Z98.890, Z90.49 History of cholecystectomy Z90.49 History of hysterectomy for cancer Z90.710 History of tubal ligation Z98.51 history of bladder removal due to bladder cancer, and 4 lymph nodes removed. may 2017 [facility] (main ) History of arthroscopy of right shoulder Z98.890 H/O total cystectomy Z98.890 H/O tubal ligation Z98.51 H/O: Z98.891 S/P appendectomy Z90.49 Psychiatric History: No pertinent psych hx Lives: With Family Smoking Status: Former smoker - *Family History Maternal Family History: Family History (Last Reviewed 10/02/18 @ 14:08 by Maye Desai PA-C) Brother Lung disease Heart disease Grandmother Cancer Mother Cancer History Items: No pertinent history Paternal Family History: Family History (Last Reviewed 10/02/18 @ 14:08 by Maye Desai PA-C) Brother Lung disease Heart disease Grandmother Cancer Mother Cancer History Items: No pertinent history Review of Systems Constitutional: Reports: Anorexia, Weakness, Fatigue HEENT: Denies: Head Aches, Sinus Congestion, Sinus Drainage Cardiovascular: Denies: Chest Pain, Palpitations Respiratory: Denies: Cough, Shortness of breath at rest, Sputum production Gastrointestinal: Reports: Nausea Genitourinary: Reports: Hematuria Musculoskeletal: Denies: Joint Pain, Joint Tenderness Skin: Denies: Rash, Wounds Neurological: Denies: Numbness, Tingling, Focal weakness Psychiatric: Reports: Depression. Denies: Anxiety, Homicidal Ideations, Suicidal Ideations Hematologic/ Lymphatic: Denies: Easy Bruising, Easy Bleeding Patient Problems: Active and Suspected Problems (Last Reviewed 10/02/18 @ 14:08 by Maye Desai PA-C) Pulmonary embolism (Acute) Acute deep vein thrombosis (DVT) of both lower extremities (Acute) UTI (urinary tract infection) (Acute) Bacteremia (Acute) Ileus (Acute) Hydronephrosis (Acute) Hydroureter (Acute) Pancytopenia (Acute) Septic shock (Acute) Cystitis (Acute) Gross hematuria (Acute) - Physical Exam General: Alert, Oriented x3, Cooperative HEENT: Atraumatic, PERRLA, EOMI, Normocephalic Neck: Supple, No JVD, Negative Carotid Bruits, - - right neck central line placed Lungs: Clear to auscultation, Normal air movement Cardiovascular: Regular rate, No murmurs Abdomen: Bowel Sounds Present, Soft, Distended, - - Supra pubic catheter in place Extremities: Capillary Refill Less than 3 Seconds, Edema, - - Bilateral calf pain Skin: No rashes, No breakdown Musculoskeletal: No Tenderness to Palpation of Joints or Extremities Neurological: Neuro grossly intact Psych/Mental Status: Appropriate, Depressed Vital Signs Temp Pulse Resp BP Pulse Ox 97.5 F L 88 23 H 118/80 96 10/02/18 07:52 10/02/18 10:00 10/02/18 10:00 10/02/18 07:52 10/02/18 10:00 Oxygen Flow Rate (L/min) 1 Oxygen Delivery Method Nasal Cannula Weight: 128 lb 11.999 oz Body Mass Index (BMI) 25.9 Finger Stick Blood Glucose 132 Intake and Output for Last 24 Hours 10/01/18 10/01/18 10/02/18 00:59 23:59 23:59 Intake Total 856 / 856 Output Total 800 / 800 Balance 56 / 56 Microbiology Past 72 Hours 09/30/18 19:35 Urine Culture - Preliminary Urine, Clean Catch GNR Poss Pseudomonas sp GNR lactose practice specialist 09/30/18 19:05 Blood Culture - Preliminary Blood Culture (Wb) - Venous GNR Poss Pseudomonas sp 09/30/18 18:30 Blood Culture - Preliminary Blood Culture (Wb) - Venous GNR lactose practice specialist GNR Poss Pseudomonas sp Laboratory Tests Past 24 Hrs 10/01/18 10/02/18 10/02/18 11:50 05:00 05:00 WBC RBC Hgb Hct MCV MCH MCHC RDW RDW Differential Plt Count MPV Immature Gran % (Auto) Neut % (Auto) Lymph % (Auto) [place] % (Auto) Eos % (Auto) Baso % (Auto) Absolute Neuts (auto) Absolute Lymphs (auto) Total Counted Differential Comment Diff Path Review Sodium 145 Potassium 4.0 Chloride 113 H Carbon Dioxide 25.0 Anion Gap 7 BUN 16 Creatinine 0.60 Estim Creat Clear Calc 87.33 Est GFR (MDRD) Af Amer 129 Est GFR (MDRD) Non-Af 107 BUN/Creatinine Ratio 26.7 H Glucose 74 Calcium 7.9 L Phosphorus 2.8 Magnesium 2.1 MRSA (PCR) Negative Blood Type Antibody Screen 10/02/18 10/02/18 05:00 06:40 WBC 0.2 L* RBC 2.51 L Hgb 7.4 L Hct 23.2 L MCV 92.4 MCH 29.5 MCHC 31.9 L RDW 16.2 H RDW Differential 52.6 H Plt Count 7 L* MPV 9.6 Immature Gran % (Auto) 4.800 H Neut % (Auto) 23.8 L Lymph % (Auto) 57.1 H [place] % (Auto) 14.3 H Eos % (Auto) 0.0 Baso % (Auto) 0.0 Absolute Neuts (auto) 0.1 L Absolute Lymphs (auto) 0.12 L Total Counted Not Reportable Differential Comment SCANNED Diff Path Review May foll Sodium Potassium Chloride Carbon Dioxide Anion Gap BUN Creatinine Estim Creat Clear Calc Est GFR (MDRD) Af Amer Est GFR (MDRD) Non-Af BUN/Creatinine Ratio Glucose Calcium Phosphorus Magnesium MRSA (PCR) Blood Type A POSITIVE Antibody Screen NEGATIVE POC Glucose 10/01/18 05:54 POC Glucose 198 H Assessment/Plan All Active Problems (Last Reviewed 10/02/18 @ 14:08 by Maye Desai PA-C) Pulmonary embolism (Acute) Acute deep vein thrombosis (DVT) of both lower extremities (Acute) UTI (urinary tract infection) (Acute) Bacteremia (Acute) Ileus (Acute) Hydronephrosis (Acute) Hydroureter (Acute) Pancytopenia (Acute) Septic shock (Acute) Acute cholecystitis (Ruled-out) Constipation (Resolved) Cystitis (Acute) Gross hematuria (Acute) I have been consulted in conjunction with Dr. Helton. Impression: Right pulmonary embolism lower lobe. Bilateral lower extremity acute DVT's. Plan: I have discussed this patient with Dr. Helton. Dr. Helton will plan to perform an inferior vena cava filter via right neck. Procedure details, risks and benefits have been explained. Patient's daughters were in the room and the procedure was explained to them as well. Patient and her daughters have had the opportunity to ask and have questions answered. Patient's daughter was inquiring about patient's prognosis of her cancer at which time I am not able to discuss this. I will defer this conversation to Dr. Toledo. Patient and daughters are agreeable to proceed with the proposed procedure. Keep patient NPO. Patient is to have platelet infusion prior to the procedure. Platelets are coming from [facility]. Thank you for allowing us to participate in this patient's care. My recommendations will be available via electronic medical records. Code Visit Office Visits / Consults: [id number] IP Consult L3
--- NOTE | 2018-10-02 14:49 | PCM.HP.ID ---
Problem List (1) Bacteremia Status: Acute Reason for Consult: bacteremia Consulted by: Dr. Chery History of Present Illness: The patient is a 63 year old F with stage IIIA bladder cancer, new brain mets, and last cycle of chemo with gemzar given 09/25 who presented 09/30 to ED with sudden onset severe BLE pain and blood in urine. She has had prior bladder resection with ileal conduit. Some fever chills, weakness. Admitted to icu, started on vanc/meropenem, remains pancytopenic and not feeling well. Having some SOB. Found to have PE and BLE DVT. Full ROS performed and neg except as noted above. - Medical History Past Medical History (Chronic Problems): Chronic Problems (Last Reviewed 10/02/18 @ 14:08 by Maye Desai PA-C) Ataxia (Chronic) Bladder cancer (Chronic) Abdominal pain (Chronic) Vaginal discharge (Chronic) Abdominal mass (Chronic) Brain metastases (Chronic) Chemotherapy management, encounter for (Chronic) History of bladder cancer (Chronic) 2016 Hyperlipemia (Chronic) Hypothyroidism (Chronic) Anxiety (Chronic) Chronic obstructive lung disease (Chronic) Primary fibromyalgia syndrome (Chronic) Shoulder pain (Chronic) Allergies/Adverse Reactions: Allergies fentanyl Allergy (Verified 09/25/18 09:37) Anaphylaxis codeine Adverse Reaction (Verified 09/25/18 09:37) Unknown Sulfa (Sulfonamide Antibiotics) Adverse Reaction (Verified 09/25/18 09:37) Unknown Home Medications: Ambulatory Orders Medication Instructions Recorded Fluoxetine HCl [Prozac] 60 mg PO DAILY 07/10/17 Gabapentin [Neurontin] 800 mg PO TID 07/10/17 Levothyroxine [Synthroid] 50 mcg PO DAILY 07/10/17 Loratadine 10 mg PO DAILY PRN PRN 07/23/17 ALPRAZolam [Xanax] 0.5 mg PO BID PRN PRN 08/18/17 Atorvastatin Calcium 80 mg PO DAILY 12/20/17 albuterol sulfate 0.63 mg/3 mL 0.63 mg INHALATION Q6H PRN #75 ml 02/24/18 solution for nebulization Dexamethasone [Decadron] 4 mg PO BIDCM #60 tablet 08/30/18 Oxycodone HCl/Acetaminophen 1 tab PO Q6H PRN PRN 5 Days #90 tab 09/12/18 [Percocet 5-325] Senna [Senokot] 2 tablet PO DAILY #60 tablet 09/12/18 Lidocaine/Prilocaine 30 gm TP DAILY PRN PRN 30 Days #1 09/14/18 [Lidocaine-Prilocaine Cream] cream..g. Bupropion HCl [Bupropion Xl] 150 mg PO DAILY 09/30/18 Trazodone HCl 50 mg PO DAILY 09/30/18 - Social History SMOKING STATUS:: Former smoker Vital Signs Temp Pulse Resp BP Pulse Ox 99.2 F H 91 27 H 130/87 H 92 10/02/18 14:08 10/02/18 14:08 10/02/18 14:08 10/02/18 14:08 10/02/18 14:08 Oxygen Flow Rate (L/min) 1 Oxygen Delivery Method Nasal Cannula Weight: 58.4 kg Body Mass Index (BMI) 25.9 Finger Stick Blood Glucose 132 Microbiology Past 72 Hours 09/30/18 19:35 Urine Culture - Preliminary Urine, Clean Catch GNR Poss Pseudomonas sp GNR lactose livestock yard attendant 09/30/18 19:05 Blood Culture - Preliminary Blood Culture (Wb) - Venous GNR Poss Pseudomonas sp 09/30/18 18:30 Blood Culture - Preliminary Blood Culture (Wb) - Venous GNR lactose livestock yard attendant GNR Poss Pseudomonas sp Laboratory Tests Past 24 Hrs 10/02/18 10/02/18 10/02/18 05:00 05:00 05:00 WBC 0.2 L* RBC 2.51 L Hgb 7.4 L Hct 23.2 L MCV 92.4 MCH 29.5 MCHC 31.9 L RDW 16.2 H RDW Differential 52.6 H Plt Count 7 L* MPV 9.6 Immature Gran % (Auto) 4.800 H Neut % (Auto) 23.8 L Lymph % (Auto) 57.1 H [place] % (Auto) 14.3 H Eos % (Auto) 0.0 Baso % (Auto) 0.0 Absolute Neuts (auto) 0.1 L Absolute Lymphs (auto) 0.12 L Total Counted Not Reportable Differential Comment SCANNED Diff Path Review May foll Sodium 145 Potassium 4.0 Chloride 113 H Carbon Dioxide 25.0 Anion Gap 7 BUN 16 Creatinine 0.60 Estim Creat Clear Calc 87.33 Est GFR (MDRD) Af Amer 129 Est GFR (MDRD) Non-Af 107 BUN/Creatinine Ratio 26.7 H Glucose 74 Calcium 7.9 L Phosphorus 2.8 Magnesium 2.1 Blood Type Antibody Screen 10/02/18 06:40 WBC RBC Hgb Hct MCV MCH MCHC RDW RDW Differential Plt Count MPV Immature Gran % (Auto) Neut % (Auto) Lymph % (Auto) [place] % (Auto) Eos % (Auto) Baso % (Auto) Absolute Neuts (auto) Absolute Lymphs (auto) Total Counted Differential Comment Diff Path Review Sodium Potassium Chloride Carbon Dioxide Anion Gap BUN Creatinine Estim Creat Clear Calc Est GFR (MDRD) Af Amer Est GFR (MDRD) Non-Af BUN/Creatinine Ratio Glucose Calcium Phosphorus Magnesium Blood Type A POSITIVE Antibody Screen NEGATIVE - Other Studies Radiology: []reviewed Other Studies: [] Route of nutrition/ use of supplements: [] Nutritional Intake: [] IV Site: [] Suarez Catheter: [] - Physical Exam General: Alert, Cooperative, No apparent distress, - - ill appearing HEENT: Atraumatic, PERRLA, EOMI Neck: Supple, No Nodes, - Lungs: Clear to auscultation, Normal air movement Cardiovascular: Tachycardic Abdomen: Soft, Non Tender, Non-Distended, - - urostomy in place Extremities: Edema Skin: No rashes IV Site: Central Line, without redness Musculoskeletal: No Tenderness to Palpation of Joints or Extremities Neurological: Cranial nerves II-XII grossly intact - Assessment/Plan Antibiotics: [] Assessment/Plan: [] Active and Suspected Problems (Last Reviewed 10/02/18 @ 14:08 by Maye Desai PA-C) Pulmonary embolism (Acute) Acute deep vein thrombosis (DVT) of both lower extremities (Acute) UTI (urinary tract infection) (Acute) Bacteremia (Acute) Ileus (Acute) Hydronephrosis (Acute) Hydroureter (Acute) Pancytopenia (Acute) Septic shock (Acute) Cystitis (Acute) Gross hematuria (Acute) Septic shock with pancytopenia and GNR bacteremia - neutropenic precautions. Repeat bcx pending. Continue meropenem. Vanc was stopped. DVT and PE - pt going for filter today. Will follow, thank you, d/w nursing.
[2018-10-02] MEDS: HYDROmorphone 0.5 MG/0.5 ML SYRINGE IV (15:27)
[2018-10-02 15:33] LABS: Pathologist Review Reviewed
[2018-10-02 15:35] LABS: Pathologist Review Reviewed
--- NOTE | 2018-10-02 16:19 | NURSING ---
to car barn laborer for icv filter per bed
--- NOTE | 2018-10-02 16:25 | CHAPLAIN ---
Type of Pastoral Visit _x__ Initial Visit ___ Follow-up Visit ___ On-call Visit ___ General Patient Visit ___ Spiritual Assessment ___ Family Conference ___ Bereavement ___ Rapid Response ___ Code Blue ___ Other (describe below) Pastoral Care Referral From _x__ Patient _x__ Family _x__ Nurse ___ Physician ___ Information Assurance Manager ___ Parts Technician ___ Other (describe below) Sacrament/Intervention _x__ Active listening ___ Anointing ___ Yarsani ___ Bereavement ___ Communion _x__ Yahaira exploration ___ ___ Life review _x__ Prayer ___ Reconciliation ___ Sacrament of Sick _x__ Supportive presence ___ Wedding ___ Other (describe below) Pastoral Comments RN recommended visit to patient and family; family encouraged a private visit with patient and left the room; pt revealed some spiritual insights and questions to this platform material handler manager; pt regards herself as spiritual but not congregational; pt goal is to say things that need to be said; pt expressed relief at speaking of her thoughts to platform material handler manager; pt accepted a prayer
--- NOTE | 2018-10-02 16:33 | PCM.OPRPT ---
Problem List (1) Pulmonary embolism Status: Acute Qualifiers: Pulmonary embolism type: other Chronicity: acute Acute cor pulmonale presence: without acute cor pulmonale Qualified Code(s): I26.99 - Other pulmonary embolism without acute cor pulmonale Report of Operation Date of Procedure: 10/02/18 Pre-Operative Diagnosis: Acute bilateral lower extremity deep vein thrombosis with sub-segmental pulmonary embolus Post-Operative Diagnosis: Same Surgery/Procedure Performed:: Patent inferior vena cava with successful placement of vena cava [place] filter Description of Surgical Findings:: Timeout and informed consent was obtained. 63-year-old female was taken to the special procedures lab. Placed on the table. The right neck was sterilely prepped and draped. Versed 1 mg was given intravenously. Under ultrasound guidance the right internal jugular vein was identified in a more superior position to the patient's known right internal jugular port tubing. Under ultrasound guidance 2% lidocaine was instilled. Micropuncture needle inserted. Micropuncture wire inserted. I was nicely cephalad to the port. The wire was easily advanced. A small incision was created at the wire site. Micropuncture sheath dilator was inserted. 035 J-wire was inserted using a 5 Citizen [place] universal flush catheter that was placed in the right common iliac vein. Isovue contrast the rate of 15 cc a second for 20 cc an inferior venacavogram was obtained. This demonstrated a widely patent bilateral common iliacs and inferior vena cava. It demonstrated bilateral renal veins. I then placed a 035 Magic wire and remove the flush catheter. A 9 Citizen [place] sheath dilator was used. Then the introducing 8.4 [place] sheath was introduced. The wire and dilator were removed. The jugular approach [place] filter was placed so that the apex would be close to the origin of the renal veins. It was deployed with the hook en face. Excellent tensioning was achieved. The deployment mechanism was removed. The sheath was removed. The chest was inspected and there was absolutely no disturbance in the previous port tubing. Pressure was held for hemostasis. Sterile dressings were applied. Blood loss was minimal. No apparent complications. She was taken back to the intensive care unit in satisfactory condition without apparent complication. Impression Unremarkable inferior vena cava without thrombus and adequate diameter. Successful placement of inferior vena cava Cha filter. Osman Helton M.D., F.A.C.S. Type of Anesthesia:: IV Sedation, Local
--- NOTE | 2018-10-02 16:37 | OP.PCM_ITS ---
Problem List (1) Pulmonary embolism Status: Acute Qualifiers: Pulmonary embolism type: other Chronicity: acute Acute cor pulmonale presence: without acute cor pulmonale Qualified Code(s): I26.99 - Other pulmonary embolism without acute cor pulmonale Report of Operation Date of Procedure: 10/02/18 Pre-Operative Diagnosis: Acute bilateral lower extremity deep vein thrombosis with sub-segmental pulmonary embolus Post-Operative Diagnosis: Same Surgery/Procedure Performed:: Patent inferior vena cava with successful placement of vena cava [place] filter Description of Surgical Findings:: Timeout and informed consent was obtained. 63-year-old female was taken to the special procedures lab. Placed on the table. The right neck was sterilely prepped and draped. Versed 1 mg was given intravenously. Under ultrasound guidance the right internal jugular vein was identified in a more superior position to the patient's known right internal jugular port tubing. Under ultrasound guidance 2% lidocaine was instilled. Micropuncture needle inserted. Micropuncture wire inserted. I was nicely cephalad to the port. The wire was easily advanced. A small incision was created at the wire site. Micropuncture sheath dilator was inserted. 035 J-wire was inserted using a 5 [place] universal flush catheter that was placed in the right common iliac vein. Isovue contrast the rate of 15 cc a second for 20 cc an inferior venacavogram was obtained. This demonstrated a widely patent bilateral common iliacs and inferior vena cava. It demonstrated bilateral renal veins. I then placed a 035 Magic wire and remove the flush catheter. A 9 [place] sheath dilator was used. Then the introducing 8.4 [place] sheath was introduced. The wire and dilator were removed. The jugular approach [place] filter was placed so that the apex would be close to the origin of the renal veins. It was deployed with the hook en face. Excellent tensioning was achieved. The deployment mechanism was removed. The sheath was removed. The chest was inspected and there was absolutely no disturbance in the previous port tubing. Pressure was held for hemostasis. Sterile dressings were applied. Blood loss was minimal. No apparent complications. She was taken back to the intensive care unit in satisfactory condition without apparent complication. Impression Unremarkable inferior vena cava without thrombus and adequate diameter. Successful placement of inferior vena cava [place] filter. Osman Helton M.D., F.A.C.S. Type of Anesthesia:: IV Sedation, Local
--- NOTE | 2018-10-02 17:00 | NURSING ---
returned from freezer laboratory technician rt neck dressing dry & intact
--- NOTE | 2018-10-02 18:47 | PCM.PROGNOTE ---
Patient Problems: Active and Suspected Problems (Last Reviewed 10/02/18 @ 14:08 by Maye Desai PA-C) Pulmonary embolism (Acute) Acute deep vein thrombosis (DVT) of both lower extremities (Acute) UTI (urinary tract infection) (Acute) Bacteremia (Acute) Ileus (Acute) Hydronephrosis (Acute) Hydroureter (Acute) Pancytopenia (Acute) Septic shock (Acute) Cystitis (Acute) Gross hematuria (Acute) Subjective: Examined in ICU today, she underwent insertion of a vena caval filter due to bilateral DVTs and a PE. She received a platelet infusion before this was performed. Patient is pancytopenic, total white blood cell count today was 200 with her neutrophil count at 46. Patient's platelet count was 7000 today before the platelet transfusion and her hemoglobin was 7.4. - Physical Exam General: Alert, Oriented x3, Cooperative, No apparent distress, Well developed HEENT: Atraumatic, PERRLA, EOMI, Normocephalic Oral: Moist Mucosa Neck: Supple, No JVD, Trachea Midline, Thyroid Normal Size and Texture Lungs: Clear to auscultation, Normal air movement, No rhonchi, No wheeze, No rales Cardiovascular: Regular rate, No murmurs Abdomen: Bowel Sounds Present, Soft, Non Tender, Non-Distended Extremities: No clubbing, No cyanosis, No edema, Capillary Refill Less than 3 Seconds Skin: No rashes, No breakdown Musculoskeletal: No Tenderness to Palpation of Joints or Extremities Neurological: Cranial nerves II-XII grossly intact, Neuro grossly intact, Sensory exam intact to light touch and pain Psych/Mental Status: Appropriate, Flat Affect, Alert and oriented to time, place, person, mood and affect Vital Signs Temp Pulse Resp BP Pulse Ox 99.2 F H 85 16 138/86 H 94 10/02/18 14:08 10/02/18 16:00 10/02/18 16:00 10/02/18 15:00 10/02/18 16:00 Oxygen Flow Rate (L/min) 1 Oxygen Delivery Method Nasal Cannula Weight: 58.4 kg Body Mass Index (BMI) 25.9 Finger Stick Blood Glucose 132 Intake and Output for Last 24 Hours 10/01/18 10/01/18 10/02/18 00:59 23:59 23:59 Intake Total 1106 / 1106 Output Total 1050 / 1050 Balance 56 / 56 Microbiology Past 72 Hours 09/30/18 19:35 Urine Culture - Preliminary Urine, Clean Catch GNR Poss Pseudomonas sp GNR lactose color dipper 09/30/18 19:05 Blood Culture - Preliminary Blood Culture (Wb) - Venous GNR Poss Pseudomonas sp 09/30/18 18:30 Blood Culture - Preliminary Blood Culture (Wb) - Venous GNR lactose color dipper GNR Poss Pseudomonas sp Laboratory Tests Past 24 Hrs 09/30/18 10/01/18 10/02/18 18:30 00:40 05:00 WBC RBC Hgb Hct MCV MCH MCHC RDW RDW Differential Plt Count MPV Immature Gran % (Auto) Neut % (Auto) Lymph % (Auto) [place] % (Auto) Eos % (Auto) Baso % (Auto) Absolute Neuts (auto) Absolute Lymphs (auto) Total Counted Differential Comment Diff Path Review Reviewed Reviewed Sodium 145 Potassium 4.0 Chloride 113 H Carbon Dioxide 25.0 Anion Gap 7 BUN 16 Creatinine 0.60 Estim Creat Clear Calc 87.33 Est GFR (MDRD) Af Amer 129 Est GFR (MDRD) Non-Af 107 BUN/Creatinine Ratio 26.7 H Glucose 74 Calcium 7.9 L Phosphorus Magnesium 2.1 Blood Type Antibody Screen 10/02/18 10/02/18 10/02/18 05:00 05:00 06:40 WBC 0.2 L* RBC 2.51 L Hgb 7.4 L Hct 23.2 L MCV 92.4 MCH 29.5 MCHC 31.9 L RDW 16.2 H RDW Differential 52.6 H Plt Count 7 L* MPV 9.6 Immature Gran % (Auto) 4.800 H Neut % (Auto) 23.8 L Lymph % (Auto) 57.1 H Carbon % (Auto) 14.3 H Eos % (Auto) 0.0 Baso % (Auto) 0.0 Absolute Neuts (auto) 0.1 L Absolute Lymphs (auto) 0.12 L Total Counted Not Reportable Differential Comment SCANNED Diff Path Review May foll Sodium Potassium Chloride Carbon Dioxide Anion Gap BUN Creatinine Estim Creat Clear Calc Est GFR (MDRD) Af Amer Est GFR (MDRD) Non-Af BUN/Creatinine Ratio Glucose Calcium Phosphorus 2.8 Magnesium Blood Type A POSITIVE Antibody Screen NEGATIVE Medical Necessity - Tobacco Use Smoking Status: Former smoker Assessment/Plan All Active Problems (Last Reviewed 10/02/18 @ 14:08 by Maye Desai PA-C) Pulmonary embolism (Acute) Acute deep vein thrombosis (DVT) of both lower extremities (Acute) UTI (urinary tract infection) (Acute) Bacteremia (Acute) Ileus (Acute) Hydronephrosis (Acute) Hydroureter (Acute) Pancytopenia (Acute) Septic shock (Acute) Acute cholecystitis (Ruled-out) Constipation (Resolved) Cystitis (Acute) Gross hematuria (Acute) #1 septic shock secondary to gram-negative bacterial pyelonephritis-urine culture grew out possible Pseudomonas and gram-negative lactose color dipper, sensitivities and confirmation of the organism is not back at this time, infectious diseases is directing antibiotic coverage presently #2 pancytopenia secondary to chemotherapy-oncology is participating in her care, patient is receiving Granix subcu, she did not receive any packed red blood cells today #3 acute hypoxic respiratory failure and patient is presently on low flow nasal cannula O2 #4 acute PE with bilateral DVTs-patient now has a vena caval filter which was placed today #5 stage IV bladder cancer #6 debility secondary to multiple medical problems and septic shock-PT and OT are seeing patient Code Visit Inpatient E&M: 00123 Subs Hosp L2
--- NOTE | 2018-10-02 18:57 | PN_ITS ---
Patient Problems: Active and Suspected Problems (Last Reviewed 10/02/18 @ 14:08 by Maye Desai PA-C) Pulmonary embolism (Acute) Acute deep vein thrombosis (DVT) of both lower extremities (Acute) UTI (urinary tract infection) (Acute) Bacteremia (Acute) Ileus (Acute) Hydronephrosis (Acute) Hydroureter (Acute) Pancytopenia (Acute) Septic shock (Acute) Cystitis (Acute) Gross hematuria (Acute) Subjective: Examined in ICU today, she underwent insertion of a vena caval filter due to bilateral DVTs and a PE. She received a platelet infusion before this was performed. Patient is pancytopenic, total white blood cell count today was 200 with her neutrophil count at 46. Patient's platelet count was 7000 today before the platelet transfusion and her hemoglobin was 7.4. - Physical Exam General: Alert, Oriented x3, Cooperative, No apparent distress, Well developed HEENT: Atraumatic, PERRLA, EOMI, Normocephalic Oral: Moist Mucosa Neck: Supple, No JVD, Trachea Midline, Thyroid Normal Size and Texture Lungs: Clear to auscultation, Normal air movement, No rhonchi, No wheeze, No rales Cardiovascular: Regular rate, No murmurs Abdomen: Bowel Sounds Present, Soft, Non Tender, Non-Distended Extremities: No clubbing, No cyanosis, No edema, Capillary Refill Less than 3 Seconds Skin: No rashes, No breakdown Musculoskeletal: No Tenderness to Palpation of Joints or Extremities Neurological: Cranial nerves II-XII grossly intact, Neuro grossly intact, Sensory exam intact to light touch and pain Psych/Mental Status: Appropriate, Flat Affect, Alert and oriented to time, place, person, mood and affect Vital Signs Temp Pulse Resp BP Pulse Ox 99.2 F H 85 16 138/86 H 94 10/02/18 14:08 10/02/18 16:00 10/02/18 16:00 10/02/18 15:00 10/02/18 16:00 Oxygen Flow Rate (L/min) 1 Oxygen Delivery Method Nasal Cannula Weight: 58.4 kg Body Mass Index (BMI) 25.9 Finger Stick Blood Glucose 132 Intake and Output for Last 24 Hours 10/01/18 10/01/18 10/02/18 00:59 23:59 23:59 Intake Total 1106 / 1106 Output Total 1050 / 1050 Balance 56 / 56 Microbiology Past 72 Hours 09/30/18 19:35 Urine Culture - Preliminary Urine, Clean Catch GNR Poss Pseudomonas sp GNR lactose echocardiography technologist 09/30/18 19:05 Blood Culture - Preliminary Blood Culture (Wb) - Venous GNR Poss Pseudomonas sp 09/30/18 18:30 Blood Culture - Preliminary Blood Culture (Wb) - Venous GNR lactose echocardiography technologist GNR Poss Pseudomonas sp Laboratory Tests Past 24 Hrs 09/30/18 10/01/18 10/02/18 18:30 00:40 05:00 WBC RBC Hgb Hct MCV MCH MCHC RDW RDW Differential Plt Count MPV Immature Gran % (Auto) Neut % (Auto) Lymph % (Auto) [place] % (Auto) Eos % (Auto) Baso % (Auto) Absolute Neuts (auto) Absolute Lymphs (auto) Total Counted Differential Comment Diff Path Review Reviewed Reviewed Sodium 145 Potassium 4.0 Chloride 113 H Carbon Dioxide 25.0 Anion Gap 7 BUN 16 Creatinine 0.60 Estim Creat Clear Calc 87.33 Est GFR (MDRD) Af Amer 129 Est GFR (MDRD) Non-Af 107 BUN/Creatinine Ratio 26.7 H Glucose 74 Calcium 7.9 L Phosphorus Magnesium 2.1 Blood Type Antibody Screen 10/02/18 10/02/18 10/02/18 05:00 05:00 06:40 WBC 0.2 L* RBC 2.51 L Hgb 7.4 L Hct 23.2 L MCV 92.4 MCH 29.5 MCHC 31.9 L RDW 16.2 H RDW Differential 52.6 H Plt Count 7 L* MPV 9.6 Immature Gran % (Auto) 4.800 H Neut % (Auto) 23.8 L Lymph % (Auto) 57.1 H [place] % (Auto) 14.3 H Eos % (Auto) 0.0 Baso % (Auto) 0.0 Absolute Neuts (auto) 0.1 L Absolute Lymphs (auto) 0.12 L Total Counted Not Reportable Differential Comment SCANNED Diff Path Review May foll Sodium Potassium Chloride Carbon Dioxide Anion Gap BUN Creatinine Estim Creat Clear Calc Est GFR (MDRD) Af Amer Est GFR (MDRD) Non-Af BUN/Creatinine Ratio Glucose Calcium Phosphorus 2.8 Magnesium Blood Type A POSITIVE Antibody Screen NEGATIVE Medical Necessity - Tobacco Use Smoking Status: Former smoker Assessment/Plan All Active Problems (Last Reviewed 10/02/18 @ 14:08 by Maye Desai PA-C) Pulmonary embolism (Acute) Acute deep vein thrombosis (DVT) of both lower extremities (Acute) UTI (urinary tract infection) (Acute) Bacteremia (Acute) Ileus (Acute) Hydronephrosis (Acute) Hydroureter (Acute) Pancytopenia (Acute) Septic shock (Acute) Acute cholecystitis (Ruled-out) Constipation (Resolved) Cystitis (Acute) Gross hematuria (Acute) #1 septic shock secondary to gram-negative bacterial pyelonephritis-urine culture grew out possible Pseudomonas and gram-negative lactose echocardiography technologist, sensitivities and confirmation of the organism is not back at this time, infectious diseases is directing antibiotic coverage presently #2 pancytopenia secondary to chemotherapy-oncology is participating in her care, patient is receiving Granix subcu, she did not receive any packed red blood cells today #3 acute hypoxic respiratory failure and patient is presently on low flow nasal cannula O2 #4 acute PE with bilateral DVTs-patient now has a vena caval filter which was placed today #5 stage IV bladder cancer #6 debility secondary to multiple medical problems and septic shock-PT and OT are seeing patient Code Visit Inpatient E&M: 22316 Subs Hosp L2
[2018-10-02] MEDS: oxyCODONE 5 MG Tablet PO (19:58)
[2018-10-02] MEDS: Atorvastatin Calcium 80 MG Tablet PO (21:25)
[2018-10-02] MEDS: Polyethylene Glycol 3350 17 GM PACKET PO (21:25)
[2018-10-02] MEDS: traZODone 50 MG Tablet PO (21:26)
[2018-10-03] VITALS (23 sets, daily range): BP systolic 103–160; BP diastolic 75–100; PULSE 46–79; RESP 12–20; TEMP 35.8–36.7; O2SAT 90–100
[2018-10-03] MEDS: oxyCODONE 5 MG Tablet PO ×3 (04:10→18:02)
[2018-10-03] MEDS: Acetaminophen 325 MG Tablet 650 MG PO ×3 (04:11→18:02)
[2018-10-03] MEDS: 0.9% NaCl VAD Flush 10 ML IV ×2 (04:12→11:49)
[2018-10-03 04:48] LABS: Anion Gap 6 (5-15); BUN 20 mg/dL (7-18); Calcium,Total 8.1 mg/dL (8.5-10.1); Chloride 113 mmol/L (98-107); Creatinine, Serum 0.61 mg/dL (0.55-1.02); EST Glomerular Filtration Rate 106 mL/min (>60); Est Glom Filt Rate - Afr Amer 128 mL/min (>60); Estimated Creatinine Clearance 85.16 ml/min; Glucose 56 mg/dL (74-106); Magnesium 2.5 mg/dL (1.6-2.6); Potassium 3.6 mmol/L (3.5-5.1); Sodium Level 145 mmol/L (136-145)
[2018-10-03 04:59] LABS: Phosphorus 2.3 mg/dL (2.5-4.9)
[2018-10-03 05:48] LABS: Absolute Lymphocyte Count 0.27 X10^3/ul (0.83-4.51); Hematocrit 23.6 % (37-47); Hemoglobin 7.5 g/dl (12.0-15.0); Lymphocyte # 0.27 X10^3/ul (4.0); Mean Corp Hgb Conc 31.8 g/gl (32-36); Mean Corpuscular Volume 91.1 fL (81-99); Mean Platelet Vol. 8.5 fl (6.2-12.0); Monocyte# 0.23 X10^3/uL; RBC Distribution Width CV 16.5 % (11.6-14.6); RBC Distribution Width SD 55.5 fl (35.1-43.9); Red Blood Count 2.59 M/mm3 (4.2-5.4)
[2018-10-03] MEDS: Levothyroxine 50 MCG Tablet PO (05:48)
[2018-10-03] MEDS: Hydrocortisone Sod Succinate 100 MG/2 ML Vial 50 MG IV ×2 (05:50→09:49)
[2018-10-03 05:53] LABS: Differential Indicated SCAN CRITERIA MET; POSITIVE COUNT YES; POSITIVE DIFFERENTIAL YES; POSITIVE MORPHOLOGY YES; Platelet Count 34 K/mm3 (150-450); White Blood Count 0.5 K/mm3 (4.4-11.0)
[2018-10-03 06:09] LABS: Differential Comment SEE COMMENTS
[2018-10-03 06:10] LABS: Anisocytosis RARE; Hypochromasia RARE; Macrocytosis RARE; Platelet Estimate MKD DEC (ADEQ)
--- NOTE | 2018-10-03 06:47 | PN_ITS ---
Subjective: The patient was seen and examined at the bedside this morning. Events from the last 24 hours have been reviewed. The patient is currently afebrile, hemodynamically stable and maintaining appropriate oxygen saturations on 1 L/min via nasal cannula. The patient did receive transfusion of platelets yesterday, with subsequent improvement in her platelet count this morning to 34,000. Her hemoglobin remained stable at 7.5 g/dL. She did undergo successful IVC filter placement yesterday. Objective: The patient's most recent lab work, culture data and imaging studies have all been personally reviewed. CTA chest dated September 30 revealed subsegmental right lower lobe pulmonary emboli. Head CT revealed mild periventricular white matter ischemic changes without mass or acute bleed. CT abdomen/pelvis revealed moderate right hydro-nephrosis and mild left hydroureter. Nonspecific ileus was noted with diffuse fecal retention in the colon. Initial blood cultures dated September 30 were positive for gram-negative beto, possible Pseudomonas. Follow-up blood cultures dated October 01 have not shown any growth to date. Urine culture was positive for pseudomonas aeruginosa. General: Alert, Cooperative, No apparent distress HEENT: Atraumatic, PERRLA, Normocephalic Oral: No Gingival or Mucosal Lesions/ Ulcerations Neck: Supple, No Nodes, Trachea Midline Lungs: No rhonchi, No wheeze, No rales, Diminished Cardiovascular: Regular rate, Regular Rhythm, Normal S1, Normal S2, No murmurs Abdomen: Bowel Sounds Present, Soft, Non Tender Extremities: No clubbing, No cyanosis, Edema Skin: No breakdown Musculoskeletal: No Tenderness to Palpation of Joints or Extremities Lymphatic: No Cervical, Supraclavicular, or Inguinal Adenopathy Neurological: Cranial nerves II-XII grossly intact, Neuro grossly intact Psych/Mental Status: Flat Affect Vital Signs Temp Pulse Resp BP Pulse Ox 97.2 F L 70 17 148/93 H 91 10/03/18 04:00 10/03/18 06:00 10/03/18 06:00 10/03/18 06:00 10/03/18 06:00 Oxygen Flow Rate (L/min) 1 Oxygen Delivery Method Nasal Cannula Weight: 127 lb 10.362 oz Body Mass Index (BMI) 25.9 Finger Stick Blood Glucose 132 Intake and Output for Last 24 Hours 10/01/18 10/02/18 10/03/18 23:59 23:59 23:59 Intake Total 1923 169 / 169 Output Total 1999 50 / 50 Balance -76 / -76 119 / 119 Labs (Last 48 Hours) 09/30/18 10/01/18 10/01/18 18:30 00:40 03:30 WBC RBC Hgb Hct MCV MCH MCHC RDW RDW Differential Plt Count MPV Immature Gran % (Auto) Neut % (Auto) Lymph % (Auto) [place] % (Auto) Eos % (Auto) Baso % (Auto) Absolute Neuts (auto) Absolute Lymphs (auto) Total Counted Differential Comment Diff Path Review Reviewed Reviewed Platelet Estimate Hypochromasia Anisocytosis Macrocytosis Sodium Potassium Chloride Carbon Dioxide Anion Gap BUN Creatinine Estim Creat Clear Calc Est GFR (MDRD) Af Amer Est GFR (MDRD) Non-Af BUN/Creatinine Ratio Glucose Calcium Phosphorus 2.7 Magnesium 1.8 MRSA (PCR) POC Glucose Blood Type Antibody Screen 10/01/18 10/01/18 10/02/18 05:54 11:50 05:00 WBC RBC Hgb Hct MCV MCH MCHC RDW RDW Differential Plt Count MPV Immature Gran % (Auto) Neut % (Auto) Lymph % (Auto) [place] % (Auto) Eos % (Auto) Baso % (Auto) Absolute Neuts (auto) Absolute Lymphs (auto) Total Counted Differential Comment Diff Path Review Platelet Estimate Hypochromasia Anisocytosis Macrocytosis Sodium 145 Potassium 4.0 Chloride 113 H Carbon Dioxide 25.0 Anion Gap 7 BUN 16 Creatinine 0.60 Estim Creat Clear Calc 87.33 Est GFR (MDRD) Af Amer 129 Est GFR (MDRD) Non-Af 107 BUN/Creatinine Ratio 26.7 H Glucose 74 Calcium 7.9 L Phosphorus Magnesium 2.1 MRSA (PCR) Negative POC Glucose 198 H Blood Type Antibody Screen 10/02/18 10/02/18 10/02/18 05:00 05:00 06:40 WBC 0.2 L* RBC 2.51 L Hgb 7.4 L Hct 23.2 L MCV 92.4 MCH 29.5 MCHC 31.9 L RDW 16.2 H RDW Differential 52.6 H Plt Count 7 L* MPV 9.6 Immature Gran % (Auto) 4.800 H Neut % (Auto) 23.8 L Lymph % (Auto) 57.1 H [place] % (Auto) 14.3 H Eos % (Auto) 0.0 Baso % (Auto) 0.0 Absolute Neuts (auto) 0.1 L Absolute Lymphs (auto) 0.12 L Total Counted Not Reportable Differential Comment SCANNED Diff Path Review May foll Platelet Estimate Hypochromasia Anisocytosis Macrocytosis Sodium Potassium Chloride Carbon Dioxide Anion Gap BUN Creatinine Estim Creat Clear Calc Est GFR (MDRD) Af Amer Est GFR (MDRD) Non-Af BUN/Creatinine Ratio Glucose Calcium Phosphorus 2.8 Magnesium MRSA (PCR) POC Glucose Blood Type A POSITIVE Antibody Screen NEGATIVE 10/03/18 10/03/18 10/03/18 03:52 03:52 03:52 WBC 0.5 L* RBC 2.59 L Hgb 7.5 L Hct 23.6 L MCV 91.1 MCH 29.0 MCHC 31.8 L RDW 16.5 H RDW Differential 55.5 H Plt Count 34 L* MPV 8.5 Immature Gran % (Auto) 0.000 Neut % (Auto) 0.0 L Lymph % (Auto) 54.0 H [place] % (Auto) 46.0 H Eos % (Auto) 0.0 Baso % (Auto) 0.0 Absolute Neuts (auto) 0.0 L Absolute Lymphs (auto) 0.27 L Total Counted Not Reportable Differential Comment SEE COMMENTS Diff Path Review May foll Platelet Estimate MKD DEC Hypochromasia RARE Anisocytosis RARE Macrocytosis RARE Sodium 145 Potassium 3.6 Chloride 113 H Carbon Dioxide 26.0 Anion Gap 6 BUN 20 H Creatinine 0.61 Estim Creat Clear Calc 85.16 Est GFR (MDRD) Af Amer 128 Est GFR (MDRD) Non-Af 106 BUN/Creatinine Ratio 33.0 H Glucose 56 L Calcium 8.1 L Phosphorus 2.3 L Magnesium 2.5 MRSA (PCR) POC Glucose Blood Type Antibody Screen Microbiology 09/30/18 19:35 Urine, Clean Catch Urine Culture - Preliminary GNR Poss Pseudomonas sp GNR lactose chief estimator 09/30/18 19:05 Blood Culture (Wb) - Venous Blood Culture - Preliminary GNR Poss Pseudomonas sp 09/30/18 18:30 Blood Culture (Wb) - Venous Blood Culture - Preliminary GNR lactose chief estimator GNR Poss Pseudomonas sp Clinical Impression(s) from Imaging Studies Brain CT 09/30/18 18:35 IMPRESSION: Mild periventricular white matter ischemic changes. No mass or acute bleed. If concern for metastatic disease MRI recommended for further evaluation Electronically Signed: Moy Henao MD at 20:33 EDT , Service support , Chest X-Ray 09/30/18 18:36 IMPRESSION: Stable appearance of the chest with no acute pathology. New right internal jugular catheter as described. Electronically Signed: Jesus Hutchison MD at 19:36 EDT , Service support , Chest CTA 09/30/18 18:55 IMPRESSION: Pulmonary emboli to the subsegmental vessels of the right lower lobe Chronic interstitial changes and minor atelectasis within the dependent portion of the lungs. Electronically Signed: Moy Henao MD at 20:56 EDT , Service support , Abdomen/Pelvis CT 09/30/18 20:50 IMPRESSION: Postsurgical changes status post cystectomy and right ileal conduit. Moderate right hydroureteronephrosis and mild left hydroureter in association with thick-walled ileal conduit and focal narrowing of the lumen. Nonspecific ileus with diffuse fecal retention in the colon Status post cholecystectomy, cystectomy and hysterectomy Other findings as above Electronically Signed: Moy Henao MD at 22:35 EDT , Service support , Medical Necessity - Tobacco Use Smoking Status: Former smoker Assessment/Plan All Active Problems (Last Reviewed 10/02/18 @ 14:08 by Maye Desai PA-C) Pulmonary embolism (Acute) Acute deep vein thrombosis (DVT) of both lower extremities (Acute) UTI (urinary tract infection) (Acute) Bacteremia (Acute) Ileus (Acute) Hydronephrosis (Acute) Hydroureter (Acute) Pancytopenia (Acute) Septic shock (Acute) Acute cholecystitis (Ruled-out) Constipation (Resolved) Cystitis (Acute) Gross hematuria (Acute) RECOMMENDATIONS: 1. Continue to monitor blood counts daily. Transfuse if hemoglobin drops below 7 g/dL. 2. Continue antibiotics per ID recommendations. 3. Wean stress dose steroids. 4. Continue Granix. 5. Wean supplemental oxygen to maintain saturations at or above 90%. Encourage incentive spirometer use and mobilize patient as tolerated. IMPRESSIONS: 1. Septic shock secondary to gram-negative bacteremia Resolved at this time. The patient has stabilized over the last 24-48 hours. Repeat blood cultures have cleared. Urine culture was positive for pseudomonas aeruginosa. She remains on antibiotics per the discretion of infectious diseases. 2. Pancytopenia Likely secondary to the effects of chemotherapy coupled with #1. The patient's jaime platelet count was 7000, for which she received a platelet transfusion, with subsequent improvement in her counts. Her hemoglobin remained stable. Would plan to continue to monitor and transfuse if drops below 7 g/dL. Continue Granix as ordered. 3. Acute hypoxic respiratory failure/subsegmental pulmonary emboli The patient was noted on presentation to have a subsegmental PE. However, in the setting of her pancytopenia and hematuria noted on admission, she was not considered to be a candidate for anticoagulation. Subsequent lower extremity Doppler study did reveal the presence of bilateral lower extremity DVTs. Given that the patient had a contraindication to being anticoagulated, she did undergo IVC filter placement on October 02. 4. Stage IV bladder cancer The patient has been receiving palliative chemotherapy by oncology. She remains a full CODE STATUS at the present time. Oncology is following. 5. Debility/chronic pain syndrome/anxiety/depression/hypothyroidism/hyperlipidemia/ileus Complicates care, management, recovery and prognosis. Continue antiemetics as needed. Physical therapy to work with patient today. This note was generated with [employer] dictation software. It may contain incorrect words, spelling, and punctuation that were not noted in checking the note before signing. DISPOSITION: The patient is medically stable for transfer out of the intensive care unit. Code Visit Inpatient E&M: 39618 Subs Hosp L2
[2018-10-03 08:31] LABS: Bedside Glucose 76 mg/dL (70-110)
[2018-10-03] MEDS: Polyethylene Glycol 3350 17 GM PACKET PO ×2 (09:50→21:29)
[2018-10-03] MEDS: TBO-FILGRASTIM 300 MCG/0.5 ML ML SC (09:51)
[2018-10-03] MEDS: Pantoprazole Sodium 40 MG Tablet PO (09:52)
[2018-10-03] MEDS: buPROPion (XL) 150 MG TABLET.XL PO (09:52)
[2018-10-03] MEDS: Fluconazole 100 MG Tablet PO (09:52)
[2018-10-03 10:35] LABS: Pathologist Review Reviewed
--- NOTE | 2018-10-03 10:39 | PN.ID_ITS ---
Patient Problems: Active and Suspected Problems (Last Reviewed 10/02/18 @ 14:08 by Maye Desai PA-C) Pulmonary embolism (Acute) Acute deep vein thrombosis (DVT) of both lower extremities (Acute) UTI (urinary tract infection) (Acute) Bacteremia (Acute) Ileus (Acute) Hydronephrosis (Acute) Hydroureter (Acute) Pancytopenia (Acute) Septic shock (Acute) Cystitis (Acute) Gross hematuria (Acute) Subjective: Feeling better, no fever, some back pain. - Physical Exam General: Alert, Cooperative Lungs: Clear to auscultation, Normal air movement Cardiovascular: Tachycardic Abdomen: Soft, Non Tender, Non-Distended Skin: No rashes Vital Signs Temp Pulse Resp BP Pulse Ox 97.0 F L 78 20 H 145/99 H 90 10/03/18 08:00 10/03/18 10:00 10/03/18 10:00 10/03/18 10:00 10/03/18 10:00 Oxygen Flow Rate (L/min) 1 Oxygen Delivery Method Nasal Cannula Weight: 57.9 kg Body Mass Index (BMI) 25.9 Finger Stick Blood Glucose 132 Intake and Output for Last 24 Hours 10/01/18 10/02/18 10/03/18 23:59 23:59 23:59 Intake Total 1924 / 1924 169 / 169 Output Total 1999 50 / 50 Balance -76 / -76 119 / 119 Microbiology Past 72 Hours 09/30/18 18:30 Blood Culture - Preliminary Blood Culture (Wb) - Venous Klebsiella pneumoniae sp pneum GNR non bereavement coordinator Pseudomonas aeroginosa 09/30/18 19:05 Blood Culture - Preliminary Blood Culture (Wb) - Venous Pseudomonas aeroginosa 09/30/18 19:35 Urine Culture - Preliminary Urine, Clean Catch Pseudomonas aeroginosa GNR lactose bereavement coordinator Laboratory Tests Past 24 Hrs 09/30/18 10/01/18 10/02/18 18:30 00:40 05:00 WBC RBC Hgb Hct MCV MCH MCHC RDW RDW Differential Plt Count MPV Immature Gran % (Auto) Neut % (Auto) Lymph % (Auto) [place] % (Auto) Eos % (Auto) Baso % (Auto) Absolute Neuts (auto) Absolute Lymphs (auto) Total Counted Differential Comment Diff Path Review Reviewed Reviewed Reviewed Platelet Estimate Hypochromasia Anisocytosis Macrocytosis Sodium Potassium Chloride Carbon Dioxide Anion Gap BUN Creatinine Estim Creat Clear Calc Est GFR (MDRD) Af Amer Est GFR (MDRD) Non-Af BUN/Creatinine Ratio Glucose Calcium Phosphorus Magnesium 10/03/18 10/03/18 10/03/18 03:52 03:52 03:52 WBC 0.5 L* RBC 2.59 L Hgb 7.5 L Hct 23.6 L MCV 91.1 MCH 29.0 MCHC 31.8 L RDW 16.5 H RDW Differential 55.5 H Plt Count 34 L* MPV 8.5 Immature Gran % (Auto) 0.000 Neut % (Auto) 0.0 L Lymph % (Auto) 54.0 H [place] % (Auto) 46.0 H Eos % (Auto) 0.0 Baso % (Auto) 0.0 Absolute Neuts (auto) 0.0 L Absolute Lymphs (auto) 0.27 L Total Counted Not Reportable Differential Comment SEE COMMENTS Diff Path Review May foll Platelet Estimate MKD DEC Hypochromasia RARE Anisocytosis RARE Macrocytosis RARE Sodium 145 Potassium 3.6 Chloride 113 H Carbon Dioxide 26.0 Anion Gap 6 BUN 20 H Creatinine 0.61 Estim Creat Clear Calc 85.16 Est GFR (MDRD) Af Amer 128 Est GFR (MDRD) Non-Af 106 BUN/Creatinine Ratio 33.0 H Glucose 56 L Calcium 8.1 L Phosphorus 2.3 L Magnesium 2.5 POC Glucose 10/03/18 08:24 POC Glucose 76 Medical Necessity - Tobacco Use Smoking Status: Former smoker Route of nutrition/ use of supplements: [] Nutritional Intake: [] IV Site: [] Suarez Catheter: [] - Assessment/Plan Antibiotics: [] Assessment/Plan: [] Active and Suspected Problems (Last Reviewed 10/02/18 @ 14:08 by Maye Desai PA-C) Pulmonary embolism (Acute) Acute deep vein thrombosis (DVT) of both lower extremities (Acute) UTI (urinary tract infection) (Acute) Bacteremia (Acute) Ileus (Acute) Hydronephrosis (Acute) Hydroureter (Acute) Pancytopenia (Acute) Septic shock (Acute) Cystitis (Acute) Gross hematuria (Acute) Septic shock with pancytopenia and GNR bacteremia - neutropenic precautions. Repeat bcx pending. Bcx here so far showing PsA, klebs, and GNR. Continue meropenem. Vanc was stopped. DVT and PE - IVC filter placed Will follow
--- NOTE | 2018-10-03 10:49 | NURSING ---
Pt requested that her urostomy appliance be changed today. pt uses a 1 piece convex pre-cut [place] appliance. pt did not bring any of her own supplies with her. removed appliance. peristomal skin is intact. stoma measures approx 7/8. cleansed peristomal skin with warm water and pat dry. applied a 1 piece convex [place]isco appliance. pt tolerated well. pt denies further needs at this time.
[2018-10-03 10:50] LABS: Pathologist Review Reviewed
--- NOTE | 2018-10-03 11:56 | CASEMGMT ---
LUDWIN spoke with patient this am per her request. She told SW she does not want Anyone to trump her daughters or sister. LUDWIN told her that right now she has her friend Tobin listed as her healthcare POA. She asked SW what she needs to do to change this. LUDWIN told her SW can just re-do the papers with her. She wanted to do that now. SW revised the healthcare POA and LW with patient. Copies were made and placed in chart. Patient wanted SW to contact her transfer knitter and give her the papers. She wanted her daughter Lucia to be healthcare POA, then her daughter Ayla, and then her sister, Alena. She was frustrated and upset with her roommate, Tobin. She was hesitant to talk about this, but then she continued to talk. She said he was giving her, her meds incorrectly intentionally. SW asked why she thought this and she said, The way he lined them up. She said she does not want to talk with him about this as he has her 4 dogs and she isn't sure how he will react. SW asked if she needed help talking with him and she said right now she isn't sure what she wants to do. When SW went to give her copies of the new advance directives she wanted SW to keep them for now as she did not want him to see them. She said she isn't brave or strong enough to tell him right now. SW asked if she is ok with him visiting and she said she is fine with him visiting. She mentioned several times throughout conversation how mad she was at him for giving her, her medications wrong. She said, I'm fighting for myself. She also said several times she does not want Anyone to trump her daughters or sister. (in regards to decisions) SW spoke with patient about when she is discharged from [facility]. SW told her she will likely need to go to a prison facility for rehab. SW told her the doctor's will want her to be stronger before they can continue with her treatment. She verbalized understanding and asked how long is short term. LUDWIN told her it depends on how long it takes her to bounce back. She said she may go live with her daughter, Ayla. However, this will be awhile before that can happen as she has a lot to do. LUDWIN told her SW had a voice mail from her sister and was it ok for SW to call her back. She said absolutely, SW can call her and her daughters about anything. LUDWIN told her SW will follow along for support and d/c planning. Sandy SAMSON
--- NOTE | 2018-10-03 12:08 | PCM.PN.SRG ---
Patient Problems: Active and Suspected Problems (Last Reviewed 10/02/18 @ 14:08 by Maye Desai PA-C) Pulmonary embolism (Acute) Acute deep vein thrombosis (DVT) of both lower extremities (Acute) UTI (urinary tract infection) (Acute) Bacteremia (Acute) Ileus (Acute) Hydronephrosis (Acute) Hydroureter (Acute) Pancytopenia (Acute) Septic shock (Acute) Cystitis (Acute) Gross hematuria (Acute) Subjective: Patient continued to have bowel function without any laxatives. Patient currently standing with a walker to work with physical therapy - Physical Exam General: Alert, Oriented x3, Cooperative, No apparent distress Vital Signs Temp Pulse Resp BP Pulse Ox 96.5 F L 65 18 160/99 H 95 10/03/18 12:00 10/03/18 12:00 10/03/18 12:00 10/03/18 12:00 10/03/18 12:00 Oxygen Flow Rate (L/min) 1 Oxygen Delivery Method Nasal Cannula Weight: 127 lb 10.362 oz Body Mass Index (BMI) 25.9 Finger Stick Blood Glucose 132 Intake and Output for Last 24 Hours 10/01/18 10/02/18 10/03/18 23:59 23:59 23:59 Intake Total 1924 / 1924 509 / 509 Output Total 1999 150 / 150 Balance -76 / -76 359 / 359 Microbiology Past 72 Hours 09/30/18 18:30 Blood Culture - Preliminary Blood Culture (Wb) - Venous Klebsiella pneumoniae sp pneum GNR non competency evaluated nurse aide Pseudomonas aeroginosa 09/30/18 19:05 Blood Culture - Preliminary Blood Culture (Wb) - Venous Pseudomonas aeroginosa 09/30/18 19:35 Urine Culture - Preliminary Urine, Clean Catch Pseudomonas aeroginosa GNR lactose competency evaluated nurse aide Laboratory Tests Past 24 Hrs 09/30/18 10/01/18 10/02/18 18:30 00:40 05:00 WBC RBC Hgb Hct MCV MCH MCHC RDW RDW Differential Plt Count MPV Immature Gran % (Auto) Neut % (Auto) Lymph % (Auto) [place] % (Auto) Eos % (Auto) Baso % (Auto) Absolute Neuts (auto) Absolute Lymphs (auto) Total Counted Differential Comment Diff Path Review Reviewed Reviewed Reviewed Platelet Estimate Hypochromasia Anisocytosis Macrocytosis Sodium Potassium Chloride Carbon Dioxide Anion Gap BUN Creatinine Estim Creat Clear Calc Est GFR (MDRD) Af Amer Est GFR (MDRD) Non-Af BUN/Creatinine Ratio Glucose Calcium Phosphorus Magnesium 10/03/18 10/03/18 10/03/18 03:52 03:52 03:52 WBC 0.5 L* RBC 2.59 L Hgb 7.5 L Hct 23.6 L MCV 91.1 MCH 29.0 MCHC 31.8 L RDW 16.5 H RDW Differential 55.5 H Plt Count 34 L* MPV 8.5 Immature Gran % (Auto) 0.000 Neut % (Auto) 0.0 L Lymph % (Auto) 54.0 H [place] % (Auto) 46.0 H Eos % (Auto) 0.0 Baso % (Auto) 0.0 Absolute Neuts (auto) 0.0 L Absolute Lymphs (auto) 0.27 L Total Counted Not Reportable Differential Comment SEE COMMENTS Diff Path Review Reviewed Platelet Estimate MKD DEC Hypochromasia RARE Anisocytosis RARE Macrocytosis RARE Sodium 145 Potassium 3.6 Chloride 113 H Carbon Dioxide 26.0 Anion Gap 6 BUN 20 H Creatinine 0.61 Estim Creat Clear Calc 85.16 Est GFR (MDRD) Af Amer 128 Est GFR (MDRD) Non-Af 106 BUN/Creatinine Ratio 33.0 H Glucose 56 L Calcium 8.1 L Phosphorus 2.3 L Magnesium 2.5 POC Glucose 10/03/18 08:24 POC Glucose 76 Medical Necessity - Tobacco Use Smoking Status: Former smoker Assessment/Plan All Active Problems (Last Reviewed 10/02/18 @ 14:08 by Maye Desai PA-C) Pulmonary embolism (Acute) Acute deep vein thrombosis (DVT) of both lower extremities (Acute) UTI (urinary tract infection) (Acute) Bacteremia (Acute) Ileus (Acute) Hydronephrosis (Acute) Hydroureter (Acute) Pancytopenia (Acute) Septic shock (Acute) Acute cholecystitis (Ruled-out) Constipation (Resolved) Cystitis (Acute) Gross hematuria (Acute) 63-year-old female with septic shock, urine negative rods bacteremia, urinary tract infection, bladder cancer, possible ileus per CT 1. Patient has been having bowel function no signs of ileus. Port site remains non-erythematous. No acute general surgery intervention, call with any questions. Desiree Alston M.D. Pager: [phone] [facility] [address] [place] [address], [address] [place] [address] Office: [phone]
--- NOTE | 2018-10-03 12:14 | CASEMGMT ---
LUDWIN called patient's sister, Alena back. She said she wanted to tell SW about her concerns with patient's home situation. However, she talked with patient and she wants to come and live with her so it is a mute point now. She had concerns with how he administered her medication. She stayed with them for 6 days and she was concerned then, but patient seemed fine so she left it. She said patient's daughters just happen to come and see patient and all this then came up. They did not have any intentions of taking her out of the home until they realized what happened. She thanked LUDWIN for checking with her. She is aware patient will need to go somewhere for rehab. LUDWIN received a call from patient's daughter, Ayla. She told SW her daughter stayed with patient and Tobin for a few days. She had some concerns with the way Tobin gave patient her medications. She wanted to know if she could give SW's number to her daughter so she can call SW with these concerns. LUDWIN told her that was fine. LUDWIN then received a call from Luisa, Patient Navigator, with [facility]. Tobin spoke with her today. He told her that he is the healthcare and financial POA for patient. He wanted to know if there was anyway to keep patient's daughters from coming to the hospital. He said they have not been involved until the last few months. Luisa let him know if patient is alert and oriented she can control who can visit and who cannot visit. He said patient's family wants patient to move to another state with daughter or sister, stop chemo and just . He said patient does not want to leave the area. LUDWIN thanked Luisa for the information. LUDWIN to continue to follow. Sandy SAMSON
--- NOTE | 2018-10-03 13:13 | CASEMGMT ---
Addendum entered by Sandy Garcia 10/03/18 15:02: SW called patient's daughter, Lucia and let her know that SW completed new advance directives with patient. She named her as the main POA. SW also told her she was moved to another floor and gave her the name and number of the SW on [facility]. SW also let [facility] SW know the situation. Plan: likely placement in [facility] facility. Sandy SAMSON Original Note: SW called patient's corporate associate attorney and she said she did not need copies of the documents. She appreciated SW checking. SW will call patient's daughter and let her know about the change in healthcare POA. Sandy MCCLELLAND MSW
--- NOTE | 2018-10-03 13:47 | PCM.PN.SRG ---
Patient Problems: Active and Suspected Problems (Last Reviewed 10/02/18 @ 14:08 by Maye Desai PA-C) Pulmonary embolism (Acute) Acute deep vein thrombosis (DVT) of both lower extremities (Acute) UTI (urinary tract infection) (Acute) Bacteremia (Acute) Ileus (Acute) Hydronephrosis (Acute) Hydroureter (Acute) Pancytopenia (Acute) Septic shock (Acute) Cystitis (Acute) Gross hematuria (Acute) Subjective: Patient evaluated. Minimal amount of discomfort at the right neck site. - Physical Exam General: Cooperative Neck: - - Right neck- dressing intact with minimal amount of bloody drainage. No active bleeding at this time. Vital Signs Temp Pulse Resp BP Pulse Ox 96.5 F L 65 18 160/99 H 95 10/03/18 12:00 10/03/18 12:00 10/03/18 12:00 10/03/18 12:00 10/03/18 12:00 Oxygen Flow Rate (L/min) 1 Oxygen Delivery Method Nasal Cannula Weight: 127 lb 10.362 oz Body Mass Index (BMI) 25.9 Finger Stick Blood Glucose 132 Intake and Output for Last 24 Hours 10/01/18 10/02/18 10/03/18 23:59 23:59 23:59 Intake Total 1924 / 1924 509 / 509 Output Total 1999 150 / 150 Balance -76 / -76 359 / 359 Microbiology Past 72 Hours 09/30/18 18:30 Blood Culture - Preliminary Blood Culture (Wb) - Venous Klebsiella pneumoniae sp pneum GNR non sales technician home theater Pseudomonas aeroginosa 09/30/18 19:05 Blood Culture - Preliminary Blood Culture (Wb) - Venous Pseudomonas aeroginosa 09/30/18 19:35 Urine Culture - Preliminary Urine, Clean Catch Pseudomonas aeroginosa GNR lactose sales technician home theater Laboratory Tests Past 24 Hrs 09/30/18 10/01/18 10/02/18 18:30 00:40 05:00 WBC RBC Hgb Hct MCV MCH MCHC RDW RDW Differential Plt Count MPV Immature Gran % (Auto) Neut % (Auto) Lymph % (Auto) [place] % (Auto) Eos % (Auto) Baso % (Auto) Absolute Neuts (auto) Absolute Lymphs (auto) Total Counted Differential Comment Diff Path Review Reviewed Reviewed Reviewed Platelet Estimate Hypochromasia Anisocytosis Macrocytosis Sodium Potassium Chloride Carbon Dioxide Anion Gap BUN Creatinine Estim Creat Clear Calc Est GFR (MDRD) Af Amer Est GFR (MDRD) Non-Af BUN/Creatinine Ratio Glucose Calcium Phosphorus Magnesium 10/03/18 10/03/18 10/03/18 03:52 03:52 03:52 WBC 0.5 L* RBC 2.59 L Hgb 7.5 L Hct 23.6 L MCV 91.1 MCH 29.0 MCHC 31.8 L RDW 16.5 H RDW Differential 55.5 H Plt Count 34 L* MPV 8.5 Immature Gran % (Auto) 0.000 Neut % (Auto) 0.0 L Lymph % (Auto) 54.0 H [place] % (Auto) 46.0 H Eos % (Auto) 0.0 Baso % (Auto) 0.0 Absolute Neuts (auto) 0.0 L Absolute Lymphs (auto) 0.27 L Total Counted Not Reportable Differential Comment SEE COMMENTS Diff Path Review Reviewed Platelet Estimate MKD DEC Hypochromasia RARE Anisocytosis RARE Macrocytosis RARE Sodium 145 Potassium 3.6 Chloride 113 H Carbon Dioxide 26.0 Anion Gap 6 BUN 20 H Creatinine 0.61 Estim Creat Clear Calc 85.16 Est GFR (MDRD) Af Amer 128 Est GFR (MDRD) Non-Af 106 BUN/Creatinine Ratio 33.0 H Glucose 56 L Calcium 8.1 L Phosphorus 2.3 L Magnesium 2.5 POC Glucose 10/03/18 08:24 POC Glucose 76 Medical Necessity - Tobacco Use Smoking Status: Former smoker Assessment/Plan All Active Problems (Last Reviewed 10/02/18 @ 14:08 by Maye Desai PA-C) Pulmonary embolism (Acute) Acute deep vein thrombosis (DVT) of both lower extremities (Acute) UTI (urinary tract infection) (Acute) Bacteremia (Acute) Ileus (Acute) Hydronephrosis (Acute) Hydroureter (Acute) Pancytopenia (Acute) Septic shock (Acute) Acute cholecystitis (Ruled-out) Constipation (Resolved) Cystitis (Acute) Gross hematuria (Acute) I am following this patient in conjunction with Dr. Helton Impression: S/p IVC filter placement - May remove neck dressing in 2 days - We will sign off at this point - Please re-consult if needed - Thank you for allowing us to participate in this patient's care. Code Visit Inpatient E&M: 71880 Subs Hosp L1 - POST-OP; NO CHARGE
--- NOTE | 2018-10-03 13:51 | PN.SURG_ITS ---
Patient Problems: Active and Suspected Problems (Last Reviewed 10/02/18 @ 14:08 by Maye Desai PA-C) Pulmonary embolism (Acute) Acute deep vein thrombosis (DVT) of both lower extremities (Acute) UTI (urinary tract infection) (Acute) Bacteremia (Acute) Ileus (Acute) Hydronephrosis (Acute) Hydroureter (Acute) Pancytopenia (Acute) Septic shock (Acute) Cystitis (Acute) Gross hematuria (Acute) Subjective: Patient evaluated. Minimal amount of discomfort at the right neck site. - Physical Exam General: Cooperative Neck: - - Right neck- dressing intact with minimal amount of bloody drainage. No active bleeding at this time. Vital Signs Temp Pulse Resp BP Pulse Ox 96.5 F L 65 18 160/99 H 95 10/03/18 12:00 10/03/18 12:00 10/03/18 12:00 10/03/18 12:00 10/03/18 12:00 Oxygen Flow Rate (L/min) 1 Oxygen Delivery Method Nasal Cannula Weight: 127 lb 10.362 oz Body Mass Index (BMI) 25.9 Finger Stick Blood Glucose 132 Intake and Output for Last 24 Hours 10/01/18 10/02/18 10/03/18 23:59 23:59 23:59 Intake Total 1924 / 1924 509 / 509 Output Total 1999 150 / 150 Balance -76 / -76 359 / 359 Microbiology Past 72 Hours 09/30/18 18:30 Blood Culture - Preliminary Blood Culture (Wb) - Venous Klebsiella pneumoniae sp pneum GNR non senior automation engineer Pseudomonas aeroginosa 09/30/18 19:05 Blood Culture - Preliminary Blood Culture (Wb) - Venous Pseudomonas aeroginosa 09/30/18 19:35 Urine Culture - Preliminary Urine, Clean Catch Pseudomonas aeroginosa GNR lactose senior automation engineer Laboratory Tests Past 24 Hrs 09/30/18 10/01/18 10/02/18 18:30 00:40 05:00 WBC RBC Hgb Hct MCV MCH MCHC RDW RDW Differential Plt Count MPV Immature Gran % (Auto) Neut % (Auto) Lymph % (Auto) [place] % (Auto) Eos % (Auto) Baso % (Auto) Absolute Neuts (auto) Absolute Lymphs (auto) Total Counted Differential Comment Diff Path Review Reviewed Reviewed Reviewed Platelet Estimate Hypochromasia Anisocytosis Macrocytosis Sodium Potassium Chloride Carbon Dioxide Anion Gap BUN Creatinine Estim Creat Clear Calc Est GFR (MDRD) Af Amer Est GFR (MDRD) Non-Af BUN/Creatinine Ratio Glucose Calcium Phosphorus Magnesium 10/03/18 10/03/18 10/03/18 03:52 03:52 03:52 WBC 0.5 L* RBC 2.59 L Hgb 7.5 L Hct 23.6 L MCV 91.1 MCH 29.0 MCHC 31.8 L RDW 16.5 H RDW Differential 55.5 H Plt Count 34 L* MPV 8.5 Immature Gran % (Auto) 0.000 Neut % (Auto) 0.0 L Lymph % (Auto) 54.0 H [place] % (Auto) 46.0 H Eos % (Auto) 0.0 Baso % (Auto) 0.0 Absolute Neuts (auto) 0.0 L Absolute Lymphs (auto) 0.27 L Total Counted Not Reportable Differential Comment SEE COMMENTS Diff Path Review Reviewed Platelet Estimate MKD DEC Hypochromasia RARE Anisocytosis RARE Macrocytosis RARE Sodium 145 Potassium 3.6 Chloride 113 H Carbon Dioxide 26.0 Anion Gap 6 BUN 20 H Creatinine 0.61 Estim Creat Clear Calc 85.16 Est GFR (MDRD) Af Amer 128 Est GFR (MDRD) Non-Af 106 BUN/Creatinine Ratio 33.0 H Glucose 56 L Calcium 8.1 L Phosphorus 2.3 L Magnesium 2.5 POC Glucose 10/03/18 08:24 POC Glucose 76 Medical Necessity - Tobacco Use Smoking Status: Former smoker Assessment/Plan All Active Problems (Last Reviewed 10/02/18 @ 14:08 by Maye Desai PA-C) Pulmonary embolism (Acute) Acute deep vein thrombosis (DVT) of both lower extremities (Acute) UTI (urinary tract infection) (Acute) Bacteremia (Acute) Ileus (Acute) Hydronephrosis (Acute) Hydroureter (Acute) Pancytopenia (Acute) Septic shock (Acute) Acute cholecystitis (Ruled-out) Constipation (Resolved) Cystitis (Acute) Gross hematuria (Acute) I am following this patient in conjunction with Dr. Helton Impression: S/p IVC filter placement - May remove neck dressing in 2 days - We will sign off at this point - Please re-consult if needed - Thank you for allowing us to participate in this patient's care. Code Visit Inpatient E&M: 91503 Subs Hosp L1 - POST-OP; NO CHARGE
--- NOTE | 2018-10-03 17:16 | PCM.PROGNOTE ---
Patient Problems: Active and Suspected Problems (Last Reviewed 10/02/18 @ 14:08 by Maye Desai PA-C) Pulmonary embolism (Acute) Acute deep vein thrombosis (DVT) of both lower extremities (Acute) UTI (urinary tract infection) (Acute) Bacteremia (Acute) Ileus (Acute) Hydronephrosis (Acute) Hydroureter (Acute) Pancytopenia (Acute) Septic shock (Acute) Cystitis (Acute) Gross hematuria (Acute) Subjective: Patient was seen and examined today, I discussed her care with pulmonary medicine who felt that she was stable for transfer to a medical floor. I talked briefly with the patient today about the possibility of her going to an extended care facility briefly for strengthening, I think this is a good idea and I told her so. I told her I wanted her to consider this, she also talked with public health social worker concerning this. - Physical Exam General: Alert, Oriented x3, Cooperative, No apparent distress, Well developed HEENT: Atraumatic, PERRLA, EOMI, Normocephalic Oral: Moist Mucosa Neck: Supple, Trachea Midline, Thyroid Normal Size and Texture Lungs: Rales - Inspiratory rales are scattered over both lungs Cardiovascular: Regular rate, Regular Rhythm, Normal S1, Normal S2, No murmurs, No Ectopic Activity, PMI Normal, No rub noted, No Gallop Abdomen: Bowel Sounds Present, Soft, Non Tender, Non-Distended Extremities: No clubbing, No cyanosis, No edema, Capillary Refill Less than 3 Seconds Skin: No rashes, No breakdown Neurological: Cranial nerves II-XII grossly intact, Neuro grossly intact, Sensory exam intact to light touch and pain, Coordination normal Psych/Mental Status: Normal Affect, Appropriate, Alert and oriented to time, place, person, mood and affect Vital Signs Temp Pulse Resp BP Pulse Ox 98.1 F 79 20 H 155/89 H 93 10/03/18 13:00 10/03/18 14:06 10/03/18 14:00 10/03/18 13:00 10/03/18 13:00 Oxygen Flow Rate (L/min) 1 Oxygen Delivery Method Nasal Cannula Weight: 57.9 kg Body Mass Index (BMI) 25.9 Finger Stick Blood Glucose 132 Intake and Output for Last 24 Hours 10/01/18 10/02/18 10/03/18 23:59 23:59 23:59 Intake Total 1924 / 1924 509 / 509 Output Total 1999 150 / 150 Balance -76 / -76 359 / 359 Microbiology Past 72 Hours 10/01/18 11:50 Blood Culture - Preliminary Blood Culture (Wb) - Port No growth in 48 hours. 09/30/18 18:30 Blood Culture - Preliminary Blood Culture (Wb) - Venous Klebsiella pneumoniae sp pneum GNR non baggage inspector Pseudomonas aeroginosa 09/30/18 19:05 Blood Culture - Preliminary Blood Culture (Wb) - Venous Pseudomonas aeroginosa 09/30/18 19:35 Urine Culture - Preliminary Urine, Clean Catch Pseudomonas aeroginosa GNR lactose baggage inspector Laboratory Tests Past 24 Hrs 10/02/18 10/03/18 10/03/18 05:00 03:52 03:52 WBC RBC Hgb Hct MCV MCH MCHC RDW RDW Differential Plt Count MPV Immature Gran % (Auto) Neut % (Auto) Lymph % (Auto) [place] % (Auto) Eos % (Auto) Baso % (Auto) Absolute Neuts (auto) Absolute Lymphs (auto) Total Counted Differential Comment Diff Path Review Reviewed Platelet Estimate Hypochromasia Anisocytosis Macrocytosis Sodium 145 Potassium 3.6 Chloride 113 H Carbon Dioxide 26.0 Anion Gap 6 BUN 20 H Creatinine 0.61 Estim Creat Clear Calc 85.16 Est GFR (MDRD) Af Amer 128 Est GFR (MDRD) Non-Af 106 BUN/Creatinine Ratio 33.0 H Glucose 56 L Calcium 8.1 L Phosphorus 2.3 L Magnesium 2.5 10/03/18 03:52 WBC 0.5 L* RBC 2.59 L Hgb 7.5 L Hct 23.6 L MCV 91.1 MCH 29.0 MCHC 31.8 L RDW 16.5 H RDW Differential 55.5 H Plt Count 34 L* MPV 8.5 Immature Gran % (Auto) 0.000 Neut % (Auto) 0.0 L Lymph % (Auto) 54.0 H [place] % (Auto) 46.0 H Eos % (Auto) 0.0 Baso % (Auto) 0.0 Absolute Neuts (auto) 0.0 L Absolute Lymphs (auto) 0.27 L Total Counted Not Reportable Differential Comment SEE COMMENTS Diff Path Review Reviewed Platelet Estimate MKD DEC Hypochromasia RARE Anisocytosis RARE Macrocytosis RARE Sodium Potassium Chloride Carbon Dioxide Anion Gap BUN Creatinine Estim Creat Clear Calc Est GFR (MDRD) Af Amer Est GFR (MDRD) Non-Af BUN/Creatinine Ratio Glucose Calcium Phosphorus Magnesium POC Glucose 10/03/18 08:24 POC Glucose 76 Medical Necessity - Tobacco Use Smoking Status: Former smoker Assessment/Plan All Active Problems (Last Reviewed 10/02/18 @ 14:08 by Maye Desai PA-C) Pulmonary embolism (Acute) Acute deep vein thrombosis (DVT) of both lower extremities (Acute) UTI (urinary tract infection) (Acute) Bacteremia (Acute) Ileus (Acute) Hydronephrosis (Acute) Hydroureter (Acute) Pancytopenia (Acute) Septic shock (Acute) Acute cholecystitis (Ruled-out) Constipation (Resolved) Cystitis (Acute) Gross hematuria (Acute) #1 septic shock secondary to Pseudomonas pyelonephritis-urine and blood culture grew out Pseudomonas-continue present antibiotic coverage, patient will be moved to a telemetry medical floor #2 pancytopenia secondary to chemotherapy-oncology is participating in her care, patient is receiving Granix subcu, she did not receive any packed red blood cells today if and her hemoglobin is remained stable, platelet count is 34,000 today #3 acute hypoxic respiratory failure - patient is presently on low flow nasal cannula O2 #4 acute PE with bilateral DVTs-patient now has a vena caval filter which was placed today #5 stage IV bladder cancer #6 debility secondary to multiple medical problems and septic shock-PT and OT are seeing patient, it is likely she will need temporary placement in a assisted facility Code Visit Inpatient E&M: [id number] Subs Hosp L2
--- NOTE | 2018-10-03 17:21 | PN_ITS ---
Patient Problems: Active and Suspected Problems (Last Reviewed 10/02/18 @ 14:08 by Maye Desai PA-C) Pulmonary embolism (Acute) Acute deep vein thrombosis (DVT) of both lower extremities (Acute) UTI (urinary tract infection) (Acute) Bacteremia (Acute) Ileus (Acute) Hydronephrosis (Acute) Hydroureter (Acute) Pancytopenia (Acute) Septic shock (Acute) Cystitis (Acute) Gross hematuria (Acute) Subjective: Patient was seen and examined today, I discussed her care with pulmonary medicine who felt that she was stable for transfer to a medical floor. I talked briefly with the patient today about the possibility of her going to an extended care facility briefly for strengthening, I think this is a good idea and I told her so. I told her I wanted her to consider this, she also talked with administrator social welfare concerning this. - Physical Exam General: Alert, Oriented x3, Cooperative, No apparent distress, Well developed HEENT: Atraumatic, PERRLA, EOMI, Normocephalic Oral: Moist Mucosa Neck: Supple, Trachea Midline, Thyroid Normal Size and Texture Lungs: Rales - Inspiratory rales are scattered over both lungs Cardiovascular: Regular rate, Regular Rhythm, Normal S1, Normal S2, No murmurs, No Ectopic Activity, PMI Normal, No rub noted, No Gallop Abdomen: Bowel Sounds Present, Soft, Non Tender, Non-Distended Extremities: No clubbing, No cyanosis, No edema, Capillary Refill Less than 3 Seconds Skin: No rashes, No breakdown Neurological: Cranial nerves II-XII grossly intact, Neuro grossly intact, Sensory exam intact to light touch and pain, Coordination normal Psych/Mental Status: Normal Affect, Appropriate, Alert and oriented to time, place, person, mood and affect Vital Signs Temp Pulse Resp BP Pulse Ox 98.1 F 79 20 H 155/89 H 93 10/03/18 13:00 10/03/18 14:06 10/03/18 14:00 10/03/18 13:00 10/03/18 13:00 Oxygen Flow Rate (L/min) 1 Oxygen Delivery Method Nasal Cannula Weight: 57.9 kg Body Mass Index (BMI) 25.9 Finger Stick Blood Glucose 132 Intake and Output for Last 24 Hours 10/01/18 10/02/18 10/03/18 23:59 23:59 23:59 Intake Total 1924 / 1924 509 / 509 Output Total 1999 150 / 150 Balance -76 / -76 359 / 359 Microbiology Past 72 Hours 10/01/18 11:50 Blood Culture - Preliminary Blood Culture (Wb) - Port No growth in 48 hours. 09/30/18 18:30 Blood Culture - Preliminary Blood Culture (Wb) - Venous Klebsiella pneumoniae sp pneum GNR non radar systems engineer Pseudomonas aeroginosa 09/30/18 19:05 Blood Culture - Preliminary Blood Culture (Wb) - Venous Pseudomonas aeroginosa 09/30/18 19:35 Urine Culture - Preliminary Urine, Clean Catch Pseudomonas aeroginosa GNR lactose radar systems engineer Laboratory Tests Past 24 Hrs 10/02/18 10/03/18 10/03/18 05:00 03:52 03:52 WBC RBC Hgb Hct MCV MCH MCHC RDW RDW Differential Plt Count MPV Immature Gran % (Auto) Neut % (Auto) Lymph % (Auto) Lassen % (Auto) Eos % (Auto) Baso % (Auto) Absolute Neuts (auto) Absolute Lymphs (auto) Total Counted Differential Comment Diff Path Review Reviewed Platelet Estimate Hypochromasia Anisocytosis Macrocytosis Sodium 145 Potassium 3.6 Chloride 113 H Carbon Dioxide 26.0 Anion Gap 6 BUN 20 H Creatinine 0.61 Estim Creat Clear Calc 85.16 Est GFR (MDRD) Af Amer 128 Est GFR (MDRD) Non-Af 106 BUN/Creatinine Ratio 33.0 H Glucose 56 L Calcium 8.1 L Phosphorus 2.3 L Magnesium 2.5 10/03/18 03:52 WBC 0.5 L* RBC 2.59 L Hgb 7.5 L Hct 23.6 L MCV 91.1 MCH 29.0 MCHC 31.8 L RDW 16.5 H RDW Differential 55.5 H Plt Count 34 L* MPV 8.5 Immature Gran % (Auto) 0.000 Neut % (Auto) 0.0 L Lymph % (Auto) 54.0 H Lassen % (Auto) 46.0 H Eos % (Auto) 0.0 Baso % (Auto) 0.0 Absolute Neuts (auto) 0.0 L Absolute Lymphs (auto) 0.27 L Total Counted Not Reportable Differential Comment SEE COMMENTS Diff Path Review Reviewed Platelet Estimate MKD DEC Hypochromasia RARE Anisocytosis RARE Macrocytosis RARE Sodium Potassium Chloride Carbon Dioxide Anion Gap BUN Creatinine Estim Creat Clear Calc Est GFR (MDRD) Af Amer Est GFR (MDRD) Non-Af BUN/Creatinine Ratio Glucose Calcium Phosphorus Magnesium POC Glucose 10/03/18 08:24 POC Glucose 76 Medical Necessity - Tobacco Use Smoking Status: Former smoker Assessment/Plan All Active Problems (Last Reviewed 10/02/18 @ 14:08 by Maye Desai PA-C) Pulmonary embolism (Acute) Acute deep vein thrombosis (DVT) of both lower extremities (Acute) UTI (urinary tract infection) (Acute) Bacteremia (Acute) Ileus (Acute) Hydronephrosis (Acute) Hydroureter (Acute) Pancytopenia (Acute) Septic shock (Acute) Acute cholecystitis (Ruled-out) Constipation (Resolved) Cystitis (Acute) Gross hematuria (Acute) #1 septic shock secondary to Pseudomonas pyelonephritis-urine and blood culture grew out Pseudomonas-continue present antibiotic coverage, patient will be moved to a telemetry medical floor #2 pancytopenia secondary to chemotherapy-oncology is participating in her care, patient is receiving Granix subcu, she did not receive any packed red blood cells today if and her hemoglobin is remained stable, platelet count is 34,000 today #3 acute hypoxic respiratory failure - patient is presently on low flow nasal cannula O2 #4 acute PE with bilateral DVTs-patient now has a vena caval filter which was placed today #5 stage IV bladder cancer #6 debility secondary to multiple medical problems and septic shock-PT and OT are seeing patient, it is likely she will need temporary [facility] in a jail facility Code Visit Inpatient E&M: 95709 Subs Hosp L2
[2018-10-03] MEDS: ALPRAZolam 0.5 MG Tablet PO (18:12)
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
[2018-10-03] MEDS: traZODone 50 MG Tablet PO (21:27)
[2018-10-03] MEDS: Atorvastatin Calcium 80 MG Tablet PO (21:27)
[2018-10-04] VITALS (7 sets, daily range): BP systolic 129–154; BP diastolic 72–95; PULSE 66–85; RESP 14–18; TEMP 36.5–36.9; O2SAT 90–93
[2018-10-04] MEDS: Levothyroxine 50 MCG Tablet PO (05:39)
[2018-10-04] MEDS: 0.9% NaCl VAD Flush 10 ML IV ×3 (05:40→06:30)
--- NOTE | 2018-10-04 06:15 | NURSING ---
Pt c/o of chest pain radiating to side/back. Called for EKG. Tele exhibits no changes.
--- NOTE | 2018-10-04 06:24 | EKG12_ITS ---
Test Reason : CP Blood Pressure : / mmHG Vent. Rate : 068 BPM Atrial Rate : 068 BPM P-R Int : 140 ms QRS Dur : 094 ms QT Int : 434 ms P-R-T Axes : 059 048 034 degrees QTc Int : 461 ms Normal sinus rhythm Nonspecific T wave abnormality Abnormal ECG When compared with ECG of 30-SEP-2018 18:50, Nonspecific T wave abnormality has replaced inverted T waves in Inferior leads T wave inversion no longer evident in Anterior leads Confirmed by MAUREEN CARRASCO, DIMITRIOS ([id number]), editor in chief newspaper NICHOLAS SPEARS ([id number]) on 10/05/2018 4:11:26 PM Referred By: Raymond Moore Confirmed By:DIMITRIOS REDDY MD
[2018-10-04] MEDS: ALPRAZolam 0.5 MG Tablet PO ×2 (06:27→18:28)
[2018-10-04] MEDS: Acetaminophen 325 MG Tablet 650 MG PO ×2 (06:27→18:29)
[2018-10-04 07:03] LABS: ALB/GLOB Ratio 0.5 RATIO (0.9-2.4); AST(SGOT) 32 U/L (15-37); Alanine Aminotransfer ALT/SGPT 79 U/L (13-56); Albumin, Serum 1.8 g/dL (3.2-5.0); Alkaline Phosphatase 106 U/L (45-117); Anion Gap 8 (5-15); BUN 25 mg/dL (7-18); BUN/Creat Ratio 39.1 RATIO (10-20); Calcium,Total 8.2 mg/dL (8.5-10.1); Chloride 114 mmol/L (98-107); Creatinine, Serum 0.64 mg/dL (0.55-1.02); EST Glomerular Filtration Rate 99 mL/min (>60); Est Glom Filt Rate - Afr Amer 120 mL/min (>60); Estimated Creatinine Clearance 81.03 ml/min; Globulin 3.9 g/dL (2.2-4.2); Glucose 47 mg/dL (74-106); Mean Corpuscular Volume 90.6 fL (81-99); Protein, Total 5.7 g/dL (6.4-8.2); Sodium Level 147 mmol/L (136-145)
[2018-10-04 07:06] LABS: Hemoglobin 7.9 g/dl (12.0-15.0); Mean Corp Hgb Conc 31.6 g/gl (32-36); Mean Corpuscular Hgb 28.6 pg (27.0-32.0); Red Blood Count 2.76 M/mm3 (4.2-5.4); White Blood Count 4.9 K/mm3 (4.4-11.0)
[2018-10-04 07:07] LABS: Differential Indicated SCAN CRITERIA MET; Lymphocyte % 27.6 % (19-41); Mean Platelet Vol. 9.3 fl (6.2-12.0); Monocyte% 67.3 % (0-10); Neutrophil % 1.8 % (47-70); POSITIVE COUNT YES; POSITIVE DIFFERENTIAL YES; POSITIVE MORPHOLOGY YES; RBC Distribution Width CV 16.6 % (11.6-14.6); RBC Distribution Width SD 55.7 fl (35.1-43.9)
[2018-10-04 07:08] LABS: Absolute Lymphocyte Count 1.36 X10^3/ul (0.83-4.51); Absolute Neutrophil Count 0.1 X10^3/uL (2.0-7.7); Basophil% 3.3 % (0-1); Lymphocyte # 1.36 X10^3/ul (4.0); Monocyte# 3.31 X10^3/uL; Neutrophil # 0.09 X10^3/uL (2.7-7.7)
[2018-10-04 07:09] LABS: Basophil# 0.16 X10^3/uL
[2018-10-04 07:11] LABS: Platelet Count 25 K/mm3 (150-450)
[2018-10-04 07:12] LABS: Differential Comment SCAN; Platelet Estimate MKD DEC (ADEQ)
[2018-10-04 07:13] LABS: Absolute Nucleated RBC Count 0.08 10^3/uL (0-5); NRBC Flagged by Analyzer 1.6 % (0-5)
--- NOTE | 2018-10-04 07:32 | NURSING ---
Blood sugar low this AM following BMP draw. Protocol followed, sugar drink provided. MICHAEL Ray aware and will monitor today.
--- NOTE | 2018-10-04 08:40 | NURSING ---
Urostomy appliance had been changed on 10/03/18. will monitor as needed. pt had been changing her own appliance at home.
[2018-10-04] MEDS: Pantoprazole Sodium 40 MG Tablet PO (10:11)
[2018-10-04] MEDS: Polyethylene Glycol 3350 17 GM PACKET PO ×2 (10:11→22:56)
[2018-10-04] MEDS: Hydrocortisone Sod Succinate 100 MG/2 ML Vial 50 MG IV (10:11)
[2018-10-04] MEDS: Fluconazole 100 MG Tablet PO (10:11)
[2018-10-04] MEDS: buPROPion (XL) 150 MG TABLET.XL PO (10:11)
[2018-10-04] MEDS: TBO-FILGRASTIM 300 MCG/0.5 ML ML SC (10:13)
[2018-10-04] MEDS: oxyCODONE 5 MG Tablet PO ×2 (10:19→18:28)
--- NOTE | 2018-10-04 11:25 | PCM.PROGNOTE ---
Patient Problems: Active and Suspected Problems (Last Reviewed 10/02/18 @ 14:08 by Maye Desai PA-C) Pulmonary embolism (Acute) Acute deep vein thrombosis (DVT) of both lower extremities (Acute) Cystitis (Acute) Gross hematuria (Acute) Subjective: The patient was seen and examined at the bedside this morning. Events from the last 24 hours have been reviewed. The patient is currently afebrile, hemodynamically stable and maintaining appropriate oxygen saturations on 1-2 L via nasal cannula. The patient did have an episode of chest pain this morning. Her blood counts remained stable. Objective: The patient's most recent lab work, culture data and imaging studies have all been personally reviewed. CTA chest dated September 30 revealed subsegmental right lower lobe pulmonary emboli. Head CT revealed mild periventricular white matter ischemic changes without mass or acute bleed. CT abdomen/pelvis revealed moderate right hydro-nephrosis and mild left hydroureter. Nonspecific ileus was noted with diffuse fecal retention in the colon. Initial blood cultures dated September 30 were positive for gram-negative beto, possible Pseudomonas. Follow-up blood cultures dated October 01 have not shown any growth to date. Urine culture was positive for pseudomonas aeruginosa. - Physical Exam General: Alert, Cooperative, No apparent distress HEENT: Atraumatic, PERRLA, Normocephalic Oral: No Gingival or Mucosal Lesions/ Ulcerations Neck: Supple, No Nodes, Trachea Midline Lungs: No rhonchi, No wheeze, Diminished, Rales Cardiovascular: Regular rate, Regular Rhythm, Normal S1, Normal S2, No murmurs Abdomen: Bowel Sounds Present, Soft, Non Tender Extremities: No clubbing, No cyanosis, Edema Skin: - - No significant change from previous. Musculoskeletal: No Tenderness to Palpation of Joints or Extremities Lymphatic: No Cervical, Supraclavicular, or Inguinal Adenopathy Neurological: - - No focal neurological deficits. Psych/Mental Status: Anxious Vital Signs Temp Pulse Resp BP Pulse Ox 36.7 C 70 18 129/72 H 92 10/04/18 09:58 10/04/18 09:58 10/04/18 10:28 10/04/18 09:58 10/04/18 09:58 Oxygen Flow Rate (L/min) 2 Oxygen Delivery Method Nasal Cannula Weight: 127 lb 6.835 oz Body Mass Index (BMI) 25.9 Finger Stick Blood Glucose 132 Intake and Output for Last 24 Hours 10/02/18 10/03/18 10/04/18 23:59 23:59 23:59 Intake Total 1924 / 1924 1040 / 1040 935 / 935 Output Total 1999 350 / 350 400 / 400 Balance -76 / -76 690 / 690 535 / 535 Microbiology Past 72 Hours 09/30/18 18:30 Blood Culture - Final Blood Culture (Wb) - Venous Klebsiella pneumoniae sp pneum Proteus hauseri Pseudomonas aeroginosa 09/30/18 19:35 Urine Culture - Final Urine, Clean Catch Pseudomonas aeroginosa Escherichia coli 10/01/18 11:50 Blood Culture - Preliminary Blood Culture (Wb) - Port No growth in 48 hours. 09/30/18 19:05 Blood Culture - Preliminary Blood Culture (Wb) - Venous Pseudomonas aeroginosa Laboratory Tests Past 24 Hrs 10/04/18 10/04/18 06:32 06:32 WBC 4.9 RBC 2.76 L Hgb 7.9 L Hct 25.0 L MCV 90.6 MCH 28.6 MCHC 31.6 L RDW 16.6 H RDW Differential 55.7 H Plt Count 25 L* MPV 9.3 Immature Gran % (Auto) 0.000 Neut % (Auto) 1.8 L Lymph % (Auto) 27.6 [place] % (Auto) 67.3 H Eos % (Auto) 0.0 Baso % (Auto) 3.3 H Absolute Neuts (auto) 0.1 L Absolute Lymphs (auto) 1.36 Total Counted Not Reportable Nucleated RBC % 1.6 Differential Comment SCAN Diff Path Review May foll Platelet Estimate MKD DEC Absolute Retic 0.08 Sodium 147 H Potassium 3.0 L Chloride 114 H Carbon Dioxide 25.0 Anion Gap 8 BUN 25 H Creatinine 0.64 Estim Creat Clear Calc 81.03 Est GFR (MDRD) Af Amer 120 Est GFR (MDRD) Non-Af 99 BUN/Creatinine Ratio 39.1 H Glucose 47 L Calcium 8.2 L Total Bilirubin 0.50 AST 32 ALT 79 H Alkaline Phosphatase 106 Total Protein 5.7 L Albumin 1.8 L Globulin 3.9 Albumin/Globulin Ratio 0.5 L Clinical Impression(s) from Imaging Studies Brain CT 09/30/18 18:35 IMPRESSION: Mild periventricular white matter ischemic changes. No mass or acute bleed. If concern for metastatic disease MRI recommended for further evaluation Electronically Signed: Moy Henao MD at 20:33 EDT , Service support , Chest X-Ray 09/30/18 18:36 IMPRESSION: Stable appearance of the chest with no acute pathology. New right internal jugular catheter as described. Electronically Signed: Jesus Hutchison MD at 19:36 EDT , Service support , Chest CTA 09/30/18 18:55 IMPRESSION: Pulmonary emboli to the subsegmental vessels of the right lower lobe Chronic interstitial changes and minor atelectasis within the dependent portion of the lungs. Electronically Signed: Moy Henao MD at 20:56 EDT , Service support , Abdomen/Pelvis CT 09/30/18 20:50 IMPRESSION: Postsurgical changes status post cystectomy and right ileal conduit. Moderate right hydroureteronephrosis and mild left hydroureter in association with thick-walled ileal conduit and focal narrowing of the lumen. Nonspecific ileus with diffuse fecal retention in the colon Status post cholecystectomy, cystectomy and hysterectomy Other findings as above Electronically Signed: Moy Henao MD at 22:35 EDT , Service support , Medical Necessity - Tobacco Use Smoking Status: Former smoker Assessment/Plan All Active Problems (Last Reviewed 10/02/18 @ 14:08 by Maye Desai PA-C) Pulmonary embolism (Acute) Acute deep vein thrombosis (DVT) of both lower extremities (Acute) UTI (urinary tract infection) (Acute) Bacteremia (Acute) Ileus (Acute) Hydronephrosis (Acute) Hydroureter (Acute) Pancytopenia (Acute) Septic shock (Acute) Acute cholecystitis (Ruled-out) Constipation (Resolved) Cystitis (Acute) Gross hematuria (Acute) RECOMMENDATIONS: 1. Continue to monitor blood counts daily. Transfuse if hemoglobin drops below 7 g/dL. 2. Continue antibiotics per ID recommendations. 3. Wean stress dose steroids. The patient can likely be transitioned back to her outpatient Decadron therapy. 4. Continue Granix. 5. Wean supplemental oxygen to maintain saturations at or above 90%. Encourage incentive spirometer use and mobilize patient as tolerated. IMPRESSIONS: 1. Septic shock secondary to gram-negative bacteremia Resolved at this time. The patient has stabilized over the last 24-48 hours. Repeat blood cultures have cleared. Urine culture was positive for pseudomonas aeruginosa. She remains on antibiotics per the discretion of infectious diseases. 2. Pancytopenia Likely secondary to the effects of chemotherapy coupled with #1. The patient's jaime platelet count was 7000, for which she received a platelet transfusion, with subsequent improvement in her counts. Her hemoglobin remained stable. Would plan to continue to monitor and transfuse if drops below 7 g/dL. Continue Granix as ordered. 3. Acute hypoxic respiratory failure/subsegmental pulmonary emboli The patient was noted on presentation to have a subsegmental PE. However, in the setting of her pancytopenia and hematuria noted on admission, she was not considered to be a candidate for anticoagulation. Subsequent lower extremity Doppler study did reveal the presence of bilateral lower extremity DVTs. Given that the patient had a contraindication to being anticoagulated, she did undergo IVC filter placement on October 02. Continue to wean supplemental oxygen to maintain saturations at or above 90%. It is highly possible that the patient may have a supplemental oxygen requirement upon discharge. Perform walking oximetry study prior to consideration for discharge from the hospital. 4. Stage IV bladder cancer The patient has been receiving palliative chemotherapy by oncology. She remains a full CODE STATUS at the present time. Oncology is following. 5. Debility/chronic pain syndrome/anxiety/depression/hypothyroidism/hyperlipidemia/ileus Complicates care, management, recovery and prognosis. Continue antiemetics as needed. Physical therapy to work with patient. This note was generated with [employer] dictation software. It may contain incorrect words, spelling, and punctuation that were not noted in checking the note before signing. DISPOSITION: Given the lack of further ICU needs, will sign off. Please call with any additional questions. Code Visit Inpatient E&M: 65037 Subs Hosp L2
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
--- NOTE | 2018-10-04 11:30 | PN_ITS ---
Patient Problems: Active and Suspected Problems (Last Reviewed 10/02/18 @ 14:08 by Maye Desai PA-C) Pulmonary embolism (Acute) Acute deep vein thrombosis (DVT) of both lower extremities (Acute) Cystitis (Acute) Gross hematuria (Acute) Subjective: The patient was seen and examined at the bedside this morning. Events from the last 24 hours have been reviewed. The patient is currently afebrile, hemodynamically stable and maintaining appropriate oxygen saturations on 1-2 L via nasal cannula. The patient did have an episode of chest pain this morning. Her blood counts remained stable. Objective: The patient's most recent lab work, culture data and imaging studies have all been personally reviewed. CTA chest dated September 30 revealed subsegmental right lower lobe pulmonary emboli. Head CT revealed mild periventricular white matter ischemic changes without mass or acute bleed. CT abdomen/pelvis revealed moderate right hydro-nephrosis and mild left hydroureter. Nonspecific ileus was noted with diffuse fecal retention in the colon. Initial blood cultures dated September 30 were positive for gram-negative beto, possible Pseudomonas. Follow-up blood cultures dated October 01 have not shown any growth to date. Urine culture was positive for pseudomonas aeruginosa. - Physical Exam General: Alert, Cooperative, No apparent distress HEENT: Atraumatic, PERRLA, Normocephalic Oral: No Gingival or Mucosal Lesions/ Ulcerations Neck: Supple, No Nodes, Trachea Midline Lungs: No rhonchi, No wheeze, Diminished, Rales Cardiovascular: Regular rate, Regular Rhythm, Normal S1, Normal S2, No murmurs Abdomen: Bowel Sounds Present, Soft, Non Tender Extremities: No clubbing, No cyanosis, Edema Skin: - - No significant change from previous. Musculoskeletal: No Tenderness to Palpation of Joints or Extremities Lymphatic: No Cervical, Supraclavicular, or Inguinal Adenopathy Neurological: - - No focal neurological deficits. Psych/Mental Status: Anxious Vital Signs Temp Pulse Resp BP Pulse Ox 36.7 C 70 18 129/72 H 92 10/04/18 09:58 10/04/18 09:58 10/04/18 10:28 10/04/18 09:58 10/04/18 09:58 Oxygen Flow Rate (L/min) 2 Oxygen Delivery Method Nasal Cannula Weight: 127 lb 6.835 oz Body Mass Index (BMI) 25.9 Finger Stick Blood Glucose 132 Intake and Output for Last 24 Hours 10/02/18 10/03/18 10/04/18 23:59 23:59 23:59 Intake Total 1924 / 1924 1040 / 1040 935 / 935 Output Total 1999 350 / 350 400 / 400 Balance -76 / -76 690 / 690 535 / 535 Microbiology Past 72 Hours 09/30/18 18:30 Blood Culture - Final Blood Culture (Wb) - Venous Klebsiella pneumoniae sp pneum Proteus hauseri Pseudomonas aeroginosa 09/30/18 19:35 Urine Culture - Final Urine, Clean Catch Pseudomonas aeroginosa Escherichia coli 10/01/18 11:50 Blood Culture - Preliminary Blood Culture (Wb) - Port No growth in 48 hours. 09/30/18 19:05 Blood Culture - Preliminary Blood Culture (Wb) - Venous Pseudomonas aeroginosa Laboratory Tests Past 24 Hrs 10/04/18 10/04/18 06:32 06:32 WBC 4.9 RBC 2.76 L Hgb 7.9 L Hct 25.0 L MCV 90.6 MCH 28.6 MCHC 31.6 L RDW 16.6 H RDW Differential 55.7 H Plt Count 25 L* MPV 9.3 Immature Gran % (Auto) 0.000 Neut % (Auto) 1.8 L Lymph % (Auto) 27.6 [place] % (Auto) 67.3 H Eos % (Auto) 0.0 Baso % (Auto) 3.3 H Absolute Neuts (auto) 0.1 L Absolute Lymphs (auto) 1.36 Total Counted Not Reportable Nucleated RBC % 1.6 Differential Comment SCAN Diff Path Review May foll Platelet Estimate MKD DEC Absolute Retic 0.08 Sodium 147 H Potassium 3.0 L Chloride 114 H Carbon Dioxide 25.0 Anion Gap 8 BUN 25 H Creatinine 0.64 Estim Creat Clear Calc 81.03 Est GFR (MDRD) Af Amer 120 Est GFR (MDRD) Non-Af 99 BUN/Creatinine Ratio 39.1 H Glucose 47 L Calcium 8.2 L Total Bilirubin 0.50 AST 32 ALT 79 H Alkaline Phosphatase 106 Total Protein 5.7 L Albumin 1.8 L Globulin 3.9 Albumin/Globulin Ratio 0.5 L Clinical Impression(s) from Imaging Studies Brain CT 09/30/18 18:35 IMPRESSION: Mild periventricular white matter ischemic changes. No mass or acute bleed. If concern for metastatic disease MRI recommended for further evaluation Electronically Signed: Moy Henao MD at 20:33 EDT , Service support , Chest X-Ray 09/30/18 18:36 IMPRESSION: Stable appearance of the chest with no acute pathology. New right internal jugular catheter as described. Electronically Signed: Jesus Hutcihson MD at 19:36 EDT , Service support , Chest CTA 09/30/18 18:55 IMPRESSION: Pulmonary emboli to the subsegmental vessels of the right lower lobe Chronic interstitial changes and minor atelectasis within the dependent portion of the lungs. Electronically Signed: Moy Henao MD at 20:56 EDT , Service support , Abdomen/Pelvis CT 09/30/18 20:50 IMPRESSION: Postsurgical changes status post cystectomy and right ileal conduit. Moderate right hydroureteronephrosis and mild left hydroureter in association with thick-walled ileal conduit and focal narrowing of the lumen. Nonspecific ileus with diffuse fecal retention in the colon Status post cholecystectomy, cystectomy and hysterectomy Other findings as above Electronically Signed: Moy Henao MD at 22:35 EDT , Service support , Medical Necessity - Tobacco Use Smoking Status: Former smoker Assessment/Plan All Active Problems (Last Reviewed 10/02/18 @ 14:08 by Maye Desai PA-C) Pulmonary embolism (Acute) Acute deep vein thrombosis (DVT) of both lower extremities (Acute) UTI (urinary tract infection) (Acute) Bacteremia (Acute) Ileus (Acute) Hydronephrosis (Acute) Hydroureter (Acute) Pancytopenia (Acute) Septic shock (Acute) Acute cholecystitis (Ruled-out) Constipation (Resolved) Cystitis (Acute) Gross hematuria (Acute) RECOMMENDATIONS: 1. Continue to monitor blood counts daily. Transfuse if hemoglobin drops below 7 g/dL. 2. Continue antibiotics per ID recommendations. 3. Wean stress dose steroids. The patient can likely be transitioned back to her outpatient Decadron therapy. 4. Continue Granix. 5. Wean supplemental oxygen to maintain saturations at or above 90%. Encourage incentive spirometer use and mobilize patient as tolerated. IMPRESSIONS: 1. Septic shock secondary to gram-negative bacteremia Resolved at this time. The patient has stabilized over the last 24-48 hours. Repeat blood cultures have cleared. Urine culture was positive for pseudomonas aeruginosa. She remains on antibiotics per the discretion of infectious diseases. 2. Pancytopenia Likely secondary to the effects of chemotherapy coupled with #1. The patient's jaime platelet count was 7000, for which she received a platelet transfusion, with subsequent improvement in her counts. Her hemoglobin remained stable. Would plan to continue to monitor and transfuse if drops below 7 g/dL. Continue Granix as ordered. 3. Acute hypoxic respiratory failure/subsegmental pulmonary emboli The patient was noted on presentation to have a subsegmental PE. However, in the setting of her pancytopenia and hematuria noted on admission, she was not considered to be a candidate for anticoagulation. Subsequent lower extremity Doppler study did reveal the presence of bilateral lower extremity DVTs. Given that the patient had a contraindication to being anticoagulated, she did undergo IVC filter placement on October 02. Continue to wean supplemental oxygen to maintain saturations at or above 90%. It is highly possible that the patient may have a supplemental oxygen requirement upon discharge. Perform walking oximetry study prior to consideration for discharge from the hospital. 4. Stage IV bladder cancer The patient has been receiving palliative chemotherapy by oncology. She remains a full CODE STATUS at the present time. Oncology is following. 5. Debility/chronic pain syndrome/anxiety/depression/hypothyroidism/hyperlipidemia/ileus Complicates care, management, recovery and prognosis. Continue antiemetics as needed. Physical therapy to work with patient. This note was generated with [employer] dictation software. It may contain incorrect words, spelling, and punctuation that were not noted in checking the note before signing. DISPOSITION: Given the lack of further ICU needs, will sign off. Please call with any additional questions. Code Visit Inpatient E&M: 98106 Subs Hosp L2
--- NOTE | 2018-10-04 11:40 | CASEMGMT ---
Per LUDWIN Huerta, referral needs sent to [facility]. Call placed to Sarah, admissions, notifying of referral being faxed and if facility can accept patient, go ahead and start precert. Referral faxed to [phone], confirmation received. Judit De La Rosa LPN Clinical Support
--- NOTE | 2018-10-04 12:29 | PN.ID_ITS ---
Patient Problems: Active and Suspected Problems (Last Reviewed 10/02/18 @ 14:08 by Maye Desai PA-C) Pulmonary embolism (Acute) Acute deep vein thrombosis (DVT) of both lower extremities (Acute) Cystitis (Acute) Gross hematuria (Acute) Subjective: Not feeling well today, no fever, no n/v/d. - Physical Exam General: Cooperative, No apparent distress Lungs: Clear to auscultation, Normal air movement Cardiovascular: Regular rate, Regular Rhythm Abdomen: Soft, Non Tender, Non-Distended Skin: No rashes Vital Signs Temp Pulse Resp BP Pulse Ox 98.0 F 70 18 129/72 H 92 10/04/18 09:58 10/04/18 09:58 10/04/18 10:28 10/04/18 09:58 10/04/18 09:58 Oxygen Flow Rate (L/min) 2 Oxygen Delivery Method Nasal Cannula Weight: 57.8 kg Body Mass Index (BMI) 25.9 Finger Stick Blood Glucose 132 Intake and Output for Last 24 Hours 10/02/18 10/03/18 10/04/18 23:59 23:59 23:59 Intake Total 1924 / 1924 1040 / 1040 935 / 935 Output Total 1999 / 1999 350 / 350 400 / 400 Balance -76 / -76 690 / 690 535 / 535 Microbiology Past 72 Hours 09/30/18 18:30 Blood Culture - Final Blood Culture (Wb) - Venous Klebsiella pneumoniae sp pneum Proteus hauseri Pseudomonas aeroginosa 09/30/18 19:35 Urine Culture - Final Urine, Clean Catch Pseudomonas aeroginosa Escherichia coli 10/01/18 11:50 Blood Culture - Preliminary Blood Culture (Wb) - Port No growth in 48 hours. 09/30/18 19:05 Blood Culture - Preliminary Blood Culture (Wb) - Venous Pseudomonas aeroginosa Laboratory Tests Past 24 Hrs 10/04/18 10/04/18 06:32 06:32 WBC 4.9 RBC 2.76 L Hgb 7.9 L Hct 25.0 L MCV 90.6 MCH 28.6 MCHC 31.6 L RDW 16.6 H RDW Differential 55.7 H Plt Count 25 L* MPV 9.3 Immature Gran % (Auto) 0.000 Neut % (Auto) 1.8 L Lymph % (Auto) 27.6 [place] % (Auto) 67.3 H Eos % (Auto) 0.0 Baso % (Auto) 3.3 H Absolute Neuts (auto) 0.1 L Absolute Lymphs (auto) 1.36 Total Counted Not Reportable Nucleated RBC % 1.6 Differential Comment SCAN Diff Path Review May foll Platelet Estimate MKD DEC Absolute Retic 0.08 Sodium 147 H Potassium 3.0 L Chloride 114 H Carbon Dioxide 25.0 Anion Gap 8 BUN 25 H Creatinine 0.64 Estim Creat Clear Calc 81.03 Est GFR (MDRD) Af Amer 120 Est GFR (MDRD) Non-Af 99 BUN/Creatinine Ratio 39.1 H Glucose 47 L Calcium 8.2 L Total Bilirubin 0.50 AST 32 ALT 79 H Alkaline Phosphatase 106 Total Protein 5.7 L Albumin 1.8 L Globulin 3.9 Albumin/Globulin Ratio 0.5 L Medical Necessity - Tobacco Use Smoking Status: Former smoker Route of nutrition/ use of supplements: [] Nutritional Intake: [] IV Site: [] Suarez Catheter: [] - Assessment/Plan Antibiotics: [] Assessment/Plan: [] Active and Suspected Problems (Last Reviewed 10/02/18 @ 14:08 by Maye Desai PA-C) Pulmonary embolism (Acute) Acute deep vein thrombosis (DVT) of both lower extremities (Acute) UTI (urinary tract infection) (Acute) Bacteremia (Acute) Ileus (Acute) Hydronephrosis (Acute) Hydroureter (Acute) Pancytopenia (Acute) Septic shock (Acute) Cystitis (Acute) Gross hematuria (Acute) Septic shock with pancytopenia and GNR bacteremia - neutropenic precautions. Repeat bcx remains neg. Bcx here so far showing PsA, klebs, and proteus. Narrow meropenem to cefepime. DVT and PE - IVC filter placed Will follow
--- NOTE | 2018-10-04 14:05 | CASEMGMT ---
Received phone call from Sarah at [facility] with some questions regarding chemotherapy that patient previously received and whether it would continue. Per LUDWIN Frankel, will speak with physician during rounds regarding this and will update Sarah. Sarah did not state whether patient is accepted yet. Judit De La Rosa LPN Clinical Support
[2018-10-04 14:38] LABS: Pathologist Review Reviewed
--- NOTE | 2018-10-04 15:05 | CASEMGMT ---
Social Work Note SW received call from pt's daughter Lucia. LUDWIN updated Lucia that pt is agreeable to SNF at discharge and pt was agreeable to referral being sent to [facility]. Lucia states that she has concerns about pt's belongings being at pt's roommates house and pt's dogs being at roommates house. LUDWIN explained that this worker is unsure about how pt is able to get her belongings but states that this worker can figure that out. LUDWIN explained that family may have to be the ones to come get pt's belongings and dogs. Lucia states that pt's sister should be coming to [place] from [place] either this weekend or next weekend. LUDWIN informed Lucia that this worker will try to get an answer for her in regards to pt's belongings and dogs. Lucia also had concerns about pt's medical treatment continuing in [place] and how to get pt's insurance transferred from [place] to [place]. LUDWIN explained that once pt goes to a [facility] there will be a SW at that facility that will be able to assist pt and her family with pt's transition to [place]. Lucia states understanding. LUDWIN received a message from pt's granddaughter Pippa. Pippa provided number [phone]. LUDWIN placed a call to pt's granddaughter Pippa. Pippa states that she recently visited pt and during that visit she suspected that pt's roommate had been over medicating her. LUDWIN explained to Pippa that this worker is aware that there had been concerns about pt being over medicated from pt's daughter and sister. LUDWIN informed Pippa that pt is agreeable to SNF at discharge and pt is agreeable to [facility]. Pippa states understanding. LUDWIN reassured Pippa that the concerns from pt's family are taken into consideration and the staff at [facility] will do what they can to provide a safe discharge for pt. Pippa states understanding. LUDWIN received call from Tevin De La Rosa quality management stating that Sarah at [facility] asked it pt was going to continue to get chemotherapy treatment at SNF. Per previous notes, Sandy MCCLELLAND informed pt that if she goes to SNF she won't be able to get chemotherapy and pt was agreeable to this. LUDWIN updated MICHAEL Ray to confirm with oncology that it is appropriate for pt to not get chemotherapy while at [facility]. LUDWIN placed a call to Sarah at [facility] updated her that this worker is working on getting answer for her in regards to chemotherapy. Plan: [facility] pending acceptance and pre-cert Marlys Salcedo RECORD CENTER COORDINATOR, FILLING HAND
--- NOTE | 2018-10-04 18:44 | PCM.PROGNOTE ---
Patient Problems: Active and Suspected Problems (Last Reviewed 10/02/18 @ 14:08 by Maye Desai PA-C) Pulmonary embolism (Acute) Acute deep vein thrombosis (DVT) of both lower extremities (Acute) Cystitis (Acute) Gross hematuria (Acute) Subjective: Patient was seen and examined today, she is resting quietly. Patient's absolute white blood cell count today was 49, hemoglobin was stable at 7.9, platelet count was 25,000. Patient remains afebrile. I discussed her case with infectious diseases today, they recommended antibiotics be continued for 2 weeks after the patient's white blood cell count normalizes. - Physical Exam General: No apparent distress, Well developed HEENT: Atraumatic, PERRLA, EOMI, Normocephalic Oral: Moist Mucosa Neck: Supple, No Nuchal Rigidity, Trachea Midline, Thyroid Normal Size and Texture Lungs: Clear to auscultation, Normal air movement, No rhonchi, No wheeze, No rales Cardiovascular: Regular rate, Regular Rhythm, Normal S1, Normal S2, No murmurs, - - Frequent ectopic activity is noted Abdomen: Bowel Sounds Present, Soft, Non Tender, Non-Distended Extremities: No edema, Capillary Refill Less than 3 Seconds Skin: No rashes, No breakdown Neurological: Cranial nerves II-XII grossly intact, Neuro grossly intact, Sensory exam intact to light touch and pain, Coordination normal Psych/Mental Status: Appropriate, Flat Affect Vital Signs Temp Pulse Resp BP Pulse Ox 98.5 F 66 16 154/95 H 93 10/04/18 14:59 10/04/18 14:59 10/04/18 14:59 10/04/18 14:59 10/04/18 14:59 Oxygen Flow Rate (L/min) 2 Oxygen Delivery Method Nasal Cannula Weight: 57.8 kg Body Mass Index (BMI) 25.9 Finger Stick Blood Glucose 132 Intake and Output for Last 24 Hours 10/02/18 10/03/18 10/04/18 23:59 23:59 23:59 Intake Total 1923 / 4 1040 / 1040 935 / 935 Output Total 1999 / 1999 350 / 350 400 / 400 Balance -76 / -76 690 / 690 535 / 535 Microbiology Past 72 Hours 09/30/18 18:30 Blood Culture - Final Blood Culture (Wb) - Venous Klebsiella pneumoniae sp pneum Proteus hauseri Pseudomonas aeroginosa 09/30/18 19:35 Urine Culture - Final Urine, Clean Catch Pseudomonas aeroginosa Escherichia coli 10/01/18 11:50 Blood Culture - Preliminary Blood Culture (Wb) - Port No growth in 48 hours. 09/30/18 19:05 Blood Culture - Preliminary Blood Culture (Wb) - Venous Pseudomonas aeroginosa Laboratory Tests Past 24 Hrs 10/04/18 10/04/18 06:32 06:32 WBC 4.9 RBC 2.76 L Hgb 7.9 L Hct 25.0 L MCV 90.6 MCH 28.6 MCHC 31.6 L RDW 16.6 H RDW Differential 55.7 H Plt Count 25 L* MPV 9.3 Immature Gran % (Auto) 0.000 Neut % (Auto) 1.8 L Lymph % (Auto) 27.6 [place] % (Auto) 67.3 H Eos % (Auto) 0.0 Baso % (Auto) 3.3 H Absolute Neuts (auto) 0.1 L Absolute Lymphs (auto) 1.36 Total Counted Not Reportable Nucleated RBC % 1.6 Differential Comment SCAN Diff Path Review Reviewed Platelet Estimate MKD DEC Absolute Retic 0.08 Sodium 147 H Potassium 3.0 L Chloride 114 H Carbon Dioxide 25.0 Anion Gap 8 BUN 25 H Creatinine 0.64 Estim Creat Clear Calc 81.03 Est GFR (MDRD) Af Amer 120 Est GFR (MDRD) Non-Af 99 BUN/Creatinine Ratio 39.1 H Glucose 47 L Calcium 8.2 L Total Bilirubin 0.50 AST 32 ALT 79 H Alkaline Phosphatase 106 Total Protein 5.7 L Albumin 1.8 L Globulin 3.9 Albumin/Globulin Ratio 0.5 L Medical Necessity - Tobacco Use Smoking Status: Former smoker Assessment/Plan All Active Problems (Last Reviewed 10/02/18 @ 14:08 by Maye Desai PA-C) Pulmonary embolism (Acute) Acute deep vein thrombosis (DVT) of both lower extremities (Acute) UTI (urinary tract infection) (Acute) Bacteremia (Acute) Ileus (Acute) Hydronephrosis (Acute) Hydroureter (Acute) Pancytopenia (Acute) Septic shock (Acute) Acute cholecystitis (Ruled-out) Constipation (Resolved) Cystitis (Acute) Gross hematuria (Acute) #1 septic shock secondary to Pseudomonas pyelonephritis-urine and blood culture grew out Pseudomonas-continue present antibiotic coverage, she remains on present antibiotic coverage #2 pancytopenia secondary to chemotherapy-patient is still neutropenic, she is continuing to get daily Granix #3 acute hypoxic respiratory failure - patient is presently on low flow nasal cannula O2 #4 acute PE with bilateral DVTs-patient now has a vena caval filter #5 stage IV bladder cancer #6 debility secondary to multiple medical problems and septic shock-PT and OT are seeing patient, it is likely she will need temporary placement in a intermediate facility #7 hypokalemia-patient's lab will be rechecked tomorrow, patient was given oral potassium supplementation Code Visit Inpatient E&M: 54361 Subs Hosp L2
[2018-10-04] MEDS: traZODone 50 MG Tablet PO (22:56)
[2018-10-04] MEDS: Atorvastatin Calcium 80 MG Tablet PO (22:56)
[2018-10-05] VITALS (10 sets, daily range): BP systolic 114–147; BP diastolic 63–92; PULSE 50–98; RESP 16–20; TEMP 36.7–37.2; O2SAT 90–97
[2018-10-05] MEDS: Acetaminophen 325 MG Tablet 650 MG PO (00:54)
[2018-10-05] MEDS: oxyCODONE 5 MG Tablet PO ×3 (00:54→15:34)
[2018-10-05] MEDS: Levothyroxine 50 MCG Tablet PO (05:33)
[2018-10-05] MEDS: 0.9% NaCl VAD Flush 10 ML IV ×3 (05:34→05:47)
[2018-10-05 06:10] LABS: Anion Gap 7 (5-15); BUN 20 mg/dL (7-18); BUN/Creat Ratio 31.7 RATIO (10-20); Calcium,Total 7.8 mg/dL (8.5-10.1); Chloride 114 mmol/L (98-107); Creatinine, Serum 0.63 mg/dL (0.55-1.02); EST Glomerular Filtration Rate 101 mL/min (>60); Est Glom Filt Rate - Afr Amer 122 mL/min (>60); Estimated Creatinine Clearance 82.32 ml/min; Glucose 47 mg/dL (74-106); Sodium Level 147 mmol/L (136-145)
[2018-10-05 06:39] LABS: Hematocrit 23.3 % (37-47); Hemoglobin 7.3 g/dl (12.0-15.0); Mean Corp Hgb Conc 31.3 g/gl (32-36); Mean Corpuscular Hgb 28.6 pg (27.0-32.0); Mean Corpuscular Volume 91.4 fL (81-99); Mean Platelet Vol. 10.6 fl (6.2-12.0); RBC Distribution Width CV 16.8 % (11.6-14.6); Red Blood Count 2.55 M/mm3 (4.2-5.4)
[2018-10-05 06:42] LABS: Differential Indicated MANUAL DIFF; POSITIVE COUNT YES; POSITIVE DIFFERENTIAL NO; POSITIVE MORPHOLOGY YES
[2018-10-05 06:43] LABS: Absolute Nucleated RBC Count 0.15 10^3/uL (0-5)
[2018-10-05 06:44] LABS: Platelet Count 23 K/mm3 (150-450)
[2018-10-05 06:54] LABS: Anisocytosis 1+; Blast 1 % (0-0); Lymphocyte 16 % (19-41); Metamyelocyte 8 % (0-1); Monocyte 3 % (0-10); Myelocyte 2 (0-0); Neutrophil-Band 15 % (0-5); Neutrophil-Segmented 55 % (47-70); Total Cells Counted 100 (MANUAL DIFF)
[2018-10-05 06:55] LABS: Hypochromasia 2+; Microcytosis 1+; Platelet Estimate MKD DEC (ADEQ); Polychromasia 1+
[2018-10-05 06:57] LABS: Absolute Lymphocyte Count 2.56 X10^3/ul (0.83-4.51); Absolute Neutrophil Count 11.2 X10^3/uL (2.0-7.7)
--- NOTE | 2018-10-05 08:15 | NURSING ---
respiratory therapy notified of pt request for breathing treatment following morning assessment.
--- NOTE | 2018-10-05 08:17 | PCM.PN.HOSP ---
Patient Problems: Active and Suspected Problems (Last Reviewed 10/02/18 @ 14:08 by Maye Desai PA-C) Pulmonary embolism (Acute) Acute deep vein thrombosis (DVT) of both lower extremities (Acute) Hydronephrosis (Acute) Hydroureter (Acute) Pancytopenia (Acute) Cystitis (Acute) Gross hematuria (Acute) Subjective: feeling better. no appetite. no abdominal pain. Vitals/I&O's: Vital Signs Temp Pulse Resp BP Pulse Ox 36.7 C 61 20 H 114/63 92 10/05/18 05:35 10/05/18 05:35 10/05/18 05:35 10/05/18 05:35 10/05/18 05:35 Oxygen Flow Rate (L/min) 2 Oxygen Delivery Method Nasal Cannula Weight: 57.8 kg Body Mass Index (BMI) 25.9 Finger Stick Blood Glucose 132 Intake and Output for Last 24 Hours 10/03/18 10/04/18 10/05/18 23:59 23:59 23:59 Intake Total 1040 / 1040 935 / 935 1321 / 1321 Output Total 350 / 350 400 / 400 550 / 550 Balance 690 / 690 535 / 535 771 / 771 General: Alert, Cooperative, No apparent distress, - - hoarse voice. HEENT: Atraumatic, Normocephalic Oral: Moist Mucosa, No Gingival or Mucosal Lesions/ Ulcerations Neck: No Nodes, Thyroid Normal Size and Texture Lungs: Clear to auscultation, Normal air movement, No rhonchi, No wheeze Cardiovascular: Regular rate, Regular Rhythm, Normal S1, Normal S2, No murmurs Abdomen: Bowel Sounds Present, Soft, Non Tender, Non-Distended, No Hepato-splenomegaly, - - ileostomy in RLQ Extremities: No edema, No Calf Tenderness Skin: No rashes, No breakdown Musculoskeletal: No Tenderness to Palpation of Joints or Extremities, No Muscle Wasting Neurological: - - no clonus. intact patellar reflexes. Psych/Mental Status: Normal Affect, Appropriate Microbiology Past 72 Hours 09/30/18 18:30 Blood Culture (Wb) - Venous Blood Culture - Final Klebsiella pneumoniae sp pneum Proteus hauseri Pseudomonas aeroginosa 09/30/18 19:35 Urine, Clean Catch Urine Culture - Final Pseudomonas aeroginosa Escherichia coli 10/01/18 11:50 Blood Culture (Wb) - Port Blood Culture - Preliminary No growth in 48 hours. 09/30/18 19:05 Blood Culture (Wb) - Venous Blood Culture - Preliminary Pseudomonas aeroginosa Laboratory Results 10/04/18 06:32: Diff Path Review Reviewed 10/05/18 05:40: WBC 16.0 H, RBC 2.55 L, Hgb 7.3 L, Hct 23.3 L, MCV 91.4, MCH 28.6, MCHC 31.3 L, RDW 16.8 H, RDW Differential 56.0 H, Plt Count 23 L*, MPV 10.6, Neut % (Auto) Not Reportable, Absolute Neuts (auto) 11.2 H, Absolute Lymphs (auto) 2.56, Total Counted 100, Neutrophils % (Manual) 55, Band Neutrophils % 15 H, Lymphocytes % (Manual) 16 L, Monocytes % (Manual) 3, Metamyelocytes % 8 H, Myelocytes % 2 H, Blast Cells % 1 H*, Nucleated RBC % 1.0, Diff Path Review May foll, Platelet Estimate MKD DEC, Polychromasia 1+, Hypochromasia 2+, Anisocytosis 1+, Microcytosis 1+, Absolute Retic 0.15 10/05/18 05:40: Sodium 147 H, Potassium 3.0 L, Chloride 114 H, Carbon Dioxide 26.0, Anion Gap 7, BUN 20 H, Creatinine 0.63, Estim Creat Clear Calc 82.32, Est GFR (MDRD) Af Amer 122, Est GFR (MDRD) Non-Af 101, BUN/Creatinine Ratio 31.7 H, Glucose 47 L, Calcium 7.8 L Current Medications Acetaminophen (Tylenol) 650 mg PO Q4H PRN PRN PRN Reason: Fever >101 Last Admin: 10/05/18 00:54 Dose: 650 mg Albuterol Sulfate (Ventolin Aerosols) 2.5 mg INHALATION Q2H PRN PRN PRN Reason: sob/wheezing Alprazolam (Xanax) 0.5 mg PO BID PRN PRN PRN Reason: ANXIETY Last Admin: 10/04/18 18:28 Dose: 0.5 mg Atorvastatin Calcium (Lipitor) 80 mg PO DAILY@2200 [facility] Last Admin: 10/04/18 22:56 Dose: 80 mg Bupropion HCl (Wellbutrin Xl) 150 mg PO DAILY [facility] Last Admin: 10/04/18 10:11 Dose: 150 mg Chlorhexidine Gluconate () 1 each TOPICAL DAILY [facility] Last Admin: 10/04/18 10:07 Dose: Not Given [facility] Fluconazole (Diflucan) 100 mg PO DAILY [facility] Last Admin: 10/04/18 10:11 Dose: 100 mg Heparin Sodium (Beef Lung) () 50 units IV UD PRN PRN Reason: HEPARIN FLUSH Cefepime HCl 2 gm/ Sodium (Chloride) 100 mls @ 200 mls/hr IV Q8 [facility] Last Admin: 10/05/18 05:34 Dose: 200 mls/hr Levothyroxine Sodium (Synthroid) 50 mcg PO DAILY@0600 [facility] Last Admin: 10/05/18 05:33 Dose: 50 mcg Magnesium Hydroxide (Milk Of Magnesia) 30 ml PO DAILY PRN PRN Reason: Constipation Ondansetron HCl (Zofran) 4 mg IV Q6H PRN PRN PRN Reason: NAUSEA Last Admin: 10/01/18 21:27 Dose: 4 mg Oxycodone HCl (Oxyir) 5 mg PO Q6H PRN PRN PRN Reason: PAIN Last Admin: 10/05/18 00:54 Dose: 5 mg Pantoprazole Sodium (Protonix) 40 mg PO DAILY [facility] Last Admin: 10/04/18 10:11 Dose: 40 mg Polyethylene Glycol (Miralax) 17 gm PO BID [facility] Last Admin: 10/04/18 22:56 Dose: 17 gm Sodium Chloride () 10 ml IV UD PRN PRN Reason: VAD FLUSH Last Admin: 10/05/18 05:47 Dose: 10 ml Trazodone HCl (Desyrel) 50 mg PO DAILY@2200 [facility] Last Admin: 10/04/18 22:56 Dose: 50 mg Medical Necessity - Tobacco Use Smoking Status: Former smoker Assessment/Plan All Active Problems (Last Reviewed 10/02/18 @ 14:08 by Maye Desai PA-C) Pulmonary embolism (Acute) Acute deep vein thrombosis (DVT) of both lower extremities (Acute) DVT (deep venous thrombosis) (Acute) UTI (urinary tract infection) (Acute) Bacteremia (Acute) Ileus (Acute) Hydronephrosis (Acute) Hydroureter (Acute) Pancytopenia (Acute) Septic shock (Resolved) Acute cholecystitis (Ruled-out) Constipation (Resolved) Cystitis (Acute) Gross hematuria (Acute) 1. Septic shock resolved Developed after admission 2/2 bacteremia and UTI DC hydrocortisone and resume her decadron 2. Gram negative bacteremia improved Pseudomonas in 1, Pseudomonas, proteus and Klebsieela in another from the 3rd. repeat BCx on the 4th negative source all organisms fairly sensitive on Cefepime ID on consult 3. UTI likely primary source of above CT showed ileal conduit thick wall abx as above 4. Hydroureter/hydronephrosis follow up with as outpt likely 2/2 inflammation of ileal conduit causing obstruction 5. Pancytopenia 2/2 chemo oncology on consult complicates care 6. VTE: PE and DVT small doubt etiology of hypotension check echo per oncology, no treatment at this time s/p IVC filter on 10/02 7. Hematuria resolved likely 2/2 thrombocytopenia and ileal conduit inflammation 8. Bladder CA stage IV (brain mets) on Carboplatin/gemcitabine, palliative 9. DVT proph: chemical prophylaxis contraindicated given thrombocytopenia hold mechanical contraindicated given Bilateral DVTs 10. Neutropenia resolved with Granix DC granix 11. Debility: placement pending medical stabilization hopefully, patient may be ready on 10/06 Code Visit Inpatient E&M: [id number] [facility] L3
--- NOTE | 2018-10-05 08:30 | PN_ITS ---
Patient Problems: Active and Suspected Problems (Last Reviewed 10/02/18 @ 14:08 by Maye Desai PA-C) Pulmonary embolism (Acute) Acute deep vein thrombosis (DVT) of both lower extremities (Acute) Hydronephrosis (Acute) Hydroureter (Acute) Pancytopenia (Acute) Cystitis (Acute) Gross hematuria (Acute) Subjective: feeling better. no appetite. no abdominal pain. Vitals/I&O's: Vital Signs Temp Pulse Resp BP Pulse Ox 36.7 C 61 20 H 114/63 92 10/05/18 05:35 10/05/18 05:35 10/05/18 05:35 10/05/18 05:35 10/05/18 05:35 Oxygen Flow Rate (L/min) 2 Oxygen Delivery Method Nasal Cannula Weight: 57.8 kg Body Mass Index (BMI) 25.9 Finger Stick Blood Glucose 132 Intake and Output for Last 24 Hours 10/03/18 10/04/18 10/05/18 23:59 23:59 23:59 Intake Total 1040 / 1040 935 / 935 1321 / 1321 Output Total 350 / 350 400 / 400 550 / 550 Balance 690 / 690 535 / 535 771 / 771 General: Alert, Cooperative, No apparent distress, - - hoarse voice. HEENT: Atraumatic, Normocephalic Oral: Moist Mucosa, No Gingival or Mucosal Lesions/ Ulcerations Neck: No Nodes, Thyroid Normal Size and Texture Lungs: Clear to auscultation, Normal air movement, No rhonchi, No wheeze Cardiovascular: Regular rate, Regular Rhythm, Normal S1, Normal S2, No murmurs Abdomen: Bowel Sounds Present, Soft, Non Tender, Non-Distended, No Hepato- splenomegaly, - - ileostomy in RLQ Extremities: No edema, No Calf Tenderness Skin: No rashes, No breakdown Musculoskeletal: No Tenderness to Palpation of Joints or Extremities, No Muscle Wasting Neurological: - - no clonus. intact patellar reflexes. Psych/Mental Status: Normal Affect, Appropriate Microbiology Past 72 Hours 09/30/18 18:30 Blood Culture (Wb) - Venous Blood Culture - Final Klebsiella pneumoniae sp pneum Proteus hauseri Pseudomonas aeroginosa 09/30/18 19:35 Urine, Clean Catch Urine Culture - Final Pseudomonas aeroginosa Escherichia coli 10/01/18 11:50 Blood Culture (Wb) - Port Blood Culture - Preliminary No growth in 48 hours. 09/30/18 19:05 Blood Culture (Wb) - Venous Blood Culture - Preliminary Pseudomonas aeroginosa Laboratory Results 10/04/18 06:32: Diff Path Review Reviewed 10/05/18 05:40: WBC 16.0 H, RBC 2.55 L, Hgb 7.3 L, Hct 23.3 L, MCV 91.4, MCH 28.6, MCHC 31.3 L, RDW 16.8 H, RDW Differential 56.0 H, Plt Count 23 L*, MPV 10.6, Neut % (Auto) Not Reportable, Absolute Neuts (auto) 11.2 H, Absolute Lymphs (auto) 2.56, Total Counted 100, Neutrophils % (Manual) 55, Band Neutrophils % 15 H, Lymphocytes % (Manual) 16 L, Monocytes % (Manual) 3, Metamyelocytes % 8 H, Myelocytes % 2 H, Blast Cells % 1 H*, Nucleated RBC % 1.0, Diff Path Review May foll, Platelet Estimate MKD DEC, Polychromasia 1+, Hypochromasia 2+, Anisocytosis 1+, Microcytosis 1+, Absolute Retic 0.15 10/05/18 05:40: Sodium 147 H, Potassium 3.0 L, Chloride 114 H, Carbon Dioxide 26.0, Anion Gap 7, BUN 20 H, Creatinine 0.63, Estim Creat Clear Calc 82.32, Est GFR (MDRD) Af Amer 122, Est GFR (MDRD) Non-Af 101, BUN/Creatinine Ratio 31.7 H, Glucose 47 L, Calcium 7.8 L Current Medications Acetaminophen (Tylenol) 650 mg PO Q4H PRN PRN PRN Reason: Fever >101 Last Admin: 10/05/18 00:54 Dose: 650 mg Albuterol Sulfate (Ventolin Aerosols) 2.5 mg INHALATION Q2H PRN PRN PRN Reason: sob/wheezing Alprazolam (Xanax) 0.5 mg PO BID PRN PRN PRN Reason: ANXIETY Last Admin: 10/04/18 18:28 Dose: 0.5 mg Atorvastatin Calcium (Lipitor) 80 mg PO DAILY@2200 [facility] Last Admin: 10/04/18 22:56 Dose: 80 mg Bupropion HCl (Wellbutrin Xl) 150 mg PO DAILY [facility] Last Admin: 10/04/18 10:11 Dose: 150 mg Chlorhexidine Gluconate () 1 each TOPICAL DAILY [facility] Last Admin: 10/04/18 10:07 Dose: Not Given [facility] Fluconazole (Diflucan) 100 mg PO DAILY [facility] Last Admin: 10/04/18 10:11 Dose: 100 mg Heparin Sodium (Beef Lung) () 50 units IV UD PRN PRN Reason: HEPARIN FLUSH Cefepime HCl 2 gm/ Sodium (Chloride) 100 mls @ 200 mls/hr IV Q8 [facility] Last Admin: 10/05/18 05:34 Dose: 200 mls/hr Levothyroxine Sodium (Synthroid) 50 mcg PO DAILY@0600 [facility] Last Admin: 10/05/18 05:33 Dose: 50 mcg Magnesium Hydroxide (Milk Of Magnesia) 30 ml PO DAILY PRN PRN Reason: Constipation Ondansetron HCl (Zofran) 4 mg IV Q6H PRN PRN PRN Reason: NAUSEA Last Admin: 10/01/18 21:27 Dose: 4 mg Oxycodone HCl (Oxyir) 5 mg PO Q6H PRN PRN PRN Reason: PAIN Last Admin: 10/05/18 00:54 Dose: 5 mg Pantoprazole Sodium (Protonix) 40 mg PO DAILY [facility] Last Admin: 10/04/18 10:11 Dose: 40 mg Polyethylene Glycol (Miralax) 17 gm PO BID [facility] Last Admin: 10/04/18 22:56 Dose: 17 gm Sodium Chloride () 10 ml IV UD PRN PRN Reason: VAD FLUSH Last Admin: 10/05/18 05:47 Dose: 10 ml Trazodone HCl (Desyrel) 50 mg PO DAILY@2200 [facility] Last Admin: 10/04/18 22:56 Dose: 50 mg Medical Necessity - Tobacco Use Smoking Status: Former smoker Assessment/Plan All Active Problems (Last Reviewed 10/02/18 @ 14:08 by Maye Desai PA-C) Pulmonary embolism (Acute) Acute deep vein thrombosis (DVT) of both lower extremities (Acute) DVT (deep venous thrombosis) (Acute) UTI (urinary tract infection) (Acute) Bacteremia (Acute) Ileus (Acute) Hydronephrosis (Acute) Hydroureter (Acute) Pancytopenia (Acute) Septic shock (Resolved) Acute cholecystitis (Ruled-out) Constipation (Resolved) Cystitis (Acute) Gross hematuria (Acute) 1. Septic shock * resolved * Developed after admission * 2/2 bacteremia and UTI * DC hydrocortisone and resume her decadron 2. Gram negative bacteremia * improved * Pseudomonas in 1, Pseudomonas, proteus and Klebsieela in another from the 3rd. * repeat BCx on the 4th negative * source * all organisms fairly sensitive * on Cefepime * ID on consult 3. UTI * likely primary source of above * CT showed ileal conduit thick wall * abx as above 4. Hydroureter/hydronephrosis * follow up with as outpt * likely 2/2 inflammation of ileal conduit causing obstruction 5. Pancytopenia * 2/2 chemo * oncology on consult * complicates care 6. VTE: * PE and DVT * small * doubt etiology of hypotension * check echo * per oncology, no treatment at this time * s/p IVC filter on 10/02 7. Hematuria * resolved * likely 2/2 thrombocytopenia and ileal conduit inflammation 8. Bladder CA * stage IV (brain mets) * on Carboplatin/gemcitabine, palliative 9. DVT proph: * chemical prophylaxis contraindicated given thrombocytopenia * hold mechanical contraindicated given Bilateral DVTs 10. Neutropenia * resolved with Granix * DC granix 11. Debility: * placement pending medical stabilization * hopefully, patient may be ready on 10/06 Code Visit Inpatient E&M: [id number] [facility] L3
[2018-10-05] MEDS: Albuterol 2.5 MG/3 ML VIAL.NEB. INHALATION ×3 (08:32→17:28)
[2018-10-05] MEDS: CLARIFY ORDER NOTE (09:00)
[2018-10-05 09:40] LABS: Pathologist Review Reviewed
[2018-10-05] MEDS: Fluconazole 100 MG Tablet PO (09:48)
[2018-10-05] MEDS: Pantoprazole Sodium 40 MG Tablet PO (09:48)
[2018-10-05] MEDS: buPROPion (XL) 150 MG TABLET.XL PO (09:49)
[2018-10-05] MEDS: ALPRAZolam 0.5 MG Tablet PO (09:49)
--- NOTE | 2018-10-05 09:50 | NURSING ---
patient requested to speak with case management regarding financial situation at home,as well as POA changes. Case management notified of same.
--- NOTE | 2018-10-05 10:42 | PCM.PN.ID ---
Patient Problems: Active and Suspected Problems (Last Reviewed 10/02/18 @ 14:08 by Maye Desai PA-C) Pulmonary embolism (Acute) Acute deep vein thrombosis (DVT) of both lower extremities (Acute) Cystitis (Acute) Gross hematuria (Acute) Subjective: Feeling ok, but having some diarrhea and abd pain. No fever. - Physical Exam General: Alert, Cooperative, No apparent distress Lungs: Clear to auscultation, Normal air movement Cardiovascular: Regular rate, Regular Rhythm Abdomen: Soft, Non Tender, Non-Distended Skin: No rashes Vital Signs Temp Pulse Resp BP Pulse Ox 98.3 F 83 18 124/74 H 92 10/05/18 10:14 10/05/18 10:14 10/05/18 10:14 10/05/18 10:14 10/05/18 10:14 Oxygen Flow Rate (L/min) 2 Oxygen Delivery Method Nasal Cannula Weight: 57.8 kg Body Mass Index (BMI) 25.9 Finger Stick Blood Glucose 132 Intake and Output for Last 24 Hours 10/03/18 10/04/18 10/05/18 23:59 23:59 23:59 Intake Total 1040 / 1040 935 / 935 1321 / 1321 Output Total 350 / 350 400 / 400 550 / 550 Balance 690 / 690 535 / 535 771 / 771 Microbiology Past 72 Hours 09/30/18 18:30 Blood Culture - Final Blood Culture (Wb) - Venous Klebsiella pneumoniae sp pneum Proteus hauseri Pseudomonas aeroginosa 09/30/18 19:35 Urine Culture - Final Urine, Clean Catch Pseudomonas aeroginosa Escherichia coli 10/01/18 11:50 Blood Culture - Preliminary Blood Culture (Wb) - Port No growth in 48 hours. 09/30/18 19:05 Blood Culture - Preliminary Blood Culture (Wb) - Venous Pseudomonas aeroginosa Laboratory Tests Past 24 Hrs 10/04/18 10/05/18 10/05/18 06:32 05:40 05:40 WBC 16.0 H RBC 2.55 L Hgb 7.3 L Hct 23.3 L MCV 91.4 MCH 28.6 MCHC 31.3 L RDW 16.8 H RDW Differential 56.0 H Plt Count 23 L* MPV 10.6 Neut % (Auto) Not Reportable Absolute Neuts (auto) 11.2 H Absolute Lymphs (auto) 2.56 Total Counted 100 Neutrophils % (Manual) 55 Band Neutrophils % 15 H Lymphocytes % (Manual) 16 L Monocytes % (Manual) 3 Metamyelocytes % 8 H Myelocytes % 2 H Blast Cells % 1 H* Nucleated RBC % 1.0 Diff Path Review Reviewed Reviewed Platelet Estimate MKD DEC Polychromasia 1+ Hypochromasia 2+ Anisocytosis 1+ Microcytosis 1+ Absolute Retic 0.15 Sodium 147 H Potassium 3.0 L Chloride 114 H Carbon Dioxide 26.0 Anion Gap 7 BUN 20 H Creatinine 0.63 Estim Creat Clear Calc 82.32 Est GFR (MDRD) Af Amer 122 Est GFR (MDRD) Non-Af 101 BUN/Creatinine Ratio 31.7 H Glucose 47 L Calcium 7.8 L Medical Necessity - Tobacco Use Smoking Status: Former smoker Route of nutrition/ use of supplements: [] Nutritional Intake: [] IV Site: [] Suarez Catheter: [] - Assessment/Plan Antibiotics: [] Assessment/Plan: [] Active and Suspected Problems (Last Reviewed 10/02/18 @ 14:08 by Maye Desai PA-C) Pulmonary embolism (Acute) Acute deep vein thrombosis (DVT) of both lower extremities (Acute) UTI (urinary tract infection) (Acute) Bacteremia (Acute) Ileus (Acute) Hydronephrosis (Acute) Hydroureter (Acute) Pancytopenia (Acute) Septic shock (Acute) Cystitis (Acute) Gross hematuria (Acute) Septic shock with pancytopenia and GNR bacteremia - neutropenic precautions. Repeat bcx remains neg. Bcx here so far showing PsA, klebs, and proteus. Narrowed meropenem to cefepime. ANC now recovered. Plan on 10 more days of cefepime, stop date 10/15/18, weekly bmp and cbc while on iv abx. Rx written. DVT and PE - IVC filter placed diarrhea - stool studies ordered Will follow, d/w caseworker protective services.
--- NOTE | 2018-10-05 13:25 | CASEMGMT ---
Addendum entered by Marlys Salcedo 10/05/18 13:55: SW spoke with pt's sister Alena and updated her on discharge planning. Alena states that she is working on getting pt's insurance set up so when pt comes to [place] it will be active for her. SW spent much time talking with pt's sister regarding pt and her discharge plans. Original Note: Social Work Note SW met with pt. Pt states that she is doing ok. Pt states she remembered talking to this SW yesterday regarding SNF placement. SW explained that a referral was sent to [facility] in [place], [place] and that this worker is waiting to clarify pt's chemotherapy treatment as SNF is requesting clarification. Pt states that she has problems. SW asked pt what her problems currently are. Pt states that her roommate Tobin is not bringing in pt's things that she needs. SW asked pt if she has been in contact with Tobin or if pt's family has asked Tobin about getting her things. Pt states she hasn't and her family won't talk to him. SW informed pt that this worker was informed by pt's daughter Lucia that pt's sister Alena was going to come get pt's things from the house either this weekend or next weekend. SW encouraged pt that either she or her family should contact her roommate Tobin to see about getting pt's things and taking care of her dogs. SW explained that if pt or her family reaches out to Tobin and he doesn't allow anyone to get pt's things, then pt or her family will need to notify the police. Pt states understanding. LUDWIN received message from pt's sister Alena requesting call back. LUDWIN placed a call to pt's sister Alena at [phone]. LUDWIN attempted to call pt's sister but no answer. LUDWIN left message with callback number. LUDWIN attempted to call Dr. Toledo to determine if pt will be getting chemotherapy while at SNF. Dr. Toledo unavailable. LUDWIN waiting for call back from Dr. Toledo. LUDWIN faxed updated clinicals to Sarah at [facility]. Plan: [facility] pending acceptance and pre-cert Marlys Salcedo PRINCIPAL DATABASE DEVELOPER, VP [employer]
--- NOTE | 2018-10-05 14:59 | CASEMGMT ---
Social Work Note RN MARLENE Viveros updated this worker that she spoke with Dr. Toledo who states pt's chemotherapy will be suspended at this time until pt gets stronger. LUDWIN placed a call to Sarah and updated her on this. Sarah states she will submit for pre-cert. Plan: [facility] pending pre-cert Marlys Salcedo SNUFF CONTAINER INSPECTOR, ENVIRONMENTAL ENGINEERING PROFESSOR
--- NOTE | 2018-10-05 15:27 | CHAPLAIN ---
Type of Pastoral Visit ___ Initial Visit _x__ Follow-up Visit ___ On-call Visit ___ General Patient Visit ___ Spiritual Assessment ___ Family Conference ___ Bereavement ___ Rapid Response ___ Code Blue ___ Other (describe below) Pastoral Care Referral From _x__ Patient ___ Family ___ Nurse ___ Physician ___ Parachute Cushion Installer ___ Travel Money Advisor ___ Other (describe below) Sacrament/Intervention _x__ Active listening ___ Anointing ___ Quaker ___ Bereavement ___ Communion _x__ [place]aira exploration ___ _x__ Life review ___ Prayer ___ Reconciliation ___ Sacrament of Sick _x__ Supportive presence ___ Wedding ___ Other (describe below) Pastoral Comments follow up visits 10/04 and 10/05 are opportunities for patient to express her concerns, spiritual needs, and relational issues she is facing; pt says she is gaining in spiritual knowledge and insight; pt speaks of going out soon as she processes her life, her future, and how she wants to live in her final days; pt welcomes spiritual care and asks for future visits and prayers
--- NOTE | 2018-10-05 15:45 | ONC.OV1 ---
Subjective - Date of Service Date of Service:: 10/05/18 - Chief Complaint F/U for chemotherapy related sepsis. - History of Present Illness 63y.o.woman was diagnosed with Bladder cancer Stage IIIA (pT3b N1 M0), she had radical cystectomy with ileal conduit and urine bag in May 2017 at [facility]. She presented to the emergency room with abdominal pain CT scan on 08/02/2018 showed multiple abdominal masses. She has developed swelling in the left side of the neck which is painful. CT neck,chest on 08/10/2018 showed brain metastases, increased Left supraclavicular nodes. MRI brain was requested and referred to Radiation Oncology. CT guided biopsy of pelvic mass on 08/14/2018 showed poorly differentiated carcinoma. She received WBRT from 08/24/2018-09/06/2018. She started chemotherapy with Carboplatin and Gemzar on 09/18/2018 and received C1D8 Gemzar on 09/25/2018. She became lethargic with blood tinged urine so was brought to ER, found to be neutropenic, thrombocytopenic and febrile. She was admitted to ICU with sepsis, treated with broad spectrum antibiotics and GCSF. Neutropenia has resolved. She feels better.. - Past Medical/Social History Past Medical History Cancer: Bladder cancer Social History Smoking Status Former smoker Review of Systems Constitutional:: Reports: Fatigue. Denies: Fever, Sweats Cardiovascular:: Denies: Chest pain, Palpitations, Dyspnea on exertion, Orthopnea, PND, Shortness of breath Respiratory: Denies: Cough, Hemoptysis, Shortness of Breath, Wheezing Gastrointestinal:: Denies: Abdominal pain, Nausea, Vomiting, Diarrhea, Constipation, Hematochezia Vital Signs Height 4 ft 10 in Weight: 57.8 kg Weight in Pounds 127.4 lbs BMI 25.4 Pulse Ox 90 Temperature 98.5 F Pulse Rate 50 Respiratory Rate 16 Blood Pressure [BP] 155/89 Blood Pressure 124/69 Blood Pressure Position [BP] Semi-Fowlers Blood Pressure Position Sitting - Physical Exam General: Alert, Oriented x3, No apparent distress Laboratory Data: Microbiology 09/30/18 18:30 Blood Culture - Final Blood Culture (Wb) - Venous Klebsiella pneumoniae sp pneum Proteus hauseri Pseudomonas aeroginosa 09/30/18 19:35 Urine Culture - Final Urine, Clean Catch Pseudomonas aeroginosa Escherichia coli 10/01/18 11:50 Blood Culture - Preliminary Blood Culture (Wb) - Port No growth in 48 hours. 09/30/18 19:05 Blood Culture - Preliminary Blood Culture (Wb) - Venous Pseudomonas aeroginosa Laboratory Tests 10/05/18 10/05/18 Range/Units 05:40 05:40 WBC 16.0 H (4.4-11.0) K/mm3 RBC 2.55 L (4.2-5.4) M/mm3 Hgb 7.3 L (12.0-15.0) g/dl Hct 23.3 L (37-47) % MCV 91.4 (81-99) fL MCH 28.6 (27.0-32.0) pg MCHC 31.3 L (32-36) g/gl RDW 16.8 H (11.6-14.6) % RDW Differential 56.0 H (35.1-43.9) fl Plt Count 23 L* (150-450) K/mm3 MPV 10.6 (6.2-12.0) fl Neut % (Auto) Not Reportable Absolute Neuts (auto) 11.2 H (2.0-7.7) X10^3/uL Absolute Lymphs (auto) 2.56 (0.83-4.51) X10^3/ul Total Counted 100 (MANUAL DIFF) Neutrophils % (Manual) 55 (47-70) % Band Neutrophils % 15 H (0-5) % Lymphocytes % (Manual) 16 L (19-41) % Monocytes % (Manual) 3 (0-10) % Metamyelocytes % 8 H (0-1) % Myelocytes % 2 H (0-0) Blast Cells % 1 H* (0-0) % Nucleated RBC % 1.0 (0-5) % Diff Path Review Reviewed Platelet Estimate MKD DEC (ADEQ) Polychromasia 1+ Hypochromasia 2+ Anisocytosis 1+ Microcytosis 1+ Absolute Retic 0.15 (0-5) 10^3/uL Sodium 147 H (136-145) mmol/L Potassium 3.0 L (3.5-5.1) mmol/L Chloride 114 H (98-107) mmol/L Carbon Dioxide 26.0 (21.0-32.0) mmol/L Anion Gap 7 (5-15) BUN 20 H (7-18) mg/dL Creatinine 0.63 (0.55-1.02) mg/dL Estim Creat Clear Calc 82.32 ml/min Est GFR (MDRD) Af Amer 122 (>60) mL/min Est GFR (MDRD) Non-Af 101 (>60) mL/min BUN/Creatinine Ratio 31.7 H (10-20) RATIO Glucose 47 L (74-106) mg/dL Calcium 7.8 L (8.5-10.1) mg/dL Diagnostic Data: Diagnostic Data Brain CT 09/30/18 18:35 IMPRESSION: Mild periventricular white matter ischemic changes. No mass or acute bleed. If concern for metastatic disease MRI recommended for further evaluation Electronically Signed: Moy Henao MD at 20:33 EDT , Service support , Chest X-Ray 09/30/18 18:36 IMPRESSION: Stable appearance of the chest with no acute pathology. New right internal jugular catheter as described. Electronically Signed: Jesus Hutchison MD at 19:36 EDT , Service support , Chest CTA 09/30/18 18:55 IMPRESSION: Pulmonary emboli to the subsegmental vessels of the right lower lobe Chronic interstitial changes and minor atelectasis within the dependent portion of the lungs. Electronically Signed: Moy Henao MD at 20:56 EDT , Service support , Abdomen/Pelvis CT 09/30/18 20:50 IMPRESSION: Postsurgical changes status post cystectomy and right ileal conduit. Moderate right hydroureteronephrosis and mild left hydroureter in association with thick-walled ileal conduit and focal narrowing of the lumen. Nonspecific ileus with diffuse fecal retention in the colon Status post cholecystectomy, cystectomy and hysterectomy Other findings as above Electronically Signed: Moy Henao MD at 22:35 EDT , Service support , Assessment and Plan Neutropenic sepsis following Chemotherapy with Carboplatin and Gemzar, improving. Thrombocytopenia due to chemotherapy. Neutropenia resolved and off GCSF. Suggestion is to continue Cefepime as suggested by ID. Further treatment with chemotherapy is on hold. If discharged, she should follow up in [facility]. Thanks. Medications: Prescriptions This Visit Medication Instructions Recorded Bupropion HCl [Bupropion Xl] 150 mg PO DAILY 09/30/18 Trazodone HCl 50 mg PO DAILY 09/30/18 Cefepime HCl [Maxipime] 2 gm IV Q8 #30 vial 10/05/18 Medications Added to Medication List This Visit Category Date Time Status Clarify Order Med 10/05/18 09:00 Active 0 ea NOTE CLARIFY Dexamethasone [Decadron] Med 10/05/18 08:00 Active 4 mg PO BIDCM Ensure Enlive Med 10/05/18 18:00 Active 120 ml PO 4X/DAY Primary Care Provider: Osman Alexander Referring Provider: - Problem List (1) Septic shock Status: Resolved
--- NOTE | 2018-10-05 15:52 | WMO.OV_ITS ---
Subjective - Date of Service Date of Service:: 10/05/18 - Chief Complaint F/U for chemotherapy related sepsis. - History of Present Illness 63y.o.woman was diagnosed with Bladder cancer Stage IIIA (pT3b N1 M0), she had radical cystectomy with ileal conduit and urine bag in May [address] [facility]. She presented to the emergency room with abdominal pain CT scan on 08/02/2018 showed multiple abdominal masses. She has developed swelling in the left side of the neck which is painful. CT neck,chest on 08/10/2018 showed brain metastases, increased Left supraclavicular nodes. MRI brain was requested and referred to Radiation Oncology. CT guided biopsy of pelvic mass on 08/14/2018 showed poorly differentiated carcinoma. She received WBRT from 08/24/2018- 09/06/2018. She started chemotherapy with Carboplatin and Gemzar on 09/18/2018 and received C1D8 Gemzar on 09/25/2018. She became lethargic with blood tinged urine so was brought to ER, found to be neutropenic, thrombocytopenic and febrile. She was admitted to ICU with sepsis, treated with broad spectrum antibiotics and GCSF. Neutropenia has resolved. She feels better.. - Past Medical/Social History Past Medical History Cancer: Bladder cancer Social History Smoking Status Former smoker Review of Systems Constitutional:: Reports: Fatigue. Denies: Fever, Sweats Cardiovascular:: Denies: Chest pain, Palpitations, Dyspnea on exertion, Orthopnea, PND, Shortness of breath Respiratory: Denies: Cough, Hemoptysis, Shortness of Breath, Wheezing Gastrointestinal:: Denies: Abdominal pain, Nausea, Vomiting, Diarrhea, Cons tipation, Hematochezia Vital Signs Height 4 ft 10 in Weight: 57.8 kg Weight in Pounds 127.4 lbs BMI 25.4 Pulse Ox 90 Temperature 98.5 F Pulse Rate 50 Respiratory Rate 16 Blood Pressure [BP] 155/89 Blood Pressure 124/69 Blood Pressure Position [BP] Semi-Fowlers Blood Pressure Position Sitting - Physical Exam General: Alert, Oriented x3, No apparent distress Laboratory Data: Microbiology 09/30/18 18:30 Blood Culture - Final Blood Culture (Wb) - Venous Klebsiella pneumoniae sp pneum Proteus hauseri Pseudomonas aeroginosa 09/30/18 19:35 Urine Culture - Final Urine, Clean Catch Pseudomonas aeroginosa Escherichia coli 10/01/18 11:50 Blood Culture - Preliminary Blood Culture (Wb) - Port No growth in 48 hours. 09/30/18 19:05 Blood Culture - Preliminary Blood Culture (Wb) - Venous Pseudomonas aeroginosa Laboratory Tests 10/05/18 10/05/18 Range/Units 05:40 05:40 WBC 16.0 H (4.4-11.0) K/mm3 RBC 2.55 L (4.2-5.4) M/mm3 Hgb 7.3 L (12.0-15.0) g/dl Hct 23.3 L (37-47) % MCV 91.4 (81-99) fL MCH 28.6 (27.0-32.0) pg MCHC 31.3 L (32-36) g/gl RDW 16.8 H (11.6-14.6) % RDW Differential 56.0 H (35.1-43.9) fl Plt Count 23 L* (150-450) K/mm3 MPV 10.6 (6.2-12.0) fl Neut % (Auto) Not Reportable Absolute Neuts (auto) 11.2 H (2.0-7.7) X10^3/uL Absolute Lymphs (auto) 2.56 (0.83-4.51) X10^3/ul Total Counted 100 (MANUAL DIFF) Neutrophils % (Manual) 55 (47-70) % Band Neutrophils % 15 H (0-5) % Lymphocytes % (Manual) 16 L (19-41) % Monocytes % (Manual) 3 (0-10) % Metamyelocytes % 8 H (0-1) % Myelocytes % 2 H (0-0) Blast Cells % 1 H* (0-0) % Nucleated RBC % 1.0 (0-5) % Diff Path Review Reviewed Platelet Estimate MKD DEC (ADEQ) Polychromasia 1+ Hypochromasia 2+ Anisocytosis 1+ Microcytosis 1+ Absolute Retic 0.15 (0-5) 10^3/uL Sodium 147 H (136-145) mmol/L Potassium 3.0 L (3.5-5.1) mmol/L Chloride 114 H (98-107) mmol/L Carbon Dioxide 26.0 (21.0-32.0) mmol/L Anion Gap 7 (5-15) BUN 20 H (7-18) mg/dL Creatinine 0.63 (0.55-1.02) mg/dL Estim Creat Clear Calc 82.32 ml/min Est GFR (MDRD) Af Amer 122 (>60) mL/min Est GFR (MDRD) Non-Af 101 (>60) mL/min BUN/Creatinine Ratio 31.7 H (10-20) RATIO Glucose 47 L (74-106) mg/dL Calcium 7.8 L (8.5-10.1) mg/dL Diagnostic Data: Diagnostic Data Brain CT 09/30/18 18:35 IMPRESSION: Mild periventricular white matter ischemic changes. No mass or acute bleed. If concern for metastatic disease MRI recommended for further evaluation Electronically Signed: Moy Henao MD at 20:33 EDT , Service support , Chest X-Ray 09/30/18 18:36 IMPRESSION: Stable appearance of the chest with no acute pathology. New right internal jugular catheter as described. Electronically Signed: Jesus Hutchison MD at 19:36 EDT , Service support , Chest CTA 09/30/18 18:55 IMPRESSION: Pulmonary emboli to the subsegmental vessels of the right lower lobe Chronic interstitial changes and minor atelectasis within the dependent portion of the lungs. Electronically Signed: Moy Henao MD at 20:56 EDT , Service support , Abdomen/Pelvis CT 09/30/18 20:50 IMPRESSION: Postsurgical changes status post cystectomy and right ileal conduit. Moderate right hydroureteronephrosis and mild left hydroureter in association with thick-walled ileal conduit and focal narrowing of the lumen. Nonspecific ileus with diffuse fecal retention in the colon Status post cholecystectomy, cystectomy and hysterectomy Other findings as above Electronically Signed: Moy Henao MD at 22:35 EDT , Service support , Assessment and Plan Neutropenic sepsis following Chemotherapy with Carboplatin and Gemzar, improving. Thrombocytopenia due to chemotherapy. Neutropenia resolved and off GCSF. Suggestion is to continue Cefepime as suggested by ID. Further treatment with chemotherapy is on hold. If discharged, she should follow up in [facility]. Thanks. Medications: Prescriptions This Visit Medication Instructions Recorded Bupropion HCl [Bupropion Xl] 150 mg PO DAILY 09/30/18 Trazodone HCl 50 mg PO DAILY 09/30/18 Cefepime HCl [Maxipime] 2 gm IV Q8 #30 vial 10/05/18 Medications Added to Medication List This Visit Category Date Time Status Clarify Order Med 10/05/18 09:00 Active 0 ea NOTE CLARIFY Dexamethasone [Decadron] Med 10/05/18 08:00 Active 4 mg PO BIDCM Ensure Enlive Med 10/05/18 18:00 Active 120 ml PO 4X/DAY Primary Care Provider: Osman Alexander Referring Provider: - Problem List (1) Septic shock Status: Resolved
--- NOTE | 2018-10-05 16:12 | PN ---
Tobin [place], pt's sig. other, called. He stated a friend of Tiarra's called from [facility], saying she called her and said she will be discharged from the hospital with no place to go. Tobin informed me she is still welcome at his place. He would like her to pursue more chemo once she is strong enough. He appears genuinely concerned for her well being.
[2018-10-05] MEDS: traZODone 50 MG Tablet PO (23:08)
[2018-10-05] MEDS: Atorvastatin Calcium 80 MG Tablet PO (23:08)
[2018-10-06] VITALS (9 sets, daily range): BP systolic 134–169; BP diastolic 69–97; PULSE 48–75; RESP 18–20; TEMP 36.4–37.3; O2SAT 92–98
[2018-10-06 05:32] LABS: Anion Gap 8 (5-15); BUN 16 mg/dL (7-18); BUN/Creat Ratio 26.2 RATIO (10-20); Calcium,Total 8.1 mg/dL (8.5-10.1); Chloride 111 mmol/L (98-107); Creatinine, Serum 0.61 mg/dL (0.55-1.02); EST Glomerular Filtration Rate 105 mL/min (>60); Est Glom Filt Rate - Afr Amer 127 mL/min (>60); Estimated Creatinine Clearance 85.02 ml/min; Glucose 130 mg/dL (74-106); Potassium 3.4 mmol/L (3.5-5.1); Sodium Level 146 mmol/L (136-145)
[2018-10-06] MEDS: Ondansetron 4 MG/2 ML Vial IV (05:43)
[2018-10-06] MEDS: 0.9% NaCl VAD Flush 10 ML IV ×4 (05:45→16:25)
[2018-10-06 06:01] LABS: Hematocrit 24.1 % (37-47); Hemoglobin 7.6 g/dl (12.0-15.0); Mean Corp Hgb Conc 31.5 g/gl (32-36); Mean Corpuscular Hgb 28.7 pg (27.0-32.0); Mean Corpuscular Volume 90.9 fL (81-99); RBC Distribution Width CV 17.4 % (11.6-14.6); RBC Distribution Width SD 57.8 fl (35.1-43.9); Red Blood Count 2.65 M/mm3 (4.2-5.4)
[2018-10-06] MEDS: Levothyroxine 50 MCG Tablet PO (06:03)
[2018-10-06] MEDS: oxyCODONE 5 MG Tablet PO ×3 (06:03→23:42)
[2018-10-06 06:04] LABS: Differential Indicated MANUAL DIFF; POSITIVE COUNT YES; POSITIVE DIFFERENTIAL NO; POSITIVE MORPHOLOGY YES
[2018-10-06 06:06] LABS: Platelet Count 27 K/mm3 (150-450); White Blood Count 37.4 K/mm3 (4.4-11.0)
[2018-10-06 06:07] LABS: Absolute Nucleated RBC Count 0.24 10^3/uL (0-5); NRBC Flagged by Analyzer 0.6 % (0-5)
[2018-10-06 06:56] LABS: Lymphocyte 11 % (19-41); Metamyelocyte 3 % (0-1); Monocyte 6 % (0-10); Neutrophil-Band 10 % (0-5); Neutrophil-Segmented 70 % (47-70); Total Cells Counted 100 (MANUAL DIFF)
[2018-10-06 06:57] LABS: Anisocytosis 1+; Hypochromasia 2+; Microcytosis 1+; Platelet Estimate MKD DEC (ADEQ); Polychromasia 1+
[2018-10-06 06:58] LABS: Absolute Lymphocyte Count 4.11 X10^3/ul (0.83-4.51); Absolute Neutrophil Count 29.9 X10^3/uL (2.0-7.7)
--- NOTE | 2018-10-06 08:31 | RAD_ITS ---
STUDY: X-RAY - ABDOMEN/PELVIS REASON FOR EXAM: Female, 63 years old. Abdominal pain. Sepsis. TECHNIQUE: Single AP view of the abdomen / pelvis. COMPARISON: Comparison is made with prior study dated January 21, 2018. FINDINGS: There is an unremarkable bowel gas pattern. A filter is seen within the inferior vena cava. There are calcified phleboliths in the pelvis. There are degenerative changes of the visualized lumbar spine. RAD/Abdomen Single View IMPRESSION: Nonspecific bowel gas pattern. Electronically Signed: Antonio Griffin MD at 9:16 EST Tel [phone], Service support ,
--- NOTE | 2018-10-06 09:17 | CASEMGMT ---
Addendum entered by Marlys Salcedo 10/06/18 12:13: Sarah at [facility] has submitted for pre-cert Original Note: Social Work Note SW received message from Sarah at [facility] stating that if pt is discharged on Granix, they won't be able to accept as it costs too much money. SW reviewed notes for pt. Per physician notes from yesterday, Granix was discontinued. LUDWIN faxed updated clinicals to Sarah at [facility]. LUDWIN placed a call to Sarah at [facility] and informed her that per notes, Granix was discontinued. Sarah states once she receives the updated notes, she will updated her [employer] and if she gets the approval she will submit for pre-cert. Plan: [facility] pending pre-cert Marlys Salcedo [employer], MONUMENT ERECTOR
[2018-10-06] MEDS: proMETHazine 25 MG/ML Syringe 12.5 MG IV ×2 (09:30→16:25)
[2018-10-06] MEDS: Acetaminophen 325 MG Tablet 650 MG PO (09:30)
[2018-10-06] MEDS: ALPRAZolam 0.5 MG Tablet PO ×2 (09:31→23:42)
--- NOTE | 2018-10-06 09:31 | PCM.PN.HOSP ---
Patient Problems: Active and Suspected Problems (Last Reviewed 10/02/18 @ 14:08 by Maye Desai PA-C) DVT (deep venous thrombosis) (Acute) Pulmonary embolism (Acute) Acute deep vein thrombosis (DVT) of both lower extremities (Acute) UTI (urinary tract infection) (Acute) Bacteremia (Acute) Hydronephrosis (Acute) Hydroureter (Acute) Pancytopenia (Acute) Cystitis (Acute) Gross hematuria (Acute) Subjective: Complains of abdominal pain. Still with diarrhea. No appetite. Vitals/I&O's: Vital Signs Temp Pulse Resp BP Pulse Ox 37.3 C 75 18 139/84 H 96 10/06/18 03:11 10/06/18 03:11 10/06/18 03:11 10/06/18 03:11 10/06/18 03:11 Oxygen Flow Rate (L/min) 2 Oxygen Delivery Method Nasal Cannula Weight: 57.8 kg Body Mass Index (BMI) 25.9 Finger Stick Blood Glucose 132 Intake and Output for Last 24 Hours 10/04/18 10/05/18 10/06/18 23:59 23:59 23:59 Intake Total 935 / 935 3021 / 3021 671 / 671 Output Total 400 / 400 1000 / 1000 1350 / 1350 Balance 535 / 535 2020 / 2020 -679 / -679 General: Alert, Cooperative, - - uncomfortable. HEENT: Atraumatic, Normocephalic Oral: Moist Mucosa, No Gingival or Mucosal Lesions/ Ulcerations Neck: No Nodes, Thyroid Normal Size and Texture Lungs: Clear to auscultation, Normal air movement, No rhonchi, No wheeze Cardiovascular: Regular rate, Regular Rhythm, Normal S1, Normal S2, No murmurs Abdomen: Hyperactive Bowel Sounds, Distended, Tender, - - ileostomy in RLQ Extremities: No edema, No Calf Tenderness Skin: No rashes, No breakdown Musculoskeletal: No Tenderness to Palpation of Joints or Extremities, No Muscle Wasting Neurological: Muscle tone normal, Coordination normal Psych/Mental Status: Appropriate, Agitated Microbiology Past 72 Hours 10/06/18 08:15 Sputum, Expectorated/Coughed Gram Stain - Final 10/06/18 06:20 Stool C. difficile DNA Amplification - Final 09/30/18 19:05 Blood Culture (Wb) - Venous Blood Culture - Final Pseudomonas aeroginosa 09/30/18 18:30 Blood Culture (Wb) - Venous Blood Culture - Final Klebsiella pneumoniae sp pneum Proteus hauseri Pseudomonas aeroginosa 09/30/18 19:35 Urine, Clean Catch Urine Culture - Final Pseudomonas aeroginosa Escherichia coli 10/01/18 11:50 Blood Culture (Wb) - Port Blood Culture - Preliminary No growth in 48 hours. Laboratory Results 10/05/18 05:40: Diff Path Review Reviewed 10/06/18 05:00: WBC 37.4 H*, RBC 2.65 L, Hgb 7.6 L, Hct 24.1 L, MCV 90.9, MCH 28.7, MCHC 31.5 L, RDW 17.4 H, RDW Differential 57.8 H, Plt Count 27 L*, Neut % (Auto) Not Reportable, Absolute Neuts (auto) 29.9 H, Absolute Lymphs (auto) 4.11, Total Counted 100, Neutrophils % (Manual) 70, Band Neutrophils % 10 H, Lymphocytes % (Manual) 11 L, Monocytes % (Manual) 6, Metamyelocytes % 3 H, Nucleated RBC % 0.6, Diff Path Review May foll, Platelet Estimate MKD DEC, Polychromasia 1+, Hypochromasia 2+, Anisocytosis 1+, Microcytosis 1+, Absolute Retic 0.24 10/06/18 05:00: Sodium 146 H, Potassium 3.4 L, Chloride 111 H, Carbon Dioxide 27.0, Anion Gap 8, BUN 16, Creatinine 0.61, Estim Creat Clear Calc 85.02, Est GFR (MDRD) Af Amer 127, Est GFR (MDRD) Non-Af 105, BUN/Creatinine Ratio 26.2 H, Glucose 130 H, Calcium 8.1 L Clinical Impression(s) from Imaging Studies Brain CT 09/30/18 18:35 IMPRESSION: Mild periventricular white matter ischemic changes. No mass or acute bleed. If concern for metastatic disease MRI recommended for further evaluation Electronically Signed: Moy Henao MD at 20:33 EDT , Service support , Chest X-Ray 09/30/18 18:36 IMPRESSION: Stable appearance of the chest with no acute pathology. New right internal jugular catheter as described. Electronically Signed: Jesus Hutchison MD at 19:36 EDT , Service support , Chest CTA 09/30/18 18:55 IMPRESSION: Pulmonary emboli to the subsegmental vessels of the right lower lobe Chronic interstitial changes and minor atelectasis within the dependent portion of the lungs. Electronically Signed: Moy Henao MD at 20:56 EDT , Service support , Abdomen/Pelvis CT 09/30/18 20:50 IMPRESSION: Postsurgical changes status post cystectomy and right ileal conduit. Moderate right hydroureteronephrosis and mild left hydroureter in association with thick-walled ileal conduit and focal narrowing of the lumen. Nonspecific ileus with diffuse fecal retention in the colon Status post cholecystectomy, cystectomy and hysterectomy Other findings as above Electronically Signed: Moy Henao MD at 22:35 EDT , Service support , KUB X-Ray 10/06/18 08:31 IMPRESSION: Nonspecific bowel gas pattern. Electronically Signed: Antonio Griffin MD at 9:16 EST Tel [phone], Service support , Current Medications Acetaminophen (Tylenol) 650 mg PO Q4H PRN PRN PRN Reason: Fever >101 Last Admin: 10/05/18 00:54 Dose: 650 mg Albuterol Sulfate (Ventolin Aerosols) 2.5 mg INHALATION Q2H PRN PRN PRN Reason: sob/wheezing Last Admin: 10/05/18 17:28 Dose: 2.5 mg Alprazolam (Xanax) 0.5 mg PO BID PRN PRN PRN Reason: ANXIETY Last Admin: 10/05/18 09:49 Dose: 0.5 mg Atorvastatin Calcium (Lipitor) 80 mg PO DAILY@2200 VIC Last Admin: 10/05/18 23:08 Dose: 80 mg Bupropion HCl (Wellbutrin Xl) 150 mg PO DAILY [facility] Last Admin: 10/05/18 09:49 Dose: 150 mg Chlorhexidine Gluconate () 1 each TOPICAL DAILY [facility] Last Admin: 10/05/18 09:05 Dose: Not Given Dexamethasone (Decadron) 4 mg PO BIDCM [facility] Last Admin: 10/05/18 18:41 Dose: 4 mg Fluconazole (Diflucan) 100 mg PO DAILY [facility] Last Admin: 10/05/18 09:48 Dose: 100 mg Heparin Sodium (Beef Lung) () 50 units IV UD PRN PRN Reason: HEPARIN FLUSH Cefepime HCl 2 gm/ Sodium (Chloride) 100 mls @ 200 mls/hr IV Q8 [facility] Last Admin: 10/06/18 05:44 Dose: 200 mls/hr Levothyroxine Sodium (Synthroid) 50 mcg PO DAILY@0600 [facility] Last Admin: 10/06/18 06:03 Dose: 50 mcg Magnesium Hydroxide (Milk Of Magnesia) 30 ml PO DAILY PRN PRN Reason: Constipation Nutritional Formula (Lactose Free) (Ensure Enlive) 120 ml PO 4X/DAY [facility] Last Admin: 10/05/18 23:08 Dose: Not Given Ondansetron HCl (Zofran) 4 mg IV Q6H PRN PRN PRN Reason: NAUSEA Last Admin: 10/06/18 05:43 Dose: 4 mg Oxycodone HCl (Oxyir) 5 mg PO Q6H PRN PRN PRN Reason: PAIN Last Admin: 10/06/18 06:03 Dose: 5 mg Pantoprazole Sodium (Protonix) 40 mg PO DAILY [facility] Last Admin: 10/05/18 09:48 Dose: 40 mg Polyethylene Glycol (Miralax) 17 gm PO BID [facility] Last Admin: 10/05/18 11:42 Dose: Not Given Promethazine HCl (Phenergan) 12.5 mg IV Q6H PRN PRN PRN Reason: NAUSEA/VOMITING Sodium Chloride () 10 ml IV UD PRN PRN Reason: VAD FLUSH Last Admin: 10/06/18 05:56 Dose: 10 ml Trazodone HCl (Desyrel) 50 mg PO DAILY@2200 [facility] Last Admin: 10/05/18 23:08 Dose: 50 mg Medical Necessity - Tobacco Use Smoking Status: Former smoker Assessment/Plan All Active Problems (Last Reviewed 10/02/18 @ 14:08 by Maye Desai PA-C) DVT (deep venous thrombosis) (Acute) Pulmonary embolism (Acute) Acute deep vein thrombosis (DVT) of both lower extremities (Acute) UTI (urinary tract infection) (Acute) Bacteremia (Acute) Ileus (Acute) Hydronephrosis (Acute) Hydroureter (Acute) Pancytopenia (Acute) Septic shock (Resolved) Acute cholecystitis (Ruled-out) Constipation (Resolved) Cystitis (Acute) Gross hematuria (Acute) 1. Septic shock resolved Developed after admission 2/2 bacteremia and UTI stable off hydrocortisone 2. Gram negative bacteremia improved Pseudomonas in 1, Pseudomonas, proteus and Klebsiela in another from the 3rd. repeat BCx on the 4th negative source all organisms fairly sensitive on Cefepime ID on consult 3. UTI likely primary source of above CT showed ileal conduit thick wall abx as above 4. Hydroureter/hydronephrosis follow up with as outpt likely 2/2 inflammation of ileal conduit causing obstruction 5. Pancytopenia 2/2 chemo oncology on consult complicates care 6. VTE: PE and DVT small doubt etiology of hypotension echo EF 60% per oncology, no treatment at this time s/p IVC filter on 10/02 7. Hematuria resolved likely 2/2 thrombocytopenia and ileal conduit inflammation follow up with as outpt. 8. Bladder CA stage IV (brain mets) on Carboplatin/gemcitabine, palliative 9. DVT proph: chemical prophylaxis contraindicated given thrombocytopenia hold mechanical contraindicated given Bilateral DVTs 10. Neutropenia resolved with Granix DC granix 11. Debility: placement pending medical stabilization 12. Abdominal pain new unclear etiology C. diff negative abd xray was non-specific check CT a/p 13. Diarrhea not C.diff likely d/t abx start imodium Code Visit Inpatient E&M: 24301 Subs Hosp L3
--- NOTE | 2018-10-06 09:37 | PN_ITS ---
Patient Problems: Active and Suspected Problems (Last Reviewed 10/02/18 @ 14:08 by Maye Desai PA-C) DVT (deep venous thrombosis) (Acute) Pulmonary embolism (Acute) Acute deep vein thrombosis (DVT) of both lower extremities (Acute) UTI (urinary tract infection) (Acute) Bacteremia (Acute) Hydronephrosis (Acute) Hydroureter (Acute) Pancytopenia (Acute) Cystitis (Acute) Gross hematuria (Acute) Subjective: Complains of abdominal pain. Still with diarrhea. No appetite. Vitals/I&O's: Vital Signs Temp Pulse Resp BP Pulse Ox 37.3 C 75 18 139/84 H 96 10/06/18 03:11 10/06/18 03:11 10/06/18 03:11 10/06/18 03:11 10/06/18 03:11 Oxygen Flow Rate (L/min) 2 Oxygen Delivery Method Nasal Cannula Weight: 57.8 kg Body Mass Index (BMI) 25.9 Finger Stick Blood Glucose 132 Intake and Output for Last 24 Hours 10/04/18 10/05/18 10/06/18 23:59 23:59 23:59 Intake Total 935 / 935 3021 / 3021 671 / 671 Output Total 400 / 400 1000 / 1000 1350 / 1350 Balance 535 / 535 2020 / 2020 -679 / -679 General: Alert, Cooperative, - - uncomfortable. HEENT: Atraumatic, Normocephalic Oral: Moist Mucosa, No Gingival or Mucosal Lesions/ Ulcerations Neck: No Nodes, Thyroid Normal Size and Texture Lungs: Clear to auscultation, Normal air movement, No rhonchi, No wheeze Cardiovascular: Regular rate, Regular Rhythm, Normal S1, Normal S2, No murmurs Abdomen: Hyperactive Bowel Sounds, Distended, Tender, - - ileostomy in RLQ Extremities: No edema, No Calf Tenderness Skin: No rashes, No breakdown Musculoskeletal: No Tenderness to Palpation of Joints or Extremities, No Muscle Wasting Neurological: Muscle tone normal, Coordination normal Psych/Mental Status: Appropriate, Agitated Microbiology Past 72 Hours 10/06/18 08:15 Sputum, Expectorated/Coughed Gram Stain - Final 10/06/18 06:20 Stool C. difficile DNA Amplification - Final 09/30/18 19:05 Blood Culture (Wb) - Venous Blood Culture - Final Pseudomonas aeroginosa 09/30/18 18:30 Blood Culture (Wb) - Venous Blood Culture - Final Klebsiella pneumoniae sp pneum Proteus hauseri Pseudomonas aeroginosa 09/30/18 19:35 Urine, Clean Catch Urine Culture - Final Pseudomonas aeroginosa Escherichia coli 10/01/18 11:50 Blood Culture (Wb) - Port Blood Culture - Preliminary No growth in 48 hours. Laboratory Results 10/05/18 05:40: Diff Path Review Reviewed 10/06/18 05:00: WBC 37.4 H*, RBC 2.65 L, Hgb 7.6 L, Hct 24.1 L, MCV 90.9, MCH 28.7, MCHC 31.5 L, RDW 17.4 H, RDW Differential 57.8 H, Plt Count 27 L*, Neut % (Auto) Not Reportable, Absolute Neuts (auto) 29.9 H, Absolute Lymphs (auto) 4.11, Total Counted 100, Neutrophils % (Manual) 70, Band Neutrophils % 10 H, Lymphocytes % (Manual) 11 L, Monocytes % (Manual) 6, Metamyelocytes % 3 H, Nucleated RBC % 0.6, Diff Path Review May foll, Platelet Estimate MKD DEC, Polychromasia 1+, Hypochromasia 2+, Anisocytosis 1+, Microcytosis 1+, Absolute Retic 0.24 10/06/18 05:00: Sodium 146 H, Potassium 3.4 L, Chloride 111 H, Carbon Dioxide 27.0, Anion Gap 8, BUN 16, Creatinine 0.61, Estim Creat Clear Calc 85.02, Est GFR (MDRD) Af Amer 127, Est GFR (MDRD) Non-Af 105, BUN/Creatinine Ratio 26.2 H, Glucose 130 H, Calcium 8.1 L Clinical Impression(s) from Imaging Studies Brain CT 09/30/18 18:35 IMPRESSION: Mild periventricular white matter ischemic changes. No mass or acute bleed. If concern for metastatic disease MRI recommended for further evaluation Electronically Signed: Moy Henao MD at 20:33 EDT , Service support , Chest X-Ray 09/30/18 18:36 IMPRESSION: Stable appearance of the chest with no acute pathology. New right internal jugular catheter as described. Electronically Signed: Jesus Hutchison MD at 19:36 EDT , Service support , Chest CTA 09/30/18 18:55 IMPRESSION: Pulmonary emboli to the subsegmental vessels of the right lower lobe Chronic interstitial changes and minor atelectasis within the dependent portion of the lungs. Electronically Signed: Moy Henao MD at 20:56 EDT , Service support , Abdomen/Pelvis CT 09/30/18 20:50 IMPRESSION: Postsurgical changes status post cystectomy and right ileal conduit. Moderate right hydroureteronephrosis and mild left hydroureter in association with thick-walled ileal conduit and focal narrowing of the lumen. Nonspecific ileus with diffuse fecal retention in the colon Status post cholecystectomy, cystectomy and hysterectomy Other findings as above Electronically Signed: Moy Henao MD at 22:35 EDT , Service support , KUB X-Ray 10/06/18 08:31 IMPRESSION: Nonspecific bowel gas pattern. Electronically Signed: Antonio Griffin MD at 9:16 EST Tel [phone], Service support , Current Medications Acetaminophen (Tylenol) 650 mg PO Q4H PRN PRN PRN Reason: Fever >101 Last Admin: 10/05/18 00:54 Dose: 650 mg Albuterol Sulfate (Ventolin Aerosols) 2.5 mg INHALATION Q2H PRN PRN PRN Reason: sob/wheezing Last Admin: 10/05/18 17:28 Dose: 2.5 mg Alprazolam (Xanax) 0.5 mg PO BID PRN PRN PRN Reason: ANXIETY Last Admin: 10/05/18 09:49 Dose: 0.5 mg Atorvastatin Calcium (Lipitor) 80 mg PO DAILY@2200 VIC Last Admin: 10/05/18 23:08 Dose: 80 mg Bupropion HCl (Wellbutrin Xl) 150 mg PO DAILY [facility] Last Admin: 10/05/18 09:49 Dose: 150 mg Chlorhexidine Gluconate () 1 each TOPICAL DAILY [facility] Last Admin: 10/05/18 09:05 Dose: Not Given Dexamethasone (Decadron) 4 mg PO BIDCM [facility] Last Admin: 10/05/18 18:41 Dose: 4 mg Fluconazole (Diflucan) 100 mg PO DAILY [facility] Last Admin: 10/05/18 09:48 Dose: 100 mg Heparin Sodium (Beef Lung) () 50 units IV UD PRN PRN Reason: HEPARIN FLUSH Cefepime HCl 2 gm/ Sodium (Chloride) 100 mls @ 200 mls/hr IV Q8 [facility] Last Admin: 10/06/18 05:44 Dose: 200 mls/hr Levothyroxine Sodium (Synthroid) 50 mcg PO DAILY@0600 [facility] Last Admin: 10/06/18 06:03 Dose: 50 mcg Magnesium Hydroxide (Milk Of Magnesia) 30 ml PO DAILY PRN PRN Reason: Constipation Nutritional Formula (Lactose Free) (Ensure Enlive) 120 ml PO 4X/DAY [facility] Last Admin: 10/05/18 23:08 Dose: Not Given Ondansetron HCl (Zofran) 4 mg IV Q6H PRN PRN PRN Reason: NAUSEA Last Admin: 10/06/18 05:43 Dose: 4 mg Oxycodone HCl (Oxyir) 5 mg PO Q6H PRN PRN PRN Reason: PAIN Last Admin: 10/06/18 06:03 Dose: 5 mg Pantoprazole Sodium (Protonix) 40 mg PO DAILY [facility] Last Admin: 10/05/18 09:48 Dose: 40 mg Polyethylene Glycol (Miralax) 17 gm PO BID [facility] Last Admin: 10/05/18 11:42 Dose: Not Given Promethazine HCl (Phenergan) 12.5 mg IV Q6H PRN PRN PRN Reason: NAUSEA/VOMITING Sodium Chloride () 10 ml IV UD PRN PRN Reason: VAD FLUSH Last Admin: 10/06/18 05:56 Dose: 10 ml Trazodone HCl (Desyrel) 50 mg PO DAILY@2200 [facility] Last Admin: 10/05/18 23:08 Dose: 50 mg Medical Necessity - Tobacco Use Smoking Status: Former smoker Assessment/Plan All Active Problems (Last Reviewed 10/02/18 @ 14:08 by Maye Desai PA-C) DVT (deep venous thrombosis) (Acute) Pulmonary embolism (Acute) Acute deep vein thrombosis (DVT) of both lower extremities (Acute) UTI (urinary tract infection) (Acute) Bacteremia (Acute) Ileus (Acute) Hydronephrosis (Acute) Hydroureter (Acute) Pancytopenia (Acute) Septic shock (Resolved) Acute cholecystitis (Ruled-out) Constipation (Resolved) Cystitis (Acute) Gross hematuria (Acute) 1. Septic shock * resolved * Developed after admission * 2/2 bacteremia and UTI * stable off hydrocortisone 2. Gram negative bacteremia * improved * Pseudomonas in 1, Pseudomonas, proteus and Klebsiela in another from the 3rd. * repeat BCx on the 4th negative * source * all organisms fairly sensitive * on Cefepime * ID on consult 3. UTI * likely primary source of above * CT showed ileal conduit thick wall * abx as above 4. Hydroureter/hydronephrosis * follow up with as outpt * likely 2/2 inflammation of ileal conduit causing obstruction 5. Pancytopenia * 2/2 chemo * oncology on consult * complicates care 6. VTE: * PE and DVT * small * doubt etiology of hypotension * echo EF 60% * per oncology, no treatment at this time * s/p IVC filter on 10/02 7. Hematuria * resolved * likely 2/2 thrombocytopenia and ileal conduit inflammation * follow up with as outpt. 8. Bladder CA * stage IV (brain mets) * on Carboplatin/gemcitabine, palliative 9. DVT proph: * chemical prophylaxis contraindicated given thrombocytopenia * hold mechanical contraindicated given Bilateral DVTs 10. Neutropenia * resolved with Granix * DC granix 11. Debility: * placement pending medical stabilization 12. Abdominal pain * new * unclear etiology * C. diff negative * abd xray was non-specific * check CT a/p 13. Diarrhea * not C.diff * likely d/t abx * start imodium Code Visit Inpatient E&M: 14722 Subs Hosp L3
--- NOTE | 2018-10-06 09:38 | CT_ITS ---
STUDY: CT ABDOMEN AND PELVIS WITH CONTRAST REASON FOR EXAM: Female, 63 years old. Abdominal pain. History of bladder carcinoma. RADIATION DOSAGE (If Supplied By Facility): CTDIvol = ( 12.75 ) mGy, DLP = ( 668.47 ) mGycm TECHNIQUE: Transaxial images were obtained from the dome of the diaphragm to the symphysis pubis without oral contrast. 100 ml of Isovue 300 contrast was administered. Sagittal and coronal images were reconstructed. Individualized dose optimization techniques were used for this CT. COMPARISON: Comparison is made with prior study dated September 30, 2018. FINDINGS: Small bilateral pleural effusions with bibasilar atelectasis. The visualized portions of the heart are within normal limits. Normal liver. The patient is status post cholecystectomy. Normal spleen. There is diffuse atrophy of the pancreas. Normal bilateral adrenal glands. There is a 2.3 cm x 3 cm inhomogeneously enhancing hypodense mass in the superior lateral aspect of the right kidney. There is also evidence of a inhomogeneous enhancing solid mass in the mid posterior aspect of the right kidney measuring 1.6 cm x 1.6 cm. Neoplastic processes should be ruled out. 1 cm cyst in the lower pole of the left kidney. Focal cortical scar in the upper lateral aspect of the left kidney. 2 mm calculus seen in the lower pole calyx of the left kidney. Mild degree of nonspecific bilateral perinephric stranding. Normal visualized stomach. Normal small intestine. Normal colon. The appendix is visualized and appears normal. Normal abdominal aorta. There is an IVC filter in place. Normal retroperitoneum. The patient is status post cystectomy with ileal loop in the right lower quadrant. The previously seen thickening of the ileal conduit has improved. Further follow-up is recommended. Minimal amount of free fluid in the cul-de-sac with increased markings in the fat suggestive of postoperative change. There is absence of the uterus consistent with a prior hysterectomy. There are diffuse degenerative changes of the visualized lumbar spine. CT/Abdomen/Pelvis W IV Cont ONLY IMPRESSION: Status post total cystectomy with ilial conduit. The ileal conduit is not as edematous at this time. Postoperative changes are seen in the pelvis with a small amount of free fluid in the pelvis. 2. Suspicious lesions in the right kidney as described. Electronically Signed: Antonio Griffin MD at 15:38 EST Tel [phone], Service support ,
--- NOTE | 2018-10-06 11:49 | PCM.PN.ID ---
Patient Problems: Active and Suspected Problems (Last Reviewed 10/02/18 @ 14:08 by Maye Desai PA-C) DVT (deep venous thrombosis) (Acute) Pulmonary embolism (Acute) Acute deep vein thrombosis (DVT) of both lower extremities (Acute) UTI (urinary tract infection) (Acute) Bacteremia (Acute) Hydronephrosis (Acute) Hydroureter (Acute) Pancytopenia (Acute) Cystitis (Acute) Gross hematuria (Acute) Subjective: Not feeling well, no fever, still some diarrhea. - Physical Exam General: Alert, Cooperative, No apparent distress Lungs: Clear to auscultation, Normal air movement Cardiovascular: Regular rate, Regular Rhythm Abdomen: Soft, Non Tender, Non-Distended Skin: No rashes Vital Signs Temp Pulse Resp BP Pulse Ox 98.7 F 51 L 18 145/79 H 95 10/06/18 10:45 10/06/18 10:45 10/06/18 10:45 10/06/18 10:45 10/06/18 10:45 Oxygen Flow Rate (L/min) 3 Oxygen Delivery Method Nasal Cannula Weight: 57.8 kg Body Mass Index (BMI) 25.9 Finger Stick Blood Glucose 132 Intake and Output for Last 24 Hours 10/04/18 10/05/18 10/06/18 23:59 23:59 23:59 Intake Total 935 / 935 3021 / 3021 671 / 671 Output Total 400 / 400 1000 / 1000 1350 / 1350 Balance 535 / 535 2020 / 2020 -679 / -679 Microbiology Past 72 Hours 10/06/18 08:15 Gram Stain - Final Sputum, Expectorated/Coughed 10/06/18 06:20 C. difficile DNA Amplification - Final Stool 09/30/18 19:05 Blood Culture - Final Blood Culture (Wb) - Venous Pseudomonas aeroginosa 09/30/18 18:30 Blood Culture - Final Blood Culture (Wb) - Venous Klebsiella pneumoniae sp pneum Proteus hauseri Pseudomonas aeroginosa 09/30/18 19:35 Urine Culture - Final Urine, Clean Catch Pseudomonas aeroginosa Escherichia coli 10/01/18 11:50 Blood Culture - Preliminary Blood Culture (Wb) - Port No growth in 48 hours. Laboratory Tests Past 24 Hrs 10/06/18 10/06/18 05:00 05:00 WBC 37.4 H* RBC 2.65 L Hgb 7.6 L Hct 24.1 L MCV 90.9 MCH 28.7 MCHC 31.5 L RDW 17.4 H RDW Differential 57.8 H Plt Count 27 L* Neut % (Auto) Not Reportable Absolute Neuts (auto) 29.9 H Absolute Lymphs (auto) 4.11 Total Counted 100 Neutrophils % (Manual) 70 Band Neutrophils % 10 H Lymphocytes % (Manual) 11 L Monocytes % (Manual) 6 Metamyelocytes % 3 H Nucleated RBC % 0.6 Diff Path Review May foll Platelet Estimate MKD DEC Polychromasia 1+ Hypochromasia 2+ Anisocytosis 1+ Microcytosis 1+ Absolute Retic 0.24 Sodium 146 H Potassium 3.4 L Chloride 111 H Carbon Dioxide 27.0 Anion Gap 8 BUN 16 Creatinine 0.61 Estim Creat Clear Calc 85.02 Est GFR (MDRD) Af Amer 127 Est GFR (MDRD) Non-Af 105 BUN/Creatinine Ratio 26.2 H Glucose 130 H Calcium 8.1 L Medical Necessity - Tobacco Use Smoking Status: Former smoker Route of nutrition/ use of supplements: [] Nutritional Intake: [] IV Site: [] Suarez Catheter: [] - Assessment/Plan Antibiotics: [] Assessment/Plan: [] Active and Suspected Problems (Last Reviewed 10/02/18 @ 14:08 by Maye Desai PA-C) Pulmonary embolism (Acute) Acute deep vein thrombosis (DVT) of both lower extremities (Acute) UTI (urinary tract infection) (Acute) Bacteremia (Acute) Ileus (Acute) Hydronephrosis (Acute) Hydroureter (Acute) Pancytopenia (Acute) Septic shock (Acute) Cystitis (Acute) Gross hematuria (Acute) Septic shock with pancytopenia and GNR bacteremia - neutropenic precautions. Repeat bcx remains neg. Bcx here so far showing PsA, klebs, and proteus. Narrowed meropenem to cefepime. ANC now recovered. Plan on 10 more days of cefepime, stop date 10/15/18, weekly bmp and cbc while on iv abx. Rx written. DVT and PE - IVC filter placed diarrhea - cdiff neg, d/c isolation Will follow, d/w nursing
--- NOTE | 2018-10-06 12:06 | NURSING ---
PT REFUSING TO DRINK CT CONTRAST DUE TO AMOUNT OF ABD PAIN/NAUSEA THIS AM. TEXT TO DR NAPIER REGARDING SAME.
[2018-10-06 13:07] LABS: Pathologist Review Reviewed
[2018-10-06] MEDS: buPROPion (XL) 150 MG TABLET.XL PO (13:32)
[2018-10-06] MEDS: Fluconazole 100 MG Tablet PO (13:32)
[2018-10-06] MEDS: Pantoprazole Sodium 40 MG Tablet PO (13:32)
--- NOTE | 2018-10-06 16:10 | CASEMGMT ---
Social Work Note SW received message from pt's sister Alena requesting a call back. SW placed a call back to Alena, Alena unavailable at this time. SW left a message for Alena informing her that pt is still waiting to be medically cleared and that this worker is still waiting for pre-cert from pt's insurance. LUDWIN informed Alena that this worker is leaving for the day and will be back in on Tuesday. LUDWIN informed Alena that if she has any questions she can call this worker and leave a voicemail and this worker will return her phone call on Tuesday. Green sheet on chart in the event pre-cert is obtained and pt is able to discharge over the weekend. LUDWIN completed convalescent [facility] in [facility] and placed on pt's chart. 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
[2018-10-06] MEDS: traZODone 50 MG Tablet PO (23:02)
[2018-10-06] MEDS: Atorvastatin Calcium 80 MG Tablet PO (23:02)
[2018-10-07] VITALS (9 sets, daily range): BP systolic 123–165; BP diastolic 49–88; PULSE 59–112; RESP 18–20; TEMP 36.5–36.7; O2SAT 93–97
[2018-10-07] MEDS: 0.9% NaCl VAD Flush 10 ML IV ×3 (06:14→06:25)
[2018-10-07] MEDS: oxyCODONE 5 MG Tablet PO ×2 (06:22→16:07)
[2018-10-07] MEDS: Ondansetron 4 MG/2 ML Vial IV ×3 (06:25→22:18)
[2018-10-07 06:27] LABS: Hematocrit 23.3 % (37-47); Hemoglobin 7.4 g/dl (12.0-15.0); Mean Corp Hgb Conc 31.8 g/gl (32-36); Mean Corpuscular Hgb 28.9 pg (27.0-32.0); RBC Distribution Width CV 17.5 % (11.6-14.6); RBC Distribution Width SD 58.1 fl (35.1-43.9); Red Blood Count 2.56 M/mm3 (4.2-5.4)
[2018-10-07 06:28] LABS: Differential Indicated MANUAL DIFF; POSITIVE COUNT YES; POSITIVE DIFFERENTIAL NO; POSITIVE MORPHOLOGY YES
[2018-10-07 06:29] LABS: White Blood Count 42.4 K/mm3 (4.4-11.0)
[2018-10-07 06:30] LABS: Platelet Count 39 K/mm3 (150-450)
[2018-10-07 06:31] LABS: Absolute Nucleated RBC Count 0.19 10^3/uL (0-5); NRBC Flagged by Analyzer 0.4 % (0-5)
[2018-10-07] MEDS: Levothyroxine 50 MCG Tablet PO (06:31)
[2018-10-07 06:40] LABS: Anion Gap 6 (5-15); BUN 17 mg/dL (7-18); BUN/Creat Ratio 31.1 RATIO (10-20); Calcium,Total 7.7 mg/dL (8.5-10.1); Chloride 107 mmol/L (98-107); Creatinine, Serum 0.55 mg/dL (0.55-1.02); EST Glomerular Filtration Rate 119 mL/min (>60); Est Glom Filt Rate - Afr Amer 144 mL/min (>60); Estimated Creatinine Clearance 94.29 ml/min; Glucose 106 mg/dL (74-106); Potassium 3.9 mmol/L (3.5-5.1); Sodium Level 141 mmol/L (136-145)
[2018-10-07 06:52] LABS: Lymphocyte 10 % (19-41); Metamyelocyte 5 % (0-1); Monocyte 5 % (0-10); Myelocyte 4 (0-0); Neutrophil-Band 7 % (0-5); Neutrophil-Segmented 68 % (47-70); Promyelocyte 1 (0-0); Total Cells Counted 100 (MANUAL DIFF)
[2018-10-07 06:53] LABS: Hypochromasia 2+; Microcytosis 1+; Platelet Estimate MKD DEC (ADEQ); Schistocytes RARE
[2018-10-07 06:54] LABS: Polychromasia 1+
[2018-10-07 06:55] LABS: Absolute Lymphocyte Count 4.24 X10^3/ul (0.83-4.51); Absolute Neutrophil Count 31.8 X10^3/uL (2.0-7.7)
--- NOTE | 2018-10-07 06:58 | NURSING ---
sent page to hospitalist to report am labs-WBC & Plt. No return call. Passed the information on to Day shift RN
[2018-10-07] MEDS: Acetaminophen 325 MG Tablet 650 MG PO ×2 (09:38→22:18)
[2018-10-07] MEDS: ALPRAZolam 0.5 MG Tablet PO ×2 (09:38→22:18)
[2018-10-07] MEDS: Fluconazole 100 MG Tablet PO (09:38)
[2018-10-07] MEDS: buPROPion (XL) 150 MG TABLET.XL PO (09:39)
[2018-10-07] MEDS: Pantoprazole Sodium 40 MG Tablet PO (09:39)
--- NOTE | 2018-10-07 10:17 | PCM.TXEXTCAR ---
- Diet 10/03/18 13:19 Diet: Regular Diet Is pt able to select menu?: Yes - Routine Orders/Code Status O2 Frequency: Continuous Routine Lab Work: CBC - every Tuesday, BMP - every Tuesday Code Status: Full Code - Wound(s) Right Wrist Wound Type: Puncture right neck Wound Type: Surgical Incision LOWER ABD BELOW UROSTOMY Wound Type: pt states it is from her underware - Therapies Weight Bearing: Full weight bearing Extremity Affected:: Bilateral Lower Physical Therapy: Eval and Treat Occupational Therapy: Eval and Treat - Allergies/Procedures Done in Hospital Allergies/Adverse Reactions: Allergies fentanyl Allergy (Verified 09/25/18 09:37) Anaphylaxis codeine Adverse Reaction (Verified 09/25/18 09:37) Unknown Sulfa (Sulfonamide Antibiotics) Adverse Reaction (Verified 09/25/18 09:37) Unknown Procedures: 2-D Echocardiogram - Type of Care/Length of Stay Estimated LOS: Convalescent Care Less Than 30 days Type of Care Needed: Skilled Rehab Potential: Fair Prognosis: Fair - Additional Orders/Day of Discharge Day of Discharge: 10/07/18 - Dietary and Speech Recommendations Dietitian Recommendations/Changes: Recommend continuing regular diet. Will provide ONS w/ medpass and Magic Cup and Ensure Pudding w/ meals. - Follow Up Care Primary Care Physician: Osman Alexander DO [Primary Care Provider] - Within 2 Weeks Please Follow Up With: Waylon Toledo MD When: 2 weeks Please Follow Up With: Heriberto Hayden MD When: 2-3 weeks
--- NOTE | 2018-10-07 10:21 | PCM.DC.SUM ---
Discharge Date and Diagnosis - Problem List Patient Problems: Active and Suspected Problems (Last Reviewed 10/02/18 @ 14:08 by Maye Desai PA-C) Pulmonary embolism (Acute) Acute deep vein thrombosis (DVT) of both lower extremities (Acute) Cystitis (Acute) Gross hematuria (Acute) Date of Admission: 09/30/18 Date of Discharge: 10/07/18 - Primary Discharge Diagnosis Active and Suspected Problems (Last Reviewed 10/02/18 @ 14:08 by Maye Desai PA-C) Pulmonary embolism (Acute) Acute deep vein thrombosis (DVT) of both lower extremities (Acute) Cystitis (Acute) Gross hematuria (Acute) 1. Septic shock resolved Developed after admission 2/2 bacteremia and UTI stable off hydrocortisone 2. Gram negative bacteremia improved Pseudomonas in 1, Pseudomonas, proteus and Klebsiela in another from the 3rd. repeat BCx on the 4th negative source all organisms fairly sensitive on Cefepime ID on consult 3. UTI likely primary source of above CT showed ileal conduit thick wall abx as above 4. Hydroureter/hydronephrosis follow up with as outpt likely 2/2 inflammation of ileal conduit causing obstruction 5. Pancytopenia 2/2 chemo oncology on consult complicates care 6. VTE: PE and DVT small doubt etiology of hypotension echo EF 60% per oncology, no treatment at this time s/p IVC filter on 10/02 7. Hematuria resolved likely 2/2 thrombocytopenia and ileal conduit inflammation follow up with as outpt. 8. Bladder CA stage IV (brain mets) on Carboplatin/gemcitabine, palliative 9. DVT proph: chemical prophylaxis contraindicated given thrombocytopenia hold mechanical contraindicated given Bilateral DVTs 10. Neutropenia resolved with Granix DC granix 11. Debility: placement pending medical stabilization 12. Abdominal pain new unclear etiology C. diff negative abd xray was non-specific check CT a/p 13. Diarrhea not C.diff likely d/t abx start imodium - Secondary Discharge Diagnosis Chronic Problems (Last Reviewed 10/02/18 @ 14:08 by Maye Desai PA-C) Ataxia (Chronic) Bladder cancer (Chronic) Abdominal pain (Chronic) Vaginal discharge (Chronic) Abdominal mass (Chronic) Brain metastases (Chronic) Chemotherapy management, encounter for (Chronic) History of bladder cancer (Chronic) 2017 Hyperlipemia (Chronic) Hypothyroidism (Chronic) Anxiety (Chronic) Chronic obstructive lung disease (Chronic) Primary fibromyalgia syndrome (Chronic) Shoulder pain (Chronic) Hospital Course and Treatment Imaging Results: Clinical Impression(s) from Imaging Studies Brain CT 09/30/18 18:35 IMPRESSION: Mild periventricular white matter ischemic changes. No mass or acute bleed. If concern for metastatic disease MRI recommended for further evaluation Electronically Signed: Moy Henao MD at 20:33 EDT , Service support , Chest X-Ray 09/30/18 18:36 IMPRESSION: Stable appearance of the chest with no acute pathology. New right internal jugular catheter as described. Electronically Signed: Jesus Hutchison MD at 19:36 EDT , Service support , Chest CTA 09/30/18 18:55 IMPRESSION: Pulmonary emboli to the subsegmental vessels of the right lower lobe Chronic interstitial changes and minor atelectasis within the dependent portion of the lungs. Electronically Signed: Moy Henao MD at 20:56 EDT , Service support , Abdomen/Pelvis CT 09/30/18 20:50 IMPRESSION: Postsurgical changes status post cystectomy and right ileal conduit. Moderate right hydroureteronephrosis and mild left hydroureter in association with thick-walled ileal conduit and focal narrowing of the lumen. Nonspecific ileus with diffuse fecal retention in the colon Status post cholecystectomy, cystectomy and hysterectomy Other findings as above Electronically Signed: Moy Henao MD at 22:35 EDT , Service support , KUB X-Ray 10/06/18 08:31 IMPRESSION: Nonspecific bowel gas pattern. Electronically Signed: Antonio Griffin MD at 9:16 EST Tel [phone], Service support , Abdomen/Pelvis CT 10/06/18 09:38 IMPRESSION: Status post total cystectomy with ilial conduit. The ileal conduit is not as edematous at this time. Postoperative changes are seen in the pelvis with a small amount of free fluid in the pelvis. 2. Suspicious lesions in the right kidney as described. Electronically Signed: Antonio Griffin MD at 15:38 EST Tel [phone], Service support , Consultations 10/03/18 10:12 Consult: Onc/Wound/oil heaterman Routine Comment: Reason for Consult:: PT W/UROSTOMY-DOES NOT HAVE SUPPLIES AT HOSP Comments:: REPORTS BAG NEEDS CHANGED Waylon Toledo MD--Oncology Jai Feliciano MD--CCM Osman Vaughan MD--ID Miracle Alston MD--Gen Surg. Operations: cholecystecomy Procedures: 2-D Echocardiogram Summary of Care Provided: The patient is a 63 year old F gross hematuria. Patient was simply found to have septic shock due to bacteremia and a urinary tract infection. Patient has a history of radical cystectomy with ileal conduit. CAT scan showed ileal conduit inflammation. Patient that he may hematuria related with from a cytopenia as well as the inflammation as well. Patient was seen in consultation by critical care medicine, general surgery, infectious disease and oncology. Cultures grew out E. coli. Infectious disease recommended 10 days of cefepime. Patient already has a port and will continue with that until its duration. Patient's auscultation was comp gated by trackable nausea. Repeat imaging showed actual interval improvement of the inflammation of the ileal conduit. She [facility] to a [facility] facility in [facility] condition. She did have neutropenia and did receive Granix and now is with leukocytosis of 42,000. [] Patient Problems: Active and Suspected Problems (Last Reviewed 10/02/18 @ 14:08 by Maye Desai PA-C) Pulmonary embolism (Acute) Acute deep vein thrombosis (DVT) of both lower extremities (Acute) Cystitis (Acute) Gross hematuria (Acute) - Physical Exam General: Alert, Cooperative, No apparent distress, - - up with therapy using walker. HEENT: Atraumatic, Normocephalic Psych/Mental Status: Normal Affect, Appropriate Vital Signs Temp Pulse Resp BP Pulse Ox 36.6 C 106 H 20 H 123/49 H 93 11/10/18 07:10 10/07/18 07:10 10/07/18 07:10 10/07/18 07:10 10/07/18 07:10 Oxygen Flow Rate (L/min) 2 Oxygen Delivery Method Room Air Weight: 57.8 kg Body Mass Index (BMI) 25.9 Finger Stick Blood Glucose 132 Intake and Output for Last 24 Hours 10/05/18 10/06/18 10/07/18 23:59 23:59 23:59 Intake Total 3021 / 3021 2631 / 2631 861 / 861 Output Total 1000 / 1000 3450 / 3450 850 / 850 Balance 2020 -819 / -819 Microbiology Past 72 Hours 10/06/18 08:15 Gram Stain - Final Sputum, Expectorated/Coughed Respiratory Culture - Preliminary Presumptive C albicans 10/01/18 11:50 Blood Culture - Final Blood Culture (Wb) - Port No growth in 5 days. 10/06/18 06:20 C. difficile DNA Amplification - Final Stool 09/30/18 19:05 Blood Culture - Final Blood Culture (Wb) - Venous Pseudomonas aeroginosa 09/30/18 18:30 Blood Culture - Final Blood Culture (Wb) - Venous Klebsiella pneumoniae sp pneum Proteus hauseri Pseudomonas aeroginosa 09/30/18 19:35 Urine Culture - Final Urine, Clean Catch Pseudomonas aeroginosa Escherichia coli Laboratory Tests Past 24 Hrs 10/06/18 10/07/18 10/07/18 05:00 05:55 05:55 WBC 42.4 H* RBC 2.56 L Hgb 7.4 L Hct 23.3 L MCV 91.0 MCH 28.9 MCHC 31.8 L RDW 17.5 H RDW Differential 58.1 H Plt Count 39 L* Neut % (Auto) Not Reportable Absolute Neuts (auto) 31.8 H Absolute Lymphs (auto) 4.24 Total Counted 100 Neutrophils % (Manual) 68 Band Neutrophils % 7 H Lymphocytes % (Manual) 10 L Monocytes % (Manual) 5 Metamyelocytes % 5 H Myelocytes % 4 H Promyelocytes % 1 H Nucleated RBC % 0.4 Diff Path Review Reviewed May foll Platelet Estimate MKD DEC Polychromasia 1+ Hypochromasia 2+ Microcytosis 1+ Schistocytes RARE Absolute Retic 0.19 Sodium 141 Potassium 3.9 Chloride 107 Carbon Dioxide 28.0 Anion Gap 6 BUN 17 Creatinine 0.55 Estim Creat Clear Calc 94.29 Est GFR (MDRD) Af Amer 144 Est GFR (MDRD) Non-Af 119 BUN/Creatinine Ratio 31.1 H Glucose 106 Calcium 7.7 L Magnesium 2.0 Discharge Diet: No Restrictions Discharge Activity: Return to Normal Activity Home Medications: Medications to take at Discharge Fluoxetine HCl [Prozac] 60 mg PO DAILY 07/10/17 Gabapentin [Neurontin] 800 mg PO TID 07/10/17 Levothyroxine [Synthroid] 50 mcg PO DAILY 07/10/17 Loratadine 10 mg PO DAILY PRN PRN 07/23/17 Atorvastatin Calcium 80 mg PO DAILY 12/20/17 albuterol sulfate 0.63 mg/3 mL solution for nebulization 0.63 mg INHALATION Q6H PRN #75 ml 02/24/18 Dexamethasone [Decadron] 4 mg PO BIDCM #60 tablet 08/30/18 Senna [Senokot] 2 tablet PO DAILY #60 tablet 09/12/18 Lidocaine/Prilocaine [Lidocaine-Prilocaine Cream] 30 gm TP DAILY PRN PRN 30 Days #1 cream..g. 09/14/18 Bupropion HCl [Bupropion Xl] 150 mg PO DAILY 09/30/18 Trazodone HCl 50 mg PO DAILY 09/30/18 Cefepime HCl [Maxipime] 2 gm IV Q8 #30 vial 10/05/18 ALPRAZolam [Xanax] 0.5 mg PO BID PRN PRN #6 tab 10/07/18 Ensure Enlive 120 ml PO 4X/DAY liquid 10/07/18 Fluconazole [Diflucan] 100 mg PO DAILY tablet 10/07/18 Oxycodone HCl/Acetaminophen [Percocet 5-325] 1 tab PO Q6H PRN PRN 2 Days #8 tab 10/07/18 Pantoprazole Sodium [Protonix] 40 mg PO DAILY tablet 10/07/18 Polyethylene Glycol 3350 [Miralax] 17 gm PO BID packet 10/07/18 Following Prescrptions Were Given to Patient: Oxycodone HCl/Acetaminophen [Percocet 5-325] 1 tab PO Q6H PRN PRN 2 Days #8 tab PRN Reason: Pain ALPRAZolam [Xanax] 0.5 mg PO BID PRN PRN #6 tab PRN Reason: Anxiety Cefepime HCl [Maxipime] 2 gm IV Q8 #30 vial Primary Care Physician: Osman Alexander DO [Primary Care Provider] - Within 2 Weeks Please Follow Up With: Waylon Toledo MD When: 2 weeks Please Follow Up With: Heriberto Hayden MD When: 2-3 weeks Disposition: [facility] facility Minutes spent on discharge:: 40 Patient Condition:: Fair Medical Necessity - Tobacco Use Smoking Status: Former smoker Meaningful Use Info Meaningful Use Diagnoses (Choose all that apply): None applicable Code Visit Inpatient E&M: 92565 Disch Hosp
--- NOTE | 2018-10-07 10:27 | DS.PCM_ITS ---
Discharge Date and Diagnosis - Problem List Patient Problems: Active and Suspected Problems (Last Reviewed 10/02/18 @ 14:08 by Maye Desai PA-C) Pulmonary embolism (Acute) Acute deep vein thrombosis (DVT) of both lower extremities (Acute) Cystitis (Acute) Gross hematuria (Acute) Date of Admission: 09/30/18 Date of Discharge: 10/07/18 - Primary Discharge Diagnosis Active and Suspected Problems (Last Reviewed 10/02/18 @ 14:08 by Maye Desai PA-C) Pulmonary embolism (Acute) Acute deep vein thrombosis (DVT) of both lower extremities (Acute) Cystitis (Acute) Gross hematuria (Acute) 1. Septic shock * resolved * Developed after admission * 2/2 bacteremia and UTI * stable off hydrocortisone 2. Gram negative bacteremia * improved * Pseudomonas in 1, Pseudomonas, proteus and Klebsiela in another from the 3rd. * repeat BCx on the 4th negative * source * all organisms fairly sensitive * on Cefepime * ID on consult 3. UTI * likely primary source of above * CT showed ileal conduit thick wall * abx as above 4. Hydroureter/hydronephrosis * follow up with as outpt * likely 2/2 inflammation of ileal conduit causing obstruction 5. Pancytopenia * 2/2 chemo * oncology on consult * complicates care 6. VTE: * PE and DVT * small * doubt etiology of hypotension * echo EF 60% * per oncology, no treatment at this time * s/p IVC filter on 10/02 7. Hematuria * resolved * likely 2/2 thrombocytopenia and ileal conduit inflammation * follow up with as outpt. 8. Bladder CA * stage IV (brain mets) * on Carboplatin/gemcitabine, palliative 9. DVT proph: * chemical prophylaxis contraindicated given thrombocytopenia * hold mechanical contraindicated given Bilateral DVTs 10. Neutropenia * resolved with Granix * DC granix 11. Debility: * placement pending medical stabilization 12. Abdominal pain * new * unclear etiology * C. diff negative * abd xray was non-specific * check CT a/p 13. Diarrhea * not C.diff * likely d/t abx * start imodium - Secondary Discharge Diagnosis Chronic Problems (Last Reviewed 10/02/18 @ 14:08 by Maye Desai PA-C) Ataxia (Chronic) Bladder cancer (Chronic) Abdominal pain (Chronic) Vaginal discharge (Chronic) Abdominal mass (Chronic) Brain metastases (Chronic) Chemotherapy management, encounter for (Chronic) History of bladder cancer (Chronic) 2017 Hyperlipemia (Chronic) Hypothyroidism (Chronic) Anxiety (Chronic) Chronic obstructive lung disease (Chronic) Primary fibromyalgia syndrome (Chronic) Shoulder pain (Chronic) Hospital Course and Treatment Imaging Results: Clinical Impression(s) from Imaging Studies Brain CT 09/30/18 18:35 IMPRESSION: Mild periventricular white matter ischemic changes. No mass or acute bleed. If concern for metastatic disease MRI recommended for further evaluation Electronically Signed: Myo Henao MD at 20:33 EDT , Service support , Chest X-Ray 09/30/18 18:36 IMPRESSION: Stable appearance of the chest with no acute pathology. New right internal jugular catheter as described. Electronically Signed: Jesus Hutchison MD at 19:36 EDT , Service support , Chest CTA 09/30/18 18:55 IMPRESSION: Pulmonary emboli to the subsegmental vessels of the right lower lobe Chronic interstitial changes and minor atelectasis within the dependent portion of the lungs. Electronically Signed: Moy Henao MD at 20:56 EDT , Service support , Abdomen/Pelvis CT 09/30/18 20:50 IMPRESSION: Postsurgical changes status post cystectomy and right ileal conduit. Moderate right hydroureteronephrosis and mild left hydroureter in association with thick-walled ileal conduit and focal narrowing of the lumen. Nonspecific ileus with diffuse fecal retention in the colon Status post cholecystectomy, cystectomy and hysterectomy Other findings as above Electronically Signed: Moy Henao MD at 22:35 EDT , Service support , KUB X-Ray 10/06/18 08:31 IMPRESSION: Nonspecific bowel gas pattern. Electronically Signed: Antonio Griffin MD at 9:16 EST Tel [phone], Service support , Abdomen/Pelvis CT 10/06/18 09:38 IMPRESSION: Status post total cystectomy with ilial conduit. The ileal conduit is not as edematous at this time. Postoperative changes are seen in the pelvis with a small amount of free fluid in the pelvis. 2. Suspicious lesions in the right kidney as described. Electronically Signed: Antonio Griffin MD at 15:38 EST Tel [phone], Service support , Consultations 10/03/18 10:12 Consult: Onc/Wound/licensed pesticide applicator Routine Comment: Reason for Consult:: PT W/UROSTOMY-DOES NOT HAVE SUPPLIES AT HOSP Comments:: REPORTS BAG NEEDS CHANGED Waylon Toledo MD--Oncology Jai Feliciano MD--CCM Osman Vaughan MD--ID Miracle Alston MD--Gen Surg. Operations: cholecystecomy Procedures: 2-D Echocardiogram Summary of Care Provided: The patient is a 63 year old F gross hematuria. Patient was simply found to have septic shock due to bacteremia and a urinary tract infection. Patient has a history of radical cystectomy with ileal conduit. CAT scan showed ileal conduit inflammation. Patient that he may hematuria related with from a cytopenia as well as the inflammation as well. Patient was seen in consultation by critical care medicine, general surgery, infectious disease and oncology. Cultures grew out E. coli. Infectious disease recommended 10 days of cefepime. Patient already has a port and will continue with that until its duration. Patient's auscultation was comp gated by trackable nausea. Repeat imaging showed actual interval improvement of the inflammation of the ileal conduit. She will be discharged to a assisted facility in stable condition. She did have neutropenia and did receive Granix and now is with leukocytosis of 42,000. [] Patient Problems: Active and Suspected Problems (Last Reviewed 10/02/18 @ 14:08 by Maye Desai PA-C) Pulmonary embolism (Acute) Acute deep vein thrombosis (DVT) of both lower extremities (Acute) Cystitis (Acute) Gross hematuria (Acute) - Physical Exam General: Alert, Cooperative, No apparent distress, - - up with therapy using walker. HEENT: Atraumatic, Normocephalic Psych/Mental Status: Normal Affect, Appropriate Vital Signs Temp Pulse Resp BP Pulse Ox 36.6 C 106 H 20 H 123/49 H 93 10/07/18 07:10 10/07/18 07:10 10/07/18 07:10 10/07/18 07:10 10/07/18 07:10 Oxygen Flow Rate (L/min) 2 Oxygen Delivery Method Room Air Weight: 57.8 kg Body Mass Index (BMI) 25.9 Finger Stick Blood Glucose 132 Intake and Output for Last 24 Hours 10/05/18 10/06/18 10/07/18 23:59 23:59 23:59 Intake Total 3021 / 3021 2631 / 2631 861 / 861 Output Total 1000 / 1000 3450 / 3450 850 / 850 Balance 2020 / 2020 -819 / -819 Microbiology Past 72 Hours 10/06/18 08:15 Gram Stain - Final Sputum, Expectorated/Coughed Respiratory Culture - Preliminary Presumptive C albicans 10/01/18 11:50 Blood Culture - Final Blood Culture (Wb) - Port No growth in 5 days. 10/06/18 06:20 C. difficile DNA Amplification - Final Stool 09/30/18 19:05 Blood Culture - Final Blood Culture (Wb) - Venous Pseudomonas aeroginosa 09/30/18 18:30 Blood Culture - Final Blood Culture (Wb) - Venous Klebsiella pneumoniae sp pneum Proteus hauseri Pseudomonas aeroginosa 09/30/18 19:35 Urine Culture - Final Urine, Clean Catch Pseudomonas aeroginosa Escherichia coli Laboratory Tests Past 24 Hrs 10/06/18 10/07/18 10/07/18 05:00 05:55 05:55 WBC 42.4 H* RBC 2.56 L Hgb 7.4 L Hct 23.3 L MCV 91.0 MCH 28.9 MCHC 31.8 L RDW 17.5 H RDW Differential 58.1 H Plt Count 39 L* Neut % (Auto) Not Reportable Absolute Neuts (auto) 31.8 H Absolute Lymphs (auto) 4.24 Total Counted 100 Neutrophils % (Manual) 68 Band Neutrophils % 7 H Lymphocytes % (Manual) 10 L Monocytes % (Manual) 5 Metamyelocytes % 5 H Myelocytes % 4 H Promyelocytes % 1 H Nucleated RBC % 0.4 Diff Path Review Reviewed May foll Platelet Estimate MKD DEC Polychromasia 1+ Hypochromasia 2+ Microcytosis 1+ Schistocytes RARE Absolute Retic 0.19 Sodium 141 Potassium 3.9 Chloride 107 Carbon Dioxide 28.0 Anion Gap 6 BUN 17 Creatinine 0.55 Estim Creat Clear Calc 94.29 Est GFR (MDRD) Af Amer 144 Est GFR (MDRD) Non-Af 119 BUN/Creatinine Ratio 31.1 H Glucose 106 Calcium 7.7 L Magnesium 2.0 Discharge Diet: No Restrictions Discharge Activity: Return to Normal Activity Home Medications: Medications to take at Discharge Fluoxetine HCl [Prozac] 60 mg PO DAILY 07/10/17 Gabapentin [Neurontin] 800 mg PO TID 07/10/17 Levothyroxine [Synthroid] 50 mcg PO DAILY 07/10/17 Loratadine 10 mg PO DAILY PRN PRN 07/23/17 Atorvastatin Calcium 80 mg PO DAILY 12/20/17 albuterol sulfate 0.63 mg/3 mL solution for nebulization 0.63 mg INHALATION Q6H PRN #75 ml 02/24/18 Dexamethasone [Decadron] 4 mg PO BIDCM #60 tablet 08/30/18 Senna [Senokot] 2 tablet PO DAILY #60 tablet 09/12/18 Lidocaine/Prilocaine [Lidocaine-Prilocaine Cream] 30 gm TP DAILY PRN PRN 30 Days #1 cream..g. 09/14/18 Bupropion HCl [Bupropion Xl] 150 mg PO DAILY 09/30/18 Trazodone HCl 50 mg PO DAILY 09/30/18 Cefepime HCl [Maxipime] 2 gm IV Q8 #30 vial 10/05/18 ALPRAZolam [Xanax] 0.5 mg PO BID PRN PRN #6 tab 10/07/18 Ensure Enlive 120 ml PO 4X/DAY liquid 10/07/18 Fluconazole [Diflucan] 100 mg PO DAILY tablet 10/07/18 Oxycodone HCl/Acetaminophen [Percocet 5-325] 1 tab PO Q6H PRN PRN 2 Days #8 tab 10/07/18 Pantoprazole Sodium [Protonix] 40 mg PO DAILY tablet 10/07/18 Polyethylene Glycol 3350 [Miralax] 17 gm PO BID packet 10/07/18 Following Prescrptions Were Given to Patient: Oxycodone HCl/Acetaminophen [Percocet 5-325] 1 tab PO Q6H PRN PRN 2 Days #8 tab PRN Reason: Pain ALPRAZolam [Xanax] 0.5 mg PO BID PRN PRN #6 tab PRN Reason: Anxiety Cefepime HCl [Maxipime] 2 gm IV Q8 #30 vial Primary Care Physician: Osman Alexander DO [Primary Care Provider] - Within 2 Weeks Please Follow Up With: Waylon Toledo MD When: 2 weeks Please Follow Up With: Heriberto Hayden MD When: 2-3 weeks [facility] Minutes spent on discharge:: 40 Patient Condition:: Fair Medical Necessity - Tobacco Use Smoking Status: Former smoker Meaningful Use Info Meaningful Use Diagnoses (Choose all that apply): None applicable Code Visit Inpatient E&M: 04324 Disch Hosp
[2018-10-07] MEDS: proMETHazine 25 MG/ML Syringe 12.5 MG IV (17:52)
[2018-10-07] MEDS: traZODone 50 MG Tablet PO (22:18)
[2018-10-07] MEDS: Atorvastatin Calcium 80 MG Tablet PO (22:18)
[2018-10-07] MEDS: Polyethylene Glycol 3350 17 GM PACKET PO (22:18)
[2018-10-08] VITALS (8 sets, daily range): BP systolic 108–146; BP diastolic 63–86; PULSE 66–90; RESP 18–20; TEMP 36.6–36.8; O2SAT 91–95
[2018-10-08] MEDS: Levothyroxine 50 MCG Tablet PO (06:05)
[2018-10-08] MEDS: oxyCODONE 5 MG Tablet PO ×3 (06:18→21:23)
[2018-10-08] MEDS: Acetaminophen 325 MG Tablet 650 MG PO (06:19)
[2018-10-08] MEDS: proMETHazine 25 MG/ML Syringe 12.5 MG IV ×2 (06:21→15:00)
--- NOTE | 2018-10-08 09:43 | PCM.PN.HOSP ---
Patient Problems: Active and Suspected Problems (Last Reviewed 10/02/18 @ 14:08 by Maye Desai PA-C) DVT (deep venous thrombosis) (Acute) Pulmonary embolism (Acute) Acute deep vein thrombosis (DVT) of both lower extremities (Acute) UTI (urinary tract infection) (Acute) Hydronephrosis (Acute) Hydroureter (Acute) Pancytopenia (Acute) Subjective: Patient unable to be discharged on 10/07 due to pending precertification. Still with intractable, chronic nausea. Still with epigastric tenderness. Vitals/I&O's: Vital Signs Temp Pulse Resp BP Pulse Ox 36.8 C 66 18 146/86 H 91 10/08/18 03:33 10/08/18 03:33 10/08/18 03:33 10/08/18 03:33 10/08/18 07:08 Oxygen Flow Rate (L/min) 2 Oxygen Delivery Method Room Air Weight: 57.8 kg Body Mass Index (BMI) 25.9 Finger Stick Blood Glucose 132 Intake and Output for Last 24 Hours 10/06/18 10/07/18 10/08/18 23:59 23:59 23:59 Intake Total 2631 / 2631 3871 / 3871 969 / 969 Output Total 3450 / 3450 4750 / 4750 1700 / 1700 Balance -819 / -819 -879 / -879 -731 / -731 General: Alert, Cooperative, - - uncomfortable. afebrile HEENT: Atraumatic, Normocephalic Oral: Moist Mucosa, No Gingival or Mucosal Lesions/ Ulcerations Neck: No Nodes, Thyroid Normal Size and Texture Lungs: Clear to auscultation, No rhonchi, No wheeze, Diminished Cardiovascular: Regular rate, Regular Rhythm, Normal S1, Normal S2, No murmurs Abdomen: Soft, - - epigastric tenderness. slight distention. Extremities: No edema, No Calf Tenderness Skin: No rashes, No breakdown Musculoskeletal: No Tenderness to Palpation of Joints or Extremities, No Muscle Wasting Neurological: Muscle tone normal, Coordination normal Psych/Mental Status: Anxious, Flat Affect Microbiology Past 72 Hours 10/06/18 08:15 Sputum, Expectorated/Coughed Gram Stain - Final 10/06/18 08:15 Sputum, Expectorated/Coughed Respiratory Culture - Final Presumptive C albicans 10/01/18 11:50 Blood Culture (Wb) - Port Blood Culture - Final No growth in 5 days. 10/06/18 06:20 Stool C. difficile DNA Amplification - Final 09/30/18 19:05 Blood Culture (Wb) - Venous Blood Culture - Final Pseudomonas aeroginosa Current Medications Acetaminophen (Tylenol) 650 mg PO Q4H PRN PRN PRN Reason: Fever >101 Last Admin: 10/08/18 06:19 Dose: 650 mg Albuterol Sulfate (Ventolin Aerosols) 2.5 mg INHALATION Q2H PRN PRN PRN Reason: sob/wheezing Last Admin: 10/05/18 17:28 Dose: 2.5 mg Alprazolam (Xanax) 0.5 mg PO BID PRN PRN PRN Reason: ANXIETY Last Admin: 10/07/18 22:18 Dose: 0.5 mg Atorvastatin Calcium (Lipitor) 80 mg PO DAILY@2200 [facility] Last Admin: 10/07/18 22:18 Dose: 80 mg Bupropion HCl (Wellbutrin Xl) 150 mg PO DAILY [facility] Last Admin: 10/07/18 09:39 Dose: 150 mg Dexamethasone (Decadron) 4 mg PO BIDCM [facility] Last Admin: 10/07/18 16:07 Dose: 4 mg Fluconazole (Diflucan) 100 mg PO DAILY [facility] Last Admin: 10/07/18 09:38 Dose: 100 mg Heparin Sodium (Beef Lung) () 50 units IV UD PRN PRN Reason: HEPARIN FLUSH Cefepime HCl 2 gm/ Sodium (Chloride) 100 mls @ 200 mls/hr IV Q8 [facility] Last Admin: 10/08/18 06:04 Dose: 200 mls/hr Potassium Chloride/Sodium Chloride (Kcl 20meq In 0.45% Ns 1000ml) 1,000 mls @ 125 mls/hr IV .Q8H [facility] Last Admin: 10/08/18 06:05 Dose: 125 mls/hr Levothyroxine Sodium (Synthroid) 50 mcg PO DAILY@0600 [facility] Last Admin: 10/08/18 06:05 Dose: 50 mcg Magnesium Hydroxide (Milk Of Magnesia) 30 ml PO DAILY PRN PRN Reason: Constipation Nutritional Formula (Lactose Free) (Ensure Enlive) 120 ml PO 4X/DAY [facility] Last Admin: 10/07/18 21:53 Dose: Not Given Ondansetron HCl (Zofran) 4 mg IV Q6H PRN PRN PRN Reason: NAUSEA Last Admin: 10/07/18 22:18 Dose: 4 mg Oxycodone HCl (Oxyir) 5 mg PO Q6H PRN PRN PRN Reason: PAIN Last Admin: 10/08/18 06:18 Dose: 5 mg Pantoprazole Sodium (Protonix) 40 mg PO DAILY [facility] Last Admin: 10/07/18 09:39 Dose: 40 mg Polyethylene Glycol (Miralax) 17 gm PO BID [facility] Last Admin: 10/07/18 22:18 Dose: 17 gm Promethazine HCl (Phenergan) 12.5 mg IV Q6H PRN PRN PRN Reason: NAUSEA/VOMITING Last Admin: 10/08/18 06:21 Dose: 12.5 mg Sodium Chloride () 10 ml IV UD PRN PRN Reason: VAD FLUSH Last Admin: 10/07/18 06:25 Dose: 10 ml Trazodone HCl (Desyrel) 50 mg PO DAILY@2200 [facility] Last Admin: 10/07/18 22:18 Dose: 50 mg Medical Necessity - Tobacco Use Smoking Status: Former smoker Assessment/Plan All Active Problems (Last Reviewed 10/02/18 @ 14:08 by Maye Desai PA-C) DVT (deep venous thrombosis) (Acute) Pulmonary embolism (Acute) Acute deep vein thrombosis (DVT) of both lower extremities (Acute) UTI (urinary tract infection) (Acute) Bacteremia (Resolved) Ileus (Resolved) Hydronephrosis (Acute) Hydroureter (Acute) Pancytopenia (Acute) Septic shock (Resolved) Acute cholecystitis (Ruled-out) Constipation (Resolved) Gross hematuria (Resolved) 1. Septic shock resolved Developed after admission 2/2 bacteremia and UTI stable off hydrocortisone 2. Gram negative bacteremia improved Pseudomonas in 1, Pseudomonas, proteus and Klebsiela in another from the 3rd. repeat BCx on the 4th negative source all organisms fairly sensitive on Cefepime ID recommends Cefepime through 10/15 3. UTI likely primary source of above CT showed ileal conduit thick wall abx as above 4. Hydroureter/hydronephrosis follow up with as outpt likely 2/2 inflammation of ileal conduit causing obstruction 5. Pancytopenia 2/2 chemo oncology on consult complicates care 6. VTE: PE and DVT small doubt etiology of hypotension echo EF 60% per oncology, no treatment at this time s/p IVC filter on 10/02 7. Hematuria resolved likely 2/2 thrombocytopenia and ileal conduit inflammation follow up with as outpt. 8. Bladder CA stage IV (brain mets) on Carboplatin/gemcitabine, palliative follow up with oncology as outpt. 9. DVT proph: chemical prophylaxis contraindicated given thrombocytopenia hold mechanical contraindicated given Bilateral DVTs 10. Neutropenia resolved with Granix DC granix 11. Debility: placement pending precert, hopefully to SNF on 10/09 or . 12. Abdominal pain chronic, but debilitating. C. diff negative Xray and CT unremarkable (and actually improved from admission) increase PPI to BID increase dose and frequency of oxycodone consult palliative care for long-term symptom mgmt (patient in agreement) 13. Diarrhea not C.diff likely d/t abx start imodium 14. Intractable nausea refractory to zofran and phenergan start haldol Code Visit Inpatient E&M: 76238 Subs Hosp L3
--- NOTE | 2018-10-08 09:48 | PN_ITS ---
Patient Problems: Active and Suspected Problems (Last Reviewed 10/02/18 @ 14:08 by Maye Desai PA-C) DVT (deep venous thrombosis) (Acute) Pulmonary embolism (Acute) Acute deep vein thrombosis (DVT) of both lower extremities (Acute) UTI (urinary tract infection) (Acute) Hydronephrosis (Acute) Hydroureter (Acute) Pancytopenia (Acute) Subjective: Patient unable to be discharged on 10/07 due to pending precertification. Still with intractable, chronic nausea. Still with epigastric tenderness. Vitals/I&O's: Vital Signs Temp Pulse Resp BP Pulse Ox 36.8 C 66 18 146/86 H 91 10/08/18 03:33 10/08/18 03:33 10/08/18 03:33 10/08/18 03:33 10/08/18 07:08 Oxygen Flow Rate (L/min) 2 Oxygen Delivery Method Room Air Weight: 57.8 kg Body Mass Index (BMI) 25.9 Finger Stick Blood Glucose 132 Intake and Output for Last 24 Hours 10/06/18 10/07/18 10/08/18 23:59 23:59 23:59 Intake Total 2631 / 2631 3871 / 3871 969 / 969 Output Total 3450 / 3450 4750 / 4750 1700 / 1700 Balance -819 / -819 -879 / -879 -731 / -731 General: Alert, Cooperative, - - uncomfortable. afebrile HEENT: Atraumatic, Normocephalic Oral: Moist Mucosa, No Gingival or Mucosal Lesions/ Ulcerations Neck: No Nodes, Thyroid Normal Size and Texture Lungs: Clear to auscultation, No rhonchi, No wheeze, Diminished Cardiovascular: Regular rate, Regular Rhythm, Normal S1, Normal S2, No murmurs Abdomen: Soft, - - epigastric tenderness. slight distention. Extremities: No edema, No Calf Tenderness Skin: No rashes, No breakdown Musculoskeletal: No Tenderness to Palpation of Joints or Extremities, No Muscle Wasting Neurological: Muscle tone normal, Coordination normal Psych/Mental Status: Anxious, Flat Affect Microbiology Past 72 Hours 10/06/18 08:15 Sputum, Expectorated/Coughed Gram Stain - Final 10/06/18 08:15 Sputum, Expectorated/Coughed Respiratory Culture - Final Presumptive C albicans 10/01/18 11:50 Blood Culture (Wb) - Port Blood Culture - Final No growth in 5 days. 10/06/18 06:20 Stool C. difficile DNA Amplification - Final 09/30/18 19:05 Blood Culture (Wb) - Venous Blood Culture - Final Pseudomonas aeroginosa Current Medications Acetaminophen (Tylenol) 650 mg PO Q4H PRN PRN PRN Reason: Fever >101 Last Admin: 10/08/18 06:19 Dose: 650 mg Albuterol Sulfate (Ventolin Aerosols) 2.5 mg INHALATION Q2H PRN PRN PRN Reason: sob/wheezing Last Admin: 10/05/18 17:28 Dose: 2.5 mg Alprazolam (Xanax) 0.5 mg PO BID PRN PRN PRN Reason: ANXIETY Last Admin: 10/07/18 22:18 Dose: 0.5 mg Atorvastatin Calcium (Lipitor) 80 mg PO DAILY@2200 [facility] Last Admin: 10/07/18 22:18 Dose: 80 mg Bupropion HCl (Wellbutrin Xl) 150 mg PO DAILY [facility] Last Admin: 10/07/18 09:39 Dose: 150 mg Dexamethasone (Decadron) 4 mg PO BIDCM [facility] Last Admin: 10/07/18 16:07 Dose: 4 mg Fluconazole (Diflucan) 100 mg PO DAILY [facility] Last Admin: 10/07/18 09:38 Dose: 100 mg Heparin Sodium (Beef Lung) () 50 units IV UD PRN PRN Reason: HEPARIN FLUSH Cefepime HCl 2 gm/ Sodium (Chloride) 100 mls @ 200 mls/hr IV Q8 [facility] Last Admin: 10/08/18 06:04 Dose: 200 mls/hr Potassium Chloride/Sodium Chloride (Kcl 20meq In 0.45% Ns 1000ml) 1,000 mls @ 125 mls/hr IV .Q8H [facility] Last Admin: 10/08/18 06:05 Dose: 125 mls/hr Levothyroxine Sodium (Synthroid) 50 mcg PO DAILY@0600 [facility] Last Admin: 10/08/18 06:05 Dose: 50 mcg Magnesium Hydroxide (Milk Of Magnesia) 30 ml PO DAILY PRN PRN Reason: Constipation Nutritional Formula (Lactose Free) (Ensure Enlive) 120 ml PO 4X/DAY [facility] Last Admin: 10/07/18 21:53 Dose: Not Given Ondansetron HCl (Zofran) 4 mg IV Q6H PRN PRN PRN Reason: NAUSEA Last Admin: 10/07/18 22:18 Dose: 4 mg Oxycodone HCl (Oxyir) 5 mg PO Q6H PRN PRN PRN Reason: PAIN Last Admin: 10/08/18 06:18 Dose: 5 mg Pantoprazole Sodium (Protonix) 40 mg PO DAILY [facility] Last Admin: 10/07/18 09:39 Dose: 40 mg Polyethylene Glycol (Miralax) 17 gm PO BID [facility] Last Admin: 10/07/18 22:18 Dose: 17 gm Promethazine HCl (Phenergan) 12.5 mg IV Q6H PRN PRN PRN Reason: NAUSEA/VOMITING Last Admin: 10/08/18 06:21 Dose: 12.5 mg Sodium Chloride () 10 ml IV UD PRN PRN Reason: VAD FLUSH Last Admin: 10/07/18 06:25 Dose: 10 ml Trazodone HCl (Desyrel) 50 mg PO DAILY@2200 [facility] Last Admin: 10/07/18 22:18 Dose: 50 mg Medical Necessity - Tobacco Use Smoking Status: Former smoker Assessment/Plan All Active Problems (Last Reviewed 10/02/18 @ 14:08 by Maye Desai PA-C) DVT (deep venous thrombosis) (Acute) Pulmonary embolism (Acute) Acute deep vein thrombosis (DVT) of both lower extremities (Acute) UTI (urinary tract infection) (Acute) Bacteremia (Resolved) Ileus (Resolved) Hydronephrosis (Acute) Hydroureter (Acute) Pancytopenia (Acute) Septic shock (Resolved) Acute cholecystitis (Ruled-out) Constipation (Resolved) Gross hematuria (Resolved) 1. Septic shock * resolved * Developed after admission * 2/2 bacteremia and UTI * stable off hydrocortisone 2. Gram negative bacteremia * improved * Pseudomonas in 1, Pseudomonas, proteus and Klebsiela in another from the 3rd. * repeat BCx on the 4th negative * source * all organisms fairly sensitive * on Cefepime * ID recommends Cefepime through 10/15 3. UTI * likely primary source of above * CT showed ileal conduit thick wall * abx as above 4. Hydroureter/hydronephrosis * follow up with as outpt * likely 2/2 inflammation of ileal conduit causing obstruction 5. Pancytopenia * 2/2 chemo * oncology on consult * complicates care 6. VTE: * PE and DVT * small * doubt etiology of hypotension * echo EF 60% * per oncology, no treatment at this time * s/p IVC filter on 10/02 7. Hematuria * resolved * likely 2/2 thrombocytopenia and ileal conduit inflammation * follow up with as outpt. 8. Bladder CA * stage IV (brain mets) * on Carboplatin/gemcitabine, palliative * follow up with oncology as outpt. 9. DVT proph: * chemical prophylaxis contraindicated given thrombocytopenia * hold mechanical contraindicated given Bilateral DVTs 10. Neutropenia * resolved with Granix * DC granix 11. Debility: * placement pending precert, hopefully to SNF on 10/09 or . 12. Abdominal pain * chronic, but debilitating. * C. diff negative * Xray and CT unremarkable (and actually improved from admission) * increase PPI to BID * increase dose and frequency of oxycodone * consult palliative care for long-term symptom mgmt (patient in agreement) 13. Diarrhea * not C.diff * likely d/t abx * start imodium 14. Intractable nausea * refractory to zofran and phenergan * start haldol Code Visit Inpatient E&M: 42381 Subs Hosp L3
[2018-10-08] MEDS: Fluconazole 100 MG Tablet PO (10:04)
[2018-10-08] MEDS: Polyethylene Glycol 3350 17 GM PACKET PO (10:04)
[2018-10-08] MEDS: buPROPion (XL) 150 MG TABLET.XL PO (10:04)
[2018-10-08] MEDS: Pantoprazole Sodium 40 MG Tablet PO ×2 (10:06→21:23)
[2018-10-08] MEDS: Ondansetron 4 MG/2 ML Vial IV ×2 (10:29→21:23)
[2018-10-08] MEDS: Haloperidol Lactate 5 MG/ML Vial 1 MG IV ×2 (10:31→18:57)
--- NOTE | 2018-10-08 17:48 | NURSING ---
SPOKE WITH HOSPICE INTAKE PERSONNEL AND NURSE FRIEND TIA AT BEDSIDE AND IS ARGUMENTATIVE WITH STAFF, PT IS OK WITH HIM HAVING SHORT VISIT, THEYNHAVE BEEN TEXTING EACH OTHER ON CELL PHONES
--- NOTE | 2018-10-08 18:14 | NURSING ---
hospice nurse here to speak with pt about her options boyfriend robin in room, answering questions for pt and nurse encouraged him to allow the pt to answer the questions since she is able robin states she can beat this, dr akers just said so, pt seems unsure this nurse encouraged pt to speak to dr akers about her options and make an informed decision but that the decision is hers and staff will be supportive whichever she chooses
[2018-10-08] MEDS: ALPRAZolam 0.5 MG Tablet PO (21:23)
[2018-10-08] MEDS: traZODone 50 MG Tablet PO (21:23)
[2018-10-08] MEDS: Atorvastatin Calcium 80 MG Tablet PO (21:23)
[2018-10-09 03:39] VITALS: BP 101/61; PULSE 62; RESP 18; TEMP 36.7; O2SAT 95
[2018-10-09] MEDS: Levothyroxine 50 MCG Tablet PO (05:36)
[2018-10-09] MEDS: oxyCODONE 5 MG Tablet PO ×2 (05:36→12:36)
[2018-10-09] MEDS: Ondansetron 4 MG/2 ML Vial IV ×2 (05:37→13:21)
[2018-10-09] MEDS: 0.9% NaCl VAD Flush 10 ML IV ×5 (06:45→13:20)
[2018-10-09 07:13] LABS: Hematocrit 25.2 % (37-47); Hemoglobin 7.9 g/dl (12.0-15.0); Mean Corp Hgb Conc 31.3 g/gl (32-36); Mean Corpuscular Hgb 28.9 pg (27.0-32.0); Mean Corpuscular Volume 92.3 fL (81-99); Mean Platelet Vol. 11.4 fl (6.2-12.0); Platelet Count 68 K/mm3 (150-450); RBC Distribution Width CV 17.7 % (11.6-14.6); RBC Distribution Width SD 59.3 fl (35.1-43.9); Red Blood Count 2.73 M/mm3 (4.2-5.4)
[2018-10-09 07:14] LABS: BUN 18 mg/dL (7-18); BUN/Creat Ratio 27.5 RATIO (10-20); Chloride 107 mmol/L (98-107); Creatinine, Serum 0.66 mg/dL (0.55-1.02); EST Glomerular Filtration Rate 97 mL/min (>60); Est Glom Filt Rate - Afr Amer 117 mL/min (>60); Estimated Creatinine Clearance 78.57 ml/min; Glucose 63 mg/dL (74-106); Potassium 4.6 mmol/L (3.5-5.1); Sodium Level 140 mmol/L (136-145)
[2018-10-09 07:15] LABS: Anion Gap 7 (5-15); Differential Indicated MANUAL DIFF; POSITIVE COUNT YES; POSITIVE DIFFERENTIAL NO; POSITIVE MORPHOLOGY YES; White Blood Count 42.2 K/mm3 (4.4-11.0)
[2018-10-09 07:28] LABS: Blast 2 % (0-0); Lymphocyte 9 % (19-41); Metamyelocyte 2 % (0-1); Monocyte 14 % (0-10); Myelocyte 4 (0-0); Neutrophil-Band 7 % (0-5); Neutrophil-Segmented 60 % (47-70); Nucleated Red Bld Cells,Manual 2 % (0-5); Promyelocyte 2 (0-0); Total Cells Counted 100 (MANUAL DIFF)
[2018-10-09 07:30] LABS: Hypochromasia 2+; Platelet Estimate MKD DEC (ADEQ); Toxic Granulation 1+
[2018-10-09 07:31] LABS: Absolute Neutrophil Count 28.3 X10^3/uL (2.0-7.7)
[2018-10-09 07:48] VITALS: BP 102/62; PULSE 64; RESP 14; TEMP 37.1; O2SAT 96
[2018-10-09] MEDS: Acetaminophen 325 MG Tablet 650 MG PO (09:00)
[2018-10-09] MEDS: proMETHazine 25 MG/ML Syringe 12.5 MG IV (09:00)
[2018-10-09] MEDS: Fluconazole 100 MG Tablet PO (09:01)
[2018-10-09] MEDS: buPROPion (XL) 150 MG TABLET.XL PO (09:02)
[2018-10-09] MEDS: Pantoprazole Sodium 40 MG Tablet PO (09:02)
--- NOTE | 2018-10-09 09:15 | NURSING ---
urostomy appliance changed d/t leak. removed appliance. peristomal skin is intact. skin cleansed with warm water and pat dry. applied patient's 1 piece pre-cut convex Renu appliance. pt tolerated well. will monitor as needed.
[2018-10-09 10:09] VITALS: PULSE 63
--- NOTE | 2018-10-09 10:09 | CASEMGMT ---
Addendum entered by Marlys Salcedo 10/09/18 10:47: George from [facility] updated this worker that pt signed with [facility]. LUDWIN placed a call to aSrah at [facility] and updated her that pt is ready for discharge once pre-cert is obtained and pt signed with [facility]. Original Note: Social Work Note LUDWIN faxed updated clinicals to Sarah at [facility]. Plan: [facility] pending pre-cert Marlys Salcedo ASSEMBLY CLEANER, [employer]LE DATABASE DEVELOPER
[2018-10-09 11:37] LABS: Pathologist Review Reviewed
[2018-10-09 11:38] LABS: Pathologist Review Reviewed
[2018-10-09 12:01] VITALS: BP 98/54; PULSE 84; RESP 14; TEMP 36.8; O2SAT 94
--- NOTE | 2018-10-09 12:24 | PCM.TXEXTCAR ---
- Diet 10/03/18 13:19 Diet: Regular Diet Is pt able to select menu?: yes Diet Comments: no beef, milk, beets - Routine Orders/Code Status O2 Frequency: Continuous Keep PO Greater than or Equal to (%): 2 Routine Lab Work: CBC - every Tuesday, BMP - every Tuesday Code Status: Full Code - Wound(s) Right Wrist Wound Type: Puncture right neck Wound Type: Surgical Incision LOWER ABD BELOW UROSTOMY Wound Type: pt states it is from her underware - Therapies Weight Bearing: Full weight bearing Extremity Affected:: Bilateral Lower Physical Therapy: Eval and Treat Occupational Therapy: Eval and Treat - Problem/Diagnosis (1) Pulmonary embolism Status: Acute Current Visit: Yes (2) Acute deep vein thrombosis (DVT) of both lower extremities Status: Acute Current Visit: Yes (3) UTI (urinary tract infection) Status: Acute Current Visit: No (4) Bacteremia Status: Resolved Comment: Pseudomonas Current Visit: No (5) Pancytopenia Status: Acute Current Visit: No (6) Septic shock Status: Acute Current Visit: No (7) History of bladder cancer Status: Chronic Comment: 2017 Current Visit: No (8) Hyperlipemia Status: Chronic Current Visit: No (9) Chronic obstructive lung disease Status: Chronic Current Visit: No (10) Acute respiratory failure with hypoxia Status: Acute Current Visit: Yes - Allergies/Procedures Done in Hospital Allergies/Adverse Reactions: Allergies fentanyl Allergy (Verified 09/25/18 09:37) Anaphylaxis codeine Adverse Reaction (Verified 09/25/18 09:37) Unknown Sulfa (Sulfonamide Antibiotics) Adverse Reaction (Verified 09/25/18 09:37) Unknown Procedures: 2-D Echocardiogram - Type of Care/Length of Stay Estimated LOS: Convalescent Care Less Than 30 days Type of Care Needed: Skilled Rehab Potential: Fair Prognosis: Fair - Additional Orders/Day of Discharge H&P will serve as current which was dated: 09/30/18 Day of Discharge: 10/09/18 - Dietary and Speech Recommendations Dietitian Recommendations/Changes: Recommend continuing liberal regular diet. Will continue to provide ONS w/ medpass and Magic Cup and Ensure Pudding w/ meals. - Follow Up Care Primary Care Physician: Osman Alexander DO [Primary Care Provider] - Within 2 Weeks Please Follow Up With: Waylon Toledo MD When: 2 weeks Please Follow Up With: Heriberto Hayden MD When: 2-3 weeks
--- NOTE | 2018-10-09 13:30 | CASEMGMT ---
Social Work Note SW received call from Sarah at [facility] stating pre-cert has been obtained. LUDWIN updated physician of this. LUDWIN faxed completed discharge paperwork to Sarah at [facility] including transfer to extended care facility, signed medication list and any scripts. Originals in SNF folder and copy on pt's chart. LUDWIN completed convalescent 7000 in [facility]. Originals in SNF folder and copy on pt's chart. LUDWIN set up transportation through [facility] via cot for 2:30pm. Transportation form on SNF folder and copy on pt's chart. LUDWIN updated MICHAEL Jacques, accredited legal secretary Kenyetta and placed a call to Sarah at [facility] and updated her on transportation time. LUDWIN provided accredited legal secretary Kenyetta with original Advanced directives and informed Kenyetta that pt's advanced directives are to be sent with pt to [facility]. LUDWIN had received message from pt's sister Alena requesting pt's Advanced Directives be fax[facility] (fax [phone]) as Alena is trying to get pt's insurance set up for [place] once pt is able to discharge there. Alena is also requesting pt's medical records be faxed to [facility] (fax [phone].) LUDWIN in to update pt that pre-cert has been obtained. LUDWIN informed pt that pt's sister is requesting to have the above mentioned documents fax on behalf of the pt. PT signed release of medical record authorization for both advanced directives and medical records. LUDWIN faxed copy of advanced directives to [facility] and faxed release of authorization of medical records to medical records at [facility]. LUDWIN placed a call to pt's daughter Lucia who is listed as HCPOA and left her a message updating her that pt will be discharged today to [facility]. LUDWIN placed a call to pt's sister Alena and updated that that advanced directives have been faxed, medical records received authorization to fax Medical records and pt will be discharged today. Alena states understanding. LUDWIN provided Alena with number to [facility]. Plan: Pt to discharge to [facility] for rehabilitation under skilled today at 2:30pm with [facility] transporting via cot Marlys SAMSON, PILLOWCASE CLEANER
[2018-10-09 14:13] VITALS: RESP 14
--- NOTE | 2018-10-09 14:18 | NURSING ---
report called to Feliciano at [facility].
[2018-10-09 14:39] VITALS: O2SAT 96
--- NOTE | 2018-10-11 21:37 | PCM.DC.SUM ---
Discharge Date and Diagnosis Date of Admission: 09/30/18 Date of Discharge: 10/09/18 - Primary Discharge Diagnosis #1 septic shock secondary to pyelonephritis from Klebsiella pneumoniae, Proteus hauseri, and Pseudomonas aeruginosa #2 pancytopenia secondary to chemotherapy #3 acute hypoxic respiratory failure secondary to pulmonary embolism, COPD, and atelectasis #4 acute PE with bilateral DVTs #5 stage IV bladder cancer #6 debility secondary to multiple medical problems and septic shock #7 hypokalemia #8 chronic obstructive pulmonary disease - Secondary Discharge Diagnosis Chronic Problems (Last Reviewed 10/02/18 @ 14:08 by Maye Desai PA-C) Ataxia (Chronic) Bladder cancer (Chronic) Abdominal pain (Chronic) Vaginal discharge (Chronic) Abdominal mass (Chronic) Brain metastases (Chronic) Chemotherapy management, encounter for (Chronic) History of bladder cancer (Chronic) 2017 Hyperlipemia (Chronic) Hypothyroidism (Chronic) Anxiety (Chronic) Chronic obstructive lung disease (Chronic) Primary fibromyalgia syndrome (Chronic) Shoulder pain (Chronic) Hospital Course and Treatment Consultations 10/03/18 10:12 Consult: Onc/Wound/diesel service technician Routine Comment: Reason for Consult:: PT W/UROSTOMY-DOES NOT HAVE SUPPLIES AT HOSP Comments:: REPORTS BAG NEEDS CHANGED Procedures: 2-D Echocardiogram, IVC filter placement Summary of Care Provided: The patient is a 63 year old F seen in the emergency room at [facility] with a chief complaint of blood in her ileal conduit bag. Patient also complained of being weak and somnolent. Patient was currently undergoing chemotherapy for stage IV bladder carcinoma. Workup in the emergency room included labs which was remarkable for pancytopenia, urinalysis showed signs of blood and possible infection, lactic acid was normal, chest x-ray showed chronic changes, CTA of the chest was performed which showed a right lower lobe subsegmental pulmonary embolus and chronic changes. Abdominal CT showed postop chronic changes as well as a possible ileus. Patient had fluids administered, IV antibiotics were administered, her status was discussed with her oncologist and she was admitted to the hospitalist service on PCU but later transferred to ICU due to low blood pressure and probable septic shock. Patient was seen in consultation by infectious diseases and critical care, due to her pancytopenia, patient cannot be anticoagulated and general surgery was consulted for insertion of IVC filter. Patient's respiratory status declined but patient never underwent intubation. Patient's urine culture grew out Pseudomonas, her blood culture also grew out Pseudomonas, Klebsiella, and Proteus. Patient underwent a long protracted course in the hospital, she was given Granix and remained pancytopenic for quite some time. She did not receive platelet transfusion during her hospital stay. She was seen in consultation by PT and OT and it was felt necessary to transfer the patient for further inpatient skilled care to a halfway facility. On 10/09/18 patient was seen and examined: On examination she appeared in good health and spirits. Vital signs as documented. Skin warm and dry and without overt rashes. Neck without JVD. Lungs clear. Heart exam notable for regular rhythm, normal sounds and absence of murmurs, rubs or gallops. Abdomen unremarkable and without evidence of organomegaly, masses, or abdominal aortic enlargement. Ileal conduit was present. Extremities nonedematous. Neuro: Cranial nerves II through XII grossly intact, no focal motor deficits were noted. Psych: Patient's affect was flat, she did not appear to be anxious or depressed however, she was alert and oriented x3 On 10/09/18, patient was seen and examined and felt to be in stable condition for transfer to a halfway facility for further rehab services. - Physical Exam Vital Signs Temp Pulse Resp BP Pulse Ox 98.2 F 84 14 98/54 L 96 10/09/18 12:01 10/09/18 12:01 10/09/18 14:13 10/09/18 12:01 10/09/18 14:39 Oxygen Flow Rate (L/min) 2 Oxygen Delivery Method Nasal Cannula Weight: 57.8 kg Body Mass Index (BMI) 25.9 Finger Stick Blood Glucose 132 Intake and Output for Last 24 Hours 10/09/18 10/10/18 10/11/18 23:59 23:59 23:59 Intake Total 2057 Output Total 1450 / 1450 Balance 608 / 608 Discharge Diet: No Restrictions Discharge Activity: Return to Normal Activity Home Medications: Medications to take at Discharge Fluoxetine HCl [Prozac] 60 mg PO DAILY 07/10/17 Gabapentin [Neurontin] 800 mg PO TID 07/10/17 Levothyroxine [Synthroid] 50 mcg PO DAILY 07/10/17 Loratadine 10 mg PO DAILY PRN PRN 07/23/17 Atorvastatin Calcium 80 mg PO DAILY 12/20/17 albuterol sulfate 0.63 mg/3 mL solution for nebulization 0.63 mg INHALATION Q6H PRN #75 ml 02/24/18 Dexamethasone [Decadron] 4 mg PO BIDCM #60 tablet 08/30/18 Senna [Senokot] 2 tablet PO DAILY #60 tablet 09/12/18 Lidocaine/Prilocaine [Lidocaine-Prilocaine Cream] 30 gm TP DAILY PRN PRN 30 Days #1 cream..g. 09/14/18 Bupropion HCl [Bupropion Xl] 150 mg PO DAILY 09/30/18 Trazodone HCl 50 mg PO DAILY 09/30/18 Cefepime HCl [Maxipime] 2 gm IV Q8 #30 vial 10/05/18 ALPRAZolam [Xanax] 0.5 mg PO BID PRN PRN #6 tab 10/07/18 Ensure Enlive 120 ml PO 4X/DAY liquid 10/07/18 Fluconazole [Diflucan] 100 mg PO DAILY tablet 10/07/18 Pantoprazole Sodium [Protonix] 40 mg PO DAILY tablet 10/07/18 Polyethylene Glycol 3350 [Miralax] 17 gm PO BID packet 10/07/18 Following Prescrptions Were Given to Patient: ALPRAZolam [Xanax] 0.5 mg PO BID PRN PRN #6 tab PRN Reason: Anxiety Cefepime HCl [Maxipime] 2 gm IV Q8 #30 vial Primary Care Physician: Osman Alexander DO [Primary Care Provider] - Within 2 Weeks Please Follow Up With: Waylon Toledo MD When: 2 weeks Please Follow Up With: Heriberto Hayden MD When: 2-3 weeks Disposition: [facility] facility Minutes spent on discharge:: 35 Patient Condition:: Stable Medical Necessity - Tobacco Use Smoking Status: Former smoker Meaningful Use Info Meaningful Use Diagnoses (Choose all that apply): VTE - VTE Anticoag overlap given w/in hospital stay or rx'd at wi?: No Pt receive overlap for 5 days?: No Reason overlap not ordered, prescribed, or given for 5 days: Medical Contraindication - Patient had pancytopenia and hematuria, not a candidate for anticoagulation Code Visit Inpatient E&M: [id number] [facility]
--- NOTE | 2018-10-11 21:42 | DS.PCM_ITS ---
Discharge Date and Diagnosis Date of Admission: 09/30/18 Date of Discharge: 10/09/18 - Primary Discharge Diagnosis #1 septic shock secondary to pyelonephritis from Klebsiella pneumoniae, Proteus hauseri, and Pseudomonas aeruginosa #2 pancytopenia secondary to chemotherapy #3 acute hypoxic respiratory failure secondary to pulmonary embolism, COPD, and atelectasis #4 acute PE with bilateral DVTs #5 stage IV bladder cancer #6 debility secondary to multiple medical problems and septic shock #7 hypokalemia #8 chronic obstructive pulmonary disease - Secondary Discharge Diagnosis Chronic Problems (Last Reviewed 10/02/18 @ 14:08 by Maye Desai PA-C) Ataxia (Chronic) Bladder cancer (Chronic) Abdominal pain (Chronic) Vaginal discharge (Chronic) Abdominal mass (Chronic) Brain metastases (Chronic) Chemotherapy management, encounter for (Chronic) History of bladder cancer (Chronic) 2017 Hyperlipemia (Chronic) Hypothyroidism (Chronic) Anxiety (Chronic) Chronic obstructive lung disease (Chronic) Primary fibromyalgia syndrome (Chronic) Shoulder pain (Chronic) Hospital Course and Treatment Consultations 10/03/18 10:12 Consult: Onc/Wound/fabrics and material cutter Routine Comment: Reason for Consult:: PT W/UROSTOMY-DOES NOT HAVE SUPPLIES AT HOSP Comments:: REPORTS BAG NEEDS CHANGED Procedures: 2-D Echocardiogram, IVC filter placement Summary of Care Provided: The patient is a 63 year old F seen in the emergency room at [facility] with a chief complaint of blood in her ileal conduit bag. Patient also complained of being weak and somnolent. Patient was currently undergoing chemotherapy for stage IV bladder carcinoma. Workup in the emergency room included labs which was remarkable for pancytopenia, urinalysis showed signs of blood and possible infection, lactic acid was normal, chest x-ray showed chronic changes, CTA of the chest was performed which showed a right lower lobe subsegmental pulmonary embolus and chronic changes. Abdominal CT showed postop chronic changes as well as a possible ileus. Patient had fluids administered, IV antibiotics were administered, her status was discussed with her oncologist and she was admitted to the hospitalist service on PCU but later transferred to ICU due to low blood pressure and probable septic shock. Patient was seen in consultation by infectious diseases and critical care, due to her pancytopenia, patient cannot be anticoagulated and general surgery was consulted for insertion of IVC filter. Patient's respiratory status declined but patient never underwent intubation. Patient's urine culture grew out Pseudomonas, her blood culture also grew out Pseudomonas, Klebsiella, and Proteus. Patient underwent a long protracted course in the hospital, she was given Granix and remained pancytopenic for quite some time. She did not receive platelet transfusion during her hospital stay. She was seen in consultation by PT and OT and it was felt necessary to transfer the patient for further inpatient skilled care to a detention facility. On 10/09/18 patient was seen and examined: On examination she appeared in good health and spirits. Vital signs as documented. Skin warm and dry and without overt rashes. Neck without JVD. Lungs clear. Heart exam notable for regular rhythm, normal sounds and absence of murmurs, rubs or gallops. Abdomen unremarkable and without evidence of organomegaly, masses, or abdominal aortic enlargement. Ileal conduit was present. Extremities nonedematous. Neuro: Cranial nerves II through XII grossly intact, no focal motor deficits were noted. Psych: Patient's affect was flat, she did not appear to be anxious or depressed however, she was alert and oriented x3 On 10/09/18, patient was seen and examined and felt to be in stable condition for transfer to a detention facility for further rehab services. - Physical Exam Vital Signs Temp Pulse Resp BP Pulse Ox 98.2 F 84 14 98/54 L 96 10/09/18 12:01 10/09/18 12:01 10/09/18 14:13 10/09/18 12:01 10/09/18 14:39 Oxygen Flow Rate (L/min) 2 Oxygen Delivery Method Nasal Cannula Weight: 57.8 kg Body Mass Index (BMI) 25.9 Finger Stick Blood Glucose 132 Intake and Output for Last 24 Hours 10/09/18 10/10/18 10/11/18 23:59 23:59 23:59 Intake Total 2057 Output Total 1450 / 1450 Balance 608 / 608 Discharge Diet: No Restrictions Discharge Activity: Return to Normal Activity Home Medications: Medications to take at Discharge Fluoxetine HCl [Prozac] 60 mg PO DAILY 07/10/17 Gabapentin [Neurontin] 800 mg PO TID 07/10/17 Levothyroxine [Synthroid] 50 mcg PO DAILY 07/10/17 Loratadine 10 mg PO DAILY PRN PRN 07/23/17 Atorvastatin Calcium 80 mg PO DAILY 12/20/17 albuterol sulfate 0.63 mg/3 mL solution for nebulization 0.63 mg INHALATION Q6H PRN #75 ml 02/24/18 Dexamethasone [Decadron] 4 mg PO BIDCM #60 tablet 08/30/18 Senna [Senokot] 2 tablet PO DAILY #60 tablet 09/12/18 Lidocaine/Prilocaine [Lidocaine-Prilocaine Cream] 30 gm TP DAILY PRN PRN 30 Days #1 cream..g. 09/14/18 Bupropion HCl [Bupropion Xl] 150 mg PO DAILY 09/30/18 Trazodone HCl 50 mg PO DAILY 09/30/18 Cefepime HCl [Maxipime] 2 gm IV Q8 #30 vial 10/05/18 ALPRAZolam [Xanax] 0.5 mg PO BID PRN PRN #6 tab 10/07/18 Ensure Enlive 120 ml PO 4X/DAY liquid 10/07/18 Fluconazole [Diflucan] 100 mg PO DAILY tablet 10/07/18 Pantoprazole Sodium [Protonix] 40 mg PO DAILY tablet 10/07/18 Polyethylene Glycol 3350 [Miralax] 17 gm PO BID packet 10/07/18 Following Prescrptions Were Given to Patient: ALPRAZolam [Xanax] 0.5 mg PO BID PRN PRN #6 tab PRN Reason: Anxiety Cefepime HCl [Maxipime] 2 gm IV Q8 #30 vial Primary Care Physician: Osman Alexander DO [Primary Care Provider] - Within 2 Weeks Please Follow Up With: Waylon Toledo MD When: 2 weeks Please Follow Up With: Heriberto Hayden MD When: 2-3 weeks Disposition: Residential facility Minutes spent on discharge:: 35 Patient Condition:: Stable Medical Necessity - Tobacco Use Smoking Status: Former smoker Meaningful Use Info Meaningful Use Diagnoses (Choose all that apply): VTE - VTE Anticoag overlap given w/in hospital stay or rx'd at wa?: No Pt receive overlap for 5 days?: No Reason overlap not ordered, prescribed, or given for 5 days: Medical Contraindication - Patient had pancytopenia and hematuria, not a candidate for anticoagulation Code Visit Inpatient E&M: [id number] [facility]
== END 2018-10-09 14:39 | disposition skilled nursing facility (03) | DRG 720 ==
LOC: ED 18:47 → PCU 23:23 → ICU 10-01 05:20 → MS3 10-04 06:51
PROVIDERS: Internal Medicine Critical Care Medicine; Admitting Provider Hospitalist; Emergency Provider Emergency Medicine; Family Provider Preventive Medicine Occupational Medicine; PCP Preventive Medicine Occupational Medicine; Visit Provider Internal Medicine
DX: A41.50 Gram-negative sepsis, unspecified (principal); N39.0 Urinary tract infection, site not specified; Z90.6 Acquired absence of other parts of urinary tract; I26.99 Other pulmonary embolism without acute cor pulmonale; I82.441 Acute embolism and thrombosis of right tibial vein; I82.4Z1 Acute embolism and thrombosis of unspecified deep veins of right distal lower extremity; R65.21 Severe sepsis with septic shock; I82.4Z2 Acute embolism and thrombosis of unspecified deep veins of left distal lower extremity; R31.0 Gross hematuria; C67.9 Malignant neoplasm of bladder, unspecified; D61.810 Antineoplastic chemotherapy induced pancytopenia; T45.1X5A Adverse effect of antineoplastic and immunosuppressive drugs, initial encounter; C79.31 Secondary malignant neoplasm of brain; Z87.891 Personal history of nicotine dependence; N13.30 Unspecified hydronephrosis; J96.01 Acute respiratory failure with hypoxia; E03.9 Hypothyroidism, unspecified; E78.5 Hyperlipidemia, unspecified; D70.9 Neutropenia, unspecified; R19.7 Diarrhea, unspecified; Z93.6 Other artificial openings of urinary tract status
CPT/HCPCS: 36415; 37191; 70450; 71045; 71275; 74018; 74176; 74177; 76937; 80048; 80053; 81001; 82962; 83605; 83735; 84100; 84484; 85025; 85027; 85610; 85730; 86644; 86850; 86900; 86965; 87040; 87070; 87077; 87086; 87088; 87184; 87186; 87205; 87493; 87641; 93005; 93306; 93970; 94640; 94762; 97110; 97116; 97162; 97165; 97530; 97535; 99152; 99153; 99284; J2185; J7030; J7040; P9037; Q9967; A4216; C1769; C1880; C1894; J1447; J2405